=== PATIENT | female | born 1935 | race Caucasian/White ===

== ENCOUNTER 2016-12-16 04:56 | Emergency (ER) | payer MEDICARE, OTHER ==
[2016-12-16 05:19] VITALS: BP 149/69
--- NOTE | 2016-12-16 05:43 | EDM.PDOC ---
ED HPI Trauma - General Chief Complaint: Lower Extremity Injury/Pain Stated Complaint: [facility] Time Seen by Provider: 12/16/16 04:57 Source: Reports: Patient, EMS, RN notes reviewed - History of Present Illness INITIAL COMMENTS - FREE TEXT/NARRATIVE: 81-year-old female is reported to fall out of bed this morning. She has been having quite severe left-sided hip discomfort for several months. this has been worsening, especially for the past one to 2 months. She apparently did have her hip and low back injected several months ago. This morning after falling she was not able to get up to her feet. Ambulance was called. She was transported here without further incident. She denies head or neck pain or injury. She denies chest pain or difficulty breathing. SHe does have pain of the lateral and anterior aspect of the left hip. Increased pain with motion of the left lower extremity. No deformity noted. upon further questioning she states that she does have history of arthritis of the hip. She has been using a walker to get about. This is becoming increasingly difficult for her the past couple of weeks. she does have history of hypertension. She is noted to be on Coumadin in addition to her other medications. She states this was due to previous "blood clot" Allergies/ADRs: Allergies cephalexin Allergy (Verified 12/16/16 05:08) Rash Sulfa (Sulfonamide Antibiotics) Allergy (Verified 12/16/16 05:08) Rash Home Medications: Ambulatory Orders Carvedilol [Coreg] 6.25 mg PO BID 03/01/15 [Confirmed 03/15/15] Furosemide 20 mg PO DAILY 03/01/15 [Confirmed 03/15/15] Hydrocodone/Acetaminophen [Hydrocodon-Acetaminophn 10-325] 1 - 2 tab PO DAILY [Confirmed 03/15/15] PARoxetine [Paxil] 20 mg PO DAILY 03/01/15 [Confirmed 03/15/15] Potassium Chloride 10 meq PO BID 03/01/15 [Confirmed 03/15/15] Simvastatin [Zocor] 20 mg PO BEDTIME 03/01/15 [Confirmed 03/15/15] Sotalol [Betapace] 80 mg PO BID 03/01/15 [Confirmed 03/15/15] Warfarin [Coumadin] 2.5 mg PO ONCALL 03/01/15 [Confirmed 03/15/15] Warfarin [Coumadin] 5 mg PO ONCALL 03/01/15 [Confirmed 03/15/15] Zolpidem [Ambien] 10 mg PO BEDTIME 03/01/15 [Confirmed 03/15/15] amLODIPine [Norvasc] 5 mg PO DAILY 03/01/15 [Confirmed 03/15/15] Zolpidem [Ambien] 5 mg PO BEDTIME #5 tablet 10/06/16 Past Medical History HEENT History: Reports: Cataract Other HEENT History: wears eyeglasses Cardiovascular History: Reports: Hypertension Respiratory History: Reports: SOB 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 History: Reports: GERD Genitourinary History: Reports: Retention, urinary 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 History: Reports: Musculoskeletal History: Reports: Arthritis, Back pain, chronic Other Musculoskeletal History: L) ankle fx in 2006 Hematologic History: Reports: Blood transfusion(s) Dermatologic History: Reports: Eczema - Past Surgical History HEENT Surgical History: Reports: Adenoidectomy, Cataract surgery, Tonsillectomy Female Surgical History: Reports: D&C Other Musculoskeletal Surgeries/Procedures:: several back surgeries Social & Family History - Family History Family Medical History: Noncontributory - Tobacco Use Smoking Status *Q: Never Smoker - Caffeine Use Caffeine Use: Reports: Soda - Alcohol Use Days Per Week of Alcohol Use: 0 - Recreational Drug Use Recreational Drug Use: No Review of Systems - Review of Systems Review Of Systems: See Below Constitutional: Denies: chills, fever Mouth/Throat: Reports: no symptoms Respiratory: Denies: shortness of breath, pleuritic chest pain Cardiovascular: Denies: chest pain GI/Abdominal: Denies: Abdominal pain, Nausea, Vomiting Musculoskeletal: Reports: joint pain (left hip) Neurological: Reports: difficulty walking. Denies: numbness, tingling, trouble speaking, weakness Trauma Exam - Physical Exam Exam: See Below General Appearance: Reports: alert Head: Reports: atraumatic Eyes: bilateral eye: PERRL Ears: Reports: normal external exam Throat/Mouth: Reports: Normal inspection, Normal oropharynx Neck: Reports: non-tender Respiratory Exam: Reports: no respiratory distress, lungs clear, normal breath sounds Cardiovascular: Reports: regular rate, rhythm GI/Abdominal: Reports: soft, non tender Back: Denies: CVA tenderness (R), CVA tenderness (L) Extremities: Reports: pelvis stable, bony-point tenderness (left lateral hip), pain with movement (left hip), pedal edema (race bilateral) Neurologic: Reports: no motor/sensory deficits Skin: Reports: Normal color, Warm/dry EKG INTERPRETATION EKG Date: 12/16/16 [place]: normal P-wave: present QRS: other (Q waves inferior leads, low voltage all extremity leads) Course - Vital Signs Last Recorded V/S: Last Vital Signs Temp 97.4 F 12/16/16 05:16 Pulse 77 12/16/16 05:16 Resp 18 12/16/16 05:16 BP 149/69 H 12/16/16 05:16 Pulse Ox 100 12/16/16 05:16 - Orders/Labs/Meds Orders: Active Orders 24 hr Category Date Time Status EKG 12 Lead [EKG Documentation Completion] [RC] STAT Care 12/16/16 05:44 Active Peripheral IV Care [RC] . DIRECTED Care 12/16/16 05:45 Active Hip Min 2V or 3V w Pelvis Lt [CR] Stat Exams 12/16/16 05:04 Taken Hip wo Cont Lt [CT] Stat Exams 12/16/16 06:13 Taken Sodium Chloride 0.9% [Normal Saline] 1,000 ml Med 12/16/16 05:45 Active IV ASDIRECTED Sodium Chloride 0.9% [Saline Flush] Med 12/16/16 05:44 Active 10 ml FLUSH ASDIRECTED PRN Peripheral IV Insertion Adult [OM.PC] Stat Oth 12/16/16 05:44 Ordered Medication Orders Sodium Chloride (Normal Saline) 1,000 mls @ 75 mls/hr IV ASDIRECTED PHILOMENA Last Admin: 12/16/16 05:55 Dose: 75 mls/hr Sodium Chloride (Saline Flush) 10 ml FLUSH ASDIRECTED PRN PRN Reason: Keep Vein Open Last Admin: 12/16/16 07:38 Dose: 10 ml Labs: Laboratory Tests 12/16/16 12/16/16 12/16/16 Range/Units 05:50 05:50 05:50 WBC 5.97 (3.98-10.04) K/mm3 RBC 3.87 L (3.98-5.22) M/mm3 Hgb 11.7 (11.2-15.7) gm/L Hct 36.4 (34.1-44.9) % MCV 94.1 (79.4-94.8) fl MCH 30.2 (25.6-32.2) pg MCHC 32.1 L (32.2-35.5) g/dl RDW Std Deviation 57.3 H (36.4-46.3) fL Plt Count 206 (182-369) K/mm3 MPV 10.2 (9.4-12.3) fl Neut % (Auto) 82.1 H (34.0-71.1) % Lymph % (Auto) 9.0 L (19.3-51.7) % [place] % (Auto) 8.7 (4.7-12.5) % Eos % (Auto) 0 L (0.7-5.8) Baso % (Auto) 0.0 L (0.1-1.2) % Neut # 4.90 (1.56-6.13) K/mm3 Lymph # 0.54 L (1.18-3.74) K/mm3 [place] # 0.52 H (0.24-0.36) K/mm3 Eos # 0.00 L (0.04-0.36) K/mm3 Baso # 0.00 L (0.01-0.08) K/mm3 Manual Slide Review Abnormal smear ESR (0-20) mm/hr PT 68.9 H* (8.0-13.0) SECONDS INR 5.66 H* Sodium 143 (136-145) mEq/L Potassium 3.4 L (3.5-5.1) mEq/L Chloride 107 (98-107) mEq/L Carbon Dioxide 28 (21-32) mEq/L Anion Gap 11.4 (5-15) BUN 23 H (7-18) mg/dL Creatinine 1.1 H (0.55-1.02) mg/dL Est Cr Clr Drug Dosing 29.79 mL/min Estimated GFR (MDRD) 48 (>60) mL/min BUN/Creatinine Ratio 20.9 H (14-18) Glucose 129 H (83-115) mg/dL Calcium 8.7 (8.5-10.1) mg/dL Total Bilirubin 1.0 (0.2-1.0) mg/dL AST 18 (15-37) U/L ALT 17 (14-59) U/L Alkaline Phosphatase 104 (46-116) U/L C-Reactive Protein < 0.2 (<1.0) mg/dL Total Protein 6.0 L (6.4-8.2) g/dl Albumin 3.1 L (3.4-5.0) g/dl Globulin 2.9 gm/dL Albumin/Globulin Ratio 1.1 (1-2) 12/16/16 Range/Units 05:50 WBC (3.98-10.04) K/mm3 RBC (3.98-5.22) M/mm3 Hgb (11.2-15.7) gm/L Hct (34.1-44.9) % MCV (79.4-94.8) fl MCH (25.6-32.2) pg MCHC (32.2-35.5) g/dl RDW Std Deviation (36.4-46.3) fL Plt Count (182-369) K/mm3 MPV (9.4-12.3) fl Neut % (Auto) (34.0-71.1) % Lymph % (Auto) (19.3-51.7) % [place] % (Auto) (4.7-12.5) % Eos % (Auto) (0.7-5.8) Baso % (Auto) (0.1-1.2) % Neut # (1.56-6.13) K/mm3 Lymph # (1.18-3.74) K/mm3 [place] # (0.24-0.36) K/mm3 Eos # (0.04-0.36) K/mm3 Baso # (0.01-0.08) K/mm3 Manual Slide Review ESR 18 (0-20) mm/hr PT (8.0-13.0) SECONDS INR Sodium (136-145) mEq/L Potassium (3.5-5.1) mEq/L Chloride (98-107) mEq/L Carbon Dioxide (21-32) mEq/L Anion Gap (5-15) BUN (7-18) mg/dL Creatinine (0.55-1.02) mg/dL Est Cr Clr Drug Dosing mL/min Estimated GFR (MDRD) (>60) mL/min BUN/Creatinine Ratio (14-18) Glucose (83-115) mg/dL Calcium (8.5-10.1) mg/dL Total Bilirubin (0.2-1.0) mg/dL AST (15-37) U/L ALT (14-59) U/L Alkaline Phosphatase (46-116) U/L C-Reactive Protein (<1.0) mg/dL Total Protein (6.4-8.2) g/dl Albumin (3.4-5.0) g/dl Globulin gm/dL Albumin/Globulin Ratio (1-2) Meds: Medications Generic Name Dose Route Start Last Admin Trade Name Freq PRN Reason Stop Dose Admin Sodium Chloride 1,000 mls @ 75 mls/hr 12/16/16 05:45 12/16/16 05:55 Normal Saline IV 75 mls/hr ASDIRECTED PHILOMENA Administration Sodium Chloride 10 ml 12/16/16 05:44 12/16/16 07:38 Saline Flush FLUSH 10 ml ASDIRECTED PRN Administration Keep Vein Open Discontinued Medications Generic Name Dose Route Start Last Admin Trade Name Freq PRN Reason Stop Dose Admin Hydromorphone HCl 0.25 mg 12/16/16 05:52 12/16/16 05:59 Dilaudid IVPUSH 12/16/16 05:53 0.25 mg ONETIME ONE Administration Hydromorphone HCl 0.25 mg 12/16/16 06:18 12/16/16 06:21 Dilaudid IVPUSH 12/16/16 06:19 0.25 mg ONETIME ONE Administration Phytonadione 5 mg 12/16/16 08:06 Aquamephyton PO 12/16/16 08:07 ONETIME ONE - Re-Assessments/Exams Free Text/Narrative Re-Assessment/Exam: 12/16/16 05:49 x-rays of the left hip and pelvis show that there has been some sort of destructive process resulting in complete loss of the left femoral neck and head. This results in dislocation of the femur relative to the acetabulum. irregularity of the acetabulum suggests destructive process. See radiology report for details. Will check labs including white blood count, C-reactive protein and sedimentation rate. Also of note she is on Coumadin. this is apparently for history of previous "blood clot" We'll check pro time INR. 12/16/16 07:43. Discussed this a while ago with Dr. Delgado Orthopedist nurse monitoring. With high concern for malignancy he is requesting a transfer to [facility]. Contact has been made with Dr. Major, Orthopedist nurse monitoring who is in surgery at the present time. Films have been pushed to [facility] , when he has a chance to review those he will call back and let us be aware that we can transfer patient as planned. She will go by ground ambulance. She has had dilaudid 0.25 mg IV times 2 for pain and that is helping her. As noted above she is on Coumadin with history of previous "blood clot". INR has come back elevated at 5.66. Will give vitamin K 5 mg PO at this time. Departure - Departure Time of Disposition: 08:17 Disposition: DC/Tfer to Acute Hospital 02 Condition: serious Clinical Impression: Hip fracture, pathological Qualifiers: Encounter type: initial encounter Pathology associated with fracture: unspecified disease Laterality: left Qualified Code(s): M84.452A - Pathological fracture, left femur, initial encounter for fracture Fall Qualifiers: Encounter type: initial encounter Qualified Code(s): W19.XXXA - Unspecified fall, initial encounter Referrals: Brunilda Wadsworth, [employer] [Primary Care Provider] - Forms: ED Department Discharge - My Orders Last 24 Hours: My Active Orders 12/16/16 05:04 Hip Min 2V or 3V w Pelvis Lt [CR] Stat 12/16/16 05:44 EKG 12 Lead [EKG Documentation Completion] [RC] STAT Sodium Chloride 0.9% [Saline Flush] 10 ml FLUSH ASDIRECTED PRN Peripheral IV Insertion Adult [OM.PC] Stat 12/16/16 05:45 Peripheral IV Care [RC] . DIRECTED Sodium Chloride 0.9% [Normal Saline] 1,000 ml IV ASDIRECTED 12/16/16 06:13 Hip wo Cont Lt [CT] Stat - Assessment/Plan Last 24 Hours: My Active Orders 12/16/16 05:04 Hip Min 2V or 3V w Pelvis Lt [CR] Stat 12/16/16 05:44 EKG 12 Lead [EKG Documentation Completion] [RC] STAT Sodium Chloride 0.9% [Saline Flush] 10 ml FLUSH ASDIRECTED PRN Peripheral IV Insertion Adult [OM.PC] Stat 12/16/16 05:45 Peripheral IV Care [RC] . DIRECTED Sodium Chloride 0.9% [Normal Saline] 1,000 ml IV ASDIRECTED 12/16/16 06:13 Hip wo Cont Lt [CT] Stat
[2016-12-16] MEDS ORDERED: Sodium Chloride 0.9% 10 ML Syringe FLUSH PRN (05:44)
[2016-12-16] MEDS ORDERED: Sodium Chloride 0.9% 1,000 ML IV SCH (05:45)
[2016-12-16] MEDS ORDERED: HYDROmorphone 0.5 MG/0.5 ML Syringe IVPUSH ONE ×2 (05:52→06:18)
[2016-12-16] MEDS ORDERED: Phytonadione ORAL 5mg/5ml Soln Simple Syrup U/D PO ONE (08:06)
[2016-12-16] MEDS ORDERED: Phytonadione ORAL 2.5mg/2.5ml Soln Simple Syrup U/D PO ONE (08:30)
[2016-12-16] MEDS ORDERED: Morphine 2 MG/ML Syringe IVPUSH ONE (08:35)
[2016-12-16] MEDS ORDERED: Morphine 2 MG/ML Syringe ONE (08:35)
--- NOTE | 2016-12-16 08:51 | CR ---
Pelvis and left hip: AP view of the pelvis was obtained as well as 2 views of the left hip. Comparison: Previous study of 10/06/16. Left femoral head and neck are missing. This is an interval change from previous exam. Joint space within the right hip is preserved. Sacroiliac joints are unremarkable. Bony structures are osteopenic. Previous lumbar spine surgery is noted. Bony structures are osteopenic. Impression: 1. Abnormal left hip as described above. Findings could be due to infection or neoplastic. This is a significant interval change from previous exam. Diagnostic code #5 Agree with preliminary report issued by [facility] (preliminary report dictated on 12/16/16, 6:37 AM Central Time) [facility]
--- NOTE | 2016-12-16 10:52 | CT ---
CT Left Hip Left hip: Multiple axial sections through the left hip were obtained. Reconstructed coronal and sagittal images were reviewed. Findings: Displaced subcapital fracture is identified. A portion of the femoral head remains within the left hip which is severely osteoporotic causing its disappearance on plain film exam. There is a destructive process being seen within the subcapital region. Diffuse joint space narrowing is noted within the left hip. Previous lumbar spine surgery is partially seen. Dystrophic calcifications are seen around the left hip. Impression: 1. Subcapital fracture within the left hip. Severe osteoporosis is seen within the remaining femoral head within the hip. Destructive process seen within the subcapital region with differential including neoplasm as well as infection. 2. Soft tissue calcifications are seen around the left hip presumably dystrophic. Diagnostic code #5 MTDD
== END 2016-12-16 09:00 ==
LOC: SUPCPDRO 04:56 → JD.ED 04:56
DX: M84.452A Pathological fracture, left femur, initial encounter for fracture (principal); W19.XXXA Unspecified fall, initial encounter; Z88.1 Allergy status to other antibiotic agents; Z88.2 Allergy status to sulfonamides; Z79.01 Long term (current) use of anticoagulants; Z79.899 Other long term (current) drug therapy; I10 Essential (primary) hypertension; K21.9 Gastro-esophageal reflux disease without esophagitis; R33.9 Retention of urine, unspecified
CPT/HCPCS: 36415; 73502; 73700; 80053; 85025; 85610; 85652; 86140; 93005; 96361; 96374; 96375; 99285; A9270; J1170; J2270; J7040; J7050; 99284

== ENCOUNTER 2016-12-28 16:14 | Emergency (ER) | payer MEDICARE, OTHER ==
[2016-12-28] MEDS ORDERED: HYDROmorphone 0.5 MG/0.5 ML Syringe IVPUSH ONE (17:13)
[2016-12-28] MEDS ORDERED: Ondansetron 4 MG/2 ML SDV IVPUSH ONE (17:13)
[2016-12-28] MEDS ORDERED: Sodium Chloride 0.9% 1,000 ML IV SCH (17:15)
--- NOTE | 2016-12-28 18:21 | EDM.PDOC ---
ED HPI Trauma - General Chief Complaint: Lower Extremity Injury/Pain Stated Complaint: [facility] Time Seen by Provider: 12/28/16 16:57 Source: Reports: Patient, Family (Son), RN notes reviewed History Limitations: Reports: No limitations - History of Present Illness INITIAL COMMENTS - FREE TEXT/NARRATIVE: The patient fell out of bed and injured her left hip on 12/16/2016. The radiograph was concerning for malignancy, as her femoral neck and head were missing, therefore the patient was transferred to [facility], and underwent a left total hip arthroplasty per Dr. Cook on 12/18/2016. She was discharged home on Coumadin this past 12/24/2016. She has been receiving home health, and will be getting home physical therapy. She states that she was sitting in her recliner this afternoon and twisted to look out the window, when she developed sudden onset left hip pain. She did not feel a "pop", but she is now unable to move her left hip without increased pain. Allergies/ADRs: Allergies cephalexin Allergy (Verified 12/16/16 05:08) Rash Sulfa (Sulfonamide Antibiotics) Allergy (Verified 12/16/16 05:08) Rash Home Medications: Ambulatory Orders Carvedilol [Coreg] 6.25 mg PO BID 03/01/15 [Confirmed 12/28/16] Furosemide 20 mg PO DAILY 03/01/15 [Confirmed 12/28/16] Hydrocodone/Acetaminophen [Hydrocodon-Acetaminophn 10-325] 1 - 2 tab PO DAILY [Confirmed 12/28/16] PARoxetine [Paxil] 20 mg PO DAILY 03/01/15 [Confirmed 12/28/16] Potassium Chloride 10 meq PO BID 03/01/15 [Confirmed 12/28/16] Simvastatin [Zocor] 20 mg PO BEDTIME 03/01/15 [Confirmed 12/28/16] Warfarin [Coumadin] 2.5 mg PO ONCALL 03/01/15 [Confirmed 12/28/16] Warfarin [Coumadin] 5 mg PO ONCALL 03/01/15 [Confirmed 12/28/16] Zolpidem [Ambien] 10 mg PO BEDTIME 03/01/15 [Confirmed 12/28/16] Past Medical History HEENT History: Reports: Cataract, Impaired vision Other HEENT History: wears eyeglasses Cardiovascular History: Reports: Afib (resolved with ablation many years ago), Heart Failure, High cholesterol, Hypertension 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 History: Reports: GERD 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: 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: Musculoskeletal History: Reports: Arthritis, Back pain, chronic, Osteoporosis Psychiatric History: Reports: Anxiety, Depression Hematologic History: Reports: Blood transfusion(s) Dermatologic History: Reports: Psoriasis - Past Surgical History HEENT Surgical History: Reports: Cataract surgery, Tonsillectomy Cardiovascular Surgical History: Reports: Cardiac Ablation GI Surgical History: Reports: Colonoscopy Female Surgical History: Reports: D&C (x 5 or 6) Neurological Surgical History: Reports: Lumbar spine (fusion, x 3) Musculoskeletal Surgical History: Reports: Carpal tunnel (bilateral), Hip replacement (left, 12/18/16), Knee replacement (bilateral), ORIF (left ankle) Social & Family History - Family History Family Medical History: Noncontributory - Tobacco Use Smoking Status *Q: Never Smoker Second Hand Smoke Exposure: No - Caffeine Use Caffeine Use: Reports: None - Alcohol Use Alcohol Use History: No - Recreational Drug Use Recreational Drug Use: No - Living Situation & Occupation Living situation: Reports: , with family (Son) Occupation: retired Review of Systems - Review of Systems Review Of Systems: See Below Constitutional: Reports: no symptoms Eyes: Reports: no symptoms Ears: Reports: no symptoms Nose: Reports: no symptoms Mouth/Throat: Reports: no symptoms Respiratory: Reports: No Symptoms Cardiovascular: Reports: no symptoms GI/Abdominal: Reports: No symptoms Genitourinary: Reports: no symptoms Musculoskeletal: Reports: no symptoms Skin: Reports: no symptoms Neurological: Reports: No Symptoms Psychiatric: Reports: no symptoms Trauma Exam - Physical Exam Exam: See Below Exam Limited By: No limitations General Appearance: Reports: alert, WD/WN, mild distress Extremities: Reports: other (Left hip surgical wound appears to be healing well , with no suggestion of infection. On the lateral aspect of the head, there is an anterior fullness. It is tender to palpation. The left lower extremity is foreshortened approximately 2-3 cm. Examination is consistent with an anterior dislocation. Neurovascular status of the left lower extremity is intact.) EKG INTERPRETATION EKG Date: 12/28/16 Time: 17:20 Rhythm: NSR Rate (beats/min): 87 [place]: LAD-left axis deviation P-wave: present QRS: wide ST-T: normal QT: normal Comparison: no change (12/16/2016) EKG Interpretation Comments: 2 multiform PVC's Course - Vital Signs Last Recorded V/S: Last Vital Signs Temp 37.5 C 12/28/16 19:10 Pulse 89 12/28/16 19:23 Resp 17 12/28/16 19:23 BP 134/78 12/28/16 19:23 Pulse Ox 95 12/28/16 19:23 - Orders/Labs/Meds Orders: Active Orders 24 hr Category Date Time Status EKG Documentation Completion [RC] STAT Care 12/28/16 17:13 Active Hip Min 1V Lt [CR] Stat Exams 12/28/16 19:23 Taken Hip Min 2V or 3V Lt [CR] Stat Exams 12/28/16 17:11 Taken Sodium Chloride 0.9% [Normal Saline] 1,000 ml Med 12/28/16 17:15 Active IV ASDIRECTED Medication Orders Sodium Chloride (Normal Saline) 1,000 mls @ 60 mls/hr IV ASDIRECTED PHILOMENA Last Admin: 12/28/16 17:24 Dose: 60 mls/hr Labs: Laboratory Tests 12/28/16 12/28/16 12/28/16 Range/Units 17:35 17:35 17:35 WBC 7.29 (3.98-10.04) K/mm3 RBC 2.89 L (3.98-5.22) M/mm3 Hgb 8.6 L (11.2-15.7) gm/L Hct 27.2 L (34.1-44.9) % MCV 94.1 (79.4-94.8) fl MCH 29.8 (25.6-32.2) pg MCHC 31.6 L (32.2-35.5) g/dl RDW Std Deviation 56.3 H (36.4-46.3) fL Plt Count 202 (182-369) K/mm3 MPV 9.1 L (9.4-12.3) fl Neutrophils % (Manual) 79 H (40-60) % Band Neutrophils % 1 (0-10) % Lymphocytes % (Manual) 12 L (20-40) % Atypical Lymphs % 0 % Monocytes % (Manual) 5 (2-10) % Eosinophils % (Manual) 3 (0.7-5.8) % Basophils % (Manual) 0 L (0.1-1.2) Nucleated RBCs 1.0 % Toxic Granulation 2+ moderate Platelet Estimate Adequate Hypochromasia 1+ slight Anisocytosis 2+ moderate Microcytosis 2+ moderate RBC Morph Comment Not Reportable PT 32.8 H (8.0-13.0) SECONDS INR 2.82 APTT 53 H (22-36) SECONDS Sodium 146 H (136-145) mEq/L Potassium 3.8 (3.5-5.1) mEq/L Chloride 111 H (98-107) mEq/L Carbon Dioxide 26 (21-32) mEq/L Anion Gap 12.8 (5-15) BUN 20 H (7-18) mg/dL Creatinine 1.1 H (0.55-1.02) mg/dL Est Cr Clr Drug Dosing 29.79 mL/min Estimated GFR (MDRD) 48 (>60) mL/min BUN/Creatinine Ratio 18.2 H (14-18) Glucose 104 (83-115) mg/dL Calcium 8.1 L (8.5-10.1) mg/dL Total Bilirubin 0.9 (0.2-1.0) mg/dL AST 13 L (15-37) U/L ALT 20 (14-59) U/L Alkaline Phosphatase 97 (46-116) U/L Total Protein 5.4 L (6.4-8.2) g/dl Albumin 2.6 L (3.4-5.0) g/dl Globulin 2.8 gm/dL Albumin/Globulin Ratio 0.9 L (1-2) Meds: Medications Generic Name Dose Route Start Last Admin Trade Name Freq PRN Reason Stop Dose Admin Sodium Chloride 1,000 mls @ 60 mls/hr 12/28/16 17:15 12/28/16 17:24 Normal Saline IV 60 mls/hr ASDIRECTED PHILOMENA Administration Discontinued Medications Generic Name Dose Route Start Last Admin Trade Name Freq PRN Reason Stop Dose Admin Ephedrine Sulfate Confirm 12/28/16 20:01 Ephedrine Sulfate Administered 12/28/16 20:02 Dose 50 mg .ROUTE .STK-MED ONE Hydromorphone HCl 0.5 mg 12/28/16 17:13 12/28/16 17:35 Dilaudid IVPUSH 12/28/16 17:14 0.5 mg ONETIME ONE Administration Lidocaine HCl 20 ml 12/28/16 19:20 Xylocaine 1% INJECT 12/28/16 19:21 ONETIME ONE Ondansetron HCl 4 mg 12/28/16 17:13 12/28/16 17:24 Zofran IVPUSH 12/28/16 17:14 4 mg ONETIME ONE Administration Propofol Confirm 12/28/16 19:27 Diprivan 20 Ml Administered 12/28/16 19:28 Dose 200 mg .ROUTE .STK-MED ONE Succinylcholine Chloride 80 mg 12/28/16 19:20 Quelicin IV 12/28/16 19:21 ONETIME ONE - Radiology Interpretation Free Text/Narrative:: 2-view radiographs of the left hip appear to demonstrate complete dislocation of the left hip arthroplasty. The hardware appears otherwise uninjured. No pelvic fracture seen. Spinal hardware noted. Formal read per the Radiologist pending. - Re-Assessments/Exams Free Text/Narrative Re-Assessment/Exam: 12/28/16 18:[address] Mark at 18:19. He will review the radiographs and call me back. 12/28/16 18:23 Dr. Mark called back at 18:23. He will come in to reduce the hip. He asked that we have anesthesia present. 12/28/16 19:55 Steve Garibay CRNA, came to the ED and anesthetized the patient with propofol before intubating the patient with a 7.0 OETT- please see his note. Dr. Mark then reduced the left hip manually. The patient tolerated the procedure well and has since recovered fully. The patient states that she was not given a hip wedge pillow when discharged from [facility], therefore we have provided one for her. Departure - Departure Time of Disposition: 19:57 Disposition: Home, Self-Care 01 Condition: good Clinical Impression: Dislocation of internal left hip prosthesis Instructions: Prosthetic Hip Dislocation Referrals: Brunilda Wadsworth NP [Primary Care Provider] - Jonathan Cook MD [Ordering Only Provider] - Forms: ED Department Discharge Additional Instructions: You were seen in the emergency room tonight after developing left hip pain after twisting in a chair. X-rays confirmed that you dislocated your left hip prosthesis. After sedation, your left hip dislocation was reduced by Dr. Mark. You have been given an abductor hip pillow. You need to wear this when sitting and sleeping, in order to keep your knees apart. We recommend that you followup with Dr. Cook at the next available appointment. If any other problems, please do not hesitate to return to the ER. - My Orders Last 24 Hours: My Active Orders 12/28/16 17:11 Hip Min 2V or 3V Lt [CR] Stat 12/28/16 17:13 EKG Documentation Completion [RC] STAT 12/28/16 17:15 Sodium Chloride 0.9% [Normal Saline] 1,000 ml IV ASDIRECTED 12/28/16 19:23 Hip Min 1V Lt [CR] Stat - Assessment/Plan Last 24 Hours: My Active Orders 12/28/16 17:11 Hip Min 2V or 3V Lt [CR] Stat 12/28/16 17:13 EKG Documentation Completion [RC] STAT 12/28/16 17:15 Sodium Chloride 0.9% [Normal Saline] 1,000 ml IV ASDIRECTED 12/28/16 19:23 Hip Min 1V Lt [CR] Stat
--- NOTE | 2016-12-28 19:06 | PCM.PREANE ---
Preanesthetic Assessment - Anesthesia/Transfusion/Family Hx Anesthesia History: Prior Anesthesia Without Reaction Family History of Anesthesia Reaction: No Transfusion History: No Prior Transfusion(s) - Review of Systems General: No Symptoms Pulmonary: No Symptoms Cardiovascular: No Symptoms 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: No symptoms Neurological: No Symptoms Other: Reports: None - Physical Assessment NPO Status Date: 12/28/16 NPO Status Time: 16:00 Pulse: 96 O2 Sat by Pulse Oximetry: 96 Respiratory Rate: 22 Blood Pressure: 141/85 Temperature: 37.5 C Vital Signs: Last Vital Signs Temp 37.5 C 12/28/16 16:19 Pulse 96 12/28/16 16:19 Resp 22 H 12/28/16 16:19 BP 141/85 H 12/28/16 16:19 Pulse Ox 96 12/28/16 16:19 Height: 1.52 m Weight: 73.028 kg ASA Class: 2E Mental Status: Alert & Oriented x3 Airway Class: Mallampati = 1 Dentition: Reports: Dentures Thyro-Mental Finger Breadths: 3 Mouth Opening Finger Breadths: 3 ROM/Head Extension: Full Lungs: Clear to auscultation, Normal respiratory effort Cardiovascular: Regular Rate, Regular Rhythm, No Murmurs - Lab Values: Laboratory Last Values WBC 7.29 K/mm3 (3.98-10.04) 12/28/16 17:35 RBC 2.89 M/mm3 (3.98-5.22) L 12/28/16 17:35 Hgb 8.6 gm/L (11.2-15.7) L 12/28/16 17:35 Hct 27.2 % (34.1-44.9) L 12/28/16 17:35 MCV 94.1 fl (79.4-94.8) 12/28/16 17:35 MCH 29.8 pg (25.6-32.2) 12/28/16 17:35 MCHC 31.6 g/dl (32.2-35.5) L 12/28/16 17:35 RDW Std Deviation 56.3 fL (36.4-46.3) H 12/28/16 17:35 Plt Count 202 K/mm3 (182-369) 12/28/16 17:35 MPV 9.1 fl (9.4-12.3) L 12/28/16 17:35 Neutrophils % (Manual) 79 % (40-60) H 12/28/16 17:35 Band Neutrophils % 1 % (0-10) 12/28/16 17:35 Lymphocytes % (Manual) 12 % (20-40) L 12/28/16 17:35 Atypical Lymphs % 0 % 12/28/16 17:35 Monocytes % (Manual) 5 % (2-10) 12/28/16 17:35 Eosinophils % (Manual) 3 % (0.7-5.8) 12/28/16 17:35 Basophils % (Manual) 0 (0.1-1.2) L 12/28/16 17:35 Nucleated RBCs 1.0 % 12/28/16 17:35 Toxic Granulation 2+ moderate 12/28/16 17:35 Platelet Estimate Adequate 12/28/16 17:35 Hypochromasia 1+ slight 12/28/16 17:35 Anisocytosis 2+ moderate 12/28/16 17:35 Microcytosis 2+ moderate 12/28/16 17:35 RBC Morph Comment Not Reportable 12/28/16 17:35 PT 32.8 SECONDS (8.0-13.0) H 12/28/16 17:35 INR 2.82 12/28/16 17:35 APTT 53 SECONDS (22-36) H 12/28/16 17:35 Sodium 146 mEq/L (136-145) H 12/28/16 17:35 Potassium 3.8 mEq/L (3.5-5.1) 12/28/16 17:35 Chloride 111 mEq/L (98-107) H 12/28/16 17:35 Carbon Dioxide 26 mEq/L (21-32) 12/28/16 17:35 Anion Gap 12.8 (5-15) 12/28/16 17:35 BUN 20 mg/dL (7-18) H 12/28/16 17:35 Creatinine 1.1 mg/dL (0.55-1.02) H 12/28/16 17:35 Est Cr Clr Drug Dosing 29.79 mL/min 12/28/16 17:35 Estimated GFR (MDRD) 48 mL/min (>60) 12/28/16 17:35 BUN/Creatinine Ratio 18.2 (14-18) H 12/28/16 17:35 Glucose 104 mg/dL (83-115) 12/28/16 17:35 Calcium 8.1 mg/dL (8.5-10.1) L 12/28/16 17:35 Total Bilirubin 0.9 mg/dL (0.2-1.0) 12/28/16 17:35 AST 13 U/L (15-37) L 12/28/16 17:35 ALT 20 U/L (14-59) 12/28/16 17:35 Alkaline Phosphatase 97 U/L (46-116) 12/28/16 17:35 Total Protein 5.4 g/dl (6.4-8.2) L 12/28/16 17:35 Albumin 2.6 g/dl (3.4-5.0) L 12/28/16 17:35 Globulin 2.8 gm/dL 12/28/16 17:35 Albumin/Globulin Ratio 0.9 (1-2) L 12/28/16 17:35 - Imaging/EKG Impressions: Sinus rhythm on chart - Allergies Allergies/Adverse Reactions: Allergies Allergy/AdvReac Type Severity Reaction Status Date / Time cephalexin Allergy Rash Verified 12/16/16 05:08 Sulfa (Sulfonamide Allergy Rash Verified 12/16/16 05:08 Antibiotics) - Blood Blood Available: No Product(s) Available: None - Anesthesia Plan Beta Meg: Carvedilol Med Last Dose Date: 12/28/16 Med Last Dose Time: 10:00 - Acknowledgements Anesthesia Type Planned: General Anesthesia Pt an Appropriate Candidate for the Planned Anesthesia: Yes Alternatives and Risks of Anesthesia Discussed w Pt/Guardian: Yes Pt/Guardian Understands and Agrees with Anesthesia Plan: Yes PreAnesthesia Questionnaire HEENT History: Reports: Cataract, Impaired vision Other HEENT History: wears eyeglasses Cardiovascular History: Reports: Hypertension Respiratory History: Reports: SOB 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 History: Reports: GERD Genitourinary History: Reports: Retention, urinary 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 hip replacement december 2016 - SUBSTANCE USE Smoking Status *Q: Never Smoker Second Hand Smoke Exposure: No Days Per Week of Alcohol Use: 0 Recreational Drug Use History: No - HOME MEDS Home Medications: Home Meds Carvedilol [Coreg] 6.25 mg PO BID 03/01/15 [History] Furosemide 20 mg PO DAILY 03/01/15 [History] Hydrocodone/Acetaminophen [Hydrocodon-Acetaminophn 10-325] 1 - 2 tab PO DAILY [History] PARoxetine [Paxil] 20 mg PO DAILY 03/01/15 [History] Potassium Chloride 10 meq PO BID 03/01/15 [History] Simvastatin [Zocor] 20 mg PO BEDTIME 03/01/15 [History] Warfarin [Coumadin] 2.5 mg PO ONCALL 03/01/15 [History] Warfarin [Coumadin] 5 mg PO ONCALL 03/01/15 [History] Zolpidem [Ambien] 10 mg PO BEDTIME 03/01/15 [History] - CURRENT (IN HOUSE) MEDS Current Meds: Current Medications Sodium Chloride (Normal Saline) 1,000 mls @ 60 mls/hr IV ASDIRECTED PHILOMENA Last Admin: 12/28/16 17:24 Dose: 60 mls/hr Discontinued Medications Hydromorphone HCl (Dilaudid) 0.5 mg IVPUSH ONETIME ONE Stop: 12/28/16 17:14 Last Admin: 12/28/16 17:35 Dose: 0.5 mg Ondansetron HCl (Zofran) 4 mg IVPUSH ONETIME ONE Stop: 12/28/16 17:14 Last Admin: 12/28/16 17:24 Dose: 4 mg Preanesthetic Assessment - PHYSICAL ASSESSMENT O2 Sat by Pulse Oximetry: 96 RR: 22 Vital Signs: Last Vital Signs Temp 37.5 C 12/28/16 16:19 Pulse 96 12/28/16 16:19 Resp 22 H 12/28/16 16:19 BP 141/85 H 12/28/16 16:19 Pulse Ox 96 12/28/16 16:19 Height: 1.52 m Weight: 73.028 kg - LAB Values: Laboratory Last Values WBC 7.29 K/mm3 (3.98-10.04) 12/28/16 17:35 RBC 2.89 M/mm3 (3.98-5.22) L 12/28/16 17:35 Hgb 8.6 gm/L (11.2-15.7) L 12/28/16 17:35 Hct 27.2 % (34.1-44.9) L 12/28/16 17:35 MCV 94.1 fl (79.4-94.8) 12/28/16 17:35 MCH 29.8 pg (25.6-32.2) 12/28/16 17:35 MCHC 31.6 g/dl (32.2-35.5) L 12/28/16 17:35 RDW Std Deviation 56.3 fL (36.4-46.3) H 12/28/16 17:35 Plt Count 202 K/mm3 (182-369) 12/28/16 17:35 MPV 9.1 fl (9.4-12.3) L 12/28/16 17:35 Neutrophils % (Manual) 79 % (40-60) H 12/28/16 17:35 Band Neutrophils % 1 % (0-10) 12/28/16 17:35 Lymphocytes % (Manual) 12 % (20-40) L 12/28/16 17:35 Atypical Lymphs % 0 % 12/28/16 17:35 Monocytes % (Manual) 5 % (2-10) 12/28/16 17:35 Eosinophils % (Manual) 3 % (0.7-5.8) 12/28/16 17:35 Basophils % (Manual) 0 (0.1-1.2) L 12/28/16 17:35 Nucleated RBCs 1.0 % 12/28/16 17:35 Toxic Granulation 2+ moderate 12/28/16 17:35 Platelet Estimate Adequate 12/28/16 17:35 Hypochromasia 1+ slight 12/28/16 17:35 Anisocytosis 2+ moderate 12/28/16 17:35 Microcytosis 2+ moderate 12/28/16 17:35 RBC Morph Comment Not Reportable 12/28/16 17:35 PT 32.8 SECONDS (8.0-13.0) H 12/28/16 17:35 INR 2.82 12/28/16 17:35 APTT 53 SECONDS (22-36) H 12/28/16 17:35 Sodium 146 mEq/L (136-145) H 12/28/16 17:35 Potassium 3.8 mEq/L (3.5-5.1) 12/28/16 17:35 Chloride 111 mEq/L (98-107) H 12/28/16 17:35 Carbon Dioxide 26 mEq/L (21-32) 12/28/16 17:35 Anion Gap 12.8 (5-15) 12/28/16 17:35 BUN 20 mg/dL (7-18) H 12/28/16 17:35 Creatinine 1.1 mg/dL (0.55-1.02) H 12/28/16 17:35 Est Cr Clr Drug Dosing 29.79 mL/min 12/28/16 17:35 Estimated GFR (MDRD) 48 mL/min (>60) 12/28/16 17:35 BUN/Creatinine Ratio 18.2 (14-18) H 12/28/16 17:35 Glucose 104 mg/dL (83-115) 12/28/16 17:35 Calcium 8.1 mg/dL (8.5-10.1) L 12/28/16 17:35 Total Bilirubin 0.9 mg/dL (0.2-1.0) 12/28/16 17:35 AST 13 U/L (15-37) L 12/28/16 17:35 ALT 20 U/L (14-59) 12/28/16 17:35 Alkaline Phosphatase 97 U/L (46-116) 12/28/16 17:35 Total Protein 5.4 g/dl (6.4-8.2) L 12/28/16 17:35 Albumin 2.6 g/dl (3.4-5.0) L 12/28/16 17:35 Globulin 2.8 gm/dL 12/28/16 17:35 Albumin/Globulin Ratio 0.9 (1-2) L 12/28/16 17:35 - ALLERGIES Allergies/Adverse Reactions: Allergies Allergy/AdvReac Type Severity Reaction Status Date / Time cephalexin Allergy Rash Verified 12/16/16 05:08 Sulfa (Sulfonamide Allergy Rash Verified 12/16/16 05:08 Antibiotics)
[2016-12-28] MEDS ORDERED: Succinylcholine 200 MG/10 ML MDV IV ONE (19:20)
[2016-12-28] MEDS ORDERED: Lidocaine 1% 20 ML MDV INJECT ONE (19:20)
[2016-12-28] MEDS ORDERED: Lidocaine 1% PF 2 ML SDV INJECT ONE (19:25)
[2016-12-28 19:26] VITALS: BP 134/78
[2016-12-28] MEDS ORDERED: Propofol 200 MG/20 ML SDV ONE (19:27)
[2016-12-28] MEDS ORDERED: ePHEDrine 50 MG/ML SDV ONE (20:01)
--- NOTE | 2016-12-30 06:52 | CR ---
Left hip: Two views of the left hip were obtained. Comparison: Previous hip study performed earlier on the same day. Previous hip dislocation has been reduced. Hip prosthesis appears anatomic in alignment. Partially visualized lumbar spine surgery noted. Bony structures are osteopenic. Impression: 1. Previous hip dislocation has been reduced. 2. Other incidental findings. Diagnostic code #2
--- NOTE | 2016-12-30 06:53 | CR ---
Left hip: Two views of the left hip were obtained. Comparison: Previous hip CT of 12/16/16. Left hip prosthesis is seen. Dislocation is seen of the femoral component out of the acetabular component. Bony structures are osteoporotic. Previous lumbar spine surgery is noted. No acute bony abnormality is seen. Impression: 1. Dislocated left hip prosthesis. Diagnostic code #3
--- NOTE | 2016-12-31 15:24 | OR ---
DATE OF OPERATION: 12/28/2016 SURGEON: Luis Eduardo Mark MD PHYSICAL TESTING SUPERVISOR: None. PREOPERATIVE DIAGNOSIS: Left total hip arthroplasty dislocation. POSTOPERATIVE DIAGNOSIS: Left total hip arthroplasty dislocation. OPERATION PERFORMED: Closed reduction of left total hip arthroplasty dislocation. ANESTHESIA: MAC sedation, medical records supervisor was Obey Garibay CRNA. ESTIMATED BLOOD LOSS: Not applicable. COMPLICATIONS: None. CONDITION: Stable. DESCRIPTION OF PROCEDURE: The patient was identified in the emergency department. After informed consent, the left lower extremity was identified. At this time, the patient underwent MAC sedation. The left lower extremity hip dislocation was relocated with traction at this time. The patient had palpable clunk when the hip was relocated. Leg lengths were then equal. Post-reduction films showed a well- concentrically reduced left total hip arthroplasty. At this time, the patient was placed in a wedge and will follow up with Dr. Cook or the midlevel in the near future. MMODAL /[id number] KEVIN
--- NOTE | 2017-01-01 08:39 | CONS ---
CONSULTING PHYSICIAN: Luis Eduardo Mark MD DATE OF CONSULTATION: 12/28/2016 CHIEF COMPLAINT: Left hip pain. HISTORY OF PRESENT ILLNESS: This is a 81-year-old female who comes in after the patient had a total hip arthroplasty done by Dr. Cook on 12/18/2016. The patient subsequently was doing well and having no pain, but tried to look out of the window and extended herself and heard a pop to her left hip. She was unable to bear weight at that time and had increasing pain. The patient subsequently was brought to the Emergency Department, where she was found to have a left hip dislocation. At that time we were consulted. PAST MEDICAL HISTORY: Significant for cataracts, impaired vision, atrial fibrillation, GERD, chronic back pain, osteoporosis, anxiety, depression, and psoriasis. PAST SURGICAL HISTORY: Cataract surgery, tonsillectomy, cardiac ablation, colonoscopy, D and C x5, lumbar spine, carpal tunnel, hip replacement, left total hip arthroplasty, total knee arthroplasty bilaterally, ORIF of left ankle. SOCIAL HISTORY: The patient continues to live at home. Her son is there most of the time with her. She is using a walker for ambulation. REVIEW OF SYSTEMS: See electronic record for further details. PHYSICAL EXAMINATION: GENERAL: Alert. The patient in mild distress secondary to left hip pain. EXTREMITIES: She has obvious deformity with internally rotated and shortened left lower extremity. The patient's hip was not ranged. The patient had no tenderness to palpation, about the left knee, she has sensation intact to light touch to the medial, lateral, plantar, first dorsal web space, 2+ dorsalis pedis, posterior tibial pulses. She is able to dorsiflex and plantar flex the left ankle as well as the great toe. DIAGNOSTIC DATA: Radiographs reviewed showing superior left hip dislocation of the previous left total hip arthroplasty. Otherwise components appeared intact and well seated. ASSESSMENT: Left total hip arthroplasty dislocation. PLAN: At this time, I did discuss with the patient that we will have to relocate it at this time. We will plan placing her in a wedge and then have her follow up with Dr. Cook or his midlevel in the near future. The patient was again instructed on total hip arthroplasty rehab protocol. The patient at this time underwent a closed reduction and will follow up with Dr. Cook or his midlevel in the near future. MMAMANDA /[id number] KEVIN
== END 2016-12-28 20:18 | disposition home or self-care (01) ==
LOC: JD.ED 16:14
PROC: 0SWBXJZ Revision of Synthetic Substitute in Left Hip Joint, External Approach (ICD-10-PCS; principal; 2016-12-28)
DX: T84.021A Dislocation of internal left hip prosthesis, initial encounter (principal); I48.91 Unspecified atrial fibrillation; I50.9 Heart failure, unspecified; E78.00 Pure hypercholesterolemia, unspecified; I10 Essential (primary) hypertension; K21.9 Gastro-esophageal reflux disease without esophagitis; F41.8 Other specified anxiety disorders; Z88.8 Allergy status to other drugs, medicaments and biological substances; Z79.899 Other long term (current) drug therapy
CPT/HCPCS: 27252; 36415; 73501; 73502; 80053; 85025; 85610; 85730; 93005; 96361; 96374; 96375; 99285; J0330; J1170; J2405; J7040; 01200; 99283; J2704; J3490

== ENCOUNTER 2017-01-02 13:43 | Inpatient (IN) | payer MEDICARE, OTHER ==
[2017-01-02] MEDS ORDERED: Pantoprazole 40 MG Vial IVPUSH ONE (14:25)
[2017-01-02] MEDS ORDERED: Sodium Chloride 0.9% 1,000 ML IV SCH (14:30)
--- NOTE | 2017-01-02 14:33 | EDM.PDOC ---
ED HPI GI/ABDOMINAL - General Chief Complaint: 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 Problem Stated Complaint: NOSEBLEED Time Seen by Provider: 01/02/17 14:15 Source of Information: Reports: Patient, Family (son) History Limitations: Reports: No limitations - History of Present Illness INITIAL COMMENTS - FREE TEXT/NARRATIVE: 81-year-old female presents the ED for evaluation of dyspnea. She presented to her primary care provider at [facility] this morning do to dyspnea on minimal exertion and fatigue. Patient fell and broke her left hip around 16 December and was transferred to [place] where Dr. Basurto repaired her hip. She apparently required at least 2 units of blood intra-and postoperatively. Of note patient is chronically anticoagulated with Coumadin and even they had to wait a few days before they could operate on her to get her INR down to around 1.5. She reports since getting home her stools have been going black and tarry ever since. No she's on Coumadin chronically due to 2 chronic atrial fibrillation. She was seen last week 28 of December do to a spontaneous dislocation of her left hip which was replaced by Dr. Wong today. She identifies that her left knee is more toward black and blue now than it was originally.Hemoglobin when she was seen here on the was 11.7.when seen on the hemoglobin was 8.6. She claims that stools are always black and tarry since she got home. Unfortunately on her way home at noon today from the clinic she went through the door frame and smashed her face on the door and then on the floor and she fell into the house. No loss of consciousness. Active bleeding from both nares. Mild contusion right forehead. No loss of consciousness reported. She denies any neck pain. She states she fell on her knees but they're no worse than they were before. Symptom Onset Date: 12/16/16 (fairly required 2 units of blood after surgery. Hemoglobin was 8.6 when seen in the ED last week after dislocating hip on the .) Timing/Duration: Reports: Gradual onset Location: other (feels short of breath and weak and dizzy.) Severity: moderate Improves with: Denies: defecating Worsens with: Denies: defecating Context: Reports: recent surgery (left total hip replacement on the of this month), recent trauma, other. Denies: sick contact, bad/questionable food , out of country travel, lifting (fell in the house today injuring face and head.), activity/exercise Associated Symptoms (-Female): Reports: loss of appetite, malaise, other ( shortness of breath on minimal exertion.). 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) - Related Data Allergies/ADRs: Allergies Allergy/AdvReac Type Severity Reaction Status Date / Time cephalexin Allergy Rash Verified 01/02/17 13:56 Sulfa (Sulfonamide Allergy Rash Verified 01/02/17 13:56 Antibiotics) Home Meds: Home Meds Carvedilol [Coreg] 6.25 mg PO BID 03/01/15 [History] Furosemide 20 mg PO DAILY 03/01/15 [History] Hydrocodone/Acetaminophen [Hydrocodon-Acetaminophn 10-325] 1 - 2 tab PO DAILY [History] PARoxetine [Paxil] 20 mg PO DAILY 03/01/15 [History] Potassium Chloride 10 meq PO BID 03/01/15 [History] Simvastatin [Zocor] 20 mg PO BEDTIME 03/01/15 [History] Warfarin [Coumadin] 2.5 mg PO ONCALL 03/01/15 [History] Warfarin [Coumadin] 5 mg PO ONCALL 03/01/15 [History] Zolpidem [Ambien] 10 mg PO BEDTIME 03/01/15 [History] Diclofenac Sodium [Voltaren] 75 mg PO BID 01/02/17 [History] Gabapentin [Neurontin] 100 mg PO TID 01/02/17 [History] Past Medical History HEENT History: Reports: Cataract, Impaired vision Other HEENT History: wears eyeglasses Cardiovascular History: Reports: Afib, Heart Failure, High cholesterol, Hypertension Respiratory History: Reports: SOB 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 History: Reports: GERD Genitourinary History: Reports: Retention, urinary 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: Musculoskeletal History: Reports: Arthritis, Back pain, chronic, Osteoporosis Other Musculoskeletal History: L) ankle fx in 2006 Neurological History: Reports: Migraines Psychiatric History: Reports: Anxiety, Depression Hematologic History: Reports: Blood transfusion(s) Dermatologic History: Reports: Psoriasis - Past Surgical History HEENT Surgical History: Reports: Cataract surgery, Tonsillectomy Cardiovascular Surgical History: Reports: Cardiac Ablation GI Surgical History: Reports: Colonoscopy Female Surgical History: Reports: D&C Neurological Surgical History: Reports: Lumbar spine Musculoskeletal Surgical History: Reports: Carpal tunnel, Hip replacement, Knee replacement, ORIF Social & Family History - Family History Family Medical History: Noncontributory - Tobacco Use Smoking Status *Q: Never Smoker Second Hand Smoke Exposure: No - Caffeine Use Caffeine Use: Reports: Coffee - Alcohol Use Days Per Week of Alcohol Use: 0 - Recreational Drug Use Recreational Drug Use: No - Living Situation & Occupation Living situation: Reports: , with family (Son) Occupation: retired ED ROS GENERAL - Review of Systems Review Of Systems: See Below Constitutional: Reports: malaise, weakness, fatigue, decreased appetite, weight loss. Denies: fever, chills HEENT: Reports: Glasses (mild bilaterally), Hearing loss, Nosebleed (after trauma today at noon.), Vertigo (sporadic) Respiratory: Reports: Shortness of Breath. Denies: Wheezing (on minimal exertion much worse this last week.), Pleuritic Chest Pain, Cough, Sputum, Hemoptysis, Other Cardiovascular: Reports: Dyspnea on exertion, Edema (both lower extremities left greater than right.), Lightheadedness, Palpitations (with walking). Denies : Claudication, Orthopnea Endocrine: Reports: fatigue GI/Abdominal: Reports: Black stool, Decreased appetite, Melena. Denies: Abdominal pain, Anorexia, Bloody stool, Difficulty swallowing, Mucous in stool, Nausea, Stool incontinence, Vomiting, Other : Reports: frequency ( stress incontinence), incontinence (both urge and) Musculoskeletal: Reports: back pain, joint pain (left hip but is getting better.both knees hurt from arthritis.) Skin: Reports: bruising ( relocation of dislocated left hip.), other (2 Lovenox shots in the abdominal wall are healing.) Neurological: Reports: Dizziness, Difficulty Walking, Weakness. Denies: Confusion, Headache, Numbness, Paresthesia, Pre-Existing Deficit, Seizure, Syncope, Tingling, Tremors, Trouble Speaking, Change in Speech Psychiatric: Reports: No symptoms Hematologic/Lymphatic: Reports: anemia (reportedly hemoglobin was only 5.2 today.), easy bleeding, easy bruising Immunologic: Reports: no symptoms (being on Coumadin.) ED EXAM, GI/ABD - Physical Exam Exam: See Below Exam Limited By: No limitations General Appearance: alert, WD/WN, mild distress, other (bruising and swelling of her nose.) Eyes: bilateral: normal appearance, pale conjunctiva (marked bilaterally.) Ears: normal TMs, other (question of 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 Both inner naris have active red blood with clots. No septal hematoma noted.) Throat/Mouth: Normal inspection, Normal lips, Normal oropharynx, Other (dried blood on her lower lips. She wears dentures. There is some blood in the posterior oropharynx drainage from the nose.) Head: atraumatic, normocephalic, facial tenderness, other Neck: normal inspection (right forehead.), supple, non-tender, full range of motion. No: lymphadenopathy (L), lymphadenopathy (R) Respiratory/Chest: no respiratory distress, lungs clear, normal breath sounds, decreased breath sounds (both lower lobes.), rales Cardiovascular: no JVD, irregularly irregular (atrial fibrillation with a rate around 85 per minute.). No: normal peripheral pulses, no edema, no gallop GI/Abdominal: normal bowel sounds, soft, non tender, no organomegaly, other (no signs of previous abdominal surgery.) Rectal (Female) Exam: Normal Exam, Other (no melena stool or black stool noted at the anus. Quake stool is negative.) Back Exam: other (mild kyphosis thoracic spine). No: CVA tenderness (L), CVA tenderness (R) Extremities: other (left lateral hip wound is healing well. She has marked ecchymosis and swelling of the entire leg but marked ecchymoses particularly around the knee she states this occurred since her knee was relocated after dislocating it. Suspect area of traction. The lower leg is markedly swollen with grade 4 pitting edema to the knee. The left lower extremity continues to progress pitting edema.) Neurological: alert, oriented, CN II-XII intact, normal cognition Psychiatric: normal affect, normal mood Skin Exam: Warm, Dry, Pallor (marked pallor.) EKG INTERPRETATION EKG Date: 01/02/17 Time: 15:00 Rhythm: NSR Rate (beats/min): 80 [place]: LAD-left axis deviation (is 33. Questionable left anterior fascicular block.) P-wave: present QRS: other (there are Q waves in V1 in your Q waves V2 and V3 compatible with an old anteroseptal myocardial infarction. There are Q waves in leads 3 and aVF compatible with an old inferior wall myocardial infarction.) ST-T: other (diffuse flattening of the T waves in multiple leads. Nonspecific findings) QT: prolonged (minimally prolonged.) Course - Vital Signs Last Recorded V/S: Last Vital Signs Temp 36.7 C 01/03/17 05:13 Pulse 90 01/03/17 05:13 Resp 18 01/03/17 05:13 BP 116/73 01/03/17 05:13 Pulse Ox 95 01/03/17 05:13 - Orders/Labs/Meds Orders: Active Orders 24 hr Category Date Time Status Oxygen Therapy [RC] ASDIRECTED Care 01/02/17 14:22 Active ANTIBODY IDENTIFICATION [BBK] Stat Lab 01/02/17 16:22 Results Guaiac [OCCULT BLOOD DIAGNOSTIC] [OP] Stat Lab 01/02/17 14:30 Ordered PACKED CELLS [RED BLOOD CELLS LP] [BBK] Stat Lab 01/02/17 16:22 Results PATIENT RETYPE [BBK] Stat Lab 01/02/17 16:22 Results TYPE AND SCREEN [BBK] Stat Lab 01/02/17 16:22 Results URINALYSIS W/MICROSCOPIC [UA W/MICROSCOPIC] [URIN] Stat Lab 01/02/17 14:22 Uncollected Medication Orders Hydrocodone Bitart/Acetaminophen ([place] 325-10 Mg) 1 tab PO Q6H PRN PRN Reason: Pain Last Admin: 01/03/17 06:13 Dose: 1 tab Admin: 01/02/17 20:10 Dose: 1 tab Carvedilol (Coreg) 6.25 mg PO BID PHILOMENA Last Admin: 01/02/17 20:06 Dose: 6.25 mg Furosemide (Lasix) 20 mg IVPUSH Q8H PHILOMENA Stop: 01/03/17 13:01 Last Admin: 01/03/17 06:12 Dose: 20 mg Admin: 01/02/17 20:06 Dose: 20 mg Gabapentin (Neurontin) 100 mg PO TID [facility], [facility] Last Admin: 01/02/17 20:09 Dose: 100 mg Hydromorphone HCl (Dilaudid) 0.5 mg IVPUSH Q4H PRN PRN Reason: Pain (moderate 4-6) Promethazine HCl 12.5 mg/ (Sodium Chloride) 50.5 mls @ 100 mls/hr IV Q6H PRN PRN Reason: Nausea/Vomiting Ondansetron HCl (Zofran) 4 mg IVPUSH Q8H PRN PRN Reason: Nausea/Vomiting Pantoprazole Sodium (Protonix Iv) 40 mg IVPUSH Q12H [facility], [facility] Last Admin: 01/03/17 06:12 Dose: 40 mg Admin: 01/02/17 20:11 Dose: Paroxetine HCl (Paxil) 20 mg PO DAILY [facility], [facility] Simvastatin (Zocor) 20 mg PO BEDTIME [facility], [facility] Last Admin: 01/02/17 20:09 Dose: 20 mg Zolpidem Tartrate (Ambien) 10 mg PO BEDTIME [facility] Last Admin: 01/02/17 20:06 Dose: 10 mg Labs: Laboratory Tests 01/02/17 01/02/17 01/02/17 Range/Units 14:25 14:25 14:25 WBC 6.47 (3.98-10.04) K/mm3 RBC 1.66 L (3.98-5.22) M/mm3 Hgb 5.0 L* (11.2-15.7) gm/L Hct 16.6 L (34.1-44.9) % MCV 100.0 H (79.4-94.8) fl MCH 30.1 (25.6-32.2) pg MCHC 30.1 L (32.2-35.5) g/dl RDW Std Deviation 60.4 H (36.4-46.3) fL Plt Count 229 (182-369) K/mm3 MPV 8.9 L (9.4-12.3) fl Neutrophils % (Manual) 67 H (40-60) % Band Neutrophils % 5 (0-10) % Lymphocytes % (Manual) 20 (20-40) % Atypical Lymphs % 0 % Monocytes % (Manual) 7 (2-10) % Eosinophils % (Manual) 0 L (0.7-5.8) % Basophils % (Manual) 1 (0.1-1.2) Toxic Granulation 2+ moderate Platelet Estimate Adequate Polychromasia 1+ slight Hypochromasia 2+ moderate Anisocytosis 1+ sligh Microcytosis 1+ slight RBC Morph Comment Not Reportable PT 45.5 H (8.0-13.0) SECONDS INR 3.83 Sodium 143 (136-145) mEq/L Potassium 4.2 (3.5-5.1) mEq/L Chloride 108 H (98-107) mEq/L Carbon Dioxide 25 (21-32) mEq/L Anion Gap 14.2 (5-15) BUN 30 H (7-18) mg/dL Creatinine 1.6 H (0.55-1.02) mg/dL Est Cr Clr Drug Dosing 20.48 mL/min Estimated GFR (MDRD) 31 (>60) mL/min BUN/Creatinine Ratio 18.8 H (14-18) Glucose 103 (83-115) mg/dL Calcium 8.0 L (8.5-10.1) mg/dL Magnesium (1.8-2.4) mg/dl Total Bilirubin 2.3 H (0.2-1.0) mg/dL AST 12 L (15-37) U/L ALT 13 L (14-59) U/L Alkaline Phosphatase 99 (46-116) U/L CK-MB (CK-2) < 0.5 (0-3.6) ng/ml Troponin I < 0.017 (0.00-0.056) ng/mL C-Reactive Protein 18.2 H* (<1.0) mg/dL B-Natriuretic Peptide (0-100) pg/mL Total Protein 5.4 L (6.4-8.2) g/dl Albumin 2.5 L (3.4-5.0) g/dl Globulin 2.9 gm/dL Albumin/Globulin Ratio 0.9 L (1-2) H. pylori IgG Antibody (NEGATIVE) 01/02/17 01/02/17 01/02/17 Range/Units 14:25 14:25 14:25 WBC (3.98-10.04) K/mm3 RBC (3.98-5.22) M/mm3 Hgb (11.2-15.7) gm/L Hct (34.1-44.9) % MCV (79.4-94.8) fl MCH (25.6-32.2) pg MCHC (32.2-35.5) g/dl RDW Std Deviation (36.4-46.3) fL Plt Count (182-369) K/mm3 MPV (9.4-12.3) fl Neutrophils % (Manual) (40-60) % Band Neutrophils % (0-10) % Lymphocytes % (Manual) (20-40) % Atypical Lymphs % % Monocytes % (Manual) (2-10) % Eosinophils % (Manual) (0.7-5.8) % Basophils % (Manual) (0.1-1.2) Toxic Granulation Platelet Estimate Polychromasia Hypochromasia Anisocytosis Microcytosis RBC Morph Comment PT (8.0-13.0) SECONDS INR Sodium (136-145) mEq/L Potassium (3.5-5.1) mEq/L Chloride (98-107) mEq/L Carbon Dioxide (21-32) mEq/L Anion Gap (5-15) BUN (7-18) mg/dL Creatinine (0.55-1.02) mg/dL Est Cr Clr Drug Dosing mL/min Estimated GFR (MDRD) (>60) mL/min BUN/Creatinine Ratio (14-18) Glucose (83-115) mg/dL Calcium (8.5-10.1) mg/dL Magnesium 2.1 (1.8-2.4) mg/dl Total Bilirubin (0.2-1.0) mg/dL AST (15-37) U/L ALT (14-59) U/L Alkaline Phosphatase (46-116) U/L CK-MB (CK-2) (0-3.6) ng/ml Troponin I (0.00-0.056) ng/mL C-Reactive Protein (<1.0) mg/dL B-Natriuretic Peptide 227 H (0-100) pg/mL Total Protein (6.4-8.2) g/dl Albumin (3.4-5.0) g/dl Globulin gm/dL Albumin/Globulin Ratio (1-2) H. pylori IgG Antibody Negative (NEGATIVE) Meds: Medications Generic Name Dose Route Start Last Admin Trade Name Freq PRN Reason Stop Dose Admin Hydrocodone Bitart/Acetaminophen 1 tab 01/02/17 19:43 01/03/17 06:13 [place] 325-10 Mg PO 1 tab Q6H PRN Administration Pain Carvedilol 6.25 mg 01/02/17 21:00 01/02/17 20:06 Coreg PO 6.25 mg BID PHILOMENA Administration Furosemide 20 mg 01/02/17 21:00 01/03/17 06:12 Lasix IVPUSH 01/03/17 13:01 20 mg Q8H PHILOMENA Administration Gabapentin 100 mg 01/02/17 21:00 01/02/17 20:09 Neurontin PO 100 mg TID PHILOMENA Administration Hydromorphone HCl 0.5 mg 01/02/17 20:01 Dilaudid IVPUSH Q4H PRN Pain (moderate 4-6) Promethazine HCl 12.5 mg/ 50.5 mls @ 100 mls/hr 01/02/17 19:44 Sodium Chloride IV Q6H PRN Nausea/Vomiting Ondansetron HCl 4 mg 01/02/17 19:44 Zofran IVPUSH Q8H PRN Nausea/Vomiting Pantoprazole Sodium 40 mg 01/02/17 18:00 01/03/17 06:12 Protonix Iv IVPUSH 40 mg Q12H PHILOMENA Administration Paroxetine HCl 20 mg 01/03/17 09:00 Paxil PO DAILY PHILOMENA Simvastatin 20 mg 01/02/17 21:00 01/02/17 20:09 Zocor PO 20 mg BEDTIME PHILOMENA Administration Zolpidem Tartrate 10 mg 01/02/17 21:00 01/02/17 20:06 Ambien PO 10 mg BEDTIME PHILOMENA Administration Discontinued Medications Generic Name Dose Route Start Last Admin Trade Name Daniela PRN Reason Stop Dose Admin Diphtheria/Tetanus/Acell Pertussis 0.5 ml 01/03/17 08:00 Boostrix IM 01/03/17 08:01 .ONCE ONE Sodium Chloride 1,000 mls @ 100 mls/hr 01/02/17 14:30 01/02/17 14:36 Normal Saline IV 100 mls/hr ASDIRECTED PHILOMENA Administration Sodium Chloride Confirm 01/02/17 20:36 01/02/17 21:13 Normal Saline Administered 01/02/17 20:37 250 ml Dose Administration 250 mls @ as directed .ROUTE .STK-MED ONE Sodium Chloride Confirm 01/03/17 00:10 01/03/17 01:09 Normal Saline Administered 01/03/17 00:11 250 ml Dose Administration 250 mls @ as directed .ROUTE .STK-MED ONE Sodium Chloride Confirm 01/03/17 04:22 01/03/17 05:00 Normal Saline Administered 01/03/17 04:23 250 ml Dose Administration 250 mls @ as directed .ROUTE .STK-MED ONE Oxymetazoline HCl 0 ml 01/03/17 00:39 01/03/17 01:04 Afrin Original 0.05% Nasal [place] OSCAR 01/03/17 00:40 1 spray ONETIME ONE Administration Pantoprazole Sodium 40 mg 01/02/17 14:25 01/02/17 14:35 Protonix Iv IVPUSH 01/02/17 14:26 40 mg ONETIME ONE Administration Phytonadione 5 mg 01/02/17 18:21 01/02/17 21:16 Aquamephyton PO 01/02/17 18:22 2.5 mg ONETIME ONE Administration Phytonadione Confirm 01/02/17 20:36 01/02/17 21:14 Aquamephyton Administered 01/02/17 20:37 2.5 mg Dose Administration 2.5 mg .ROUTE .STK-MED ONE Pneumococcal 13-Valent Conj Vacc 0.5 ml 01/03/17 08:00 Prevnar 13 IM 01/03/17 08:01 .ONCE ONE Pneumococcal Polyvalent Vaccine 0.5 ml 01/02/17 18:42 Pneumovax 23 SUBCUT 01/02/17 18:43 .ONCE ONE - Radiology Interpretation Free Text/Narrative:: 81-year-old female sent across from [facility] where she visited with several Ananth today. Apparently identified hemoglobin of 5.2. Patient has undergone left total hip replacement on the of this month. She fell and broke her left hip on the . She was sent to [place] for primary repair. Patient is on Coumadin chronically for a fibrillation and had to wait to and workup a 1.5 before they could operate on her. She required 2 units of blood intra-or postoperatively there. Last week she spontaneously dislocated her left hip and Dr. Judith brenner replaced it. Her hemoglobin at that time was 8.6. Was 11.5 when she had the initial fracture. There is some report that she has black tarry stools and this is according to the patient. She has no upper GI discomfort. No history of peptic ulcer disease.apparently hemoglobin this morning at [facility] was 5.2. She was thus sent over to the ED for potential admission to hospital for blood transfusion and further evaluation of source of blood loss. - Re-Assessments/Exams Free Text/Narrative Re-Assessment/Exam: 01/02/17 14:45 stool tested for blood here is quite negative. Stool appears to be brown in color. I did order one dose of protonic 40 mg IV bolus. Hemoglobin reported by our lab is 5.0. I have crossed matched her for 5 units of packed red blood cells.patient has no contraindication to receiving blood and consent form to be signed. 01/02/17 14:53 CT scan of the head reveals no intracranial fractures or intracranial bleeding. There is age-appropriate appropriate degenerative changes bilaterally particularly small vessel ischemic changes in both basal ganglia but no lacunar infarcts identified. CT scan of the facial bones reveals fracture of the nose with fair alignment.he does not require surgical repair. There is chronic sinusitis in the base of the right maxillary sinus. No other fractures are identified.chest x-ray reveals moderately enlarged heart. Tortuous thoracic aorta is noted. Previous cervical spine surgery and lumbar spine surgery is appreciated. 01/02/17 15:17; white count is 6.47 with 67% neutrophils and 5% bands reported. Hemoglobin is 5.0 and hematocrit of 16.6. Platelets are 229,000. MCV is 100. PT is 45.5 INR is 3.83.i.e. mildly supratherapeutic. Sodium is 143 potassium is 4.2. BUN is 30 creatinine is 1.6 with an EGFR of 31%. This is stage III chronic kidney disease glucose is 103 bilirubin elevated at 2.3 is suggesting a component of hemolysis. BNP is 227 albumin fraction low at 2.5. Issue is going to require 5 units of packed cells have been crossmatched for her. She meets admission criteria and I will discuss case with Dr. Dave admitting hospitalist. Departure - Departure Time of Disposition: 16:16 Disposition: Admitted As Inpatient 68 Condition: poor Clinical Impression: Elevated INR (international normalized ratio) Anemia Qualifiers: Iron deficiency anemia type: chronic blood loss Fracture of left hip requiring operative repair Qualifiers: Fracture healing: with routine healing CHF NYHA class III (symptoms with mildly strenuous activities) Qualifiers: Congestive heart failure type: diastolic Congestive heart failure chronicity: acute on chronic Qualified Code(s): I50.33 - Acute on chronic diastolic ( congestive) heart failure Closed fracture nasal bone Qualifiers: Encounter type: initial encounter Qualified Code(s): S02.2XXA - Fracture of nasal bones, initial encounter for closed fracture - My Orders Last 24 Hours: My Active Orders 01/02/17 14:22 Oxygen Therapy [RC] ASDIRECTED URINALYSIS W/MICROSCOPIC [UA W/MICROSCOPIC] [URIN] Stat 01/02/17 14:30 Guaiac [OCCULT BLOOD DIAGNOSTIC] [OP] Stat 01/02/17 16:22 ANTIBODY IDENTIFICATION [BBK] Stat PACKED CELLS [RED BLOOD CELLS LP] [BBK] Stat PATIENT RETYPE [BBK] Stat TYPE AND SCREEN [BBK] Stat - Assessment/Plan Last 24 Hours: My Active Orders 01/02/17 14:22 Oxygen Therapy [RC] ASDIRECTED URINALYSIS W/MICROSCOPIC [UA W/MICROSCOPIC] [URIN] Stat 01/02/17 14:30 Guaiac [OCCULT BLOOD DIAGNOSTIC] [OP] Stat 01/02/17 16:22 ANTIBODY IDENTIFICATION [BBK] Stat PACKED CELLS [RED BLOOD CELLS LP] [BBK] Stat PATIENT RETYPE [BBK] Stat TYPE AND SCREEN [BBK] Stat
--- NOTE | 2017-01-02 15:00 | CR ---
Chest: Portable view of the chest was obtained. Comparison: Previous chest x-ray of 07/03/15. Heart size is slightly enlarged. Tortuous thoracic aorta is seen. Previous cervical spine surgery and lumbar spine surgery is noted. Lungs are clear with no acute infiltrates. Impression: 1. Incidental findings. Nothing acute is appreciated on portable chest x-ray. Diagnostic code #2
--- NOTE | 2017-01-02 15:23 | CT ---
CT facial bones Technique: Multiple axial sections through the facial bones were obtained. Reconstructed coronal and sagittal images were reviewed. Findings: Air-fluid level is again seen within the right maxillary sinus. Other sinuses are clear. Degenerative change is partially seen within the cervical spine as well as previous cervical spine surgery. Degenerative change noted within both temporomandibular joints worse on the right side. Minimally displaced nasal bone fracture is seen. No additional facial bone fracture is appreciated. Impression: 1. Slightly displaced nasal bone fracture. No additional facial bone fracture is seen. 2. Air-fluid level within the right maxillary sinus as discussed on head CT exam. 3. Degenerative change within the cervical spine with previous surgery. Degenerative change within both temporomandibular joints. Diagnostic code #3
--- NOTE | 2017-01-02 15:23 | CT ---
Head CT Technique: Multiple axial sections through the brain were obtained. Contrast was not utilized. Findings: Comparison: No previous intracranial imaging. Findings: Ventricles along with basal cisterns and sulci over the convexities are mildly prominent. Several minimal areas of low density areas are seen within the basal ganglia which are felt to be due to combination of small vessel ischemic demyelination change and old lacunar infarcts. No other abnormal parenchymal densities are seen. No evidence of intracranial hemorrhage. No midline shift or mass effect is seen. Bone window settings were reviewed which show no discrete calvarial abnormality. Visualized sinuses show an air-fluid level within the right maxillary sinus. No acute calvarial abnormality is seen. Impression: 1. Air-fluid within the right maxillary sinus. Uncertain if this represents change from previous trauma or pre-existing sinusitis. 2. Mild senescent change as described above. 3. Nothing acute is identified on noncontrast head CT exam. Diagnostic code #3
--- NOTE | 2017-01-02 18:31 | PCM.HP ---
H&P History of Present Illness - General Date of Service: 01/02/17 Admit Problem/Dx: Admission Diagnosis/Problem Admission Diagnosis/Problem Anemia due to blood loss Source of Information: Patient, Provider History Limitations: Reports: No limitations - History of Present Illness Initial Comments - Free Text/Narative: 81 year old female with iatrogenic blood loss, required blood transfusion maddy- procedure, left hip replacement; pre Hgb was 11.7 cf post left hip replacement at 8.6. Reportedly she received at least 2 units of PRBCs, details are not available at the time of the inital evaluation. A spontaneous dislocation of the left hip occurred and was reduced, 12/26/16, Hgb 8.6 was documented. The patient returns today with a Hgb of 5.2. She has been on chronic coumadin therapy for AFib. The patient was symptomatic with PICKETT on minimal exertion, dizziness; falling today with a subsequent closed nasal fracture. There was no LOC. She reports falling on her knees. She does not appear to be on iron therapy post left hip repalcement. Onset of Symptoms: Reports: gradual Duration of Symptoms: Reports: Day(s):, Getting worse Location: Reports: generalized Quality: Reports: Same as previous episode Severity: moderate Improves with: Reports: Other (blood transfusion) Worsens with: Reports: None Context: Reports: activity/exercise Associated Symptoms: Reports: shortness of breath, weakness - Related Data Allergies/Adverse Reactions: Allergies Allergy/AdvReac Type Severity Reaction Status Date / Time cephalexin Allergy Rash Verified 01/02/17 13:56 Sulfa (Sulfonamide Allergy Rash Verified 01/02/17 13:56 Antibiotics) Home Medications: Home Meds Carvedilol [Coreg] 6.25 mg PO BID 03/01/15 [History] Furosemide 20 mg PO DAILY 03/01/15 [History] Hydrocodone/Acetaminophen [Hydrocodon-Acetaminophn 10-325] 1 - 2 tab PO DAILY [History] PARoxetine [Paxil] 20 mg PO DAILY 03/01/15 [History] Potassium Chloride 10 meq PO BID 03/01/15 [History] Simvastatin [Zocor] 20 mg PO BEDTIME 03/01/15 [History] Warfarin [Coumadin] 2.5 mg PO ONCALL 03/01/15 [History] Warfarin [Coumadin] 5 mg PO ONCALL 03/01/15 [History] Zolpidem [Ambien] 10 mg PO BEDTIME 03/01/15 [History] Diclofenac Sodium [Voltaren] 75 mg PO BID 01/02/17 [History] Gabapentin [Neurontin] 100 mg PO TID 01/02/17 [History] Past Medical History HEENT History: Reports: Cataract, Impaired vision Other HEENT History: wears eyeglasses Cardiovascular History: Reports: Afib, Heart Failure, High cholesterol, Hypertension Respiratory History: Reports: SOB 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 History: Reports: GERD Genitourinary History: Reports: Retention, urinary FACTORY HAND History: Reports: Musculoskeletal History: Reports: Arthritis, Back pain, chronic, Osteoporosis Other Musculoskeletal History: L) ankle fx in 2006 Neurological History: Reports: Migraines Psychiatric History: Reports: Anxiety, Depression Hematologic History: Reports: Blood transfusion(s) Dermatologic History: Reports: Psoriasis - Past Surgical History HEENT Surgical History: Reports: Cataract surgery, Tonsillectomy Cardiovascular Surgical History: Reports: Cardiac Ablation GI Surgical History: Reports: Colonoscopy Female Surgical History: Reports: D&C Neurological Surgical History: Reports: Lumbar spine Musculoskeletal Surgical History: Reports: Carpal tunnel, Hip replacement, Knee replacement, ORIF Social & Family History - Family History Family Medical History: Noncontributory - Tobacco Use Smoking Status *Q: Never Smoker Second Hand Smoke Exposure: No - Caffeine Use Caffeine Use: Reports: Coffee - Alcohol Use Days Per Week of Alcohol Use: 0 - Recreational Drug Use Recreational Drug Use: No - Living Situation & Occupation Living situation: Reports: , with family (Son) Occupation: retired H&P Review of Systems - Review of Systems: Review Of Systems: See Below General: Reports: malaise, weakness, fatigue, decreased appetite, weight loss HEENT: Reports: no symptoms Pulmonary: Reports: Shortness of Breath Cardiovascular: Reports: dyspnea on exertion 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: Reports: Black stool, Decreased appetite Genitourinary: Reports: incontinence (urge) Musculoskeletal: Reports: no symptoms Skin: Reports: no symptoms Psychiatric: Reports: no symptoms Neurological: Reports: Dizziness Hematologic/Lymphatic: Reports: anemia, easy bleeding Immunologic: Reports: no symptoms Exam - Exam Exam: See Below - Vital Signs Vital Signs: Last Vital Signs Temp 36.4 C 01/02/17 18:27 Pulse 83 01/02/17 18:27 Resp 12 01/02/17 18:27 BP 106/71 01/02/17 17:40 Pulse Ox 95 01/02/17 18:27 Orthostatic Blood Pressure [ 90/67 Standing] Orthostatic Blood Pressure [ 117/70 Sitting] Orthostatic Blood Pressure [ 111/66 Supine] Weight: 77.111 kg - Exam Quality Assessment: supplemental oxygen, DVT prophylaxis General: alert, oriented, cooperative, mild distress HEENT: Conjunctiva clear, EOMI, Nares patent, Normal nasal septum (edema), Pupils equal, Pupils reactive, Other (pale) Neck: supple, trachea midline Lungs: Normal respiratory effort Cardiovascular: regular rate, irregular rhythm Abdomen: normal bowel sounds, soft, guarding (no), rigidity (no), rebound (no) (Female) Exam: Deferred Rectal (Female) Exam: Deferred (negative per ED) Back Exam: normal inspection Extremities: normal pulses, edema (bilateral) Skin: warm, ecchymosis (LLE) Neurological: cranial nerves intact Neuro Extensive - Mental Status: alert, oriented x3, normal mood/affect, normal cognition Neuro Extensive - Motor, Sensory, Reflexes: CN II-XII intact Psychiatric: alert, normal affect, normal mood - Patient Data Lab Results last 24 hrs: Laboratory Results - last 24 hr 01/02/17 01/02/17 Range/Units 16:22 16:22 Blood Type A NEGATIVE Cancelled Gel Antibody Screen Positive Cancelled Crossmatch See Detail See Detail Result Diagrams: 01/03/17 11:10 01/03/17 11:10 *Q Meaningful Use (ADM) - VTE *Q VTE Criteria *Q: - Stroke *Q Stroke Criteria *Q: - AMI *Q AMI Criteria *Q: - Problem List (1) Anemia SNOMED Code(s): 047356422 ICD Code: D64.9 - ANEMIA, UNSPECIFIED Status: Acute Priority: High Current Visit: Yes Qualifiers: Iron deficiency anemia type: chronic blood loss (2) CHF NYHA class III (symptoms with mildly strenuous activities) SNOMED Code(s): 851144022, 329384765 ICD Code: I50.9 - HEART FAILURE, UNSPECIFIED Status: Acute Current Visit : Yes Qualifiers: Congestive heart failure type: diastolic Congestive heart failure chronicity: acute on chronic Qualified Code(s): I50.33 - Acute on chronic diastolic (congestive) heart failure (3) Closed fracture nasal bone SNOMED Code(s): 91818670 ICD Code: S02.2XXA - FRACTURE OF NASAL BONES, INIT ENCNTR FOR CLOSED FRACTURE Status: Acute Current Visit: Yes Qualifiers: Encounter type: initial encounter Qualified Code(s): S02.2XXA - Fracture of nasal bones, initial encounter for closed fracture (4) Elevated INR (international normalized ratio) SNOMED Code(s): 604317721, 690705192 ICD Code: R79.1 - ABNORMAL COAGULATION PROFILE Status: Acute Current Visit: Yes (5) Fall SNOMED Code(s): 5188308, 243522916 ICD Code: W19.XXXA - UNSPECIFIED FALL, INITIAL ENCOUNTER Status: Acute Current Visit: No Qualifiers: Encounter type: initial encounter Qualified Code(s): W19.XXXA - Unspecified fall, initial encounter Problem List Initiated/Reviewed/Updated: Yes Orders Last 24hrs: Active Orders 24 hr Category Date Time Status Antiembolic Devices [RC] PER UNIT ROUTINE Care 01/02/17 18:10 Ordered Bedrest Bathroom Privileges [RC] ASDIRECTED Care 01/02/17 18:06 Ordered Notify Provider Consults [RC] ASDIRECTED Care 01/02/17 18:09 Ordered Consult to Occupational Therapy [OT Evaluation and Cons 01/03/17 10:00 Ordered Treatment] [CONS] Routine Consult to Physical Therapy [PT Evaluation and Cons 01/03/17 09:00 Ordered Treatment] [CONS] Routine Consult to Physician [CONS] Routine Cons 01/03/17 08:00 Ordered Consult to Group Fitness Department Head [CONS] Routine Cons 01/03/17 09:19 Ordered Clear Liquid Diet [DIET] Diet 01/02/17 Dinner Active NPO After Midnight [Nothing per Oral After Midnight Diet 01/03/17 Breakfast Ordered Diet] [DIET] B-TYPE NATRIURETIC PEPTIDE,BNP [CHEM] Routine Lab 01/03/17 08:00 Ordered BASIC METABOLIC PANEL,BMP [CHEM] Routine Lab 01/03/17 08:00 Ordered CBC WITH AUTO DIFF [HEME] Routine Lab 01/03/17 08:00 Ordered INR,PT,PROTHROMBIN TIME [COAG] Routine Lab 01/03/17 08:00 Ordered RED BLOOD CELLS LP [BBK] Stat Lab 01/02/17 16:22 Results Carvedilol [Coreg] Med 01/02/17 21:00 Active 6.25 mg PO BID Furosemide [Lasix] Med 01/02/17 21:00 Ordered 20 mg IVPUSH Q8H Gabapentin [Neurontin] Med 01/02/17 21:00 Ordered 100 mg PO TID PARoxetine [Paxil] Med 01/03/17 09:00 Ordered 20 mg PO DAILY Pantoprazole [ProTONIX IV] Med 01/02/17 18:30 Ordered 40 mg IVPUSH Q12H Simvastatin [Zocor] Med 01/02/17 21:00 Ordered 20 mg PO BEDTIME Zolpidem [Ambien] Med 01/02/17 21:00 Ordered 10 mg PO BEDTIME SCD [Sequential Compression Device] [OM.PC] Routine Oth 01/02/17 18:09 Ordered Code Status [Resuscitation Status] Routine Resus Stat 01/02/17 18:03 Ordered Medication Orders Carvedilol (Coreg) 6.25 mg PO BID PHILOMENA Gabapentin (Neurontin) 100 mg PO TID PHILOMENA Sodium Chloride (Normal Saline) 1,000 mls @ 100 mls/hr IV ASDIRECTED PHILOMENA Last Admin: 01/02/17 14:36 Dose: 100 mls/hr Pantoprazole Sodium (Protonix Iv) 40 mg IVPUSH Q12H PHILOMENA Paroxetine HCl (Paxil) 20 mg PO DAILY PHILOMENA Simvastatin (Zocor) 20 mg PO BEDTIME PHILOMENA Zolpidem Tartrate (Ambien) 10 mg PO BEDTIME PHILOMENA Assessment/Plan Comment:: Impression: 81 year old female with history of A Fib on coumadin therapy with GI blood loss, INR 3.8; Hgb 8.6 (12/26/16) cf 5.2 (01/02/17); now with dypsnea on minimal exertion. Baseline Hgb on 12/16/16, 11.7, per hip surgery. Recent left hip replacement 12/16/16 in [place], required ~2 units PRBCs maddy- operatively S/P Spontaneous dislocation with reduction of the left hip prosthesis, 12/26/16. A Fib on coumadin, mildly supra-therapeutic Chronic CHF Hyperlipidemia HTN GERD Stress incontinence Anxiety Depression Plan: Transfuse 5 units PRBCs as available; patient has antibodies Lasix 20 mg IV TID, 3 doses Vitamin K 5 mg po x1, repeat if needed. Gen Surgery consult for GI eval, scheduled 1330 hour, discussed with Dr Nayak. Home meds; adjust pain meds as needed. Daily Labs Conservative DVT prophylaxis GI prophylaxis Consult PT/OT/SW; would benefit from SNF with rehab.
[2017-01-02] MEDS ORDERED: Pneumococcal Polyvalent-23 Vaccine 0.5 ML SDV SUBCUT ONE (18:42)
[2017-01-02] MEDS ORDERED: Promethazine 12.5 MG in Sodium Chloride 0.9% 50 ML IV PRN (19:44)
[2017-01-02] MEDS ORDERED: Ondansetron 4 MG/2 ML SDV IVPUSH PRN (19:44)
[2017-01-02] MEDS: Zolpidem 10 MG Tab PO SCH (20:06)
[2017-01-02] MEDS: Furosemide 20 MG/2 ML VIAL IVPUSH SCH (20:06)
[2017-01-02] MEDS: Carvedilol 6.25 MG Tab PO SCH (20:06)
[2017-01-02] MEDS: Gabapentin 100 MG Cap PO SCH (20:09)
[2017-01-02] MEDS: Phytonadione ORAL 2.5mg/2.5ml Soln Simple Syrup U/D PO ONE ×2 (20:09→21:16)
[2017-01-02] MEDS: Simvastatin 20 MG Tab PO SCH (20:09)
[2017-01-02] MEDS: Acetaminophen/HYDROcodone 325-10 MG Tab PO PRN (20:10)
[2017-01-02] MEDS: Pantoprazole 40 MG Vial IVPUSH SCH (20:11)
[2017-01-02] MEDS ORDERED: Sodium Chloride 0.9% 250 ML ONE (20:36)
[2017-01-02] MEDS ORDERED: Phytonadione ORAL 2.5mg/2.5ml Soln Simple Syrup U/D ONE (20:36)
[2017-01-03] MEDS ORDERED: Sodium Chloride 0.9% 250 ML ONE ×3 (00:10→09:23)
[2017-01-03] MEDS ORDERED: Oxymetazoline 0.05% Nasal Spray 15 ML Bottle NAS ONE (00:39)
[2017-01-03] MEDS: Pantoprazole 40 MG Vial IVPUSH SCH ×2 (06:12→18:21)
[2017-01-03] MEDS: Furosemide 20 MG/2 ML VIAL IVPUSH SCH ×2 (06:12→13:16)
[2017-01-03] MEDS: Acetaminophen/HYDROcodone 325-10 MG Tab PO PRN (06:13)
[2017-01-03] MEDS ORDERED: Diphtheria,Pertussis(Acell),Tetanus Vaccine 0.5 ML SDV inactive IM ONE (08:00)
[2017-01-03] MEDS ORDERED: Pneumococcal 13-Valent Conjugate Vaccine 0.5 ML Syringe IM ONE (08:00)
--- NOTE | 2017-01-03 08:41 | PCM.PN ---
<Daya Prater M - Last Filed: 01/03/17 14:17> - General Info Date of Service: 01/03/17 Admission Dx/Problem (Free Text): Admission Diagnosis/Problem Admission Diagnosis/Problem Anemia due to blood loss Karlee is seen early this morning with return of nose bleed. Nursing has tried to use Afrin to attempt cessation with return of bleed within an hour through the night. She denies c/o pain/discomfort. No CP, SOB, PICKETT. Lt lower extremity is swollen but no more painful/tender than usual since [facility] in [place]. Functional Status: Reports: ambulating, urinating. Denies: tolerating diet ( NPO for planned EGD) - Review of Systems General: Reports: Weakness, Fatigue HEENT: Reports: other (left sided nose bleed) Pulmonary: Reports: no symptoms. Denies: shortness of breath, cough Cardiovascular: Reports: No Symptoms. Denies: Chest Pain, Dyspnea on Exertion, Orthopnea, Lightheadedness 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: Denies: No symptoms, Abdominal pain, Constipation, Hematochezia, Melena, Nausea, Vomiting Musculoskeletal: Reports: leg pain (mild left leg) Neurological: Reports: No Symptoms Psychiatric: Reports: no symptoms - Patient Data Vitals - most recent: Last Vital Signs Temp 98.0 F 01/03/17 05:13 Pulse 90 01/03/17 05:13 Resp 18 01/03/17 05:13 BP 116/73 01/03/17 05:13 Pulse Ox 95 01/03/17 05:13 Orthostatic Blood Pressure [ 90/67 Standing] Orthostatic Blood Pressure [ 117/70 Sitting] Orthostatic Blood Pressure [ 111/66 Supine] Weight - most recent: 75.75 kg I&O - last 24 hours: Intake & Output 01/02/17 01/03/17 01/03/17 22:59 06:59 14:59 Intake Total 360 1569 Output Total 2200 Balance 360 -631 Lab Results last 24 hrs: Laboratory Results - last 24 hr 01/02/17 01/02/17 Range/Units 16:22 16:22 Blood Type A NEGATIVE Cancelled Gel Antibody Screen Positive Cancelled Crossmatch See Detail See Detail Med Orders - Current: Current Medications Hydrocodone Bitart/Acetaminophen (Alex 325-10 Mg) 1 tab PO Q6H PRN PRN Reason: Pain Last Admin: 01/03/17 06:13 Dose: 1 tab Carvedilol (Coreg) 6.25 mg PO BID [facility] Last Admin: 01/02/17 20:06 Dose: 6.25 mg Furosemide (Lasix) 20 mg IVPUSH Q8H [facility] Stop: 01/03/17 13:01 Last Admin: 01/03/17 06:12 Dose: 20 mg Gabapentin (Neurontin) 100 mg PO TID [facility] Last Admin: 01/02/17 20:09 Dose: 100 mg Hydromorphone HCl (Dilaudid) 0.5 mg IVPUSH Q4H PRN PRN Reason: Pain (moderate 4-6) Promethazine HCl 12.5 mg/ (Sodium Chloride) 50.5 mls @ 100 mls/hr IV Q6H PRN PRN Reason: Nausea/Vomiting Ondansetron HCl (Zofran) 4 mg IVPUSH Q8H PRN PRN Reason: Nausea/Vomiting Pantoprazole Sodium (Protonix Iv) 40 mg IVPUSH Q12H [facility] Last Admin: 01/03/17 06:12 Dose: 40 mg Paroxetine HCl (Paxil) 20 mg PO DAILY [facility] Simvastatin (Zocor) 20 mg PO BEDTIME [facility] Last Admin: 01/02/17 20:09 Dose: 20 mg Zolpidem Tartrate (Ambien) 10 mg PO BEDTIME [facility] Last Admin: 01/02/17 20:06 Dose: 10 mg Discontinued Medications Diphtheria/Tetanus/Acell Pertussis (Boostrix) 0.5 ml IM .ONCE ONE Stop: 01/03/17 08:01 Sodium Chloride (Normal Saline) 1,000 mls @ 100 mls/hr IV ASDIRECTED [facility] Last Admin: 01/02/17 14:36 Dose: 100 mls/hr Sodium Chloride (Normal Saline) Confirm Administered Dose 250 mls @ as directed .ROUTE .[facility] ONE Stop: 01/02/17 20:37 Last Admin: 01/02/17 21:13 Dose: 250 ml Sodium Chloride (Normal Saline) Confirm Administered Dose 250 mls @ as directed .ROUTE .[facility] ONE Stop: 01/03/17 00:11 Last Admin: 01/03/17 01:09 Dose: 250 ml Sodium Chloride (Normal Saline) Confirm Administered Dose 250 mls @ as directed .ROUTE .[facility] ONE Stop: 01/03/17 04:23 Last Admin: 01/03/17 05:00 Dose: 250 ml Oxymetazoline HCl (Afrin Original 0.05% Nasal [place]) 0 ml [facility] ONETIME ONE Stop: 01/03/17 00:40 Last Admin: 01/03/17 01:04 Dose: 1 spray Pantoprazole Sodium (Protonix Iv) 40 mg IVPUSH ONETIME ONE Stop: 01/02/17 14:26 Last Admin: 01/02/17 14:35 Dose: 40 mg Phytonadione (Aquamephyton) 5 mg PO ONETIME ONE Stop: 01/02/17 18:22 Last Admin: 01/02/17 21:16 Dose: 2.5 mg Phytonadione (Aquamephyton) Confirm Administered Dose 2.5 mg .ROUTE .[facility] ONE Stop: 01/02/17 20:37 Last Admin: 01/02/17 21:14 Dose: 2.5 mg Pneumococcal 13-Valent Conj Vacc (Prevnar 13) 0.5 ml IM .ONCE ONE Stop: 01/03/17 08:01 Pneumococcal Polyvalent Vaccine (Pneumovax 23) 0.5 ml SUBCUT .ONCE ONE Stop: 01/02/17 18:43 - Exam General: alert, oriented, cooperative, no acute distress HEENT: Pupils equal, Pupils reactive, EOMI, Mucous membr. moist/pink Neck: supple, other (Left nares, mid septum is with noted oozing. Afrin used on q-tip to stop bleeding, also on kleenex, unsuccessful. Silver nitrate sticks x 4 used to cauterize left septum in area of oozing. ) Lungs: Clear to auscultation, Normal respiratory effort, Decreased breath sounds (to bases; no adventitious sounds) Cardiovascular: Regular Rate, Regular Rhythm, Murmurs (grade 1 systolic murmur noted) Abdomen: bowel sounds present, soft, no tenderness, no distension (Female) Exam: Deferred Extremities: normal pulses, no calf tenderness, edema, other (left leg is with edema from toes to thigh; fading ecchymosis about thigh. Surgical scar/incision to anterior lateral thigh is nicely healed. No acute point tenderness to calf or medial thigh. CMS is + distally. Lt leg is much larger than right with regard to swelling. ) Peripheral Pulses: 1+: dorsalis pedis (L), dorsalis pedis (R) Skin: warm, dry, intact Neurological: no new focal deficit Psy/Mental Status: alert, normal affect, normal mood - Problem List & Annotations (1) Fall SNOMED Code(s): 5596295, 352062899 Code(s): W19.XXXA - UNSPECIFIED FALL, INITIAL ENCOUNTER Status: Acute Current Visit: No Qualifiers: Encounter type: initial encounter Qualified Code(s): W19.XXXA - Unspecified fall, initial encounter (2) Anemia SNOMED Code(s): 970851444 Code(s): D64.9 - ANEMIA, UNSPECIFIED Status: Acute Priority: High Current Visit: Yes Qualifiers: Iron deficiency anemia type: chronic blood loss (3) Closed fracture nasal bone SNOMED Code(s): 47171760 Code(s): S02.2XXA - FRACTURE OF NASAL BONES, INIT ENCNTR FOR CLOSED FRACTURE Status: Acute Current Visit: Yes Qualifiers: Encounter type: initial encounter Qualified Code(s): S02.2XXA - Fracture of nasal bones, initial encounter for closed fracture (4) Edema of left lower extremity SNOMED Code(s): 145375834, 655477205 Code(s): R60.0 - LOCALIZED EDEMA Status: Acute Priority: High Current Visit: Yes (5) Elevated INR (international normalized ratio) SNOMED Code(s): 857549508, 735477767 Code(s): R79.1 - ABNORMAL COAGULATION PROFILE Status: Acute Current Visit : Yes (6) Epistaxis, recurrent SNOMED Code(s): 48697368 Code(s): R04.0 - EPISTAXIS Status: Acute Priority: High Current Visit: Yes (7) S/P total hip arthroplasty SNOMED Code(s): 201015327556, 867034108652 Code(s): Z96.649 - PRESENCE OF UNSPECIFIED ARTIFICIAL HIP JOINT Status: Chronic Priority: Medium Current Visit: Yes Qualifiers: Laterality: left Qualified Code(s): Z96.642 - Presence of left artificial hip joint (8) CHF NYHA class III (symptoms with mildly strenuous activities) SNOMED Code(s): 779250169, 880803111 Code(s): I50.9 - HEART FAILURE, UNSPECIFIED Status: Acute Current Visit: Yes Qualifiers: Congestive heart failure type: diastolic Congestive heart failure chronicity: acute on chronic Qualified Code(s): I50.33 - Acute on chronic diastolic (congestive) heart failure - Problem List Review Problem List Initiated/Reviewed/Updated: Yes - Plan Plan:: Impression: 81 year old female with history of A Fib on coumadin therapy with acute onset anemia- hgb 5 INR 3.8; Hgb 8.6 (12/26/16) cf 5.2 (01/02/17); now with dypsnea on minimal exertion. Baseline Hgb on 12/16/16, 11.7, pre-hip surgery. Recent left hip replacement 12/16/16 in [place], required ~2 units PRBCs maddy- operatively S/P Spontaneous dislocation with reduction of the left hip prosthesis (per Dr. Mark in ED), 12/26/16. A Fib on coumadin, mildly supra-therapeutic - INR 3.83 initially in ED Epistaxis- in ED now recurrent, oozing overnight Chronic CHF Hyperlipidemia HTN GERD Stress incontinence Anxiety Depression Plan: 5 units PRBCs today; patient has antibodies Lasix 20 mg IV TID, 3 doses Vitamin K 5 mg po x1, repeat if needed. -Will repeat 5mg PO dose today as INR still 2.27- per Dr. Nayak, would like INR 1.6 or less to proceed with EGD; will plan for EGD tomorrow pending INR. Gen Surgery consult for GI eval, scheduled 1330 hour, discussed with Dr Nayak. Silver nitrate/cauterization to left nasal septum for epistaxis early this am Home meds; adjust pain meds as needed. Daily Labs Conservative DVT prophylaxis- Teds and SCD's GI prophylaxis Consult PT/OT. CM/SW for dc planning--would benefit from SNF with rehab for weakness, falls, numerous postoperative complications <Charis Dave - Last Filed: 01/03/17 17:20> - Patient Data Vitals - most recent: Last Vital Signs Temp 36.7 C 01/03/17 15:14 Pulse 109 H 01/03/17 15:14 Resp 17 01/03/17 15:14 BP 101/77 01/03/17 15:14 Pulse Ox 97 01/03/17 15:14 Orthostatic Blood Pressure [ 90/67 Standing] Orthostatic Blood Pressure [ 117/70 Sitting] Orthostatic Blood Pressure [ 111/66 Supine] I&O - last 24 hours: Intake & Output 01/03/17 01/03/17 01/03/17 06:59 14:59 22:59 Intake Total 1569 720 860 Output Total 2205 1375 Balance -631 720 -161 Lab Results last 24 hrs: Laboratory Results - last 24 hr 01/02/17 01/02/17 01/03/17 Range/Units 16:22 16:22 09:40 WBC (3.98-10.04) K/mm3 RBC (3.98-5.22) M/mm3 Hgb (11.2-15.7) gm/L Hct (34.1-44.9) % MCV (79.4-94.8) fl MCH (25.6-32.2) pg MCHC (32.2-35.5) g/dl RDW Std Deviation (36.4-46.3) fL Plt Count (182-369) K/mm3 MPV (9.4-12.3) fl Neut % (Auto) (34.0-71.1) % Lymph % (Auto) (19.3-51.7) % [place] % (Auto) (4.7-12.5) % Eos % (Auto) (0.7-5.8) Baso % (Auto) (0.1-1.2) % Neut # (Auto) (1.56-6.13) K/mm3 Lymph # (Auto) (1.18-3.74) K/mm3 [place] # (Auto) (0.24-0.36) K/mm3 Eos # (Auto) (0.04-0.36) K/mm3 Baso # (Auto) (0.01-0.08) K/mm3 PT (8.0-13.0) SECONDS INR Sodium (136-145) mEq/L Potassium (3.5-5.1) mEq/L Chloride (98-107) mEq/L Carbon Dioxide (21-32) mEq/L Anion Gap (5-15) BUN (7-18) mg/dL Creatinine (0.55-1.02) mg/dL Est Cr Clr Drug Dosing mL/min Estimated GFR (MDRD) (>60) mL/min BUN/Creatinine Ratio (14-18) Glucose (83-115) mg/dL Calcium (8.5-10.1) mg/dL B-Natriuretic Peptide (0-100) pg/mL Urine Color Yellow (Yellow) Urine Appearance Clear (Clear) Urine pH 7.0 (5.0-8.0) Ur Specific [place] 1.015 (1.005-1.030) Urine Protein Negative (Negative) Urine Glucose (UA) Negative (Negative) Urine Ketones Negative (Negative) Urine Occult Blood Negative (Negative) Urine Nitrite Negative (Negative) Urine Bilirubin Negative (Negative) Urine Urobilinogen 0.2 (0.2-1.0) Ur Leukocyte Esterase Trace H (Negative) Urine RBC 0-5 (0-5) /hpf Urine WBC 5-10 H (0-5) /hpf Ur Squamous Epith Cells 0-5 (0-5) /hpf Amorphous Sediment Few H (NOT SEEN) /hpf Urine Bacteria Few (FEW) /hpf Hyaline Casts 0-5 (0-5) /lpf Urine Mucus Not seen (FEW) /hpf Blood Type A NEGATIVE Gel Antibody Screen Positive Crossmatch See Detail See Detail 01/03/17 01/03/17 01/03/17 Range/Units 11:10 11:10 11:10 WBC 6.85 (3.98-10.04) K/mm3 RBC 3.58 L (3.98-5.22) M/mm3 Hgb 10.7 L (11.2-15.7) gm/L Hct 32.0 L (34.1-44.9) % MCV 89.4 (79.4-94.8) fl MCH 29.9 (25.6-32.2) pg MCHC 33.4 (32.2-35.5) g/dl RDW Std Deviation 55.1 H (36.4-46.3) fL Plt Count 260 (182-369) K/mm3 MPV 9.3 L (9.4-12.3) fl Neut % (Auto) 71.7 H (34.0-71.1) % Lymph % (Auto) 13.3 L (19.3-51.7) % [place] % (Auto) 11.7 (4.7-12.5) % Eos % (Auto) 1.8 (0.7-5.8) Baso % (Auto) 0.3 (0.1-1.2) % Neut # (Auto) 4.92 (1.56-6.13) K/mm3 Lymph # (Auto) 0.91 L (1.18-3.74) K/mm3 [place] # (Auto) 0.80 H (0.24-0.36) K/mm3 Eos # (Auto) 0.12 (0.04-0.36) K/mm3 Baso # (Auto) 0.02 (0.01-0.08) K/mm3 PT 26.1 H (8.0-13.0) SECONDS INR 2.27 Sodium 142 (136-145) mEq/L Potassium 3.5 (3.5-5.1) mEq/L Chloride 107 (98-107) mEq/L Carbon Dioxide 24 (21-32) mEq/L Anion Gap 14.5 (5-15) BUN 29 H (7-18) mg/dL Creatinine 1.4 H (0.55-1.02) mg/dL Est Cr Clr Drug Dosing 23.40 mL/min Estimated GFR (MDRD) 36 (>60) mL/min BUN/Creatinine Ratio 20.7 H (14-18) Glucose 85 (83-115) mg/dL Calcium 7.9 L (8.5-10.1) mg/dL B-Natriuretic Peptide (0-100) pg/mL Urine Color (Yellow) Urine Appearance (Clear) Urine pH (5.0-8.0) Ur Specific [place] (1.005-1.030) Urine Protein (Negative) Urine Glucose (UA) (Negative) Urine Ketones (Negative) Urine Occult Blood (Negative) Urine Nitrite (Negative) Urine Bilirubin (Negative) Urine Urobilinogen (0.2-1.0) Ur Leukocyte Esterase (Negative) Urine RBC (0-5) /hpf Urine WBC (0-5) /hpf Ur Squamous Epith Cells (0-5) /hpf Amorphous Sediment (NOT SEEN) /hpf Urine Bacteria (FEW) /hpf Hyaline Casts (0-5) /lpf Urine Mucus (FEW) /hpf Blood Type Gel Antibody Screen Crossmatch 01/03/17 Range/Units 11:10 WBC (3.98-10.04) K/mm3 RBC (3.98-5.22) M/mm3 Hgb (11.2-15.7) gm/L Hct (34.1-44.9) % MCV (79.4-94.8) fl MCH (25.6-32.2) pg MCHC (32.2-35.5) g/dl RDW Std Deviation (36.4-46.3) fL Plt Count (182-369) K/mm3 MPV (9.4-12.3) fl Neut % (Auto) (34.0-71.1) % Lymph % (Auto) (19.3-51.7) % [place] % (Auto) (4.7-12.5) % Eos % (Auto) (0.7-5.8) Baso % (Auto) (0.1-1.2) % Neut # (Auto) (1.56-6.13) K/mm3 Lymph # (Auto) (1.18-3.74) K/mm3 [place] # (Auto) (0.24-0.36) K/mm3 Eos # (Auto) (0.04-0.36) K/mm3 Baso # (Auto) (0.01-0.08) K/mm3 PT (8.0-13.0) SECONDS INR Sodium (136-145) mEq/L Potassium (3.5-5.1) mEq/L Chloride (98-107) mEq/L Carbon Dioxide (21-32) mEq/L Anion Gap (5-15) BUN (7-18) mg/dL Creatinine (0.55-1.02) mg/dL Est Cr Clr Drug Dosing mL/min Estimated GFR (MDRD) (>60) mL/min BUN/Creatinine Ratio (14-18) Glucose (83-115) mg/dL Calcium (8.5-10.1) mg/dL B-Natriuretic Peptide 455 H (0-100) pg/mL Urine Color (Yellow) Urine Appearance (Clear) Urine pH (5.0-8.0) Ur Specific [place] (1.005-1.030) Urine Protein (Negative) Urine Glucose (UA) (Negative) Urine Ketones (Negative) Urine Occult Blood (Negative) Urine Nitrite (Negative) Urine Bilirubin (Negative) Urine Urobilinogen (0.2-1.0) Ur Leukocyte Esterase (Negative) Urine RBC (0-5) /hpf Urine WBC (0-5) /hpf Ur Squamous Epith Cells (0-5) /hpf Amorphous Sediment (NOT SEEN) /hpf Urine Bacteria (FEW) /hpf Hyaline Casts (0-5) /lpf Urine Mucus (FEW) /hpf Blood Type Gel Antibody Screen Crossmatch Jose Results last 24 hrs: Microbiology 01/03/17 13:35 Stool Occult Blood (JOSE) - Final Stool / Feces - Stool, Formed Med Orders - Current: Current Medications Hydrocodone Bitart/Acetaminophen (Alex 325-10 Mg) 1 tab PO Q6H PRN PRN Reason: Pain Last Admin: 01/03/17 06:13 Dose: 1 tab Carvedilol (Coreg) 6.25 mg PO BID [facility] Last Admin: 01/03/17 10:54 Dose: 6.25 mg Gabapentin (Neurontin) 100 mg PO TID [facility] Last Admin: 01/03/17 16:18 Dose: 100 mg Hydromorphone HCl (Dilaudid) 0.5 mg IVPUSH Q4H PRN PRN Reason: Pain (moderate 4-6) Last Admin: 01/03/17 13:15 Dose: 0.5 mg Promethazine HCl 12.5 mg/ (Sodium Chloride) 50.5 mls @ 100 mls/hr IV Q6H PRN PRN Reason: Nausea/Vomiting Ondansetron HCl (Zofran) 4 mg IVPUSH Q8H PRN PRN Reason: Nausea/Vomiting Pantoprazole Sodium (Protonix Iv) 40 mg IVPUSH Q12H [facility] Last Admin: 01/03/17 06:12 Dose: 40 mg Paroxetine HCl (Paxil) 20 mg PO DAILY [facility] Last Admin: 01/03/17 10:48 Dose: Not Given Simvastatin (Zocor) 20 mg PO BEDTIME [facility] Last Admin: 01/02/17 20:09 Dose: 20 mg Zolpidem Tartrate (Ambien) 10 mg PO BEDTIME [facility] Last Admin: 01/02/17 20:06 Dose: 10 mg Discontinued Medications Furosemide (Lasix) 20 mg IVPUSH Q8H [facility] Stop: 01/03/17 13:01 Last Admin: 01/03/17 13:16 Dose: 20 mg Sodium Chloride (Normal Saline) 1,000 mls @ 100 mls/hr IV ASDIRECTED [facility] Last Admin: 01/02/17 14:36 Dose: 100 mls/hr Sodium Chloride (Normal Saline) Confirm Administered Dose 250 mls @ as directed .ROUTE .[facility] ONE Stop: 01/02/17 20:37 Last Admin: 01/02/17 21:13 Dose: 250 ml Sodium Chloride (Normal Saline) Confirm Administered Dose 250 mls @ as directed .ROUTE .[facility] ONE Stop: 01/03/17 00:11 Last Admin: 01/03/17 01:09 Dose: 250 ml Sodium Chloride (Normal Saline) Confirm Administered Dose 250 mls @ as directed .ROUTE .[facility] Stop: 01/03/17 04:23 Last Admin: 01/03/17 05:00 Dose: 250 ml Sodium Chloride (Normal Saline) Confirm Administered Dose 250 mls @ as directed .ROUTE .[facility] ONE Stop: 01/03/17 09:24 Last Admin: 01/03/17 09:37 Dose: Not Given Oxymetazoline HCl (Afrin Original 0.05% Nasal [place]) 0 ml [facility] ONETIME ONE Stop: 01/03/17 00:40 Last Admin: 01/03/17 01:04 Dose: 1 spray Pantoprazole Sodium (Protonix Iv) 40 mg IVPUSH ONETIME ONE Stop: 01/02/17 14:26 Last Admin: 01/02/17 14:35 Dose: 40 mg Phytonadione (Aquamephyton) 5 mg PO ONETIME ONE Stop: 01/02/17 18:22 Last Admin: 01/02/17 21:16 Dose: 2.5 mg Phytonadione (Aquamephyton) Confirm Administered Dose 2.5 mg .ROUTE .[facility] ONE Stop: 01/02/17 20:37 Last Admin: 01/02/17 21:14 Dose: 2.5 mg Phytonadione (Aquamephyton) 2.5 mg PO ONETIME ONE Stop: 01/03/17 14:06 Last Admin: 01/03/17 16:18 Dose: 2.5 mg Pneumococcal 13-Valent Conj Vacc (Prevnar 13) 0.5 ml IM .ONCE ONE Stop: 01/03/17 08:01 Pneumococcal Polyvalent Vaccine (Pneumovax 23) 0.5 ml SUBCUT .ONCE ONE Stop: 01/02/17 18:43 - Problem List & Annotations (1) Anemia SNOMED Code(s): 313688462 Code(s): D64.9 - ANEMIA, UNSPECIFIED Status: Acute Priority: High Current Visit: Yes Qualifiers: Iron deficiency anemia type: chronic blood loss (2) CHF NYHA class III (symptoms with mildly strenuous activities) SNOMED Code(s): 016680934, 285841033 Code(s): I50.9 - HEART FAILURE, UNSPECIFIED Status: Acute Current Visit: Yes Qualifiers: Congestive heart failure type: diastolic Congestive heart failure chronicity: acute on chronic Qualified Code(s): I50.33 - Acute on chronic diastolic (congestive) heart failure (3) Closed fracture nasal bone SNOMED Code(s): 20445778 Code(s): S02.2XXA - FRACTURE OF NASAL BONES, INIT ENCNTR FOR CLOSED FRACTURE Status: Acute Current Visit: Yes Qualifiers: Encounter type: initial encounter Qualified Code(s): S02.2XXA - Fracture of nasal bones, initial encounter for closed fracture (4) Elevated INR (international normalized ratio) SNOMED Code(s): 162559372, 965452920 Code(s): R79.1 - ABNORMAL COAGULATION PROFILE Status: Acute Current Visit : Yes (5) Fall SNOMED Code(s): 2233690, 414898673 Code(s): W19.XXXA - UNSPECIFIED FALL, INITIAL ENCOUNTER Status: Acute Current Visit: No Qualifiers: Encounter type: initial encounter Qualified Code(s): W19.XXXA - Unspecified fall, initial encounter - My Orders Last 24 Hours: My Active Orders 01/02/17 18:00 Pantoprazole [ProTONIX IV] 40 mg IVPUSH Q12H 01/02/17 18:03 Code Status [Resuscitation Status] Routine 01/02/17 18:06 Bedrest Bathroom Privileges [RC] ASDIRECTED 01/02/17 18:09 Notify Provider Consults [RC] ASDIRECTED SCD [Sequential Compression Device] [OM.PC] Routine 01/02/17 18:10 Antiembolic Devices [RC] PER UNIT ROUTINE 01/02/17 18:43 Vaccines to be Administered [RC] PER UNIT ROUTINE 01/02/17 19:43 Acetaminophen/HYDROcodone [Alex 325-10 MG] 1 tab PO Q6H PRN 01/02/17 19:44 Ondansetron [Zofran] 4 mg IVPUSH Q8H PRN Promethazine [Phenergan] 12.5 mg Sodium Chloride 0.9% [Normal Saline] 50 ml IV Q6H 01/02/17 20:01 HYDROmorphone [Dilaudid] 0.5 mg IVPUSH Q4H PRN 01/02/17 21:00 Carvedilol [Coreg] 6.25 mg PO BID Gabapentin [Neurontin] 100 mg PO TID Simvastatin [Zocor] 20 mg PO BEDTIME Zolpidem [Ambien] 10 mg PO BEDTIME 01/03/17 08:00 Consult to Physician [CONS] Routine 01/03/17 09:00 Consult to Physical Therapy [PT Evaluation and Treatment] [CONS] Routine PARoxetine [Paxil] 20 mg PO DAILY 01/03/17 09:19 Consult to Stereoptic Projection Topographer [CONS] Routine 01/03/17 10:00 Consult to Occupational Therapy [OT Evaluation and Treatment] [CONS] Routine 01/03/17 13:40 OCCULT BLOOD DIAGNOSTIC [OP] Routine 01/03/17 17:10 EKG Documentation Completion [RC] STAT
[2017-01-03] MEDS: Gabapentin 100 MG Cap PO SCH ×3 (10:47→20:14)
[2017-01-03] MEDS: PARoxetine 20 MG Tab PO SCH (10:48)
[2017-01-03] MEDS: Carvedilol 6.25 MG Tab PO SCH ×2 (10:54→20:15)
[2017-01-03] MEDS: HYDROmorphone 0.5 MG/0.5 ML Syringe IVPUSH PRN ×2 (13:15→23:12)
--- NOTE | 2017-01-03 13:47 | PCM.PREANE ---
Preanesthetic Assessment - Anesthesia/Transfusion/Family Hx Anesthesia History: Prior Anesthesia Without Reaction Transfusion History: Prior Transfusion Without Reaction - Review of Systems General: No Symptoms Pulmonary: No Symptoms Cardiovascular: No Symptoms, Lightheadedness (blood loss) 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: No symptoms Neurological: Confusion, Other (fell and hit head and lots of bleeding from nose.- hip bleeding under skin-recent hip surgery) Other: Reports: Easy Bleeding, Easy Bruising, Depression, Anxiety - Physical Assessment Pulse: 110 O2 Sat by Pulse Oximetry: 96 Respiratory Rate: 20 Blood Pressure: 121/79 Temperature: 98.2 F Vital Signs: Last Vital Signs Temp 98.2 F 01/03/17 09:20 Pulse 110 H 01/03/17 10:54 Resp 20 01/03/17 09:20 BP 121/79 01/03/17 10:54 Pulse Ox 96 01/03/17 08:20 Orthostatic Blood Pressure [ 90/67 Standing] Orthostatic Blood Pressure [ 117/70 Sitting] Orthostatic Blood Pressure [ 111/66 Supine] Height: 5 ft Weight: 75.75 kg ASA Class: 3 Mental Status: Alert & Oriented x3 Airway Class: Mallampati = 3 Dentition: Reports: Dentures (top), Broken Tooth/Teeth, Missing Tooth/Teeth Thyro-Mental Finger Breadths: 3 Mouth Opening Finger Breadths: 2 ROM/Head Extension: Full Lungs: Clear to auscultation, Normal respiratory effort Cardiovascular: Regular Rate, Regular Rhythm - Lab Values: Laboratory Last Values WBC 6.85 K/mm3 (3.98-10.04) 01/03/17 11:10 RBC 3.58 M/mm3 (3.98-5.22) L 01/03/17 11:10 Hgb 10.7 gm/L (11.2-15.7) L 01/03/17 11:10 Hct 32.0 % (34.1-44.9) L 01/03/17 11:10 MCV 89.4 fl (79.4-94.8) 01/03/17 11:10 MCH 29.9 pg (25.6-32.2) 01/03/17 11:10 MCHC 33.4 g/dl (32.2-35.5) 01/03/17 11:10 RDW Std Deviation 55.1 fL (36.4-46.3) H 01/03/17 11:10 Plt Count 260 K/mm3 (182-369) 01/03/17 11:10 MPV 9.3 fl (9.4-12.3) L 01/03/17 11:10 Neut % (Auto) 71.7 % (34.0-71.1) H 01/03/17 11:10 Lymph % (Auto) 13.3 % (19.3-51.7) L 01/03/17 11:10 [place] % (Auto) 11.7 % (4.7-12.5) 01/03/17 11:10 Eos % (Auto) 1.8 (0.7-5.8) 01/03/17 11:10 Baso % (Auto) 0.3 % (0.1-1.2) 01/03/17 11:10 Neut # (Auto) 4.92 K/mm3 (1.56-6.13) 01/03/17 11:10 Lymph # (Auto) 0.91 K/mm3 (1.18-3.74) L 01/03/17 11:10 [place] # (Auto) 0.80 K/mm3 (0.24-0.36) H 01/03/17 11:10 Eos # (Auto) 0.12 K/mm3 (0.04-0.36) 01/03/17 11:10 Baso # (Auto) 0.02 K/mm3 (0.01-0.08) 01/03/17 11:10 Neutrophils % (Manual) 67 % (40-60) H 01/02/17 14:25 Band Neutrophils % 5 % (0-10) 01/02/17 14:25 Lymphocytes % (Manual) 20 % (20-40) 01/02/17 14:25 Atypical Lymphs % 0 % 01/02/17 14:25 Monocytes % (Manual) 7 % (2-10) 01/02/17 14:25 Eosinophils % (Manual) 0 % (0.7-5.8) L 01/02/17 14:25 Basophils % (Manual) 1 (0.1-1.2) 01/02/17 14:25 Toxic Granulation 2+ moderate 01/02/17 14:25 Platelet Estimate Adequate 01/02/17 14:25 Polychromasia 1+ slight 01/02/17 14:25 Hypochromasia 2+ moderate 01/02/17 14:25 Anisocytosis 1+ sligh 01/02/17 14:25 Microcytosis 1+ slight 01/02/17 14:25 RBC Morph Comment Not Reportable 01/02/17 14:25 PT 26.1 SECONDS (8.0-13.0) H 01/03/17 11:10 INR 2.27 01/03/17 11:10 Sodium 142 mEq/L (136-145) 01/03/17 11:10 Potassium 3.5 mEq/L (3.5-5.1) 01/03/17 11:10 Chloride 107 mEq/L (98-107) 01/03/17 11:10 Carbon Dioxide 24 mEq/L (21-32) 01/03/17 11:10 Anion Gap 14.5 (5-15) 01/03/17 11:10 BUN 29 mg/dL (7-18) H 01/03/17 11:10 Creatinine 1.4 mg/dL (0.55-1.02) H 01/03/17 11:10 Est Cr Clr Drug Dosing 23.40 mL/min 01/03/17 11:10 Estimated GFR (MDRD) 36 mL/min (>60) 01/03/17 11:10 BUN/Creatinine Ratio 20.7 (14-18) H 01/03/17 11:10 Glucose 85 mg/dL (83-115) 01/03/17 11:10 Calcium 7.9 mg/dL (8.5-10.1) L 01/03/17 11:10 Magnesium 2.1 mg/dl (1.8-2.4) 01/02/17 14:25 Total Bilirubin 2.3 mg/dL (0.2-1.0) H 01/02/17 14:25 AST 12 U/L (15-37) L 01/02/17 14:25 ALT 13 U/L (14-59) L 01/02/17 14:25 Alkaline Phosphatase 99 U/L (46-116) 01/02/17 14:25 CK-MB (CK-2) < 0.5 ng/ml (0-3.6) 01/02/17 14:25 Troponin I < 0.017 ng/mL (0.00-0.056) 01/02/17 14:25 C-Reactive Protein 18.2 mg/dL (<1.0) H* 01/02/17 14:25 B-Natriuretic Peptide 455 pg/mL (0-100) H 01/03/17 11:10 Total Protein 5.4 g/dl (6.4-8.2) L 01/02/17 14:25 Albumin 2.5 g/dl (3.4-5.0) L 01/02/17 14:25 Globulin 2.9 gm/dL 01/02/17 14:25 Albumin/Globulin Ratio 0.9 (1-2) L 01/02/17 14:25 Urine Color Yellow (Yellow) 01/03/17 09:40 Urine Appearance Clear (Clear) 01/03/17 09:40 Urine pH 7.0 (5.0-8.0) 01/03/17 09:40 Ur Specific [place] 1.015 (1.005-1.030) 01/03/17 09:40 Urine Protein Negative (Negative) 01/03/17 09:40 Urine Glucose (UA) Negative (Negative) 01/03/17 09:40 Urine Ketones Negative (Negative) 01/03/17 09:40 Urine Occult Blood Negative (Negative) 01/03/17 09:40 Urine Nitrite Negative (Negative) 01/03/17 09:40 Urine Bilirubin Negative (Negative) 01/03/17 09:40 Urine Urobilinogen 0.2 (0.2-1.0) 01/03/17 09:40 Ur Leukocyte Esterase Trace (Negative) H 01/03/17 09:40 Urine RBC 0-5 /hpf (0-5) 01/03/17 09:40 Urine WBC 5-10 /hpf (0-5) H 01/03/17 09:40 Ur Squamous Epith Cells 0-5 /hpf (0-5) 01/03/17 09:40 Amorphous Sediment Few /hpf (NOT SEEN) H 01/03/17 09:40 Urine Bacteria Few /hpf (FEW) 01/03/17 09:40 Hyaline Casts 0-5 /lpf (0-5) 01/03/17 09:40 Urine Mucus Not seen /hpf (FEW) 01/03/17 09:40 H. pylori IgG Antibody Negative (NEGATIVE) 01/02/17 14:25 Blood Type A NEGATIVE 01/02/17 16:22 Gel Antibody Screen Positive 01/02/17 16:22 Crossmatch See Detail 01/02/17 16:22 - Allergies Allergies/Adverse Reactions: Allergies Allergy/AdvReac Type Severity Reaction Status Date / Time cephalexin Allergy Rash Verified 01/02/17 13:56 Sulfa (Sulfonamide Allergy Rash Verified 01/02/17 13:56 Antibiotics) - Blood Blood Available: No - Anesthesia Plan Pre-Op Medication Ordered: Beta Meg Beta Meg: Carvedilol - Acknowledgements Anesthesia Type Planned: MAC Pt an Appropriate Candidate for the Planned Anesthesia: Yes Alternatives and Risks of Anesthesia Discussed w Pt/Guardian: Yes Pt/Guardian Understands and Agrees with Anesthesia Plan: Yes PreAnesthesia Questionnaire HEENT History: Reports: Cataract, Impaired vision Other HEENT History: wears eyeglasses Cardiovascular History: Reports: Afib, Heart Failure, High cholesterol, Hypertension Respiratory History: Reports: SOB 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 History: Reports: GERD Genitourinary History: Reports: Retention, urinary [employer] History: Reports: Other OB/BYN History: D and C multiple Musculoskeletal History: Reports: Arthritis, Back pain, chronic, Osteoporosis Other Musculoskeletal History: L) ankle fx in 2006 Neurological History: Reports: Migraines Psychiatric History: Reports: Anxiety, Depression Endocrine/Metabolic History: Reports: Obesity/BMI 30+, Osteoporosis Hematologic History: Reports: Blood transfusion(s) Oncologic (Cancer) History: Reports: None Dermatologic History: Reports: Psoriasis - Infectious Disease History Infectious Disease History: Reports: Chicken pox, Measles - Past Surgical History HEENT Surgical History: Reports: Cataract surgery, Tonsillectomy Cardiovascular Surgical History: Reports: Cardiac Ablation GI Surgical History: Reports: Colonoscopy Female Surgical History: Reports: D&C Neurological Surgical History: Reports: Lumbar spine Musculoskeletal Surgical History: Reports: Carpal tunnel, Hip replacement, Knee replacement, ORIF - SUBSTANCE USE Smoking Status *Q: Never Smoker Tobacco Use Within Last Twelve Months: No Second Hand Smoke Exposure: Yes Days Per Week of Alcohol Use: 0 Recreational Drug Use History: No - HOME MEDS Home Medications: Home Meds Carvedilol [Coreg] 6.25 mg PO BID 03/01/15 [History] Furosemide 20 mg PO DAILY 03/01/15 [History] Hydrocodone/Acetaminophen [Hydrocodon-Acetaminophn 10-325] 1 - 2 tab PO DAILY [History] PARoxetine [Paxil] 20 mg PO DAILY 03/01/15 [History] Potassium Chloride 10 meq PO BID 03/01/15 [History] Simvastatin [Zocor] 20 mg PO BEDTIME 03/01/15 [History] Warfarin [Coumadin] 2.5 mg PO ONCALL 03/01/15 [History] Warfarin [Coumadin] 5 mg PO ONCALL 03/01/15 [History] Zolpidem [Ambien] 10 mg PO BEDTIME 03/01/15 [History] Diclofenac Sodium [Voltaren] 75 mg PO BID 01/02/17 [History] Gabapentin [Neurontin] 100 mg PO TID 01/02/17 [History] - CURRENT (IN HOUSE) MEDS Current Meds: Current Medications Hydrocodone Bitart/Acetaminophen ([place] 325-10 Mg) 1 tab PO Q6H PRN PRN Reason: Pain Last Admin: 01/03/17 06:13 Dose: 1 tab Carvedilol (Coreg) 6.25 mg PO BID [facility] Last Admin: 01/03/17 10:54 Dose: 6.25 mg Gabapentin (Neurontin) 100 mg PO TID [facility] Last Admin: 01/03/17 10:47 Dose: Not Given Hydromorphone HCl (Dilaudid) 0.5 mg IVPUSH Q4H PRN PRN Reason: Pain (moderate 4-6) Last Admin: 01/03/17 13:15 Dose: 0.5 mg Promethazine HCl 12.5 mg/ (Sodium Chloride) 50.5 mls @ 100 mls/hr IV Q6H PRN PRN Reason: Nausea/Vomiting Ondansetron HCl (Zofran) 4 mg IVPUSH Q8H PRN PRN Reason: Nausea/Vomiting Pantoprazole Sodium (Protonix Iv) 40 mg IVPUSH Q12H [facility] Last Admin: 01/03/17 06:12 Dose: 40 mg Paroxetine HCl (Paxil) 20 mg PO DAILY [facility] Last Admin: 01/03/17 10:48 Dose: Not Given Simvastatin (Zocor) 20 mg PO BEDTIME [facility] Last Admin: 01/02/17 20:09 Dose: 20 mg Zolpidem Tartrate (Ambien) 10 mg PO BEDTIME [facility] Last Admin: 01/02/17 20:06 Dose: 10 mg Discontinued Medications Furosemide (Lasix) 20 mg IVPUSH Q8H [facility] Stop: 01/03/17 13:01 Last Admin: 01/03/17 13:16 Dose: 20 mg Sodium Chloride (Normal Saline) 1,000 mls @ 100 mls/hr IV ASDIRECTED [facility] Last Admin: 01/02/17 14:36 Dose: 100 mls/hr Sodium Chloride (Normal Saline) Confirm Administered Dose 250 mls @ as directed .ROUTE .STK-MED ONE Stop: 01/02/17 20:37 Last Admin: 01/02/17 21:13 Dose: 250 ml Sodium Chloride (Normal Saline) Confirm Administered Dose 250 mls @ as directed .ROUTE .ST-MED ONE Stop: 01/03/17 00:11 Last Admin: 01/03/17 01:09 Dose: 250 ml Sodium Chloride (Normal Saline) Confirm Administered Dose 250 mls @ as directed .ROUTE .ST-MED ONE Stop: 01/03/17 04:23 Last Admin: 01/03/17 05:00 Dose: 250 ml Sodium Chloride (Normal Saline) Confirm Administered Dose 250 mls @ as directed .ROUTE .ST-MED ONE Stop: 01/03/17 09:24 Last Admin: 01/03/17 09:37 Dose: Not Given Oxymetazoline HCl (Afrin Original 0.05% Nasal [place]) 0 ml [place] ONETIME ONE Stop: 01/03/17 00:40 Last Admin: 01/03/17 01:04 Dose: 1 spray Pantoprazole Sodium (Protonix Iv) 40 mg IVPUSH ONETIME ONE Stop: 01/02/17 14:26 Last Admin: 01/02/17 14:35 Dose: 40 mg Phytonadione ([place]phy[place]) 5 mg PO ONETIME ONE Stop: 01/02/17 18:22 Last Admin: 01/02/17 21:16 Dose: 2.5 mg Phytonadione ([place]phy[place]) Confirm Administered Dose 2.5 mg .ROUTE .STK-MED ONE Stop: 01/02/17 20:37 Last Admin: 01/02/17 21:14 Dose: 2.5 mg Pneumococcal 13-Valent Conj Vacc (Prevnar 13) 0.5 ml IM .ONCE ONE Stop: 01/03/17 08:01 Pneumococcal Polyvalent Vaccine (Pneumovax 23) 0.5 ml SUBCUT .ONCE ONE Stop: 01/02/17 18:43 Preanesthetic Assessment - PHYSICAL ASSESSMENT HR: 110 O2 Sat by Pulse Oximetry: 96 RR: 20 BP: 121/79 Temp: 98.2 F Vital Signs: Last Vital Signs Temp 98.2 F 01/03/17 09:20 Pulse 110 H 01/03/17 10:54 Resp 20 01/03/17 09:20 BP 121/79 01/03/17 10:54 Pulse Ox 96 01/03/17 08:20 Orthostatic Blood Pressure [ 90/67 Standing] Orthostatic Blood Pressure [ 117/70 Sitting] Orthostatic Blood Pressure [ 111/66 Supine] Height: 5 ft Weight: 75.75 kg - LAB Values: Laboratory Last Values WBC 6.85 K/mm3 (3.98-10.04) 01/03/17 11:10 RBC 3.58 M/mm3 (3.98-5.22) L 01/03/17 11:10 Hgb 10.7 gm/L (11.2-15.7) L 01/03/17 11:10 Hct 32.0 % (34.1-44.9) L 01/03/17 11:10 MCV 89.4 fl (79.4-94.8) 01/03/17 11:10 MCH 29.9 pg (25.6-32.2) 01/03/17 11:10 MCHC 33.4 g/dl (32.2-35.5) 01/03/17 11:10 RDW Std Deviation 55.1 fL (36.4-46.3) H 01/03/17 11:10 Plt Count 260 K/mm3 (182-369) 01/03/17 11:10 MPV 9.3 fl (9.4-12.3) L 01/03/17 11:10 Neut % (Auto) 71.7 % (34.0-71.1) H 01/03/17 11:10 Lymph % (Auto) 13.3 % (19.3-51.7) L 01/03/17 11:10 [place] % (Auto) 11.7 % (4.7-12.5) 01/03/17 11:10 Eos % (Auto) 1.8 (0.7-5.8) 01/03/17 11:10 Baso % (Auto) 0.3 % (0.1-1.2) 01/03/17 11:10 Neut # (Auto) 4.92 K/mm3 (1.56-6.13) 01/03/17 11:10 Lymph # (Auto) 0.91 K/mm3 (1.18-3.74) L 01/03/17 11:10 [place] # (Auto) 0.80 K/mm3 (0.24-0.36) H 01/03/17 11:10 Eos # (Auto) 0.12 K/mm3 (0.04-0.36) 01/03/17 11:10 Baso # (Auto) 0.02 K/mm3 (0.01-0.08) 01/03/17 11:10 Neutrophils % (Manual) 67 % (40-60) H 01/02/17 14:25 Band Neutrophils % 5 % (0-10) 01/02/17 14:25 Lymphocytes % (Manual) 20 % (20-40) 01/02/17 14:25 Atypical Lymphs % 0 % 01/02/17 14:25 Monocytes % (Manual) 7 % (2-10) 01/02/17 14:25 Eosinophils % (Manual) 0 % (0.7-5.8) L 01/02/17 14:25 Basophils % (Manual) 1 (0.1-1.2) 01/02/17 14:25 Toxic Granulation 2+ moderate 01/02/17 14:25 Platelet Estimate Adequate 01/02/17 14:25 Polychromasia 1+ slight 01/02/17 14:25 Hypochromasia 2+ moderate 01/02/17 14:25 Anisocytosis 1+ sligh 01/02/17 14:25 Microcytosis 1+ slight 01/02/17 14:25 RBC Morph Comment Not Reportable 01/02/17 14:25 PT 26.1 SECONDS (8.0-13.0) H 01/03/17 11:10 INR 2.27 01/03/17 11:10 Sodium 142 mEq/L (136-145) 01/03/17 11:10 Potassium 3.5 mEq/L (3.5-5.1) 01/03/17 11:10 Chloride 107 mEq/L (98-107) 01/03/17 11:10 Carbon Dioxide 24 mEq/L (21-32) 01/03/17 11:10 Anion Gap 14.5 (5-15) 01/03/17 11:10 BUN 29 mg/dL (7-18) H 01/03/17 11:10 Creatinine 1.4 mg/dL (0.55-1.02) H 01/03/17 11:10 Est Cr Clr Drug Dosing 23.40 mL/min 01/03/17 11:10 Estimated GFR (MDRD) 36 mL/min (>60) 01/03/17 11:10 BUN/Creatinine Ratio 20.7 (14-18) H 01/03/17 11:10 Glucose 85 mg/dL (83-115) 01/03/17 11:10 Calcium 7.9 mg/dL (8.5-10.1) L 01/03/17 11:10 Magnesium 2.1 mg/dl (1.8-2.4) 01/02/17 14:25 Total Bilirubin 2.3 mg/dL (0.2-1.0) H 01/02/17 14:25 AST 12 U/L (15-37) L 01/02/17 14:25 ALT 13 U/L (14-59) L 01/02/17 14:25 Alkaline Phosphatase 99 U/L (46-116) 01/02/17 14:25 CK-MB (CK-2) < 0.5 ng/ml (0-3.6) 01/02/17 14:25 Troponin I < 0.017 ng/mL (0.00-0.056) 01/02/17 14:25 C-Reactive Protein 18.2 mg/dL (<1.0) H* 01/02/17 14:25 B-Natriuretic Peptide 455 pg/mL (0-100) H 01/03/17 11:10 Total Protein 5.4 g/dl (6.4-8.2) L 01/02/17 14:25 Albumin 2.5 g/dl (3.4-5.0) L 01/02/17 14:25 Globulin 2.9 gm/dL 01/02/17 14:25 Albumin/Globulin Ratio 0.9 (1-2) L 01/02/17 14:25 Urine Color Yellow (Yellow) 01/03/17 09:40 Urine Appearance Clear (Clear) 01/03/17 09:40 Urine pH 7.0 (5.0-8.0) 01/03/17 09:40 Ur Specific [place] 1.015 (1.005-1.030) 01/03/17 09:40 Urine Protein Negative (Negative) 01/03/17 09:40 Urine Glucose (UA) Negative (Negative) 01/03/17 09:40 Urine Ketones Negative (Negative) 01/03/17 09:40 Urine Occult Blood Negative (Negative) 01/03/17 09:40 Urine Nitrite Negative (Negative) 01/03/17 09:40 Urine Bilirubin Negative (Negative) 01/03/17 09:40 Urine Urobilinogen 0.2 (0.2-1.0) 01/03/17 09:40 Ur Leukocyte Esterase Trace (Negative) H 01/03/17 09:40 Urine RBC 0-5 /hpf (0-5) 01/03/17 09:40 Urine WBC 5-10 /hpf (0-5) H 01/03/17 09:40 Ur Squamous Epith Cells 0-5 /hpf (0-5) 01/03/17 09:40 Amorphous Sediment Few /hpf (NOT SEEN) H 01/03/17 09:40 Urine Bacteria Few /hpf (FEW) 01/03/17 09:40 Hyaline Casts 0-5 /lpf (0-5) 01/03/17 09:40 Urine Mucus Not seen /hpf (FEW) 01/03/17 09:40 H. pylori IgG Antibody Negative (NEGATIVE) 01/02/17 14:25 Blood Type A NEGATIVE 01/02/17 16:22 Gel Antibody Screen Positive 01/02/17 16:22 Crossmatch See Detail 01/02/17 16:22 - ALLERGIES Allergies/Adverse Reactions: Allergies Allergy/AdvReac Type Severity Reaction Status Date / Time cephalexin Allergy Rash Verified 01/02/17 13:56 Sulfa (Sulfonamide Allergy Rash Verified 01/02/17 13:56 Antibiotics)
[2017-01-03] MEDS ORDERED: Phytonadione ORAL 2.5mg/2.5ml Soln Simple Syrup U/D PO ONE ×2 (14:05→22:49)
--- NOTE | 2017-01-03 16:20 | US ---
Left lower extremity deep venous ultrasound: Duplex and color flow imaging was obtained of the left common femoral, proximal greater saphenous, superficial femoral, popliteal, posterior tibial and peroneal veins. Subcutaneous edema noted throughout. Normal phasic flow, augmentation and compression is seen. Impression: 1. Subcutaneous edema within the calf. 2. No evidence of deep venous thrombosis is seen within the left lower extremity. Diagnostic code #2
[2017-01-03] MEDS ORDERED: Potassium Chloride 10% 20 MEQ/15 ML Soln 30 ML UD Cup PO ONE (19:44)
[2017-01-03] MEDS: Simvastatin 20 MG Tab PO SCH (20:14)
[2017-01-03] MEDS: Zolpidem 10 MG Tab PO SCH (20:14)
[2017-01-04] MEDS: Pantoprazole 40 MG Vial IVPUSH SCH ×2 (05:17→18:28)
[2017-01-04] MEDS ORDERED: Lidocaine 1% 4 ML ONE (08:45)
[2017-01-04] MEDS ORDERED: Propofol 200 MG/20 ML SDV ONE (08:45)
--- NOTE | 2017-01-04 08:50 | PCM.CONS ---
H&P History of Present Illness - General Date of Service: 01/03/17 Admit Problem/Dx: Admission Diagnosis/Problem Admission Diagnosis/Problem Anemia due to blood loss Source of Information: Patient, Family, Old records, Provider History Limitations: Reports: No limitations - History of Present Illness Initial Comments - Free Text/Narative: 81 yo woman w/ melena x 3-4 days C/S request by Dr. Dave for GI bleeding Adm Hb of 5.0, INR of 4 on Coumadin Recently had VICTORINO due to fracture and then had dislocation of prosthesis Has been at home doing well but progressive fatigue/SOA and melena Fell at home yesterday and hit face on door jam -> signficant epistaxis and came into ED Denies abd pain, N/V, wt loss, hematochezia. Dark stools x 3-4 days, no diarrhea. Colonoscopy about 2 year ago (06/2015), hx of adenomatous colon polyps Denies any use of NSAIDs/coffee/tobacco/alcohol Son currently lives with her Sister and son @ bedside Hx of paroxysmal afib, Echo 11/19/16 w/ EF 50-55% with mild aortic regurg, also had carotid duplex that was neg Has Cardiology appt w/ Dr. Mitchell at [facility] on 01/10 Had temporal artery bx with Dr. Bruno Song for visual changes on 11/07/16 - negative for arteritis PCP: Dr. Latha Wadsworth (recently switched from [facility]) PMH: Vocal cord polyp, SVT, spinal stenosis, osteopenia, hypertension, hyperlipidemia, hemorrhoids, heart failure, dilated cardiomyopathy, depression, cystocele, back pain, atrial fibrillation, arthritis, anxiety PSxH: Bilateral total knee arthroplasty, tonsillectomy, spine surgery x 2 ( fusion L2-S1), removal of transvaginal sling, bilateral carpal tunnel release, rectocele repair, polypectomy of vocal cord polyps, dilation curettage, cystocele repair, colonoscopy, bilateral cataract extraction, bladder surgery, back surgery, cardiac ablation, temporal artery biopsy 11/22, Hip replacement MEDS: Home medications include Neurontin 100 mg, Voltaren 75 mg twice daily, hydrocodone acetaminophen 1 tablet every 4 hours as needed, Paxil 20 mg daily, Coreg 6.25 mg twice daily with meals, Ambien 10 mg daily, potassium chloride 10 mEq twice daily, Zocor 20 mg daily, Lasix 20 mg daily, Coumadin 5 mg as directed by the anticoagulation clinic. ALL: Penicillin, Amiodarone, Cefprozil, Cephalexin, Enalapril, Sulfanilamide SH: Lives in [place]. Son Vitaliy lives with her. Denies tobacco or EtOH use FMH: Mother of heart failure, father of stomach cancer, sister due to rheumatoid arthritis, pulmonary fibrosis and arthritis, another sister Mirta had arthritis and blindness, another sister Leora is otherwise healthy, another brother Josh is alive with arthritis. One of her sons has a history of a tumor at the base of his neck. Another son has a history of pulmonary embolism and heart failure. Another son has hypertension and arthritis. - Related Data Allergies/Adverse Reactions: Allergies Allergy/AdvReac Type Severity Reaction Status Date / Time cephalexin Allergy Rash Verified 01/02/17 13:56 Sulfa (Sulfonamide Allergy Rash Verified 01/02/17 13:56 Antibiotics) Home Medications: Home Meds Carvedilol [Coreg] 6.25 mg PO BID 03/01/15 [History] Furosemide 20 mg PO DAILY 03/01/15 [History] Hydrocodone/Acetaminophen [Hydrocodon-Acetaminophn 10-325] 1 - 2 tab PO DAILY [History] PARoxetine [Paxil] 20 mg PO DAILY 03/01/15 [History] Potassium Chloride 10 meq PO BID 03/01/15 [History] Simvastatin [Zocor] 20 mg PO BEDTIME 03/01/15 [History] Warfarin [Coumadin] 2.5 mg PO ONCALL 03/01/15 [History] Warfarin [Coumadin] 5 mg PO ONCALL 03/01/15 [History] Zolpidem [Ambien] 10 mg PO BEDTIME 03/01/15 [History] Diclofenac Sodium [Voltaren] 75 mg PO BID 01/02/17 [History] Gabapentin [Neurontin] 100 mg PO TID 01/02/17 [History] Past Medical History HEENT History: Reports: Cataract, Impaired vision Other HEENT History: wears eyeglasses Cardiovascular History: Reports: Afib, Heart Failure, High cholesterol, Hypertension Respiratory History: Reports: SOB 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 History: Reports: GERD Genitourinary History: Reports: Retention, urinary [employer] History: Reports: Other OB/BYN History: D and C multiple Musculoskeletal History: Reports: Arthritis, Back pain, chronic, Osteoporosis Other Musculoskeletal History: L) ankle fx in 2006 Neurological History: Reports: Migraines Psychiatric History: Reports: Anxiety, Depression Endocrine/Metabolic History: Reports: Obesity/BMI 30+, Osteoporosis Hematologic History: Reports: Blood transfusion(s) Oncologic (Cancer) History: Reports: None Dermatologic History: Reports: Psoriasis - Infectious Disease History Infectious Disease History: Reports: Chicken pox, Measles - Past Surgical History HEENT Surgical History: Reports: Cataract surgery, Tonsillectomy Cardiovascular Surgical History: Reports: Cardiac Ablation GI Surgical History: Reports: Colonoscopy Female Surgical History: Reports: D&C Neurological Surgical History: Reports: Lumbar spine Musculoskeletal Surgical History: Reports: Carpal tunnel, Hip replacement, Knee replacement, ORIF Social & Family History - Family History Family Medical History: Noncontributory - Tobacco Use Smoking Status *Q: Never Smoker Second Hand Smoke Exposure: No - Caffeine Use Caffeine Use: Reports: Coffee - Alcohol Use Days Per Week of Alcohol Use: 0 - Recreational Drug Use Recreational Drug Use: No - Living Situation & Occupation Living situation: Reports: , with family (Son) Occupation: retired H&P Review of Systems - Review of Systems: Review Of Systems: ROS reveals no pertinent complaints other than HPI. Exam - Exam Exam: See Below - Vital Signs Vital Signs: Last Vital Signs Temp 101.5 F H 01/04/17 08:31 Pulse 89 01/04/17 08:31 Resp 18 01/04/17 08:31 BP 141/87 H 01/04/17 08:31 Pulse Ox 99 01/04/17 08:31 Orthostatic Blood Pressure [ 90/67 Standing] Orthostatic Blood Pressure [ 117/70 Sitting] Orthostatic Blood Pressure [ 111/66 Supine] Weight: 158 lb 12.8 oz - Exam Quality Assessment: No: supplemental oxygen General: alert, oriented, cooperative HEENT: Conjunctiva clear, Hearing intact, Other (Facial ecchymosis and swelling from fall ). No: Scleral icterus Lungs: Clear to auscultation, Normal respiratory effort Cardiovascular: regular rate, regular rhythm Abdomen: soft. No: peritoneal signs, distention, guarding (Female) Exam: Deferred Rectal (Female) Exam: Deferred (performed in ED ) Extremities: No: cyanosis Skin: warm, dry, intact Neurological: cranial nerves intact. No: focal deficit Neuro Extensive - Mental Status: alert, oriented x3, normal mood/affect, normal cognition, memory intact Psychiatric: alert, normal affect, normal mood - Patient Data Lab Results last 24 hrs: Laboratory Results - last 24 hr 01/02/17 01/03/17 01/03/17 Range/Units 16:22 09:40 11:10 WBC 6.85 (3.98-10.04) K/mm3 RBC 3.58 L (3.98-5.22) M/mm3 Hgb 10.7 L (11.2-15.7) gm/L Hct 32.0 L (34.1-44.9) % MCV 89.4 (79.4-94.8) fl MCH 29.9 (25.6-32.2) pg MCHC 33.4 (32.2-35.5) g/dl RDW Std Deviation 55.1 H (36.4-46.3) fL Plt Count 260 (182-369) K/mm3 MPV 9.3 L (9.4-12.3) fl Neut % (Auto) 71.7 H (34.0-71.1) % Lymph % (Auto) 13.3 L (19.3-51.7) % [place] % (Auto) 11.7 (4.7-12.5) % Eos % (Auto) 1.8 (0.7-5.8) Baso % (Auto) 0.3 (0.1-1.2) % Neut # (Auto) 4.92 (1.56-6.13) K/mm3 Lymph # (Auto) 0.91 L (1.18-3.74) K/mm3 [place] # (Auto) 0.80 H (0.24-0.36) K/mm3 Eos # (Auto) 0.12 (0.04-0.36) K/mm3 Baso # (Auto) 0.02 (0.01-0.08) K/mm3 Manual Slide Review PT (8.0-13.0) SECONDS INR Sodium (136-145) mEq/L Potassium (3.5-5.1) mEq/L Chloride (98-107) mEq/L Carbon Dioxide (21-32) mEq/L Anion Gap (5-15) BUN (7-18) mg/dL Creatinine (0.55-1.02) mg/dL Est Cr Clr Drug Dosing mL/min Estimated GFR (MDRD) (>60) mL/min BUN/Creatinine Ratio (14-18) Glucose (83-115) mg/dL Calcium (8.5-10.1) mg/dL B-Natriuretic Peptide (0-100) pg/mL Urine Color Yellow (Yellow) Urine Appearance Clear (Clear) Urine pH 7.0 (5.0-8.0) Ur Specific [place] 1.015 (1.005-1.030) Urine Protein Negative (Negative) Urine Glucose (UA) Negative (Negative) Urine Ketones Negative (Negative) Urine Occult Blood Negative (Negative) Urine Nitrite Negative (Negative) Urine Bilirubin Negative (Negative) Urine Urobilinogen 0.2 (0.2-1.0) Ur Leukocyte Esterase Trace H (Negative) Urine RBC 0-5 (0-5) /hpf Urine WBC 5-10 H (0-5) /hpf Ur Squamous Epith Cells 0-5 (0-5) /hpf Amorphous Sediment Few H (NOT SEEN) /hpf Urine Bacteria Few (FEW) /hpf Hyaline Casts 0-5 (0-5) /lpf Urine Mucus Not seen (FEW) /hpf Blood Type A NEGATIVE Gel Antibody Screen Positive Crossmatch See Detail 01/03/17 01/03/17 01/03/17 Range/Units 11:10 11:10 11:10 WBC (3.98-10.04) K/mm3 RBC (3.98-5.22) M/mm3 Hgb (11.2-15.7) gm/L Hct (34.1-44.9) % MCV (79.4-94.8) fl MCH (25.6-32.2) pg MCHC (32.2-35.5) g/dl RDW Std Deviation (36.4-46.3) fL Plt Count (182-369) K/mm3 MPV (9.4-12.3) fl Neut % (Auto) (34.0-71.1) % Lymph % (Auto) (19.3-51.7) % [place] % (Auto) (4.7-12.5) % Eos % (Auto) (0.7-5.8) Baso % (Auto) (0.1-1.2) % Neut # (Auto) (1.56-6.13) K/mm3 Lymph # (Auto) (1.18-3.74) K/mm3 [place] # (Auto) (0.24-0.36) K/mm3 Eos # (Auto) (0.04-0.36) K/mm3 Baso # (Auto) (0.01-0.08) K/mm3 Manual Slide Review PT 26.1 H (8.0-13.0) SECONDS INR 2.27 Sodium 142 (136-145) mEq/L Potassium 3.5 (3.5-5.1) mEq/L Chloride 107 (98-107) mEq/L Carbon Dioxide 24 (21-32) mEq/L Anion Gap 14.5 (5-15) BUN 29 H (7-18) mg/dL Creatinine 1.4 H (0.55-1.02) mg/dL Est Cr Clr Drug Dosing 23.40 mL/min Estimated GFR (MDRD) 36 (>60) mL/min BUN/Creatinine Ratio 20.7 H (14-18) Glucose 85 (83-115) mg/dL Calcium 7.9 L (8.5-10.1) mg/dL B-Natriuretic Peptide 455 H (0-100) pg/mL Urine Color (Yellow) Urine Appearance (Clear) Urine pH (5.0-8.0) Ur Specific [place] (1.005-1.030) Urine Protein (Negative) Urine Glucose (UA) (Negative) Urine Ketones (Negative) Urine Occult Blood (Negative) Urine Nitrite (Negative) Urine Bilirubin (Negative) Urine Urobilinogen (0.2-1.0) Ur Leukocyte Esterase (Negative) Urine RBC (0-5) /hpf Urine WBC (0-5) /hpf Ur Squamous Epith Cells (0-5) /hpf Amorphous Sediment (NOT SEEN) /hpf Urine Bacteria (FEW) /hpf Hyaline Casts (0-5) /lpf Urine Mucus (FEW) /hpf Blood Type Gel Antibody Screen Crossmatch 01/03/17 01/04/17 01/04/17 Range/Units 20:33 05:36 05:36 WBC 5.19 (3.98-10.04) K/mm3 RBC 3.36 L (3.98-5.22) M/mm3 Hgb 10.1 L (11.2-15.7) gm/L Hct 30.3 L (34.1-44.9) % MCV 90.2 (79.4-94.8) fl MCH 30.1 (25.6-32.2) pg MCHC 33.3 (32.2-35.5) g/dl RDW Std Deviation 54.8 H (36.4-46.3) fL Plt Count 237 (182-369) K/mm3 MPV 9.4 (9.4-12.3) fl Neut % (Auto) 64.3 (34.0-71.1) % Lymph % (Auto) 17.0 L (19.3-51.7) % [place] % (Auto) 16.0 H (4.7-12.5) % Eos % (Auto) 1.7 (0.7-5.8) Baso % (Auto) 0.2 (0.1-1.2) % Neut # (Auto) 3.34 (1.56-6.13) K/mm3 Lymph # (Auto) 0.88 L (1.18-3.74) K/mm3 [place] # (Auto) 0.83 H (0.24-0.36) K/mm3 Eos # (Auto) 0.09 (0.04-0.36) K/mm3 Baso # (Auto) 0.01 (0.01-0.08) K/mm3 Manual Slide Review Abnormal smear PT 21.8 H (8.0-13.0) SECONDS INR 1.92 Sodium 142 (136-145) mEq/L Potassium 3.3 L (3.5-5.1) mEq/L Chloride 106 (98-107) mEq/L Carbon Dioxide 26 (21-32) mEq/L Anion Gap 13.3 (5-15) BUN 27 H (7-18) mg/dL Creatinine 1.4 H (0.55-1.02) mg/dL Est Cr Clr Drug Dosing 23.40 mL/min Estimated GFR (MDRD) 36 (>60) mL/min BUN/Creatinine Ratio 19.3 H (14-18) Glucose 81 L (83-115) mg/dL Calcium 7.9 L (8.5-10.1) mg/dL B-Natriuretic Peptide (0-100) pg/mL Urine Color (Yellow) Urine Appearance (Clear) Urine pH (5.0-8.0) Ur Specific [place] (1.005-1.030) Urine Protein (Negative) Urine Glucose (UA) (Negative) Urine Ketones (Negative) Urine Occult Blood (Negative) Urine Nitrite (Negative) Urine Bilirubin (Negative) Urine Urobilinogen (0.2-1.0) Ur Leukocyte Esterase (Negative) Urine RBC (0-5) /hpf Urine WBC (0-5) /hpf Ur Squamous Epith Cells (0-5) /hpf Amorphous Sediment (NOT SEEN) /hpf Urine Bacteria (FEW) /hpf Hyaline Casts (0-5) /lpf Urine Mucus (FEW) /hpf Blood Type Gel Antibody Screen Crossmatch 01/04/17 Range/Units 05:36 WBC (3.98-10.04) K/mm3 RBC (3.98-5.22) M/mm3 Hgb (11.2-15.7) gm/L Hct (34.1-44.9) % MCV (79.4-94.8) fl MCH (25.6-32.2) pg MCHC (32.2-35.5) g/dl RDW Std Deviation (36.4-46.3) fL Plt Count (182-369) K/mm3 MPV (9.4-12.3) fl Neut % (Auto) (34.0-71.1) % Lymph % (Auto) (19.3-51.7) % [place] % (Auto) (4.7-12.5) % Eos % (Auto) (0.7-5.8) Baso % (Auto) (0.1-1.2) % Neut # (Auto) (1.56-6.13) K/mm3 Lymph # (Auto) (1.18-3.74) K/mm3 [place] # (Auto) (0.24-0.36) K/mm3 Eos # (Auto) (0.04-0.36) K/mm3 Baso # (Auto) (0.01-0.08) K/mm3 Manual Slide Review PT 16.7 H (8.0-13.0) SECONDS INR 1.49 Sodium (136-145) mEq/L Potassium (3.5-5.1) mEq/L Chloride (98-107) mEq/L Carbon Dioxide (21-32) mEq/L Anion Gap (5-15) BUN (7-18) mg/dL Creatinine (0.55-1.02) mg/dL Est Cr Clr Drug Dosing mL/min Estimated GFR (MDRD) (>60) mL/min BUN/Creatinine Ratio (14-18) Glucose (83-115) mg/dL Calcium (8.5-10.1) mg/dL B-Natriuretic Peptide (0-100) pg/mL Urine Color (Yellow) Urine Appearance (Clear) Urine pH (5.0-8.0) Ur Specific [place] (1.005-1.030) Urine Protein (Negative) Urine Glucose (UA) (Negative) Urine Ketones (Negative) Urine Occult Blood (Negative) Urine Nitrite (Negative) Urine Bilirubin (Negative) Urine Urobilinogen (0.2-1.0) Ur Leukocyte Esterase (Negative) Urine RBC (0-5) /hpf Urine WBC (0-5) /hpf Ur Squamous Epith Cells (0-5) /hpf Amorphous Sediment (NOT SEEN) /hpf Urine Bacteria (FEW) /hpf Hyaline Casts (0-5) /lpf Urine Mucus (FEW) /hpf Blood Type Gel Antibody Screen Crossmatch Result Diagrams: 01/04/17 05:36 01/04/17 05:36 Jose Results last 24 hrs: Microbiology 01/03/17 13:35 Stool Occult Blood (JOSE) - Final Stool / Feces - Stool, Formed Consult PN Assessment/Plan Procedures: Procedures ASSAY OF CREATININE (01/05/15) ASSAY OF NATRIURETIC PEPTIDE (07/03/15) C-REACTIVE PROTEIN (12/16/16) CARDIOVASCULAR STRESS TEST (05/03/16) CHEST X-RAY 2VW FRONTAL&LATL (07/03/15) COMPLETE CBC W/AUTO DIFF WBC (12/28/16) COMPREHEN METABOLIC PANEL (12/28/16) CT LOWER EXTREMITY W/O DYE (12/16/16) DRAIN/INJ JOINT/BURSA W/O US (10/22/16) DXA BONE DENSITY AXIAL (05/26/15) ELECTROCARDIOGRAM TRACING (12/28/16) EMERGENCY DEPT VISIT (12/28/16) EMERGENCY DEPT VISIT (10/06/16) HT MUSCLE IMAGE SPECT MULT (05/03/16) HYDRATE IV INFUSION ADD-ON (12/28/16) IMMUNIZATION ADMIN (03/15/15) INJECTION FOR HIP X-RAY (03/19/16) MEASURE BLOOD OXYGEN LEVEL (01/05/15) MRI LUMBAR SPINE W/O & W/DYE (01/05/15) NEEDLE LOCALIZATION BY XRAY (03/19/16) PROTHROMBIN TIME (12/28/16) RBC SED RATE AUTOMATED (12/16/16) ROUTINE VENIPUNCTURE (12/28/16) RPR S/N/AX/GEN/TRNK 2.5CM/< (03/15/15) TDAP VACCINE 7 YRS/> IM (03/15/15) THER/PROPH/DIAG INJ IV PUSH (12/28/16) THROMBOPLASTIN TIME PARTIAL (12/28/16) TREAT HIP DISLOCATION (12/28/16) TTE W/DOPPLER COMPLETE (01/05/15) TX/PRO/DX INJ NEW DRUG ADDON (12/28/16) X-RAY EXAM HIP UNI 1 VIEW (12/28/16) X-RAY EXAM HIP UNI 2-3 VIEWS (12/28/16) X-RAY EXAM OF ANKLE (03/01/15) X-RAY EXAM OF HIP (07/03/15) X-RAY EXAM OF LOWER LEG (03/01/15) X-RAY EXAM OF PELVIS (07/03/15) (1) Anemia SNOMED Code(s): 550812113 Code(s): D64.9 - ANEMIA, UNSPECIFIED Priority: High Current Visit: Yes Qualifiers: Anemia type: other cause Other causes of anemia: acute posthemorrhagic Qualified Code(s): D62 - Acute posthemorrhagic anemia (2) Elevated INR (international normalized ratio) SNOMED Code(s): 087518920, 297483693 Code(s): R79.1 - ABNORMAL COAGULATION PROFILE Current Visit: Yes (3) 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 bleeding SNOMED Code(s): 81416513 Code(s): K92.2 - GASTROINTESTINAL HEMORRHAGE, UNSPECIFIED Current Visit: Yes Problem List Initiated/Reviewed/Updated: Yes My Orders last 24 hours: My Active Orders 01/04/17 09:00 Schedule Procedure [COMM] Timed Plan: 81-year-old woman with GI bleeding and supratherapeutic INR on Coumadin INR today > 2 after Vit K x 1 Will plan for EGD tomorrow at 0900 No signs of active bleeding and Hb stabilized with transfusion Discussed Dx EGD with patient and family including risks and benefits and she agrees to proceed. Will hold off on colonoscopy for time being as she has only had melena and has a recent complete colonoscopy (within past 2 years)
--- NOTE | 2017-01-04 08:53 | PCM.CONSN ---
- General Info Date of Service: 01/04/17 - Review of Systems Systems Review Comment:: Stable overnight, no hematemesis or bloody stools. INR 1.9 last night has received additional dose of vitamin K since that time. Patient with no particular complaints this morning. - Patient Data Vitals - most recent: Last Vital Signs Temp 101.5 F H 01/04/17 08:31 Pulse 89 01/04/17 08:31 Resp 18 01/04/17 08:31 BP 141/87 H 01/04/17 08:31 Pulse Ox 99 01/04/17 08:31 Orthostatic Blood Pressure [ 90/67 Standing] Orthostatic Blood Pressure [ 117/70 Sitting] Orthostatic Blood Pressure [ 111/66 Supine] Weight - most recent: 158 lb 12.8 oz I&O - last 24 hours: Intake & Output 01/03/17 01/04/17 01/04/17 22:59 06:59 14:59 Intake Total 860 800 Output Total 1375 500 Balance -515 300 Lab Results last 24 hrs: Laboratory Results - last 24 hr 01/02/17 01/03/17 01/03/17 Range/Units 16:22 09:40 11:10 WBC 6.85 (3.98-10.04) K/mm3 RBC 3.58 L (3.98-5.22) M/mm3 Hgb 10.7 L (11.2-15.7) gm/L Hct 32.0 L (34.1-44.9) % MCV 89.4 (79.4-94.8) fl MCH 29.9 (25.6-32.2) pg MCHC 33.4 (32.2-35.5) g/dl RDW Std Deviation 55.1 H (36.4-46.3) fL Plt Count 260 (182-369) K/mm3 MPV 9.3 L (9.4-12.3) fl Neut % (Auto) 71.7 H (34.0-71.1) % Lymph % (Auto) 13.3 L (19.3-51.7) % Brooke % (Auto) 11.7 (4.7-12.5) % Eos % (Auto) 1.8 (0.7-5.8) Baso % (Auto) 0.3 (0.1-1.2) % Neut # (Auto) 4.92 (1.56-6.13) K/mm3 Lymph # (Auto) 0.91 L (1.18-3.74) K/mm3 Brooke # (Auto) 0.80 H (0.24-0.36) K/mm3 Eos # (Auto) 0.12 (0.04-0.36) K/mm3 Baso # (Auto) 0.02 (0.01-0.08) K/mm3 Manual Slide Review PT (8.0-13.0) SECONDS INR Sodium (136-145) mEq/L Potassium (3.5-5.1) mEq/L Chloride (98-107) mEq/L Carbon Dioxide (21-32) mEq/L Anion Gap (5-15) BUN (7-18) mg/dL Creatinine (0.55-1.02) mg/dL Est Cr Clr Drug Dosing mL/min Estimated GFR (MDRD) (>60) mL/min BUN/Creatinine Ratio (14-18) Glucose (83-115) mg/dL Calcium (8.5-10.1) mg/dL B-Natriuretic Peptide (0-100) pg/mL Urine Color Yellow (Yellow) Urine Appearance Clear (Clear) Urine pH 7.0 (5.0-8.0) Ur Specific Fraser 1.015 (1.005-1.030) Urine Protein Negative (Negative) Urine Glucose (UA) Negative (Negative) Urine Ketones Negative (Negative) Urine Occult Blood Negative (Negative) Urine Nitrite Negative (Negative) Urine Bilirubin Negative (Negative) Urine Urobilinogen 0.2 (0.2-1.0) Ur Leukocyte Esterase Trace H (Negative) Urine RBC 0-5 (0-5) /hpf Urine WBC 5-10 H (0-5) /hpf Ur Squamous Epith Cells 0-5 (0-5) /hpf Amorphous Sediment Few H (NOT SEEN) /hpf Urine Bacteria Few (FEW) /hpf Hyaline Casts 0-5 (0-5) /lpf Urine Mucus Not seen (FEW) /hpf Blood Type A NEGATIVE Gel Antibody Screen Positive Crossmatch See Detail 01/03/17 01/03/17 01/03/17 Range/Units 11:10 11:10 11:10 WBC (3.98-10.04) K/mm3 RBC (3.98-5.22) M/mm3 Hgb (11.2-15.7) gm/L Hct (34.1-44.9) % MCV (79.4-94.8) fl MCH (25.6-32.2) pg MCHC (32.2-35.5) g/dl RDW Std Deviation (36.4-46.3) fL Plt Count (182-369) K/mm3 MPV (9.4-12.3) fl Neut % (Auto) (34.0-71.1) % Lymph % (Auto) (19.3-51.7) % Brooke % (Auto) (4.7-12.5) % Eos % (Auto) (0.7-5.8) Baso % (Auto) (0.1-1.2) % Neut # (Auto) (1.56-6.13) K/mm3 Lymph # (Auto) (1.18-3.74) K/mm3 Brooke # (Auto) (0.24-0.36) K/mm3 Eos # (Auto) (0.04-0.36) K/mm3 Baso # (Auto) (0.01-0.08) K/mm3 Manual Slide Review PT 26.1 H (8.0-13.0) SECONDS INR 2.27 Sodium 142 (136-145) mEq/L Potassium 3.5 (3.5-5.1) mEq/L Chloride 107 (98-107) mEq/L Carbon Dioxide 24 (21-32) mEq/L Anion Gap 14.5 (5-15) BUN 29 H (7-18) mg/dL Creatinine 1.4 H (0.55-1.02) mg/dL Est Cr Clr Drug Dosing 23.40 mL/min Estimated GFR (MDRD) 36 (>60) mL/min BUN/Creatinine Ratio 20.7 H (14-18) Glucose 85 (83-115) mg/dL Calcium 7.9 L (8.5-10.1) mg/dL B-Natriuretic Peptide 455 H (0-100) pg/mL Urine Color (Yellow) Urine Appearance (Clear) Urine pH (5.0-8.0) Ur Specific Fraser (1.005-1.030) Urine Protein (Negative) Urine Glucose (UA) (Negative) Urine Ketones (Negative) Urine Occult Blood (Negative) Urine Nitrite (Negative) Urine Bilirubin (Negative) Urine Urobilinogen (0.2-1.0) Ur Leukocyte Esterase (Negative) Urine RBC (0-5) /hpf Urine WBC (0-5) /hpf Ur Squamous Epith Cells (0-5) /hpf Amorphous Sediment (NOT SEEN) /hpf Urine Bacteria (FEW) /hpf Hyaline Casts (0-5) /lpf Urine Mucus (FEW) /hpf Blood Type Gel Antibody Screen Crossmatch 01/03/17 01/04/17 01/04/17 Range/Units 20:33 05:36 05:36 WBC 5.19 (3.98-10.04) K/mm3 RBC 3.36 L (3.98-5.22) M/mm3 Hgb 10.1 L (11.2-15.7) gm/L Hct 30.3 L (34.1-44.9) % MCV 90.2 (79.4-94.8) fl MCH 30.1 (25.6-32.2) pg MCHC 33.3 (32.2-35.5) g/dl RDW Std Deviation 54.8 H (36.4-46.3) fL Plt Count 237 (182-369) K/mm3 MPV 9.4 (9.4-12.3) fl Neut % (Auto) 64.3 (34.0-71.1) % Lymph % (Auto) 17.0 L (19.3-51.7) % Brooke % (Auto) 16.0 H (4.7-12.5) % Eos % (Auto) 1.7 (0.7-5.8) Baso % (Auto) 0.2 (0.1-1.2) % Neut # (Auto) 3.34 (1.56-6.13) K/mm3 Lymph # (Auto) 0.88 L (1.18-3.74) K/mm3 Brooke # (Auto) 0.83 H (0.24-0.36) K/mm3 Eos # (Auto) 0.09 (0.04-0.36) K/mm3 Baso # (Auto) 0.01 (0.01-0.08) K/mm3 Manual Slide Review Abnormal smear PT 21.8 H (8.0-13.0) SECONDS INR 1.92 Sodium 142 (136-145) mEq/L Potassium 3.3 L (3.5-5.1) mEq/L Chloride 106 (98-107) mEq/L Carbon Dioxide 26 (21-32) mEq/L Anion Gap 13.3 (5-15) BUN 27 H (7-18) mg/dL Creatinine 1.4 H (0.55-1.02) mg/dL Est Cr Clr Drug Dosing 23.40 mL/min Estimated GFR (MDRD) 36 (>60) mL/min BUN/Creatinine Ratio 19.3 H (14-18) Glucose 81 L (83-115) mg/dL Calcium 7.9 L (8.5-10.1) mg/dL B-Natriuretic Peptide (0-100) pg/mL Urine Color (Yellow) Urine Appearance (Clear) Urine pH (5.0-8.0) Ur Specific Fraser (1.005-1.030) Urine Protein (Negative) Urine Glucose (UA) (Negative) Urine Ketones (Negative) Urine Occult Blood (Negative) Urine Nitrite (Negative) Urine Bilirubin (Negative) Urine Urobilinogen (0.2-1.0) Ur Leukocyte Esterase (Negative) Urine RBC (0-5) /hpf Urine WBC (0-5) /hpf Ur Squamous Epith Cells (0-5) /hpf Amorphous Sediment (NOT SEEN) /hpf Urine Bacteria (FEW) /hpf Hyaline Casts (0-5) /lpf Urine Mucus (FEW) /hpf Blood Type Gel Antibody Screen Crossmatch 01/04/17 Range/Units 05:36 WBC (3.98-10.04) K/mm3 RBC (3.98-5.22) M/mm3 Hgb (11.2-15.7) gm/L Hct (34.1-44.9) % MCV (79.4-94.8) fl MCH (25.6-32.2) pg MCHC (32.2-35.5) g/dl RDW Std Deviation (36.4-46.3) fL Plt Count (182-369) K/mm3 MPV (9.4-12.3) fl Neut % (Auto) (34.0-71.1) % Lymph % (Auto) (19.3-51.7) % Brooke % (Auto) (4.7-12.5) % Eos % (Auto) (0.7-5.8) Baso % (Auto) (0.1-1.2) % Neut # (Auto) (1.56-6.13) K/mm3 Lymph # (Auto) (1.18-3.74) K/mm3 Brooke # (Auto) (0.24-0.36) K/mm3 Eos # (Auto) (0.04-0.36) K/mm3 Baso # (Auto) (0.01-0.08) K/mm3 Manual Slide Review PT 16.7 H (8.0-13.0) SECONDS INR 1.49 Sodium (136-145) mEq/L Potassium (3.5-5.1) mEq/L Chloride (98-107) mEq/L Carbon Dioxide (21-32) mEq/L Anion Gap (5-15) BUN (7-18) mg/dL Creatinine (0.55-1.02) mg/dL Est Cr Clr Drug Dosing mL/min Estimated GFR (MDRD) (>60) mL/min BUN/Creatinine Ratio (14-18) Glucose (83-115) mg/dL Calcium (8.5-10.1) mg/dL B-Natriuretic Peptide (0-100) pg/mL Urine Color (Yellow) Urine Appearance (Clear) Urine pH (5.0-8.0) Ur Specific Fraser (1.005-1.030) Urine Protein (Negative) Urine Glucose (UA) (Negative) Urine Ketones (Negative) Urine Occult Blood (Negative) Urine Nitrite (Negative) Urine Bilirubin (Negative) Urine Urobilinogen (0.2-1.0) Ur Leukocyte Esterase (Negative) Urine RBC (0-5) /hpf Urine WBC (0-5) /hpf Ur Squamous Epith Cells (0-5) /hpf Amorphous Sediment (NOT SEEN) /hpf Urine Bacteria (FEW) /hpf Hyaline Casts (0-5) /lpf Urine Mucus (FEW) /hpf Blood Type Gel Antibody Screen Crossmatch Jose Results last 24 hrs: Microbiology 01/03/17 13:35 Stool Occult Blood (JOSE) - Final Stool / Feces - Stool, Formed Med Orders - Current: Current Medications Hydrocodone Bitart/Acetaminophen (Cuney 325-10 Mg) 1 tab PO Q6H PRN PRN Reason: Pain Last Admin: 01/03/17 06:13 Dose: 1 tab Carvedilol (Coreg) 6.25 mg PO BID [facility] Last Admin: 01/03/17 20:15 Dose: 6.25 mg Gabapentin (Neurontin) 100 mg PO TID [facility] Last Admin: 01/03/17 20:14 Dose: 100 mg Hydromorphone HCl (Dilaudid) 0.5 mg IVPUSH Q4H PRN PRN Reason: Pain (moderate 4-6) Last Admin: 01/03/17 23:12 Dose: 0.5 mg Promethazine HCl 12.5 mg/ (Sodium Chloride) 50.5 mls @ 100 mls/hr IV Q6H PRN PRN Reason: Nausea/Vomiting Ondansetron HCl (Zofran) 4 mg IVPUSH Q8H PRN PRN Reason: Nausea/Vomiting Pantoprazole Sodium (Protonix Iv) 40 mg IVPUSH Q12H [facility] Last Admin: 01/04/17 05:17 Dose: 40 mg Paroxetine HCl (Paxil) 20 mg PO DAILY [facility] Last Admin: 01/03/17 10:48 Dose: Not Given Simvastatin (Zocor) 20 mg PO BEDTIME [facility] Last Admin: 01/03/17 20:14 Dose: 20 mg Zolpidem Tartrate (Ambien) 10 mg PO BEDTIME [facility] Last Admin: 01/03/17 20:14 Dose: 10 mg Discontinued Medications Furosemide (Lasix) 20 mg IVPUSH Q8H [facility] Stop: 01/03/17 13:01 Last Admin: 01/03/17 13:16 Dose: 20 mg Sodium Chloride (Normal Saline) 1,000 mls @ 100 mls/hr IV ASDIRECTED [facility] Last Admin: 01/02/17 14:36 Dose: 100 mls/hr Sodium Chloride (Normal Saline) Confirm Administered Dose 250 mls @ as directed .ROUTE .[facility] Stop: 01/02/17 20:37 Last Admin: 01/02/17 21:13 Dose: 250 ml Sodium Chloride (Normal Saline) Confirm Administered Dose 250 mls @ as directed .ROUTE .[facility] ONE Stop: 01/03/17 00:11 Last Admin: 01/03/17 01:09 Dose: 250 ml Sodium Chloride (Normal Saline) Confirm Administered Dose 250 mls @ as directed .ROUTE .[facility] Stop: 01/03/17 04:23 Last Admin: 01/03/17 05:00 Dose: 250 ml Sodium Chloride (Normal Saline) Confirm Administered Dose 250 mls @ as directed .ROUTE .[facility] Stop: 01/03/17 09:24 Last Admin: 01/03/17 09:37 Dose: Not Given Lidocaine HCl (Xylocaine-Mpf 1%) Confirm Administered Dose 4 mls @ as directed .ROUTE .[facility] ONE Stop: 01/04/17 08:46 Oxymetazoline HCl (Afrin Original 0.05% Nasal [facility]) 0 ml [facility] ONETIME ONE Stop: 01/03/17 00:40 Last Admin: 01/03/17 01:04 Dose: 1 spray Pantoprazole Sodium (Protonix Iv) 40 mg IVPUSH ONETIME ONE Stop: 01/02/17 14:26 Last Admin: 01/02/17 14:35 Dose: 40 mg Phytonadione (Aquamephyton) 5 mg PO ONETIME ONE Stop: 01/02/17 18:22 Last Admin: 01/02/17 21:16 Dose: 2.5 mg Phytonadione (Aquamephyton) Confirm Administered Dose 2.5 mg .ROUTE .[facility] ONE Stop: 01/02/17 20:37 Last Admin: 01/02/17 21:14 Dose: 2.5 mg Phytonadione (Aquamephyton) 2.5 mg PO ONETIME ONE Stop: 01/03/17 14:06 Last Admin: 01/03/17 16:18 Dose: 2.5 mg Phytonadione (Aquamephyton) 5 mg PO ONETIME ONE Stop: 01/03/17 22:50 Last Admin: 01/03/17 23:02 Dose: 5 mg Pneumococcal 13-Valent Conj Vacc (Prevnar 13) 0.5 ml IM .ONCE ONE Stop: 01/03/17 08:01 Pneumococcal Polyvalent Vaccine (Pneumovax 23) 0.5 ml SUBCUT .ONCE ONE Stop: 01/02/17 18:43 Potassium Chloride (Potassium Chloride) 40 meq PO ONETIME ONE Stop: 01/03/17 19:45 Last Admin: 01/03/17 20:13 Dose: 40 meq Propofol (Diprivan 20 Ml) Confirm Administered Dose 200 mg .ROUTE .[facility] ONE Stop: 01/04/17 08:46 - Exam General: alert, oriented, cooperative, no acute distress HEENT: No: Scleral icterus Lungs: Clear to auscultation, Normal respiratory effort Cardiovascular: Regular Rate, Regular Rhythm Abdomen: soft, no tenderness, no distension Skin: warm, dry, intact Neurological: no new focal deficit Psy/Mental Status: alert, normal affect, normal mood Consult PN Assessment/Plan Procedures: Procedures ASSAY OF CREATININE (01/05/15) ASSAY OF NATRIURETIC PEPTIDE (07/03/15) C-REACTIVE PROTEIN (12/16/16) CARDIOVASCULAR STRESS TEST (05/03/16) CHEST X-RAY 2VW FRONTAL&LATL (07/03/15) COMPLETE CBC W/AUTO DIFF WBC (12/28/16) COMPREHEN METABOLIC PANEL (12/28/16) CT LOWER EXTREMITY W/O DYE (12/16/16) DRAIN/INJ JOINT/BURSA W/O US (10/22/16) DXA BONE DENSITY AXIAL (05/26/15) ELECTROCARDIOGRAM TRACING (12/28/16) EMERGENCY DEPT VISIT (12/28/16) EMERGENCY DEPT VISIT (10/06/16) HT MUSCLE IMAGE SPECT MULT (05/03/16) HYDRATE IV INFUSION ADD-ON (12/28/16) IMMUNIZATION ADMIN (03/15/15) INJECTION FOR HIP X-RAY (03/19/16) MEASURE BLOOD OXYGEN LEVEL (01/05/15) MRI LUMBAR SPINE W/O & W/DYE (01/05/15) NEEDLE LOCALIZATION BY XRAY (03/19/16) PROTHROMBIN TIME (12/28/16) RBC SED RATE AUTOMATED (12/16/16) ROUTINE VENIPUNCTURE (12/28/16) RPR S/N/AX/GEN/TRNK 2.5CM/< (03/15/15) TDAP VACCINE 7 YRS/> IM (03/15/15) THER/PROPH/DIAG INJ IV PUSH (12/28/16) THROMBOPLASTIN TIME PARTIAL (12/28/16) TREAT HIP DISLOCATION (12/28/16) TTE W/DOPPLER COMPLETE (01/05/15) TX/PRO/DX INJ NEW DRUG ADDON (12/28/16) X-RAY EXAM HIP UNI 1 VIEW (12/28/16) X-RAY EXAM HIP UNI 2-3 VIEWS (12/28/16) X-RAY EXAM OF ANKLE (03/01/15) X-RAY EXAM OF HIP (07/03/15) X-RAY EXAM OF LOWER LEG (03/01/15) X-RAY EXAM OF PELVIS (07/03/15) (1) 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 bleeding SNOMED Code(s): 80097902 Code(s): K92.2 - GASTROINTESTINAL HEMORRHAGE, UNSPECIFIED Current Visit: Yes (2) Elevated INR (international normalized ratio) SNOMED Code(s): 263592735, 769363955 Code(s): R79.1 - ABNORMAL COAGULATION PROFILE Current Visit: Yes (3) Anemia SNOMED Code(s): 186199136 Code(s): D64.9 - ANEMIA, UNSPECIFIED Priority: High Current Visit: Yes Qualifiers: Anemia type: other cause Other causes of anemia: acute posthemorrhagic Qualified Code(s): D62 - Acute posthemorrhagic anemia Problem List Initiated/Reviewed/Updated: Yes My Orders last 24 hours: My Active Orders 01/04/17 09:00 Schedule Procedure [COMM] Timed Plan: 81-year-old woman with GI bleeding and supratherapeutic INR on Coumadin INR this morning 1.49 I discussed with the patient yesterday performing a diagnostic EGD for her melena and admission hemoglobin of 5 We will proceed operating room this morning for diagnostic EGD. Informed consent was obtained. She had no further questions or concerns.
[2017-01-04] MEDS ORDERED: Lactated Ringers 1,000 ML ONE (09:17)
--- NOTE | 2017-01-04 09:47 | PCM48HPAN ---
Post Anesthesia Note - EVALUATION WITHIN 48HRS OF ANESTHETIC Vital Signs in Normal Range: Yes Patient Participated in Evaluation: Yes Respiratory Function Stable: Yes Airway Patent: Yes Cardiovascular Function Stable: Yes Hydration Status Stable: Yes Pain Control Satisfactory: Yes Nausea and Vomiting Control Satisfactory: Yes Mental Status Recovered: Yes (Rests in bed visiting with son)
--- NOTE | 2017-01-04 11:13 | PCM.OPNOTE ---
- General Post-Op/Procedure Note Date of Surgery/Procedure: 01/04/17 Operative Procedure(s): Diagnostic EGD with cold forceps biopsy Pre Op Diagnosis: GI bleeding of uncertain etiology Post-Op Diagnosis: Gastritis, duodenitis, hemorrhage of the left vocal cord, large clot within the posterior oropharynx, no active hemorrhage Anesthesia Technique: MAC Primary Surgeon: Vivian Nayak Anesthesia Provider: Tiburcio Reed Pathology: 1. Small bowel biopsy 2. Antral biopsy 3. Distal esophageal biopsy Fluid Replacement, Intraop: 200 (mL crystalloid ) EBL in mLs: 1 Complications: None Condition: Good Free Text/Narrative:: INDICATION FOR PROCEDURE: The patient is a 81-year-old woman who I was asked to see in consultation by Dr. Charis Dave for evaluation of GI bleeding with melena in the setting of supratherapeutic INR. Her admission hemoglobin had been 5. EGD had been discussed with the patient and risks of the associated procedure. The patient's INR this morning was 1.49. The patient found these risks acceptable and agreed to proceed. DESCRIPTION OF PROCEDURE: The patient was taken to the operating room and placed in the left lateral decubitus position. After induction of adequate sedation, a bite block was placed. There was a large clot in posterior oropharnyx that I removed with Shay's forceps. There was no evidence of active bleeding. Additionally, there was evidence of recent hemorrhage of the left vocal cord, but no active bleeding. A standard Olympus gastroscope was then guided down the esophagus without difficulty. The gastroesophageal junction was appreciated at 39 cm from the teeth. There was no evidence of stricture or esophageal ulcerations. The scope was advanced into the stomach, and there was mild diffuse gastritis, no active bleeding, no ulceration. The scope was passed into the proximal jejunum and the duodenum which showed duodenitis of D1 and D2 with petechiae, but no ulcerations. The proximal jejunum was grossly normal in appearance. Two cold forceps biopsies were obtained of the duodenum. The scope was withdrawn into the antrum, and additional cold forceps biopsies were obtained. The remainder of the gastric body was examined, and there were no other abnormalities. The scope was retroflexed, and there was no evidence of hiatal hernia. The scope was straightened and withdrawn to the GE junction. Additional cold forceps biopsies were obtained of the distal esophagus. The scope was withdrawn through the remainder of the esophagus and no further abnormalities were noted. The posterior oropharynx was grossly normal in appearance. The scope was then fully withdrawn. The patient was awakened from sedation and transferred to the recovery room in stable condition having tolerated the procedure well. POSTOPERATIVE PLAN: I discussed with the patient's son and Dr. Dave my intraoperative findings and postoperative recommendations. The patient may resume a regular diet. I would recommend holding off on restart of anticoagulation for at least 48 hours. The patient is to continue a daily PPI. She should follow up with me in about 1-2 weeks (whenever her post-hospital follow up is scheduled with Dr. Wadsworth).
--- NOTE | 2017-01-04 11:19 | PCM.PN ---
- General Info Date of Service: 01/04/17 Admission Dx/Problem (Free Text): Returning from EGD, results conveyed by Dr Nayak; will continue Protonix 40 mg BID. SNF placement TBA, requires structured program. Functional Status: Reports: tolerating diet (NPO), ambulating, urinating - Review of Systems General: Reports: No Symptoms HEENT: Reports: no symptoms Pulmonary: Reports: no symptoms Cardiovascular: Reports: No Symptoms 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: Reports: No symptoms Genitourinary: Reports: no symptoms Musculoskeletal: Reports: no symptoms Skin: Reports: no symptoms Neurological: Reports: No Symptoms Psychiatric: Reports: no symptoms - Patient Data Vitals - most recent: Last Vital Signs Temp 36.8 C 01/04/17 08:50 Pulse 110 H 01/04/17 08:50 Resp 20 01/04/17 08:50 BP 121/79 01/04/17 08:50 Pulse Ox 96 01/04/17 08:50 Orthostatic Blood Pressure [ 90/67 Standing] Orthostatic Blood Pressure [ 117/70 Sitting] Orthostatic Blood Pressure [ 111/66 Supine] Weight - most recent: 72.03 kg I&O - last 24 hours: Intake & Output 01/03/17 01/04/17 01/04/17 22:59 06:59 14:59 Intake Total 860 800 200 Output Total 1375 500 Balance -515 300 200 Lab Results last 24 hrs: Laboratory Results - last 24 hr 01/02/17 01/03/17 01/03/17 Range/Units 16:22 09:40 11:10 WBC 6.85 (3.98-10.04) K/mm3 RBC 3.58 L (3.98-5.22) M/mm3 Hgb 10.7 L (11.2-15.7) gm/L Hct 32.0 L (34.1-44.9) % MCV 89.4 (79.4-94.8) fl MCH 29.9 (25.6-32.2) pg MCHC 33.4 (32.2-35.5) g/dl RDW Std Deviation 55.1 H (36.4-46.3) fL Plt Count 260 (182-369) K/mm3 MPV 9.3 L (9.4-12.3) fl Neut % (Auto) 71.7 H (34.0-71.1) % Lymph % (Auto) 13.3 L (19.3-51.7) % [place] % (Auto) 11.7 (4.7-12.5) % Eos % (Auto) 1.8 (0.7-5.8) Baso % (Auto) 0.3 (0.1-1.2) % Neut # (Auto) 4.92 (1.56-6.13) K/mm3 Lymph # (Auto) 0.91 L (1.18-3.74) K/mm3 [place] # (Auto) 0.80 H (0.24-0.36) K/mm3 Eos # (Auto) 0.12 (0.04-0.36) K/mm3 Baso # (Auto) 0.02 (0.01-0.08) K/mm3 Manual Slide Review PT (8.0-13.0) SECONDS INR Sodium (136-145) mEq/L Potassium (3.5-5.1) mEq/L Chloride (98-107) mEq/L Carbon Dioxide (21-32) mEq/L Anion Gap (5-15) BUN (7-18) mg/dL Creatinine (0.55-1.02) mg/dL Est Cr Clr Drug Dosing mL/min Estimated GFR (MDRD) (>60) mL/min BUN/Creatinine Ratio (14-18) Glucose (83-115) mg/dL Calcium (8.5-10.1) mg/dL B-Natriuretic Peptide (0-100) pg/mL Urine Color Yellow (Yellow) Urine Appearance Clear (Clear) Urine pH 7.0 (5.0-8.0) Ur Specific [place] 1.015 (1.005-1.030) Urine Protein Negative (Negative) Urine Glucose (UA) Negative (Negative) Urine Ketones Negative (Negative) Urine Occult Blood Negative (Negative) Urine Nitrite Negative (Negative) Urine Bilirubin Negative (Negative) Urine Urobilinogen 0.2 (0.2-1.0) Ur Leukocyte Esterase Trace H (Negative) Urine RBC 0-5 (0-5) /hpf Urine WBC 5-10 H (0-5) /hpf Ur Squamous Epith Cells 0-5 (0-5) /hpf Amorphous Sediment Few H (NOT SEEN) /hpf Urine Bacteria Few (FEW) /hpf Hyaline Casts 0-5 (0-5) /lpf Urine Mucus Not seen (FEW) /hpf Blood Type A NEGATIVE Gel Antibody Screen Positive Crossmatch See Detail 01/03/17 01/03/17 01/03/17 Range/Units 11:10 11:10 11:10 WBC (3.98-10.04) K/mm3 RBC (3.98-5.22) M/mm3 Hgb (11.2-15.7) gm/L Hct (34.1-44.9) % MCV (79.4-94.8) fl MCH (25.6-32.2) pg MCHC (32.2-35.5) g/dl RDW Std Deviation (36.4-46.3) fL Plt Count (182-369) K/mm3 MPV (9.4-12.3) fl Neut % (Auto) (34.0-71.1) % Lymph % (Auto) (19.3-51.7) % [place] % (Auto) (4.7-12.5) % Eos % (Auto) (0.7-5.8) Baso % (Auto) (0.1-1.2) % Neut # (Auto) (1.56-6.13) K/mm3 Lymph # (Auto) (1.18-3.74) K/mm3 [place] # (Auto) (0.24-0.36) K/mm3 Eos # (Auto) (0.04-0.36) K/mm3 Baso # (Auto) (0.01-0.08) K/mm3 Manual Slide Review PT 26.1 H (8.0-13.0) SECONDS INR 2.27 Sodium 142 (136-145) mEq/L Potassium 3.5 (3.5-5.1) mEq/L Chloride 107 (98-107) mEq/L Carbon Dioxide 24 (21-32) mEq/L Anion Gap 14.5 (5-15) BUN 29 H (7-18) mg/dL Creatinine 1.4 H (0.55-1.02) mg/dL Est Cr Clr Drug Dosing 23.40 mL/min Estimated GFR (MDRD) 36 (>60) mL/min BUN/Creatinine Ratio 20.7 H (14-18) Glucose 85 (83-115) mg/dL Calcium 7.9 L (8.5-10.1) mg/dL B-Natriuretic Peptide 455 H (0-100) pg/mL Urine Color (Yellow) Urine Appearance (Clear) Urine pH (5.0-8.0) Ur Specific [place] (1.005-1.030) Urine Protein (Negative) Urine Glucose (UA) (Negative) Urine Ketones (Negative) Urine Occult Blood (Negative) Urine Nitrite (Negative) Urine Bilirubin (Negative) Urine Urobilinogen (0.2-1.0) Ur Leukocyte Esterase (Negative) Urine RBC (0-5) /hpf Urine WBC (0-5) /hpf Ur Squamous Epith Cells (0-5) /hpf Amorphous Sediment (NOT SEEN) /hpf Urine Bacteria (FEW) /hpf Hyaline Casts (0-5) /lpf Urine Mucus (FEW) /hpf Blood Type Gel Antibody Screen Crossmatch 01/03/17 01/04/17 01/04/17 Range/Units 20:33 05:36 05:36 WBC 5.19 (3.98-10.04) K/mm3 RBC 3.36 L (3.98-5.22) M/mm3 Hgb 10.1 L (11.2-15.7) gm/L Hct 30.3 L (34.1-44.9) % MCV 90.2 (79.4-94.8) fl MCH 30.1 (25.6-32.2) pg MCHC 33.3 (32.2-35.5) g/dl RDW Std Deviation 54.8 H (36.4-46.3) fL Plt Count 237 (182-369) K/mm3 MPV 9.4 (9.4-12.3) fl Neut % (Auto) 64.3 (34.0-71.1) % Lymph % (Auto) 17.0 L (19.3-51.7) % [place] % (Auto) 16.0 H (4.7-12.5) % Eos % (Auto) 1.7 (0.7-5.8) Baso % (Auto) 0.2 (0.1-1.2) % Neut # (Auto) 3.34 (1.56-6.13) K/mm3 Lymph # (Auto) 0.88 L (1.18-3.74) K/mm3 [place] # (Auto) 0.83 H (0.24-0.36) K/mm3 Eos # (Auto) 0.09 (0.04-0.36) K/mm3 Baso # (Auto) 0.01 (0.01-0.08) K/mm3 Manual Slide Review Abnormal smear PT 21.8 H (8.0-13.0) SECONDS INR 1.92 Sodium 142 (136-145) mEq/L Potassium 3.3 L (3.5-5.1) mEq/L Chloride 106 (98-107) mEq/L Carbon Dioxide 26 (21-32) mEq/L Anion Gap 13.3 (5-15) BUN 27 H (7-18) mg/dL Creatinine 1.4 H (0.55-1.02) mg/dL Est Cr Clr Drug Dosing 23.40 mL/min Estimated GFR (MDRD) 36 (>60) mL/min BUN/Creatinine Ratio 19.3 H (14-18) Glucose 81 L (83-115) mg/dL Calcium 7.9 L (8.5-10.1) mg/dL B-Natriuretic Peptide (0-100) pg/mL Urine Color (Yellow) Urine Appearance (Clear) Urine pH (5.0-8.0) Ur Specific [place] (1.005-1.030) Urine Protein (Negative) Urine Glucose (UA) (Negative) Urine Ketones (Negative) Urine Occult Blood (Negative) Urine Nitrite (Negative) Urine Bilirubin (Negative) Urine Urobilinogen (0.2-1.0) Ur Leukocyte Esterase (Negative) Urine RBC (0-5) /hpf Urine WBC (0-5) /hpf Ur Squamous Epith Cells (0-5) /hpf Amorphous Sediment (NOT SEEN) /hpf Urine Bacteria (FEW) /hpf Hyaline Casts (0-5) /lpf Urine Mucus (FEW) /hpf Blood Type Gel Antibody Screen Crossmatch 01/04/17 Range/Units 05:36 WBC (3.98-10.04) K/mm3 RBC (3.98-5.22) M/mm3 Hgb (11.2-15.7) gm/L Hct (34.1-44.9) % MCV (79.4-94.8) fl MCH (25.6-32.2) pg MCHC (32.2-35.5) g/dl RDW Std Deviation (36.4-46.3) fL Plt Count (182-369) K/mm3 MPV (9.4-12.3) fl Neut % (Auto) (34.0-71.1) % Lymph % (Auto) (19.3-51.7) % [place] % (Auto) (4.7-12.5) % Eos % (Auto) (0.7-5.8) Baso % (Auto) (0.1-1.2) % Neut # (Auto) (1.56-6.13) K/mm3 Lymph # (Auto) (1.18-3.74) K/mm3 [place] # (Auto) (0.24-0.36) K/mm3 Eos # (Auto) (0.04-0.36) K/mm3 Baso # (Auto) (0.01-0.08) K/mm3 Manual Slide Review PT 16.7 H (8.0-13.0) SECONDS INR 1.49 Sodium (136-145) mEq/L Potassium (3.5-5.1) mEq/L Chloride (98-107) mEq/L Carbon Dioxide (21-32) mEq/L Anion Gap (5-15) BUN (7-18) mg/dL Creatinine (0.55-1.02) mg/dL Est Cr Clr Drug Dosing mL/min Estimated GFR (MDRD) (>60) mL/min BUN/Creatinine Ratio (14-18) Glucose (83-115) mg/dL Calcium (8.5-10.1) mg/dL B-Natriuretic Peptide (0-100) pg/mL Urine Color (Yellow) Urine Appearance (Clear) Urine pH (5.0-8.0) Ur Specific [place] (1.005-1.030) Urine Protein (Negative) Urine Glucose (UA) (Negative) Urine Ketones (Negative) Urine Occult Blood (Negative) Urine Nitrite (Negative) Urine Bilirubin (Negative) Urine Urobilinogen (0.2-1.0) Ur Leukocyte Esterase (Negative) Urine RBC (0-5) /hpf Urine WBC (0-5) /hpf Ur Squamous Epith Cells (0-5) /hpf Amorphous Sediment (NOT SEEN) /hpf Urine Bacteria (FEW) /hpf Hyaline Casts (0-5) /lpf Urine Mucus (FEW) /hpf Blood Type Gel Antibody Screen Crossmatch Jose Results last 24 hrs: Microbiology 01/03/17 13:35 Stool Occult Blood (JOSE) - Final Stool / Feces - Stool, Formed Med Orders - Current: Current Medications Hydrocodone Bitart/Acetaminophen (Beals 325-10 Mg) 1 tab PO Q6H PRN PRN Reason: Pain Last Admin: 01/03/17 06:13 Dose: 1 tab Carvedilol (Coreg) 6.25 mg PO BID [facility] Last Admin: 01/03/17 20:15 Dose: 6.25 mg Gabapentin (Neurontin) 100 mg PO TID [facility] Last Admin: 01/03/17 20:14 Dose: 100 mg Hydromorphone HCl (Dilaudid) 0.5 mg IVPUSH Q4H PRN PRN Reason: Pain (moderate 4-6) Last Admin: 01/03/17 23:12 Dose: 0.5 mg Promethazine HCl 12.5 mg/ (Sodium Chloride) 50.5 mls @ 100 mls/hr IV Q6H PRN PRN Reason: Nausea/Vomiting Ondansetron HCl (Zofran) 4 mg IVPUSH Q8H PRN PRN Reason: Nausea/Vomiting Pantoprazole Sodium (Protonix Iv) 40 mg IVPUSH Q12H [facility] Last Admin: 01/04/17 05:17 Dose: 40 mg Paroxetine HCl (Paxil) 20 mg PO DAILY [facility] Last Admin: 01/03/17 10:48 Dose: Not Given Simvastatin (Zocor) 20 mg PO BEDTIME [facility] Last Admin: 01/03/17 20:14 Dose: 20 mg Zolpidem Tartrate (Ambien) 10 mg PO BEDTIME [facility] Last Admin: 01/03/17 20:14 Dose: 10 mg Discontinued Medications Furosemide (Lasix) 20 mg IVPUSH Q8H [facility] Stop: 01/03/17 13:01 Last Admin: 01/03/17 13:16 Dose: 20 mg Sodium Chloride (Normal Saline) 1,000 mls @ 100 mls/hr IV ASDIRECTED [facility] Last Admin: 01/02/17 14:36 Dose: 100 mls/hr Sodium Chloride (Normal Saline) Confirm Administered Dose 250 mls @ as directed .ROUTE .[facility] ONE Stop: 01/02/17 20:37 Last Admin: 01/02/17 21:13 Dose: 250 ml Sodium Chloride (Normal Saline) Confirm Administered Dose 250 mls @ as directed .ROUTE .[facility] ONE Stop: 01/03/17 00:11 Last Admin: 01/03/17 01:09 Dose: 250 ml Sodium Chloride (Normal Saline) Confirm Administered Dose 250 mls @ as directed .ROUTE .[facility] ONE Stop: 01/03/17 04:23 Last Admin: 01/03/17 05:00 Dose: 250 ml Sodium Chloride (Normal Saline) Confirm Administered Dose 250 mls @ as directed .ROUTE .[facility] ONE Stop: 01/03/17 09:24 Last Admin: 01/03/17 09:37 Dose: Not Given Lidocaine HCl (Xylocaine-Mpf 1%) Confirm Administered Dose 4 mls @ as directed .ROUTE .[facility] ONE Stop: 01/04/17 08:46 Lactated Ringer's (Ringers, Lactated) Confirm Administered Dose 1,000 mls @ as directed .ROUTE .[facility] ONE Stop: 01/04/17 09:18 Oxymetazoline HCl (Afrin Original 0.05% Nasal [place]) 0 ml [facility] ONETIME ONE Stop: 01/03/17 00:40 Last Admin: 01/03/17 01:04 Dose: 1 spray Pantoprazole Sodium (Protonix Iv) 40 mg IVPUSH ONETIME ONE Stop: 01/02/17 14:26 Last Admin: 01/02/17 14:35 Dose: 40 mg Phytonadione (Aquamephyton) 5 mg PO ONETIME ONE Stop: 01/02/17 18:22 Last Admin: 01/02/17 21:16 Dose: 2.5 mg Phytonadione (Aquamephyton) Confirm Administered Dose 2.5 mg .ROUTE .[facility] ONE Stop: 01/02/17 20:37 Last Admin: 01/02/17 21:14 Dose: 2.5 mg Phytonadione (Aquamephyton) 2.5 mg PO ONETIME ONE Stop: 01/03/17 14:06 Last Admin: 01/03/17 16:18 Dose: 2.5 mg Phytonadione (Aquamephyton) 5 mg PO ONETIME ONE Stop: 01/03/17 22:50 Last Admin: 01/03/17 23:02 Dose: 5 mg Pneumococcal 13-Valent Conj Vacc (Prevnar 13) 0.5 ml IM .ONCE ONE Stop: 01/03/17 08:01 Pneumococcal Polyvalent Vaccine (Pneumovax 23) 0.5 ml SUBCUT .ONCE ONE Stop: 01/02/17 18:43 Potassium Chloride (Potassium Chloride) 40 meq PO ONETIME ONE Stop: 01/03/17 19:45 Last Admin: 01/03/17 20:13 Dose: 40 meq Propofol (Diprivan 20 Ml) Confirm Administered Dose 200 mg .ROUTE .STK-MED ONE Stop: 01/04/17 08:46 - Exam Quality Assessment: DVT prophylaxis General: alert, oriented, cooperative, no acute distress HEENT: Pupils equal, Pupils reactive, EOMI Neck: supple, trachea midline, no JVD Lungs: Normal respiratory effort, Decreased breath sounds Cardiovascular: Regular Rate, Regular Rhythm Abdomen: bowel sounds present, soft, no tenderness, no distension (Female) Exam: Deferred Back Exam: normal inspection Extremities: normal pulses Skin: warm Wound/Incisions: healing well, other (edema/ecchymosis) Neurological: no new focal deficit, normal speech Psy/Mental Status: alert, normal affect, normal mood - Problem List & Annotations (1) Anemia SNOMED Code(s): 470767472 Code(s): D64.9 - ANEMIA, UNSPECIFIED Status: Acute Priority: High Current Visit: Yes Qualifiers: Anemia type: other cause Other causes of anemia: acute posthemorrhagic Qualified Code(s): D62 - Acute posthemorrhagic anemia (2) CHF NYHA class III (symptoms with mildly strenuous activities) SNOMED Code(s): 668357434, 407540953 Code(s): I50.9 - HEART FAILURE, UNSPECIFIED Status: Acute Current Visit: Yes Qualifiers: Congestive heart failure type: diastolic Congestive heart failure chronicity: acute on chronic Qualified Code(s): I50.33 - Acute on chronic diastolic (congestive) heart failure (3) Closed fracture nasal bone SNOMED Code(s): 33602935 Code(s): S02.2XXA - FRACTURE OF NASAL BONES, INIT ENCNTR FOR CLOSED FRACTURE Status: Acute Current Visit: Yes Qualifiers: Encounter type: initial encounter Qualified Code(s): S02.2XXA - Fracture of nasal bones, initial encounter for closed fracture (4) Elevated INR (international normalized ratio) SNOMED Code(s): 783147933, 370871058 Code(s): R79.1 - ABNORMAL COAGULATION PROFILE Status: Acute Current Visit : Yes (5) Fall SNOMED Code(s): 7296978, 742626849 Code(s): W19.XXXA - UNSPECIFIED FALL, INITIAL ENCOUNTER Status: Acute Current Visit: No Qualifiers: Encounter type: initial encounter Qualified Code(s): W19.XXXA - Unspecified fall, initial encounter (6) Edema of left lower extremity SNOMED Code(s): 121501388, 819451995 Code(s): R60.0 - LOCALIZED EDEMA Status: Acute Priority: High Current Visit: Yes (7) Epistaxis, recurrent SNOMED Code(s): 45887826 Code(s): R04.0 - EPISTAXIS Status: Resolved Priority: High Current Visit: Yes (8) 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 bleeding SNOMED Code(s): 62159106 Code(s): K92.2 - GASTROINTESTINAL HEMORRHAGE, UNSPECIFIED Status: Acute Current Visit: Yes - Problem List Review Problem List Initiated/Reviewed/Updated: Yes - Plan Plan:: Impression: 81 year old female with history of PAF on coumadin therapy with GI blood loss, INR 3.8; Hgb 8.6 (12/26/16) cf 5.2 (01/02/17); now with dypsnea on minimal exertion. Baseline Hgb on 12/16/16, 11.7, per hip surgery. Coumadin stopped and three doses of vitamin K have be given; short delay in EGD this am, lab reported that it was not ordered however draw at 0500 was entered yesterday. 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 Chronic CHF Hyperlipidemia HTN GERD Stress incontinence Anxiety Depression Plan: EGD results noted, continue Protonix 40 mg BID Home meds; adjust pain meds as needed. Daily Labs GI/DVT prophylaxis Consult PT/OT/SW LOS>96 hours expected for placement
[2017-01-04] MEDS: Gabapentin 100 MG Cap PO SCH ×4 (12:56→20:33)
[2017-01-04] MEDS: PARoxetine 20 MG Tab PO SCH ×2 (12:56→13:59)
[2017-01-04] MEDS: HYDROmorphone 0.5 MG/0.5 ML Syringe IVPUSH PRN ×2 (13:57→21:59)
[2017-01-04] MEDS: Carvedilol 6.25 MG Tab PO SCH ×2 (13:58→20:33)
[2017-01-04] MEDS ORDERED: Apixaban 2.5 MG Tab PO ONE (15:29)
[2017-01-04] MEDS: Apixaban 5 MG Tab PO SCH (20:32)
[2017-01-04] MEDS: Simvastatin 20 MG Tab PO SCH (20:33)
[2017-01-04] MEDS: Zolpidem 10 MG Tab PO SCH (20:33)
[2017-01-05] MEDS: HYDROmorphone 0.5 MG/0.5 ML Syringe IVPUSH PRN ×3 (04:52→20:23)
[2017-01-05] MEDS: Pantoprazole 40 MG Vial IVPUSH SCH (04:59)
--- NOTE | 2017-01-05 08:21 | PCM.CONSN ---
- General Info Date of Service: 01/05/17 Subjective Update: No issues overnight Functional Status: Reports: pain controlled, tolerating diet (clear liquids ), ambulating, urinating. Denies: new symptoms - Patient Data Vitals - most recent: Last Vital Signs Temp 98.6 F 01/05/17 04:46 Pulse 86 01/05/17 04:46 Resp 16 01/05/17 04:46 BP 133/76 01/05/17 04:46 Pulse Ox 96 01/05/17 04:46 Orthostatic Blood Pressure [ 90/67 Standing] Orthostatic Blood Pressure [ 117/70 Sitting] Orthostatic Blood Pressure [ 111/66 Supine] Weight - most recent: 156 lb 14.4 oz I&O - last 24 hours: Intake & Output 01/04/17 01/05/17 01/05/17 22:59 06:59 14:59 Intake Total 770 400 Output Total 500 600 Balance 270 -200 Lab Results last 24 hrs: Laboratory Results - last 24 hr 01/02/17 01/04/17 01/05/17 Range/Units 16:22 05:36 05:50 WBC (3.98-10.04) K/mm3 RBC (3.98-5.22) M/mm3 Hgb (11.2-15.7) gm/L Hct (34.1-44.9) % MCV (79.4-94.8) fl MCH (25.6-32.2) pg MCHC (32.2-35.5) g/dl RDW Std Deviation (36.4-46.3) fL Plt Count (182-369) K/mm3 MPV (9.4-12.3) fl Neut % (Auto) (34.0-71.1) % Lymph % (Auto) (19.3-51.7) % [place] % (Auto) (4.7-12.5) % Eos % (Auto) (0.7-5.8) Baso % (Auto) (0.1-1.2) % Neut # (Auto) (1.56-6.13) K/mm3 Lymph # (Auto) (1.18-3.74) K/mm3 [place] # (Auto) (0.24-0.36) K/mm3 Eos # (Auto) (0.04-0.36) K/mm3 Baso # (Auto) (0.01-0.08) K/mm3 PT 16.7 H 13.3 H (8.0-13.0) SECONDS INR 1.49 1.21 Sodium (136-145) mEq/L Potassium (3.5-5.1) mEq/L Chloride (98-107) mEq/L Carbon Dioxide (21-32) mEq/L Anion Gap (5-15) BUN (7-18) mg/dL Creatinine (0.55-1.02) mg/dL Est Cr Clr Drug Dosing mL/min Estimated GFR (MDRD) (>60) mL/min BUN/Creatinine Ratio (14-18) Glucose (83-115) mg/dL Calcium (8.5-10.1) mg/dL Magnesium (1.8-2.4) mg/dl Blood Type A NEGATIVE Gel Antibody Screen Positive Antibody Identification Anti-D Crossmatch See Detail 01/05/17 01/05/17 01/05/17 Range/Units 05:50 05:50 05:50 WBC 3.95 L (3.98-10.04) K/mm3 RBC 3.28 L (3.98-5.22) M/mm3 Hgb 9.8 L (11.2-15.7) gm/L Hct 30.0 L (34.1-44.9) % MCV 91.5 (79.4-94.8) fl MCH 29.9 (25.6-32.2) pg MCHC 32.7 (32.2-35.5) g/dl RDW Std Deviation 54.6 H (36.4-46.3) fL Plt Count 225 (182-369) K/mm3 MPV 9.2 L (9.4-12.3) fl Neut % (Auto) 64.5 (34.0-71.1) % Lymph % (Auto) 19.7 (19.3-51.7) % [place] % (Auto) 12.9 H (4.7-12.5) % Eos % (Auto) 1.8 (0.7-5.8) Baso % (Auto) 0.3 (0.1-1.2) % Neut # (Auto) 2.55 (1.56-6.13) K/mm3 Lymph # (Auto) 0.78 L (1.18-3.74) K/mm3 [place] # (Auto) 0.51 H (0.24-0.36) K/mm3 Eos # (Auto) 0.07 (0.04-0.36) K/mm3 Baso # (Auto) 0.01 (0.01-0.08) K/mm3 PT (8.0-13.0) SECONDS INR Sodium 142 (136-145) mEq/L Potassium 3.2 L (3.5-5.1) mEq/L Chloride 110 H (98-107) mEq/L Carbon Dioxide 23 (21-32) mEq/L Anion Gap 12.2 (5-15) BUN 25 H (7-18) mg/dL Creatinine 1.0 (0.55-1.02) mg/dL Est Cr Clr Drug Dosing 32.77 mL/min Estimated GFR (MDRD) 53 (>60) mL/min BUN/Creatinine Ratio 25.0 H (14-18) Glucose 81 L (83-115) mg/dL Calcium 7.5 L (8.5-10.1) mg/dL Magnesium 2.1 (1.8-2.4) mg/dl Blood Type Gel Antibody Screen Antibody Identification Crossmatch Med Orders - Current: Current Medications Hydrocodone Bitart/Acetaminophen ([place] 325-10 Mg) 1 tab PO Q6H PRN PRN Reason: Pain Last Admin: 01/03/17 06:13 Dose: 1 tab Apixaban (Eliquis) 2.5 mg PO BID [facility] Last Admin: 01/04/17 20:32 Dose: 2.5 mg Carvedilol (Coreg) 6.25 mg PO BID [facility] Last Admin: 01/04/17 20:33 Dose: 6.25 mg Gabapentin (Neurontin) 100 mg PO TID [facility] Last Admin: 01/04/17 20:33 Dose: 100 mg Hydromorphone HCl (Dilaudid) 0.5 mg IVPUSH Q4H PRN PRN Reason: Pain (moderate 4-6) Last Admin: 01/05/17 04:52 Dose: 0.5 mg Promethazine HCl 12.5 mg/ (Sodium Chloride) 50.5 mls @ 100 mls/hr IV Q6H PRN PRN Reason: Nausea/Vomiting Ondansetron HCl (Zofran) 4 mg IVPUSH Q8H PRN PRN Reason: Nausea/Vomiting Pantoprazole Sodium (Protonix) 40 mg PO BIDAC [facility] Paroxetine HCl (Paxil) 20 mg PO DAILY [facility] Last Admin: 01/04/17 13:59 Dose: 20 mg Simvastatin (Zocor) 20 mg PO BEDTIME [facility] Last Admin: 01/04/17 20:33 Dose: 20 mg Zolpidem Tartrate (Ambien) 10 mg PO BEDTIME [facility] Last Admin: 01/04/17 20:33 Dose: 10 mg Discontinued Medications Apixaban (Eliquis) 2.5 mg PO BID ONE Stop: 01/04/17 15:30 Last Admin: 01/04/17 20:14 Dose: Not Given Furosemide (Lasix) 20 mg IVPUSH Q8H [facility] Stop: 01/03/17 13:01 Last Admin: 01/03/17 13:16 Dose: 20 mg Sodium Chloride (Normal Saline) 1,000 mls @ 100 mls/hr IV ASDIRECTED [facility] Last Admin: 01/02/17 14:36 Dose: 100 mls/hr Sodium Chloride (Normal Saline) Confirm Administered Dose 250 mls @ as directed .ROUTE .ST-MED ONE Stop: 01/02/17 20:37 Last Admin: 01/02/17 21:13 Dose: 250 ml Sodium Chloride (Normal Saline) Confirm Administered Dose 250 mls @ as directed .ROUTE .ST-MED ONE Stop: 01/03/17 00:11 Last Admin: 01/03/17 01:09 Dose: 250 ml Sodium Chloride (Normal Saline) Confirm Administered Dose 250 mls @ as directed .ROUTE .ST-MED ONE Stop: 01/03/17 04:23 Last Admin: 01/03/17 05:00 Dose: 250 ml Sodium Chloride (Normal Saline) Confirm Administered Dose 250 mls @ as directed .ROUTE .ST-MED ONE Stop: 01/03/17 09:24 Last Admin: 01/03/17 09:37 Dose: Not Given Lidocaine HCl (Xylocaine-Mpf 1%) Confirm Administered Dose 4 mls @ as directed .ROUTE .ST-MED ONE Stop: 01/04/17 08:46 Lactated Ringer's (Ringers, Lactated) Confirm Administered Dose 1,000 mls @ as directed .ROUTE .STK-MED ONE Stop: 01/04/17 09:18 Oxymetazoline HCl (Afrin Original 0.05% Nasal [place]) 0 ml [facility] ONETIME ONE Stop: 01/03/17 00:40 Last Admin: 01/03/17 01:04 Dose: 1 spray Pantoprazole Sodium (Protonix Iv) 40 mg IVPUSH ONETIME ONE Stop: 01/02/17 14:26 Last Admin: 01/02/17 14:35 Dose: 40 mg Pantoprazole Sodium (Protonix Iv) 40 mg IVPUSH Q12H [facility] Last Admin: 01/05/17 04:59 Dose: 40 mg Phytonadione (Aquamephyton) 5 mg PO ONETIME ONE Stop: 01/02/17 18:22 Last Admin: 01/02/17 21:16 Dose: 2.5 mg Phytonadione (Aquamephyton) Confirm Administered Dose 2.5 mg .ROUTE .STK-MED ONE Stop: 01/02/17 20:37 Last Admin: 01/02/17 21:14 Dose: 2.5 mg Phytonadione (Aquamephyton) 2.5 mg PO ONETIME ONE Stop: 01/03/17 14:06 Last Admin: 01/03/17 16:18 Dose: 2.5 mg Phytonadione (Aquamephyton) 5 mg PO ONETIME ONE Stop: 01/03/17 22:50 Last Admin: 01/03/17 23:02 Dose: 5 mg Pneumococcal 13-Valent Conj Vacc (Prevnar 13) 0.5 ml IM .ONCE ONE Stop: 01/03/17 08:01 Pneumococcal Polyvalent Vaccine (Pneumovax 23) 0.5 ml SUBCUT .ONCE ONE Stop: 01/02/17 18:43 Potassium Chloride (Potassium Chloride) 40 meq PO ONETIME ONE Stop: 01/03/17 19:45 Last Admin: 01/03/17 20:13 Dose: 40 meq Propofol (Diprivan 20 Ml) Confirm Administered Dose 200 mg .ROUTE .STK-MED ONE Stop: 01/04/17 08:46 - Exam General: alert, oriented, cooperative, no acute distress HEENT: Other (periorbital ecchymosis ) Lungs: Normal respiratory effort Cardiovascular: Regular Rate Abdomen: soft, no tenderness, no distension Skin: warm, dry, intact, ecchymosis Neurological: no new focal deficit Psy/Mental Status: alert, normal affect, normal mood Consult PN Assessment/Plan Procedures: Procedures ASSAY OF CREATININE (01/05/15) ASSAY OF NATRIURETIC PEPTIDE (07/03/15) C-REACTIVE PROTEIN (12/16/16) CARDIOVASCULAR STRESS TEST (05/03/16) CHEST X-RAY 2VW FRONTAL&LATL (07/03/15) COMPLETE CBC W/AUTO DIFF WBC (12/28/16) COMPREHEN METABOLIC PANEL (12/28/16) CT LOWER EXTREMITY W/O DYE (12/16/16) DRAIN/INJ JOINT/BURSA W/O US (10/22/16) DXA BONE DENSITY AXIAL (05/26/15) ELECTROCARDIOGRAM TRACING (12/28/16) EMERGENCY DEPT VISIT (12/28/16) EMERGENCY DEPT VISIT (10/06/16) HT MUSCLE IMAGE SPECT MULT (05/03/16) HYDRATE IV INFUSION ADD-ON (12/28/16) IMMUNIZATION ADMIN (03/15/15) INJECTION FOR HIP X-RAY (03/19/16) MEASURE BLOOD OXYGEN LEVEL (01/05/15) MRI LUMBAR SPINE W/O & W/DYE (01/05/15) NEEDLE LOCALIZATION BY XRAY (03/19/16) PROTHROMBIN TIME (12/28/16) RBC SED RATE AUTOMATED (12/16/16) ROUTINE VENIPUNCTURE (12/28/16) RPR S/N/AX/GEN/TRNK 2.5CM/< (03/15/15) TDAP VACCINE 7 YRS/> IM (03/15/15) THER/PROPH/DIAG INJ IV PUSH (12/28/16) THROMBOPLASTIN TIME PARTIAL (12/28/16) TREAT HIP DISLOCATION (12/28/16) TTE W/DOPPLER COMPLETE (01/05/15) TX/PRO/DX INJ NEW DRUG ADDON (12/28/16) X-RAY EXAM HIP UNI 1 VIEW (12/28/16) X-RAY EXAM HIP UNI 2-3 VIEWS (12/28/16) X-RAY EXAM OF ANKLE (03/01/15) X-RAY EXAM OF HIP (07/03/15) X-RAY EXAM OF LOWER LEG (03/01/15) X-RAY EXAM OF PELVIS (07/03/15) (1) Anemia SNOMED Code(s): 145919641 Code(s): D64.9 - ANEMIA, UNSPECIFIED Priority: High Current Visit: Yes Qualifiers: Anemia type: other cause Other causes of anemia: acute posthemorrhagic Qualified Code(s): D62 - Acute posthemorrhagic anemia (2) Elevated INR (international normalized ratio) SNOMED Code(s): 583711623, 745000599 Code(s): R79.1 - ABNORMAL COAGULATION PROFILE Current Visit: Yes (3) 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 bleeding SNOMED Code(s): 06733418 Code(s): K92.2 - GASTROINTESTINAL HEMORRHAGE, UNSPECIFIED Current Visit: Yes Problem List Initiated/Reviewed/Updated: Yes My Orders last 24 hours: My Active Orders 01/04/17 09:00 Schedule Procedure [COMM] Timed Plan: 81-year-old woman with GI bleeding and supratherapeutic INR on Coumadin EGD yesterday with gastritis and duodenitis No signs of active bleeding and Hb Continue PPI for gastritis/duodenitis Will hold off on colonoscopy for time being as she has only had melena and has a recent complete colonoscopy (within past 2 years) Follow up with me in 2 weeks in the office
[2017-01-05] MEDS: Potassium Chloride 10% 20 MEQ/15 ML Soln 30 ML UD Cup PO SCH ×3 (09:10→20:26)
[2017-01-05] MEDS: Apixaban 5 MG Tab PO SCH ×2 (09:10→20:26)
[2017-01-05] MEDS: Carvedilol 6.25 MG Tab PO SCH ×2 (09:11→20:24)
[2017-01-05] MEDS: Gabapentin 100 MG Cap PO SCH ×3 (09:11→21:25)
[2017-01-05] MEDS: PARoxetine 20 MG Tab PO SCH (09:11)
[2017-01-05] MEDS ORDERED: Potassium Chloride 10% 20 MEQ/15 ML Soln 30 ML UD Cup PO PRN (09:28)
[2017-01-05] MEDS ORDERED: Alum Hydrox/Mag Hydrox/Simeth 30 ML, Lidocaine 2% 15 ML PO ONE ×2 (16:50)
[2017-01-05] MEDS: Pantoprazole 40 MG Tab.CR PO SCH (17:28)
--- NOTE | 2017-01-05 18:23 | PCM.PN ---
- General Info Date of Service: 01/05/17 Subjective Update: This point patient is to report any new complaints. She appeared somewhat anxious, but denied any chest pain, dizziness, shortness of breath, abdominal complaints on review of systems. She did not report any more bleeding from her nose. - Patient Data Vitals - most recent: Last Vital Signs Temp 37.4 C 01/05/17 15:19 Pulse 90 01/05/17 15:20 Resp 18 01/05/17 15:19 BP 133/81 01/05/17 15:20 Pulse Ox 97 01/05/17 15:20 Orthostatic Blood Pressure [ 90/67 Standing] Orthostatic Blood Pressure [ 117/70 Sitting] Orthostatic Blood Pressure [ 111/66 Supine] Weight - most recent: 71.169 kg I&O - last 24 hours: Intake & Output 01/05/17 01/05/17 01/05/17 06:59 14:59 22:59 Intake Total 400 1000 Output Total 600 200 Balance -200 800 Lab Results last 24 hrs: Laboratory Results - last 24 hr 01/05/17 01/05/17 01/05/17 Range/Units 05:50 05:50 05:50 WBC 3.95 L (3.98-10.04) K/mm3 RBC 3.28 L (3.98-5.22) M/mm3 Hgb 9.8 L (11.2-15.7) gm/L Hct 30.0 L (34.1-44.9) % MCV 91.5 (79.4-94.8) fl MCH 29.9 (25.6-32.2) pg MCHC 32.7 (32.2-35.5) g/dl RDW Std Deviation 54.6 H (36.4-46.3) fL Plt Count 225 (182-369) K/mm3 MPV 9.2 L (9.4-12.3) fl Neut % (Auto) 64.5 (34.0-71.1) % Lymph % (Auto) 19.7 (19.3-51.7) % [place] % (Auto) 12.9 H (4.7-12.5) % Eos % (Auto) 1.8 (0.7-5.8) Baso % (Auto) 0.3 (0.1-1.2) % Neut # (Auto) 2.55 (1.56-6.13) K/mm3 Lymph # (Auto) 0.78 L (1.18-3.74) K/mm3 [place] # (Auto) 0.51 H (0.24-0.36) K/mm3 Eos # (Auto) 0.07 (0.04-0.36) K/mm3 Baso # (Auto) 0.01 (0.01-0.08) K/mm3 PT 13.3 H (8.0-13.0) SECONDS INR 1.21 Sodium (136-145) mEq/L Potassium (3.5-5.1) mEq/L Chloride (98-107) mEq/L Carbon Dioxide (21-32) mEq/L Anion Gap (5-15) BUN (7-18) mg/dL Creatinine (0.55-1.02) mg/dL Est Cr Clr Drug Dosing mL/min Estimated GFR (MDRD) (>60) mL/min BUN/Creatinine Ratio (14-18) Glucose (83-115) mg/dL Calcium (8.5-10.1) mg/dL Magnesium 2.1 (1.8-2.4) mg/dl B-Natriuretic Peptide (0-100) pg/mL 01/05/17 01/05/17 Range/Units 05:50 05:50 WBC (3.98-10.04) K/mm3 RBC (3.98-5.22) M/mm3 Hgb (11.2-15.7) gm/L Hct (34.1-44.9) % MCV (79.4-94.8) fl MCH (25.6-32.2) pg MCHC (32.2-35.5) g/dl RDW Std Deviation (36.4-46.3) fL Plt Count (182-369) K/mm3 MPV (9.4-12.3) fl Neut % (Auto) (34.0-71.1) % Lymph % (Auto) (19.3-51.7) % [place] % (Auto) (4.7-12.5) % Eos % (Auto) (0.7-5.8) Baso % (Auto) (0.1-1.2) % Neut # (Auto) (1.56-6.13) K/mm3 Lymph # (Auto) (1.18-3.74) K/mm3 [place] # (Auto) (0.24-0.36) K/mm3 Eos # (Auto) (0.04-0.36) K/mm3 Baso # (Auto) (0.01-0.08) K/mm3 PT (8.0-13.0) SECONDS INR Sodium 142 (136-145) mEq/L Potassium 3.2 L (3.5-5.1) mEq/L Chloride 110 H (98-107) mEq/L Carbon Dioxide 23 (21-32) mEq/L Anion Gap 12.2 (5-15) BUN 25 H (7-18) mg/dL Creatinine 1.0 (0.55-1.02) mg/dL Est Cr Clr Drug Dosing 32.77 mL/min Estimated GFR (MDRD) 53 (>60) mL/min BUN/Creatinine Ratio 25.0 H (14-18) Glucose 81 L (83-115) mg/dL Calcium 7.5 L (8.5-10.1) mg/dL Magnesium (1.8-2.4) mg/dl B-Natriuretic Peptide 253 H (0-100) pg/mL Med Orders - Current: Current Medications Hydrocodone Bitart/Acetaminophen ([place] 325-10 Mg) 1 tab PO Q6H PRN PRN Reason: Pain Last Admin: 01/03/17 06:13 Dose: 1 tab Apixaban (Eliquis) 2.5 mg PO BID [facility] Last Admin: 01/05/17 09:10 Dose: 2.5 mg Carvedilol (Coreg) 6.25 mg PO BID [facility] Last Admin: 01/05/17 09:11 Dose: 6.25 mg Gabapentin (Neurontin) 100 mg PO TID [facility] Last Admin: 01/05/17 14:10 Dose: 100 mg Hydromorphone HCl (Dilaudid) 0.5 mg IVPUSH Q4H PRN PRN Reason: Pain (moderate 4-6) Last Admin: 01/05/17 14:10 Dose: 0.5 mg Promethazine HCl 12.5 mg/ (Sodium Chloride) 50.5 mls @ 100 mls/hr IV Q6H PRN PRN Reason: Nausea/Vomiting Ondansetron HCl (Zofran) 4 mg IVPUSH Q8H PRN PRN Reason: Nausea/Vomiting Pantoprazole Sodium (Protonix) 40 mg PO BIDAC [facility] Last Admin: 01/05/17 17:28 Dose: 40 mg Paroxetine HCl (Paxil) 20 mg PO DAILY [facility] Last Admin: 01/05/17 09:11 Dose: 20 mg Potassium Chloride (Potassium Chloride) 40 meq PO TID [facility] Stop: 01/05/17 21:01 Last Admin: 01/05/17 14:10 Dose: 40 meq Potassium Chloride (Potassium Chloride) 40 meq PO ASDIRECTED PRN PRN Reason: see comments Stop: 01/06/17 09:29 Simvastatin (Zocor) 20 mg PO BEDTIME [facility] Last Admin: 01/04/17 20:33 Dose: 20 mg Zolpidem Tartrate (Ambien) 10 mg PO BEDTIME [facility] Last Admin: 01/04/17 20:33 Dose: 10 mg Discontinued Medications Apixaban (Eliquis) 2.5 mg PO BID ONE Stop: 01/04/17 15:30 Last Admin: 01/04/17 20:14 Dose: Not Given Al Hydroxide/Mg Hydroxide 30 (ml/ Lidocaine HCl 15 ml) 0 ml PO ONETIME ONE Stop: 01/05/17 16:51 Last Admin: 01/05/17 18:17 Dose: Not Given Furosemide (Lasix) 20 mg IVPUSH Q8H [facility] Stop: 01/03/17 13:01 Last Admin: 01/03/17 13:16 Dose: 20 mg Sodium Chloride (Normal Saline) 1,000 mls @ 100 mls/hr IV ASDIRECTED [facility] Last Admin: 01/02/17 14:36 Dose: 100 mls/hr Sodium Chloride (Normal Saline) Confirm Administered Dose 250 mls @ as directed .ROUTE .ST-MED ONE Stop: 01/02/17 20:37 Last Admin: 01/02/17 21:13 Dose: 250 ml Sodium Chloride (Normal Saline) Confirm Administered Dose 250 mls @ as directed .ROUTE .[facility]-MED ONE Stop: 01/03/17 00:11 Last Admin: 01/03/17 01:09 Dose: 250 ml Sodium Chloride (Normal Saline) Confirm Administered Dose 250 mls @ as directed .ROUTE .[facility]-MED ONE Stop: 01/03/17 04:23 Last Admin: 01/03/17 05:00 Dose: 250 ml Sodium Chloride (Normal Saline) Confirm Administered Dose 250 mls @ as directed .ROUTE .[facility] ONE Stop: 01/03/17 09:24 Last Admin: 01/03/17 09:37 Dose: Not Given Lidocaine HCl (Xylocaine-Mpf 1%) Confirm Administered Dose 4 mls @ as directed .ROUTE .[facility] ONE Stop: 01/04/17 08:46 Lactated Ringer's (Ringers, Lactated) Confirm Administered Dose 1,000 mls @ as directed .ROUTE .[facility] ONE Stop: 01/04/17 09:18 Oxymetazoline HCl (Afrin Original 0.05% Nasal [place]) 0 ml [facility] ONETIME ONE Stop: 01/03/17 00:40 Last Admin: 01/03/17 01:04 Dose: 1 spray Pantoprazole Sodium (Protonix Iv) 40 mg IVPUSH ONETIME ONE Stop: 01/02/17 14:26 Last Admin: 01/02/17 14:35 Dose: 40 mg Pantoprazole Sodium (Protonix Iv) 40 mg IVPUSH Q12H [facility] Last Admin: 01/05/17 04:59 Dose: 40 mg Phytonadione (Aquamephyton) 5 mg PO ONETIME ONE Stop: 01/02/17 18:22 Last Admin: 01/02/17 21:16 Dose: 2.5 mg Phytonadione (Aquamephyton) Confirm Administered Dose 2.5 mg .ROUTE .[facility] ONE Stop: 01/02/17 20:37 Last Admin: 01/02/17 21:14 Dose: 2.5 mg Phytonadione (Aquamephyton) 2.5 mg PO ONETIME ONE Stop: 01/03/17 14:06 Last Admin: 01/03/17 16:18 Dose: 2.5 mg Phytonadione (Aquamephyton) 5 mg PO ONETIME ONE Stop: 01/03/17 22:50 Last Admin: 01/03/17 23:02 Dose: 5 mg Pneumococcal 13-Valent Conj Vacc (Prevnar 13) 0.5 ml IM .ONCE ONE Stop: 01/03/17 08:01 Pneumococcal Polyvalent Vaccine (Pneumovax 23) 0.5 ml SUBCUT .ONCE ONE Stop: 01/02/17 18:43 Potassium Chloride (Potassium Chloride) 40 meq PO ONETIME ONE Stop: 01/03/17 19:45 Last Admin: 01/03/17 20:13 Dose: 40 meq Propofol (Diprivan 20 Ml) Confirm Administered Dose 200 mg .ROUTE .STK-MED ONE Stop: 01/04/17 08:46 - Problem List & Annotations (1) Anemia SNOMED Code(s): 781078900 Code(s): D64.9 - ANEMIA, UNSPECIFIED Status: Acute Priority: High Current Visit: Yes Qualifiers: Anemia type: other cause Other causes of anemia: acute posthemorrhagic Qualified Code(s): D62 - Acute posthemorrhagic anemia (2) Gastritis and duodenitis SNOMED Code(s): 996257586 Code(s): K29.90 - GASTRODUODENITIS, UNSPECIFIED, WITHOUT BLEEDING Status: Acute Current Visit: Yes (3) Epistaxis, recurrent SNOMED Code(s): 85849602 Code(s): R04.0 - EPISTAXIS Status: Resolved Priority: High Current Visit: Yes - Problem List Review Problem List Initiated/Reviewed/Updated: Yes - My Orders Last 24 Hours: My Active Orders 01/05/17 09:28 Potassium Chloride 40 meq PO ASDIRECTED PRN - Plan Plan:: Acute blood loss anemia with hemoglobin of 5 on presentation. This was a epistaxis versus bleeding into her surgical site versus GI losses in setting of supratherapeutic INR. EGD completed without any active bleeding noted, but gastritis and duodenitis was noted and biopsied. Continue PPI. Patient received 2 units of PRBCs with the original hip surgery, and 5 units of PRBCs on this admission. Hemoglobin is 9 and now. Supratherapeutic INR. Given vitamin K. Dr. Dave has switched the patient to help us at the lower dose 2.5 mg twice a day. Highly educated the patient that her protection and CVA is less with this dosing, however she may have a lowered risk of bleeding with this. Given that her hemoglobin was 5 on presentation, I do believe that changing her anticoagulation is indicated. Recent left hip replacement 12/16/16 in [place], required ~2 units PRBCs maddy- operatively. S/P Spontaneous dislocation with reduction of the left hip prosthesis by Dr. Mark here, 12/26/16. Chronic medical conditions: CHF Hyperlipidemia HTN GERD Stress incontinence Anxiety Depression LOS>96 hours expected pending placement.
[2017-01-05] MEDS: Simvastatin 20 MG Tab PO SCH (20:24)
[2017-01-05] MEDS: Zolpidem 10 MG Tab PO SCH (20:26)
[2017-01-06] MEDS: HYDROmorphone 0.5 MG/0.5 ML Syringe IVPUSH PRN (01:30)
[2017-01-06] MEDS: Pantoprazole 40 MG Tab.CR PO SCH ×2 (06:42→15:42)
[2017-01-06] MEDS: Apixaban 5 MG Tab PO SCH ×2 (08:48→20:12)
[2017-01-06] MEDS: Carvedilol 6.25 MG Tab PO SCH ×2 (08:49→20:14)
[2017-01-06] MEDS: PARoxetine 20 MG Tab PO SCH (08:49)
[2017-01-06] MEDS: Gabapentin 100 MG Cap PO SCH ×3 (08:49→20:14)
[2017-01-06] MEDS: Acetaminophen/oxyCODONE 325-5 MG Tab PO PRN ×3 (10:06→22:28)
--- NOTE | 2017-01-06 13:18 | PCM.PN ---
- General Info Date of Service: 01/06/17 Admission Dx/Problem (Free Text): Karlee is a pleasant 81yo female seen this morning just after working with OT. She is doing well progressing with PT. Energy and exercise tolerance/strength is slowly improving. Appetite is good. VSS Labs improved; hgb stable at 9.8 today. She has been refusing garo hose as "they dig into my legs" and does not like them. Functional Status: Reports: pain controlled, tolerating diet, ambulating, urinating. Denies: new symptoms - Review of Systems General: Reports: No Symptoms, Weakness (improving) HEENT: Reports: no symptoms Pulmonary: Reports: no symptoms Cardiovascular: Reports: No Symptoms 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: Reports: No symptoms Genitourinary: Reports: no symptoms Musculoskeletal: Reports: leg pain (left hip/thigh--pain improving day to day) Skin: Reports: no symptoms Neurological: Reports: No Symptoms Psychiatric: Reports: no symptoms - Patient Data Vitals - most recent: Last Vital Signs Temp 98.1 F 01/06/17 03:55 Pulse 86 01/06/17 08:49 Resp 18 01/06/17 03:55 BP 126/87 01/06/17 08:49 Pulse Ox 94 L 01/06/17 03:55 Orthostatic Blood Pressure [ 90/67 Standing] Orthostatic Blood Pressure [ 117/70 Sitting] Orthostatic Blood Pressure [ 111/66 Supine] Weight - most recent: 158 lb I&O - last 24 hours: Intake & Output 01/05/17 01/06/17 01/06/17 22:59 06:59 14:59 Intake Total 1000 600 105 Output Total 200 550 Balance 800 50 105 Lab Results last 24 hrs: Laboratory Results - last 24 hr 01/06/17 01/06/17 Range/Units 04:20 04:20 WBC 3.66 L (3.98-10.04) K/mm3 RBC 3.22 L (3.98-5.22) M/mm3 Hgb 9.6 L (11.2-15.7) gm/L Hct 30.3 L (34.1-44.9) % MCV 94.1 (79.4-94.8) fl MCH 29.8 (25.6-32.2) pg MCHC 31.7 L (32.2-35.5) g/dl RDW Std Deviation 57.8 H (36.4-46.3) fL Plt Count 220 (182-369) K/mm3 MPV 9.3 L (9.4-12.3) fl Neut % (Auto) 56.3 (34.0-71.1) % Lymph % (Auto) 27.6 (19.3-51.7) % [place] % (Auto) 12.3 (4.7-12.5) % Eos % (Auto) 2.7 (0.7-5.8) Baso % (Auto) 0.3 (0.1-1.2) % Neut # (Auto) 2.06 (1.56-6.13) K/mm3 Lymph # (Auto) 1.01 L (1.18-3.74) K/mm3 [place] # (Auto) 0.45 H (0.24-0.36) K/mm3 Eos # (Auto) 0.10 (0.04-0.36) K/mm3 Baso # (Auto) 0.01 (0.01-0.08) K/mm3 Sodium 141 (136-145) mEq/L Potassium 4.0 (3.5-5.1) mEq/L Chloride 110 H (98-107) mEq/L Carbon Dioxide 21 (21-32) mEq/L Anion Gap 14.0 (5-15) BUN 24 H (7-18) mg/dL Creatinine 1.0 (0.55-1.02) mg/dL Est Cr Clr Drug Dosing 32.77 mL/min Estimated GFR (MDRD) 53 (>60) mL/min BUN/Creatinine Ratio 24.0 H (14-18) Glucose 85 (83-115) mg/dL Calcium 8.0 L (8.5-10.1) mg/dL Med Orders - Current: Current Medications Apixaban (Eliquis) 2.5 mg PO BID [facility] Last Admin: 01/06/17 08:48 Dose: 2.5 mg Carvedilol (Coreg) 6.25 mg PO BID [facility] Last Admin: 01/06/17 08:49 Dose: 6.25 mg Gabapentin (Neurontin) 100 mg PO TID [facility] Last Admin: 01/06/17 08:49 Dose: 100 mg Hydromorphone HCl (Dilaudid) 0.5 mg IVPUSH Q4H PRN PRN Reason: Pain (moderate 4-6) Last Admin: 01/06/17 01:30 Dose: 0.5 mg Promethazine HCl 12.5 mg/ (Sodium Chloride) 50.5 mls @ 100 mls/hr IV Q6H PRN PRN Reason: Nausea/Vomiting Ondansetron HCl (Zofran) 4 mg IVPUSH Q8H PRN PRN Reason: Nausea/Vomiting Oxycodone/Acetaminophen (Percocet 325-5 Mg) 1 tab PO Q6H PRN PRN Reason: Pain Last Admin: 01/06/17 10:06 Dose: 1 tab Pantoprazole Sodium (Protonix) 40 mg PO BIDAC [facility] Last Admin: 01/06/17 06:42 Dose: 40 mg Paroxetine HCl (Paxil) 20 mg PO DAILY [facility] Last Admin: 01/06/17 08:49 Dose: 20 mg Simvastatin (Zocor) 20 mg PO BEDTIME [facility] Last Admin: 01/05/17 20:24 Dose: 20 mg Zolpidem Tartrate (Ambien) 10 mg PO BEDTIME [facility] Last Admin: 01/05/17 20:26 Dose: 10 mg Discontinued Medications Hydrocodone Bitart/Acetaminophen ([place] 325-10 Mg) 1 tab PO Q6H PRN PRN Reason: Pain Last Admin: 01/03/17 06:13 Dose: 1 tab Apixaban (Eliquis) 2.5 mg PO BID ONE Stop: 01/04/17 15:30 Last Admin: 01/04/17 20:14 Dose: Not Given Al Hydroxide/Mg Hydroxide 30 (ml/ Lidocaine HCl 15 ml) 0 ml PO ONETIME ONE Stop: 01/05/17 16:51 Last Admin: 01/05/17 18:17 Dose: Not Given Furosemide (Lasix) 20 mg IVPUSH Q8H [facility] Stop: 01/03/17 13:01 Last Admin: 01/03/17 13:16 Dose: 20 mg Sodium Chloride (Normal Saline) 1,000 mls @ 100 mls/hr IV ASDIRECTED [facility] Last Admin: 01/02/17 14:36 Dose: 100 mls/hr Sodium Chloride (Normal Saline) Confirm Administered Dose 250 mls @ as directed .ROUTE .STK-MED ONE Stop: 01/02/17 20:37 Last Admin: 01/02/17 21:13 Dose: 250 ml Sodium Chloride (Normal Saline) Confirm Administered Dose 250 mls @ as directed .ROUTE .[facility] ONE Stop: 01/03/17 00:11 Last Admin: 01/03/17 01:09 Dose: 250 ml Sodium Chloride (Normal Saline) Confirm Administered Dose 250 mls @ as directed .ROUTE .[facility] ONE Stop: 01/03/17 04:23 Last Admin: 01/03/17 05:00 Dose: 250 ml Sodium Chloride (Normal Saline) Confirm Administered Dose 250 mls @ as directed .ROUTE .[facility] ONE Stop: 01/03/17 09:24 Last Admin: 01/03/17 09:37 Dose: Not Given Lidocaine HCl (Xylocaine-Mpf 1%) Confirm Administered Dose 4 mls @ as directed .ROUTE .[facility] ONE Stop: 01/04/17 08:46 Lactated Ringer's (Ringers, Lactated) Confirm Administered Dose 1,000 mls @ as directed .ROUTE .[facility] ONE Stop: 01/04/17 09:18 Oxymetazoline HCl (Afrin Original 0.05% Nasal [place]) 0 ml [facility] ONETIME ONE Stop: 01/03/17 00:40 Last Admin: 01/03/17 01:04 Dose: 1 spray Pantoprazole Sodium (Protonix Iv) 40 mg IVPUSH ONETIME ONE Stop: 01/02/17 14:26 Last Admin: 01/02/17 14:35 Dose: 40 mg Pantoprazole Sodium (Protonix Iv) 40 mg IVPUSH Q12H [facility] Last Admin: 01/05/17 04:59 Dose: 40 mg Phytonadione (Aquamephyton) 5 mg PO ONETIME ONE Stop: 01/02/17 18:22 Last Admin: 01/02/17 21:16 Dose: 2.5 mg Phytonadione (Aquamephyton) Confirm Administered Dose 2.5 mg .ROUTE .[facility] ONE Stop: 01/02/17 20:37 Last Admin: 01/02/17 21:14 Dose: 2.5 mg Phytonadione (Aquamephyton) 2.5 mg PO ONETIME ONE Stop: 01/03/17 14:06 Last Admin: 01/03/17 16:18 Dose: 2.5 mg Phytonadione (Aquamephyton) 5 mg PO ONETIME ONE Stop: 01/03/17 22:50 Last Admin: 01/03/17 23:02 Dose: 5 mg Pneumococcal 13-Valent Conj Vacc (Prevnar 13) 0.5 ml IM .ONCE ONE Stop: 01/03/17 08:01 Pneumococcal Polyvalent Vaccine (Pneumovax 23) 0.5 ml SUBCUT .ONCE ONE Stop: 01/02/17 18:43 Potassium Chloride (Potassium Chloride) 40 meq PO ONETIME ONE Stop: 01/03/17 19:45 Last Admin: 01/03/17 20:13 Dose: 40 meq Potassium Chloride (Potassium Chloride) 40 meq PO TID [facility] Stop: 01/05/17 21:01 Last Admin: 01/05/17 20:26 Dose: 40 meq Potassium Chloride (Potassium Chloride) 40 meq PO ASDIRECTED PRN PRN Reason: see comments Stop: 01/06/17 09:29 Propofol (Diprivan 20 Ml) Confirm Administered Dose 200 mg .ROUTE .STK-MED ONE Stop: 01/04/17 08:46 - Exam Quality Assessment: DVT prophylaxis General: alert, oriented, cooperative, no acute distress HEENT: Pupils equal, Pupils reactive, EOMI, Mucous membr. moist/pink, Other ( bilateral fading periorbital ecchymosis s/p fall) Neck: supple Lungs: Clear to auscultation, Normal respiratory effort Cardiovascular: Regular Rate, Regular Rhythm Abdomen: bowel sounds present, soft, no tenderness, no distension (Female) Exam: Deferred Back Exam: normal inspection Extremities: no calf tenderness, other (left leg is with significant fading/ deep purple ecchymosis just anterior to knee and up thigh. Much improved from last week. Swelling is significantly improved from when I saw her last week. No warmth or erythema about the leg or calf. Incision to left anterior lateral thigh is nicely healed. Distally lt leg CMS is +. Trace to 1+ edema to lt lower leg just below knee to pedal area. ) Peripheral Pulses: 1+: dorsalis pedis (L), dorsalis pedis (R) Skin: warm, dry Neurological: no new focal deficit Psy/Mental Status: alert, normal affect, normal mood - Problem List & Annotations (1) Fall SNOMED Code(s): 8144850, 946915596 Code(s): W19.XXXA - UNSPECIFIED FALL, INITIAL ENCOUNTER Status: Resolved Priority: Medium Current Visit: Yes Qualifiers: Encounter type: initial encounter Qualified Code(s): W19.XXXA - Unspecified fall, initial encounter (2) Anemia SNOMED Code(s): 695856685 Code(s): D64.9 - ANEMIA, UNSPECIFIED Status: Acute Priority: High Current Visit: Yes Qualifiers: Anemia type: other cause Other causes of anemia: other cause, not classified Qualified Code(s): D64.89 - Other specified anemias Annotation/Comment:: acute blood loss anemia; postoperative (3) Closed fracture nasal bone SNOMED Code(s): 74428959 Code(s): S02.2XXA - FRACTURE OF NASAL BONES, INIT ENCNTR FOR CLOSED FRACTURE Status: Acute Priority: High Current Visit: Yes Qualifiers: Encounter type: initial encounter Qualified Code(s): S02.2XXA - Fracture of nasal bones, initial encounter for closed fracture (4) Edema of left lower extremity SNOMED Code(s): 099293637, 717404327 Code(s): R60.0 - LOCALIZED EDEMA Status: Acute Priority: High Current Visit: Yes (5) Elevated INR (international normalized ratio) SNOMED Code(s): 799476877, 288393242 Code(s): R79.1 - ABNORMAL COAGULATION PROFILE Status: Resolved Priority: High Current Visit: Yes (6) Epistaxis, recurrent SNOMED Code(s): 36166738 Code(s): R04.0 - EPISTAXIS Status: Resolved Priority: High Current Visit: Yes (7) S/P total hip arthroplasty SNOMED Code(s): 425236437684, 649894882553 Code(s): Z96.649 - PRESENCE OF UNSPECIFIED ARTIFICIAL HIP JOINT Status: Chronic Priority: Medium Current Visit: Yes Qualifiers: Laterality: left Qualified Code(s): Z96.642 - Presence of left artificial hip joint (8) CHF NYHA class III (symptoms with mildly strenuous activities) SNOMED Code(s): 754126123, 723679910 Code(s): I50.9 - HEART FAILURE, UNSPECIFIED Status: Chronic Priority: Medium Current Visit: Yes Qualifiers: Congestive heart failure type: diastolic Congestive heart failure chronicity: acute on chronic Qualified Code(s): I50.33 - Acute on chronic diastolic (congestive) heart failure - Problem List Review Problem List Initiated/Reviewed/Updated: Yes - My Orders Last 24 Hours: My Active Orders 01/06/17 06:29 Acetaminophen/oxyCODONE [Percocet 325-5 MG] 1 tab PO Q6H PRN - Plan Plan:: Acute blood loss anemia with hemoglobin of 5 on presentation. This was an epistaxis in conjunction bleeding into her surgical site versus GI losses in setting of supratherapeutic INR. EGD completed without any active bleeding noted , but gastritis and duodenitis was noted and biopsied. Continue PPI. Patient received 2 units of PRBCs with the original hip surgery, and 5 units of PRBCs on this admission. Hemoglobin is 9 range and maintaining now. Supratherapeutic INR. Given vitamin K. Dr. Dave has switched the patient to Eliquis at the lower dose 2.5 mg twice a day. Highly educated the patient that her protection and CVA is less with this dosing, however she may have a lowered risk of bleeding with this. Given that her hemoglobin was 5 on presentation, I do believe and concur that changing her anticoagulation is indicated. Recent left hip replacement 12/16/16 in [place], required ~2 units PRBCs maddy- operatively. S/P Spontaneous dislocation with reduction of the left hip prosthesis by Dr. Mark here, 12/26/16. Chronic medical conditions: CHF--stable Hyperlipidemia HTN--stable GERD Stress incontinence Anxiety Depression Other: GI prophylax as above with PPI Anemia is stable Doing well with PT/OT- will need SNF placement for Rehab stay, placement is pending at this time. LOS>96 hours expected pending placement as noted above
[2017-01-06] MEDS: Simvastatin 20 MG Tab PO SCH (20:14)
[2017-01-06] MEDS: Zolpidem 10 MG Tab PO SCH (20:14)
[2017-01-07] MEDS: Pantoprazole 40 MG Tab.CR PO SCH (06:50)
[2017-01-07] MEDS: Apixaban 5 MG Tab PO SCH (08:25)
[2017-01-07] MEDS: Carvedilol 6.25 MG Tab PO SCH (08:26)
[2017-01-07] MEDS: Gabapentin 100 MG Cap PO SCH (08:26)
[2017-01-07] MEDS: PARoxetine 20 MG Tab PO SCH (08:26)
[2017-01-07] MEDS ORDERED: Carvedilol 3.125 MG Tab PO SCH (09:15)
--- NOTE | 2017-01-07 10:58 | PCM.CONSN ---
- General Info Date of Service: 01/07/17 - Review of Systems Systems Review Comment:: Patient states she is feeling well. She has not had a bowel movement in several days and maybe feeling a bit constipated. Does have a little bit of epigastric discomfort but it is mild. No coffee-ground emesis. Tolerating a diet. - Patient Data Vitals - most recent: Last Vital Signs Temp 99.4 F 01/07/17 08:00 Pulse 88 01/07/17 08:26 Resp 16 01/07/17 08:48 BP 131/76 01/07/17 08:48 Pulse Ox 97 01/07/17 08:00 Orthostatic Blood Pressure [ 90/67 Standing] Orthostatic Blood Pressure [ 117/70 Sitting] Orthostatic Blood Pressure [ 111/66 Supine] Weight - most recent: 157 lb 12.8 oz I&O - last 24 hours: Intake & Output 01/06/17 01/07/17 01/07/17 22:59 06:59 14:59 Intake Total 1800 800 Output Total 450 600 Balance 1350 200 Lab Results last 24 hrs: Laboratory Results - last 24 hr 01/07/17 Range/Units 06:25 WBC 4.12 (3.98-10.04) K/mm3 RBC 3.24 L (3.98-5.22) M/mm3 Hgb 9.6 L (11.2-15.7) gm/L Hct 30.4 L (34.1-44.9) % MCV 93.8 (79.4-94.8) fl MCH 29.6 (25.6-32.2) pg MCHC 31.6 L (32.2-35.5) g/dl RDW Std Deviation 56.5 H (36.4-46.3) fL Plt Count 216 (182-369) K/mm3 MPV 9.2 L (9.4-12.3) fl Neut % (Auto) 55.4 (34.0-71.1) % Lymph % (Auto) 27.4 (19.3-51.7) % [place] % (Auto) 13.6 H (4.7-12.5) % Eos % (Auto) 2.7 (0.7-5.8) Baso % (Auto) 0.2 (0.1-1.2) % Neut # (Auto) 2.28 (1.56-6.13) K/mm3 Lymph # (Auto) 1.13 L (1.18-3.74) K/mm3 [place] # (Auto) 0.56 H (0.24-0.36) K/mm3 Eos # (Auto) 0.11 (0.04-0.36) K/mm3 Baso # (Auto) 0.01 (0.01-0.08) K/mm3 Med Orders - Current: Current Medications Apixaban (Eliquis) 2.5 mg PO BID [facility] Last Admin: 01/07/17 08:25 Dose: 2.5 mg Carvedilol (Coreg) 6.25 mg PO BID [facility] Last Admin: 01/07/17 08:26 Dose: 6.25 mg Carvedilol (Coreg) 3.125 mg PO DAILY [facility] Gabapentin (Neurontin) 100 mg PO TID [facility] Last Admin: 01/07/17 08:26 Dose: 100 mg Hydromorphone HCl (Dilaudid) 0.5 mg IVPUSH Q4H PRN PRN Reason: Pain (moderate 4-6) Last Admin: 01/06/17 01:30 Dose: 0.5 mg Promethazine HCl 12.5 mg/ (Sodium Chloride) 50.5 mls @ 100 mls/hr IV Q6H PRN PRN Reason: Nausea/Vomiting Ondansetron HCl (Zofran) 4 mg IVPUSH Q8H PRN PRN Reason: Nausea/Vomiting Oxycodone/Acetaminophen (Percocet 325-5 Mg) 1 tab PO Q6H PRN PRN Reason: Pain Last Admin: 01/06/17 22:28 Dose: 1 tab Pantoprazole Sodium (Protonix) 40 mg PO BIDAC [facility] Last Admin: 01/07/17 06:50 Dose: 40 mg Paroxetine HCl (Paxil) 20 mg PO DAILY [facility] Last Admin: 01/07/17 08:26 Dose: 20 mg Simvastatin (Zocor) 20 mg PO BEDTIME [facility] Last Admin: 01/06/17 20:14 Dose: 20 mg Zolpidem Tartrate (Ambien) 10 mg PO BEDTIME [facility] Last Admin: 01/06/17 20:14 Dose: 10 mg Discontinued Medications Hydrocodone Bitart/Acetaminophen ([place] 325-10 Mg) 1 tab PO Q6H PRN PRN Reason: Pain Last Admin: 01/03/17 06:13 Dose: 1 tab Apixaban (Eliquis) 2.5 mg PO BID ONE Stop: 01/04/17 15:30 Last Admin: 01/04/17 20:14 Dose: Not Given Al Hydroxide/Mg Hydroxide 30 (ml/ Lidocaine HCl 15 ml) 0 ml PO ONETIME ONE Stop: 01/05/17 16:51 Last Admin: 01/05/17 18:17 Dose: Not Given Furosemide (Lasix) 20 mg IVPUSH Q8H [facility] Stop: 01/03/17 13:01 Last Admin: 01/03/17 13:16 Dose: 20 mg Sodium Chloride (Normal Saline) 1,000 mls @ 100 mls/hr IV ASDIRECTED [facility] Last Admin: 01/02/17 14:36 Dose: 100 mls/hr Sodium Chloride (Normal Saline) Confirm Administered Dose 250 mls @ as directed .ROUTE .ST-MED ONE Stop: 01/02/17 20:37 Last Admin: 01/02/17 21:13 Dose: 250 ml Sodium Chloride (Normal Saline) Confirm Administered Dose 250 mls @ as directed .ROUTE .ST-MED ONE Stop: 01/03/17 00:11 Last Admin: 01/03/17 01:09 Dose: 250 ml Sodium Chloride (Normal Saline) Confirm Administered Dose 250 mls @ as directed .ROUTE .ST-MED ONE Stop: 01/03/17 04:23 Last Admin: 01/03/17 05:00 Dose: 250 ml Sodium Chloride (Normal Saline) Confirm Administered Dose 250 mls @ as directed .ROUTE .ST-MED ONE Stop: 01/03/17 09:24 Last Admin: 01/03/17 09:37 Dose: Not Given Lidocaine HCl (Xylocaine-Mpf 1%) Confirm Administered Dose 4 mls @ as directed .ROUTE .ST-MED ONE Stop: 01/04/17 08:46 Lactated Ringer's (Ringers, Lactated) Confirm Administered Dose 1,000 mls @ as directed .ROUTE .STK-MED ONE Stop: 01/04/17 09:18 Oxymetazoline HCl (Afrin Original 0.05% Nasal [place]) 0 ml [facility] ONETIME ONE Stop: 01/03/17 00:40 Last Admin: 01/03/17 01:04 Dose: 1 spray Pantoprazole Sodium (Protonix Iv) 40 mg IVPUSH ONETIME ONE Stop: 01/02/17 14:26 Last Admin: 01/02/17 14:35 Dose: 40 mg Pantoprazole Sodium (Protonix Iv) 40 mg IVPUSH Q12H [facility] Last Admin: 01/05/17 04:59 Dose: 40 mg Phytonadione (Aquamephyton) 5 mg PO ONETIME ONE Stop: 01/02/17 18:22 Last Admin: 01/02/17 21:16 Dose: 2.5 mg Phytonadione (Aquamephyton) Confirm Administered Dose 2.5 mg .ROUTE .STK-MED ONE Stop: 01/02/17 20:37 Last Admin: 01/02/17 21:14 Dose: 2.5 mg Phytonadione (Aquamephyton) 2.5 mg PO ONETIME ONE Stop: 01/03/17 14:06 Last Admin: 01/03/17 16:18 Dose: 2.5 mg Phytonadione (Aquamephyton) 5 mg PO ONETIME ONE Stop: 01/03/17 22:50 Last Admin: 01/03/17 23:02 Dose: 5 mg Pneumococcal 13-Valent Conj Vacc (Prevnar 13) 0.5 ml IM .ONCE ONE Stop: 01/03/17 08:01 Pneumococcal Polyvalent Vaccine (Pneumovax 23) 0.5 ml SUBCUT .ONCE ONE Stop: 01/02/17 18:43 Potassium Chloride (Potassium Chloride) 40 meq PO ONETIME ONE Stop: 01/03/17 19:45 Last Admin: 01/03/17 20:13 Dose: 40 meq Potassium Chloride (Potassium Chloride) 40 meq PO TID [facility] Stop: 01/05/17 21:01 Last Admin: 01/05/17 20:26 Dose: 40 meq Potassium Chloride (Potassium Chloride) 40 meq PO ASDIRECTED PRN PRN Reason: see comments Stop: 01/06/17 09:29 Propofol (Diprivan 20 Ml) Confirm Administered Dose 200 mg .ROUTE .STK-MED ONE Stop: 01/04/17 08:46 - Exam General: alert, oriented, cooperative, no acute distress Lungs: Normal respiratory effort Cardiovascular: Regular Rate Abdomen: soft, no distension, tenderness (mild epigastric tenderness ). No: rigidity, rebound, guarding Skin: warm, dry, intact, ecchymosis Neurological: no new focal deficit Psy/Mental Status: alert, normal affect, normal mood Consult PN Assessment/Plan Procedures: Procedures ASSAY OF CREATININE (01/05/15) ASSAY OF NATRIURETIC PEPTIDE (07/03/15) C-REACTIVE PROTEIN (12/16/16) CARDIOVASCULAR STRESS TEST (05/03/16) CHEST X-RAY 2VW FRONTAL&LATL (07/03/15) COMPLETE CBC W/AUTO DIFF WBC (12/28/16) COMPREHEN METABOLIC PANEL (12/28/16) CT LOWER EXTREMITY W/O DYE (12/16/16) DRAIN/INJ JOINT/BURSA W/O US (10/22/16) DXA BONE DENSITY AXIAL (05/26/15) ELECTROCARDIOGRAM TRACING (12/28/16) EMERGENCY DEPT VISIT (12/28/16) EMERGENCY DEPT VISIT (10/06/16) HT MUSCLE IMAGE SPECT MULT (05/03/16) HYDRATE IV INFUSION ADD-ON (12/28/16) IMMUNIZATION ADMIN (03/15/15) INJECTION FOR HIP X-RAY (03/19/16) MEASURE BLOOD OXYGEN LEVEL (01/05/15) MRI LUMBAR SPINE W/O & W/DYE (01/05/15) NEEDLE LOCALIZATION BY XRAY (03/19/16) PROTHROMBIN TIME (12/28/16) RBC SED RATE AUTOMATED (12/16/16) ROUTINE VENIPUNCTURE (12/28/16) RPR S/N/AX/GEN/TRNK 2.5CM/< (03/15/15) TDAP VACCINE 7 YRS/> IM (03/15/15) THER/PROPH/DIAG INJ IV PUSH (12/28/16) THROMBOPLASTIN TIME PARTIAL (12/28/16) TREAT HIP DISLOCATION (12/28/16) TTE W/DOPPLER COMPLETE (01/05/15) TX/PRO/DX INJ NEW DRUG ADDON (12/28/16) X-RAY EXAM HIP UNI 1 VIEW (12/28/16) X-RAY EXAM HIP UNI 2-3 VIEWS (12/28/16) X-RAY EXAM OF ANKLE (03/01/15) X-RAY EXAM OF HIP (07/03/15) X-RAY EXAM OF LOWER LEG (03/01/15) X-RAY EXAM OF PELVIS (07/03/15) (1) Anemia SNOMED Code(s): 766993476 Code(s): D64.9 - ANEMIA, UNSPECIFIED Priority: High Current Visit: Yes Comment: acute blood loss anemia; postoperative Qualifiers: Anemia type: other cause Other causes of anemia: other cause, not classified Qualified Code(s): D64.89 - Other specified anemias (2) Elevated INR (international normalized ratio) SNOMED Code(s): 414671009, 439556582 Code(s): R79.1 - ABNORMAL COAGULATION PROFILE Priority: High Current Visit: Yes (3) 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 bleeding SNOMED Code(s): 78892967 Code(s): K92.2 - GASTROINTESTINAL HEMORRHAGE, UNSPECIFIED Current Visit: Yes Problem List Initiated/Reviewed/Updated: Yes Plan: 81-year-old woman with GI bleeding and supratherapeutic INR on Coumadin EGD performed during this hospital stay with gastritis and duodenitis No signs of active bleeding and Hb Continue PPI for gastritis/duodenitis Will hold off on colonoscopy for time being as she has only had melena and has a recent complete colonoscopy (within past 2 years) Follow up with me in 2 weeks in the office
--- NOTE | 2017-01-07 11:16 | PCM.DCSUM1 ---
Discharge Summary - Hospital Course Free Text/Narrative:: 81 year old female with fall at home likely due to anemia. History is significant for recent VICTORINO with Dr. Cook in [place]; s/p iatrogenic blood loss , required blood transfusion maddy-procedure, left hip replacement; pre Hgb was 11.7 cf post left hip replacement at 8.6. Reportedly she received at least 2 units of PRBCs, details are not available at the time of the inital evaluation. A spontaneous dislocation of the left hip occurred and was reduced, 12/26/16, Hgb 8.6 was documented. The patient returns today with a Hgb of 5.2. She has been on chronic coumadin therapy for AFib. INR at time of admission is 3.38. The patient was symptomatic with PICKETT on minimal exertion, dizziness; falling today with a subsequent closed nasal fracture. There was no LOC. She reports falling on her knees. She does not appear to be on iron therapy post left hip repalcement. Patient was admitted to medical surgical unit. She was transfused 5 units PRBC. She underwent EGD evaluation with Dr Nayak which was unremarkable for acute findings or bleeding. She worked with PT/OT, did well and strength was returning. Spoke with Dr. Mark, Orthopedics regarding her case. He did review operative notes and reveals that patient did have bleeding intraoperative and required transfusion immediately postop as well; believes likely anemia is from postoperative bleeding/oozing at surgical site. DVT study of lt lower extremity was obtained and negative. Garo hosdarwin ordered which she wore for a short time then refused as they were uncomfortable for her. Decision made to stop her coumadin and transition her to eliquis 2.5mg for afib/CVA protection due to her bleeding risk/fall risk. Hgb jackson to 10 and is stable at time of discharge to 9.6. She will be discharged on iron supplement, cont with PT/OT. She will be discharged to SNF for rehab stay with hopes to go home in a few weeks. She should have recheck of labs in 5-7 days- CBC and BMP. - Discharge Data Discharge Date: 01/07/17 (admit date 01/02/17) Discharge Disposition: Home, Self-Care 01 Condition: Good - Discharge Diagnosis/Problem(s) (1) Fall SNOMED Code(s): 5575362, 100706257 ICD Code: W19.XXXA - UNSPECIFIED FALL, INITIAL ENCOUNTER Status: Resolved Priority: Medium Current Visit: Yes Qualifiers: Encounter type: initial encounter Qualified Code(s): W19.XXXA - Unspecified fall, initial encounter (2) Anemia SNOMED Code(s): 683934703 ICD Code: D64.9 - ANEMIA, UNSPECIFIED Status: Acute Priority: High Current Visit: Yes Problem Details: acute blood loss anemia; postoperative Qualifiers: Anemia type: other cause Other causes of anemia: other cause, not classified Qualified Code(s): D64.89 - Other specified anemias (3) Closed fracture nasal bone SNOMED Code(s): 44132944 ICD Code: S02.2XXA - FRACTURE OF NASAL BONES, INIT ENCNTR FOR CLOSED FRACTURE Status: Acute Priority: High Current Visit: Yes Qualifiers: Encounter type: initial encounter Qualified Code(s): S02.2XXA - Fracture of nasal bones, initial encounter for closed fracture (4) Edema of left lower extremity SNOMED Code(s): 564013553, 975693915 ICD Code: R60.0 - LOCALIZED EDEMA Status: Acute Priority: High Current Visit: Yes (5) Elevated INR (international normalized ratio) SNOMED Code(s): 895058823, 472492098 ICD Code: R79.1 - ABNORMAL COAGULATION PROFILE Status: Resolved Priority : High Current Visit: Yes (6) Epistaxis, recurrent SNOMED Code(s): 72695973 ICD Code: R04.0 - EPISTAXIS Status: Resolved Priority: High Current Visit: Yes (7) S/P total hip arthroplasty SNOMED Code(s): 486561681449, 169370588001 ICD Code: Z96.649 - PRESENCE OF UNSPECIFIED ARTIFICIAL HIP JOINT Status: Chronic Priority: Medium Current Visit: Yes Qualifiers: Laterality: left Qualified Code(s): Z96.642 - Presence of left artificial hip joint (8) CHF NYHA class III (symptoms with mildly strenuous activities) SNOMED Code(s): 634700108, 144649838 ICD Code: I50.9 - HEART FAILURE, UNSPECIFIED Status: Chronic Priority: Medium Current Visit: Yes Qualifiers: Congestive heart failure type: diastolic Congestive heart failure chronicity: acute on chronic Qualified Code(s): I50.33 - Acute on chronic diastolic (congestive) heart failure - Patient Summary/Data Operative Procedure(s) Performed: Diagnostic EGD with cold forceps biopsy Complications: Recurrent epistaxis- resistant to packing and requiring cauterization with silver nitrate Consults: Consultations 01/03/17 08:00 Consult to Physician [CONS] Routine - Dr. Nayak, General Surgery 01/03/17 09:00 Consult to Physical Therapy [PT Evaluation and Treatment] [CONS] Routine 01/03/17 09:19 Consult to Implementation Coordinator [CONS] Routine 01/03/17 10:00 Consult to Occupational Therapy [OT Evaluation and Treatment] [CONS] Routine Labs Pending at D/C: None Recommended Follow-up Testing/Procedures: Follow up with PCP, Dr. Andrade within 5-7 days of discharge; labs prior with CBC and BMP Planned Operative Procedure(s) after DC: None Hospital Course: As above - Patient Instructions Diet: Heart Healthy Diet Activity: As Tolerated (PT/OT- total hip precautions) Driving: Do Not Drive Showering/Bathing: May Shower Notify Provider of: Fever, Increased Pain, Swelling and Redness, Nausea and/or Vomiting - Discharge Plan Prescriptions/Med Rec: Acetaminophen/oxyCODONE [Percocet 325-5 MG] 1 tab PO Q6H PRN #40 tablet PRN Reason: Pain Apixaban [Eliquis] 2.5 mg PO BID #60 tablet Carvedilol [Coreg] 3.125 mg PO DAILY #30 tablet Pantoprazole [ProTONIX] 40 mg PO BIDAC #60 tab.cr Home Medications: Home Meds Carvedilol [Coreg] 6.25 mg PO BID 03/01/15 [History] Furosemide 20 mg PO DAILY 03/01/15 [History] PARoxetine [Paxil] 20 mg PO DAILY 03/01/15 [History] Potassium Chloride 10 meq PO BID 03/01/15 [History] Simvastatin [Zocor] 20 mg PO BEDTIME 03/01/15 [History] Zolpidem [Ambien] 10 mg PO BEDTIME 03/01/15 [History] Gabapentin [Neurontin] 100 mg PO TID 01/02/17 [History] Acetaminophen/oxyCODONE [Percocet 325-5 MG] 1 tab PO Q6H PRN #40 tablet [Rx] Apixaban [Eliquis] 2.5 mg PO BID #60 tablet 01/07/17 [Rx] Carvedilol [Coreg] 3.125 mg PO DAILY #30 tablet 01/07/17 [Rx] Pantoprazole [ProTONIX] 40 mg PO BIDAC #60 tab.cr 01/07/17 [Rx] Patient Handouts: Anemia, Nonspecific, Heart Failure, [id number], Iron-Rich Diet, Blood Transfusion, Care After, [id number], Apixaban oral tablets Forms: ED Department Discharge Referrals: Brunilda Wadsworth, LEV[employer] MACHINE OPERATOR [Primary Care Provider] - - Discharge Summary/Plan Comment DC Time >30 min.: Yes (40 min) - General Info Date of Service: 01/07/17 Admission Dx/Problem (Free Text: Karlee is a pleasant 81yo female seen this morning just after working with OT. She is doing well progressing with PT. Energy and exercise tolerance/strength is slowly improving. Appetite is good. VSS Labs improved; hgb stable at 9.6 today. She has been refusing garo hose as "they dig into my legs" and does not like them. Functional Status: Reports: pain controlled, tolerating diet, ambulating, urinating. Denies: new symptoms - Review of Systems General: Reports: No Symptoms HEENT: Reports: no symptoms Pulmonary: Reports: no symptoms Cardiovascular: Reports: No Symptoms 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: Reports: No symptoms Genitourinary: Reports: no symptoms Musculoskeletal: Reports: leg pain (minimal) Skin: Reports: no symptoms Neurological: Reports: No Symptoms Psychiatric: Reports: no symptoms - Patient Data Vitals - Most Recent: Last Vital Signs Temp 99.4 F 01/07/17 08:00 Pulse 88 01/07/17 08:26 Resp 16 01/07/17 08:48 BP 131/76 01/07/17 08:48 Pulse Ox 97 01/07/17 08:00 Orthostatic Blood Pressure [ 90/67 Standing] Orthostatic Blood Pressure [ 117/70 Sitting] Orthostatic Blood Pressure [ 111/66 Supine] Weight - Most Recent: 157 lb 12.8 oz I&O - Last 24 hours: Intake & Output 01/06/17 01/07/17 01/07/17 22:59 06:59 14:59 Intake Total 1800 800 Output Total 450 600 Balance 1350 200 Lab Results - Last 24 hrs: Laboratory Results - last 24 hr 01/07/17 01/07/17 Range/Units 06:25 06:25 WBC 4.12 (3.98-10.04) K/mm3 RBC 3.24 L (3.98-5.22) M/mm3 Hgb 9.6 L (11.2-15.7) gm/L Hct 30.4 L (34.1-44.9) % MCV 93.8 (79.4-94.8) fl MCH 29.6 (25.6-32.2) pg MCHC 31.6 L (32.2-35.5) g/dl RDW Std Deviation 56.5 H (36.4-46.3) fL Plt Count 216 (182-369) K/mm3 MPV 9.2 L (9.4-12.3) fl Neut % (Auto) 55.4 (34.0-71.1) % Lymph % (Auto) 27.4 (19.3-51.7) % [place] % (Auto) 13.6 H (4.7-12.5) % Eos % (Auto) 2.7 (0.7-5.8) Baso % (Auto) 0.2 (0.1-1.2) % Neut # (Auto) 2.28 (1.56-6.13) K/mm3 Lymph # (Auto) 1.13 L (1.18-3.74) K/mm3 [place] # (Auto) 0.56 H (0.24-0.36) K/mm3 Eos # (Auto) 0.11 (0.04-0.36) K/mm3 Baso # (Auto) 0.01 (0.01-0.08) K/mm3 Sodium 141 (136-145) mEq/L Potassium 3.7 (3.5-5.1) mEq/L Chloride 109 H (98-107) mEq/L Carbon Dioxide 24 (21-32) mEq/L Anion Gap 11.7 (5-15) BUN 21 H (7-18) mg/dL Creatinine 1.0 (0.55-1.02) mg/dL Est Cr Clr Drug Dosing 32.77 mL/min Estimated GFR (MDRD) 53 (>60) mL/min BUN/Creatinine Ratio 21.0 H (14-18) Glucose 91 (83-115) mg/dL Calcium 7.9 L (8.5-10.1) mg/dL Med Orders - Current: Current Medications Apixaban (Eliquis) 2.5 mg PO BID [facility] Last Admin: 01/07/17 08:25 Dose: 2.5 mg Carvedilol (Coreg) 6.25 mg PO BID [facility] Last Admin: 01/07/17 08:26 Dose: 6.25 mg Carvedilol (Coreg) 3.125 mg PO DAILY [facility] Gabapentin (Neurontin) 100 mg PO TID [facility] Last Admin: 01/07/17 08:26 Dose: 100 mg Hydromorphone HCl (Dilaudid) 0.5 mg IVPUSH Q4H PRN PRN Reason: Pain (moderate 4-6) Last Admin: 01/06/17 01:30 Dose: 0.5 mg Promethazine HCl 12.5 mg/ (Sodium Chloride) 50.5 mls @ 100 mls/hr IV Q6H PRN PRN Reason: Nausea/Vomiting Ondansetron HCl (Zofran) 4 mg IVPUSH Q8H PRN PRN Reason: Nausea/Vomiting Oxycodone/Acetaminophen (Percocet 325-5 Mg) 1 tab PO Q6H PRN PRN Reason: Pain Last Admin: 01/06/17 22:28 Dose: 1 tab Pantoprazole Sodium (Protonix) 40 mg PO BIDAC [facility] Last Admin: 01/07/17 06:50 Dose: 40 mg Paroxetine HCl (Paxil) 20 mg PO DAILY [facility] Last Admin: 01/07/17 08:26 Dose: 20 mg Simvastatin (Zocor) 20 mg PO BEDTIME [facility] Last Admin: 01/06/17 20:14 Dose: 20 mg Zolpidem Tartrate (Ambien) 10 mg PO BEDTIME [facility] Last Admin: 01/06/17 20:14 Dose: 10 mg Discontinued Medications Hydrocodone Bitart/Acetaminophen ([place] 325-10 Mg) 1 tab PO Q6H PRN PRN Reason: Pain Last Admin: 01/03/17 06:13 Dose: 1 tab Apixaban (Eliquis) 2.5 mg PO BID ONE Stop: 01/04/17 15:30 Last Admin: 01/04/17 20:14 Dose: Not Given Al Hydroxide/Mg Hydroxide 30 (ml/ Lidocaine HCl 15 ml) 0 ml PO ONETIME ONE Stop: 01/05/17 16:51 Last Admin: 01/05/17 18:17 Dose: Not Given Furosemide (Lasix) 20 mg IVPUSH Q8H [facility] Stop: 01/03/17 13:01 Last Admin: 01/03/17 13:16 Dose: 20 mg Sodium Chloride (Normal Saline) 1,000 mls @ 100 mls/hr IV ASDIRECTED [facility] Last Admin: 01/02/17 14:36 Dose: 100 mls/hr Sodium Chloride (Normal Saline) Confirm Administered Dose 250 mls @ as directed .ROUTE .STK-MED ONE Stop: 01/02/17 20:37 Last Admin: 01/02/17 21:13 Dose: 250 ml Sodium Chloride (Normal Saline) Confirm Administered Dose 250 mls @ as directed .ROUTE .STK-MED ONE Stop: 01/03/17 00:11 Last Admin: 01/03/17 01:09 Dose: 250 ml Sodium Chloride (Normal Saline) Confirm Administered Dose 250 mls @ as directed .ROUTE .STK-MED ONE Stop: 01/03/17 04:23 Last Admin: 01/03/17 05:00 Dose: 250 ml Sodium Chloride (Normal Saline) Confirm Administered Dose 250 mls @ as directed .ROUTE .STK-MED ONE Stop: 01/03/17 09:24 Last Admin: 01/03/17 09:37 Dose: Not Given Lidocaine HCl (Xylocaine-Mpf 1%) Confirm Administered Dose 4 mls @ as directed .ROUTE .STK-MED ONE Stop: 01/04/17 08:46 Lactated Ringer's (Ringers, Lactated) Confirm Administered Dose 1,000 mls @ as directed .ROUTE .STK-MED ONE Stop: 01/04/17 09:18 Oxymetazoline HCl (Afrin Original 0.05% Nasal [place]) 0 ml OSCAR ONETIME ONE Stop: 01/03/17 00:40 Last Admin: 01/03/17 01:04 Dose: 1 spray Pantoprazole Sodium (Protonix Iv) 40 mg IVPUSH ONETIME ONE Stop: 01/02/17 14:26 Last Admin: 01/02/17 14:35 Dose: 40 mg Pantoprazole Sodium (Protonix Iv) 40 mg IVPUSH Q12H [facility] Last Admin: 01/05/17 04:59 Dose: 40 mg Phytonadione (Aquamephyton) 5 mg PO ONETIME ONE Stop: 01/02/17 18:22 Last Admin: 01/02/17 21:16 Dose: 2.5 mg Phytonadione (Aquamephyton) Confirm Administered Dose 2.5 mg .ROUTE .STK-MED ONE Stop: 01/02/17 20:37 Last Admin: 01/02/17 21:14 Dose: 2.5 mg Phytonadione (Aquamephyton) 2.5 mg PO ONETIME ONE Stop: 01/03/17 14:06 Last Admin: 01/03/17 16:18 Dose: 2.5 mg Phytonadione (Aquamephyton) 5 mg PO ONETIME ONE Stop: 01/03/17 22:50 Last Admin: 01/03/17 23:02 Dose: 5 mg Pneumococcal 13-Valent Conj Vacc (Prevnar 13) 0.5 ml IM .ONCE ONE Stop: 01/03/17 08:01 Pneumococcal Polyvalent Vaccine (Pneumovax 23) 0.5 ml SUBCUT .ONCE ONE Stop: 01/02/17 18:43 Potassium Chloride (Potassium Chloride) 40 meq PO ONETIME ONE Stop: 01/03/17 19:45 Last Admin: 01/03/17 20:13 Dose: 40 meq Potassium Chloride (Potassium Chloride) 40 meq PO TID PHILOMENA Stop: 01/05/17 21:01 Last Admin: 01/05/17 20:26 Dose: 40 meq Potassium Chloride (Potassium Chloride) 40 meq PO ASDIRECTED PRN PRN Reason: see comments Stop: 01/06/17 09:29 Propofol (Diprivan 20 Ml) Confirm Administered Dose 200 mg .ROUTE .STK-MED ONE Stop: 01/04/17 08:46 - Exam Quality Assessment: Reports: DVT prophylaxis General: Reports: alert, oriented, cooperative, no acute distress HEENT: Reports: Pupils equal, Pupils reactive, EOMI, Mucous membr. moist/pink Neck: Reports: supple Lungs: Reports: Clear to auscultation, Normal respiratory effort Cardiovascular: Reports: Irregular Rhythm Abdomen: Reports: bowel sounds present, soft, no tenderness, no distension (Female) Exam: Deferred Rectal (Female) Exam: Deferred Back Exam: Reports: normal inspection Extremities: Reports: no calf tenderness, edema (significantly improved to left leg), other (fading ecchymosis to left thigh/knee. Incision to left anterior thigh nicely healed. Edema/swelling significantly improved to left leg) Neurological: Reports: no new focal deficit Psy/Mental Status: Reports: alert, normal affect, normal mood *Q Meaningful Use (DIS) - VTE *Q VTE Criteria *Q: - Stroke *Q Stroke Criteria *Q: - AMI *Q AMI Criteria *Q:
[2017-01-07 11:20] VITALS: BP 108/71
== END 2017-01-07 13:38 | disposition home or self-care (01) | DRG 981 ==
LOC: JD.ED 13:43 → JD.MS 16:13
PROVIDERS: ADMIT Emergency Medicine; ATTEND Internal Medicine Cardiovascular Disease
PROC: 30233N1 Transfusion of Nonautologous Red Blood Cells into Peripheral Vein, Percutaneous Approach (ICD-10-PCS; 2017-01-02)
PROC: 0W3Q7ZZ Control Bleeding in Respiratory Tract, Via Natural or Artificial Opening (ICD-10-PCS; 2017-01-03)
PROC: 0DB68ZX Excision of Stomach, Via Natural or Artificial Opening Endoscopic, Diagnostic (ICD-10-PCS; principal; 2017-01-04)
PROC: 0DB88ZX Excision of Small Intestine, Via Natural or Artificial Opening Endoscopic, Diagnostic (ICD-10-PCS; 2017-01-04)
PROC: 0DB38ZX Excision of Lower Esophagus, Via Natural or Artificial Opening Endoscopic, Diagnostic (ICD-10-PCS; 2017-01-04)
DX: S02.2XXA Fracture of nasal bones, initial encounter for closed fracture (principal); W19.XXXA Unspecified fall, initial encounter; D50.0 Iron deficiency anemia secondary to blood loss (chronic); S72.002D Fracture of unspecified part of neck of left femur, subsequent encounter for closed fracture with routine healing; W19.XXXD Unspecified fall, subsequent encounter; D62 Acute posthemorrhagic anemia; I50.33 Acute on chronic diastolic (congestive) heart failure; K92.2 Gastrointestinal hemorrhage, unspecified; I48.2 Chronic atrial fibrillation; K29.90 Gastroduodenitis, unspecified, without bleeding; E78.00 Pure hypercholesterolemia, unspecified; I48.0 Paroxysmal atrial fibrillation; R33.9 Retention of urine, unspecified; Z96.659 Presence of unspecified artificial knee joint; Z79.01 Long term (current) use of anticoagulants; Z96.642 Presence of left artificial hip joint; R79.1 Abnormal coagulation profile; I11.0 Hypertensive heart disease with heart failure; E78.5 Hyperlipidemia, unspecified; K21.9 Gastro-esophageal reflux disease without esophagitis; L40.9 Psoriasis, unspecified; N39.3 Stress incontinence (female) (male); F32.9 Major depressive disorder, single episode, unspecified; F41.9 Anxiety disorder, unspecified; M19.90 Unspecified osteoarthritis, unspecified site; M81.0 Age-related osteoporosis without current pathological fracture; G89.29 Other chronic pain; M54.9 Dorsalgia, unspecified; Z96.653 Presence of artificial knee joint, bilateral; Z88.0 Allergy status to penicillin; Z88.1 Allergy status to other antibiotic agents; Z88.2 Allergy status to sulfonamides; Z79.899 Other long term (current) drug therapy; R04.0 Epistaxis; R60.0 Localized edema; Z23 Encounter for immunization
CPT/HCPCS: 36415; 36430; 70450; 70486; 71010; 80053; 82270; 82553; 83735; 83880; 84484; 85025; 85610; 86140; 86677; 93005; 96361; 96374; 99285; C9113; J7040; 80048; 81001; 82272; 86850; 86870; 86900; 86901; 86922; 88305; 88305-26; 90670; 93971-26-LT; 93971-LT; 97110-GO; 97110-GP; 97116-GP; 97162-GP; 97165-GO; 97530-GO; 97530-GP; 97535-GO; 99284; A9270-GY; G0009; J1170; J2704; J7050; J7120; P9016

== ENCOUNTER 2017-01-11 00:01 | Day surgery (SDC) | payer MEDICARE, OTHER ==
--- NOTE | 2017-01-11 00:49 | EDM.PDOC ---
ED HPI Trauma - General Chief Complaint: Lower Extremity Injury/Pain Stated Complaint: [facility] Time Seen by Provider: 01/11/17 00:40 Source: Reports: Patient, Old records, RN notes reviewed History Limitations: Reports: No limitations - History of Present Illness INITIAL COMMENTS - FREE TEXT/NARRATIVE: The patient fell out of bed and injured her left hip on 12/16/2016. The radiograph was concerning for malignancy, as her femoral neck and head were missing, therefore the patient was transferred to [facility], and underwent a left total hip arthroplasty per Dr. Cook on 12/18/2016. She was discharged home on Coumadin on 12/24/2016. She was seen in this ED on 12/28/2016 after dislocating her left hip when twisting in a chair. She was sedated in the ED, and the hip was reduced per Dr. Mark. The patient's Coumadin has since been switched to Xarelto. The patient now returns to the ED after attempting to get out of bed at her long term. She felt a "pop" and was unable to move her left lower extremity without pain, the same as when she dislocated her hip on 12/28/2016. The patient's last oral solid food was at 17:30 last night, and her last oral liquid intake was at 17:45. Allergies/ADRs: Allergies cephalexin Allergy (Verified 01/11/17 00:06) Rash Sulfa (Sulfonamide Antibiotics) Allergy (Verified 01/11/17 00:06) Rash Home Medications: Ambulatory Orders Carvedilol [Coreg] 6.25 mg PO BID 03/01/15 [Confirmed 01/11/17] Furosemide 20 mg PO DAILY 03/01/15 [Confirmed 01/11/17] PARoxetine [Paxil] 20 mg PO DAILY 03/01/15 [Confirmed 01/11/17] Potassium Chloride 10 meq PO BID 03/01/15 [Confirmed 01/11/17] Simvastatin [Zocor] 20 mg PO BEDTIME 03/01/15 [Confirmed 01/11/17] Zolpidem [Ambien] 10 mg PO BEDTIME 03/01/15 [Confirmed 01/11/17] Gabapentin [Neurontin] 100 mg PO TID 01/02/17 [Confirmed 01/11/17] Acetaminophen/oxyCODONE [Percocet 325-5 MG] 1 tab PO Q6H PRN #40 tablet [Confirmed 01/11/17] Apixaban [Eliquis] 2.5 mg PO BID #60 tablet 01/07/17 [Confirmed 01/11/17] Carvedilol [Coreg] 3.125 mg PO DAILY #30 tablet 01/07/17 [Confirmed 01/11/17] Pantoprazole [ProTONIX] 40 mg PO BIDAC #60 tab.cr 01/07/17 [Confirmed ] Acetaminophen 650 mg PO TID 01/11/17 [Confirmed 01/11/17] Ferrous Sulfate 325 mg PO DAILY 01/11/17 [Confirmed 01/11/17] Past Medical History HEENT History: Reports: Cataract, Impaired vision Other HEENT History: wears eyeglasses Cardiovascular History: Reports: Afib (resolved with ablation many years ago), Heart Failure, High cholesterol, Hypertension 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 History: 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: Musculoskeletal History: Reports: Arthritis, Back pain, chronic, Fracture (left ankle 2006), Osteoporosis Psychiatric History: Reports: Anxiety, Depression Endocrine/Metabolic History: Reports: Obesity/BMI 30+ Hematologic History: Reports: Blood transfusion(s) Dermatologic History: Reports: Psoriasis - Infectious Disease History Infectious Disease History: Reports: Chicken pox, Measles - Past Surgical History HEENT Surgical History: Reports: Cataract surgery, Tonsillectomy Cardiovascular Surgical History: Reports: Cardiac Ablation GI Surgical History: Reports: Colonoscopy Female Surgical History: Reports: D&C (x 5 or 6) Neurological Surgical History: Reports: Lumbar spine (fusion, x 3) Musculoskeletal Surgical History: Reports: Carpal tunnel (bilateral), Hip replacement (lefty, 12/18/2016), Knee replacement (bilateral), ORIF (left ankle) Social & Family History - Family History Family Medical History: Noncontributory - Tobacco Use Smoking Status *Q: Never Smoker Second Hand Smoke Exposure: No - Caffeine Use Caffeine Use: Reports: Coffee - Alcohol Use Alcohol Use History: No Days Per Week of Alcohol Use: 0 - Recreational Drug Use Recreational Drug Use: No - Living Situation & Occupation Living situation: Reports: , with family (Son), extended care facility ( for [facility]) Occupation: retired Review of Systems - Review of Systems Review Of Systems: See Below Constitutional: Reports: no symptoms Eyes: Reports: no symptoms Ears: Reports: no symptoms Nose: Reports: no symptoms Mouth/Throat: Reports: no symptoms Respiratory: Reports: No Symptoms Cardiovascular: Reports: no symptoms GI/Abdominal: Reports: No symptoms Genitourinary: Reports: no symptoms Musculoskeletal: Reports: no symptoms Skin: Reports: no symptoms Neurological: Reports: No Symptoms Psychiatric: Reports: no symptoms Trauma Exam - Physical Exam Exam: See Below Exam Limited By: No limitations General Appearance: Reports: alert, WD/WN, no apparent distress Extremities: Reports: other (The left lower extremity is noted to be foreshortened approximately 3 cm compared to the left. There is a fullness posterior to the acetabulum, consistent with a posterior dislocation. This area is tender to palpation. Pain is induced in the left hip with attempts at movement of the left hip. Neurovascular status of the left lower extremity is intact.) Course - Vital Signs Last Recorded V/S: Last Vital Signs Temp 36.8 C 01/11/17 02:07 Pulse 94 01/11/17 02:07 Resp 18 01/11/17 02:07 BP 138/83 01/11/17 02:07 Pulse Ox 97 01/11/17 02:07 - Orders/Labs/Meds Orders: Active Orders 24 hr Category Date Time Status Nothing per Oral Now Diet [DIET] Diet 01/11/17 Breakfast Active Hip Min 1V Lt [CR] Stat Exams 01/11/17 02:35 Taken Hip Min 2V or 3V Lt [CR] Stat Exams 01/11/17 00:45 Taken CBC WITH MANUAL DIFF [HEME] Stat Lab 01/11/17 02:35 Ordered COMPREHENSIVE METABOLIC PN,CMP [CHEM] Stat Lab 01/11/17 02:36 Ordered Meds: Medications Discontinued Medications Generic Name Dose Route Start Last Admin Trade Name Freq PRN Reason Stop Dose Admin Hydromorphone HCl 0.5 mg 01/11/17 01:34 01/11/17 01:40 Dilaudid IVPUSH 01/11/17 01:35 0.5 mg ONETIME ONE Administration Hydromorphone HCl 0.5 mg 01/11/17 02:37 01/11/17 02:41 Dilaudid IVPUSH 01/11/17 02:38 0.5 mg ONETIME ONE Administration Lidocaine HCl Confirm 01/11/17 02:06 Xylocaine-Mpf 1% Administered 01/11/17 02:07 Dose 6 mls @ as directed .ROUTE .STK-MED ONE Propofol Confirm 01/11/17 02:07 Diprivan 20 Ml Administered 01/11/17 02:08 Dose 200 mg .ROUTE .STK-MED ONE - Radiology Interpretation Free Text/Narrative:: 2-view radiographs of the left hip appear to demonstrate a total hip prosthesis with posterior dislocation. Formal read per the Radiologist pending. - Re-Assessments/Exams Free Text/Narrative Re-Assessment/Exam: 01/11/17 00:48 The patient has likely dislocated her left hip again. She states that at this time she does not require any pain medication. 01/11/17 01:35 The patient is requesting something for pain. I have ordered Dilaudid 0.5 mg IVP. 01/11/17 02:27 With a ASSISTANT COUNTY ENGINEER present to administer anesthesia (Propofol), I attempted to reduce the left hip using manual traction. After an initial attempt, a repeat lateral radiograph of the left hip was taken, showing that the hip was not reduced. I attempted reduction again for several minutes, without success. The case was then discussed with Dr. Jauregui at 02:23. He feels that the patient will require general anesthesia to fully relax the muscles. He is requesting that we keep the patient in the ED, and that she be scheduled for outpatient surgery for closed reduction at 08:00 in the morning. He would like me to order a CBC and CMP, and keep the patient n.p.o. Departure - Departure Time of Disposition: 02:30 Disposition: DC/Tfer to Critical Access [facility] Condition: fair Clinical Impression: Recurrent dislocation, left hip - My Orders Last 24 Hours: My Active Orders 01/11/17 00:45 Hip Min 2V or 3V Lt [CR] Stat 01/11/17 02:35 Hip Min 1V Lt [CR] Stat CBC WITH MANUAL DIFF [HEME] Stat 01/11/17 02:36 COMPREHENSIVE METABOLIC PN,CMP [CHEM] Stat 01/11/17 Breakfast Nothing per Oral Now Diet [DIET] - Assessment/Plan Last 24 Hours: My Active Orders 01/11/17 00:45 Hip Min 2V or 3V Lt [CR] Stat 01/11/17 02:35 Hip Min 1V Lt [CR] Stat CBC WITH MANUAL DIFF [HEME] Stat 01/11/17 02:36 COMPREHENSIVE METABOLIC PN,CMP [CHEM] Stat 01/11/17 Breakfast Nothing per Oral Now Diet [DIET]
[2017-01-11] MEDS ORDERED: HYDROmorphone 0.5 MG/0.5 ML Syringe IVPUSH ONE ×3 (01:34→07:30)
--- NOTE | 2017-01-11 01:40 | PCM.PREANE ---
Preanesthetic Assessment - Anesthesia/Transfusion/Family Hx Anesthesia History: Prior Anesthesia Without Reaction Transfusion History: Prior Transfusion Without Reaction - Physical Assessment O2 Sat by Pulse Oximetry: 97 Respiratory Rate: 18 Vital Signs: Last Vital Signs Temp 36.8 C 01/11/17 00:03 Pulse 94 01/11/17 00:03 Resp 18 01/11/17 00:03 BP 138/83 01/11/17 00:03 Pulse Ox 97 01/11/17 00:03 Height: 1.52 m Weight: 72.121 kg - Allergies Allergies/Adverse Reactions: Allergies Allergy/AdvReac Type Severity Reaction Status Date / Time cephalexin Allergy Rash Verified 01/11/17 00:06 Sulfa (Sulfonamide Allergy Rash Verified 01/11/17 00:06 Antibiotics) PreAnesthesia Questionnaire HEENT History: Reports: Cataract, Impaired vision Other HEENT History: wears eyeglasses Cardiovascular History: Reports: Afib (resolved with ablation many years ago), Heart Failure, High cholesterol, Hypertension Respiratory History: Reports: SOB 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 History: Reports: GERD Genitourinary History: Reports: Retention, 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: Other OB/BYN History: D and C multiple Musculoskeletal History: Reports: Arthritis, Back pain, chronic, Fracture (left ankle 2006), Osteoporosis Other Musculoskeletal History: L) ankle fx in 2006 Neurological History: Reports: Migraines Psychiatric History: Reports: Anxiety, Depression Endocrine/Metabolic History: Reports: Obesity/BMI 30+ Hematologic History: Reports: Blood transfusion(s) Oncologic (Cancer) History: Reports: None Dermatologic History: Reports: Psoriasis - Infectious Disease History Infectious Disease History: Reports: Chicken pox, Measles - Past Surgical History HEENT Surgical History: Reports: Cataract surgery, Tonsillectomy Cardiovascular Surgical History: Reports: Cardiac Ablation GI Surgical History: Reports: Colonoscopy Female Surgical History: Reports: D&C (x 5 or 6) Neurological Surgical History: Reports: Lumbar spine (fusion, x 3) Musculoskeletal Surgical History: Reports: Carpal tunnel (bilateral), Hip replacement (lefty, 12/18/2016), Knee replacement (bilateral), ORIF (left ankle) - SUBSTANCE USE Smoking Status *Q: Never Smoker Tobacco Use Within Last Twelve Months: No Second Hand Smoke Exposure: No Days Per Week of Alcohol Use: 0 Recreational Drug Use History: No - HOME MEDS Home Medications: Home Meds Carvedilol [Coreg] 6.25 mg PO BID 03/01/15 [History] Furosemide 20 mg PO DAILY 03/01/15 [History] PARoxetine [Paxil] 20 mg PO DAILY 03/01/15 [History] Potassium Chloride 10 meq PO BID 03/01/15 [History] Simvastatin [Zocor] 20 mg PO BEDTIME 03/01/15 [History] Zolpidem [Ambien] 10 mg PO BEDTIME 03/01/15 [History] Gabapentin [Neurontin] 100 mg PO TID 01/02/17 [History] Acetaminophen/oxyCODONE [Percocet 325-5 MG] 1 tab PO Q6H PRN #40 tablet [Rx] Apixaban [Eliquis] 2.5 mg PO BID #60 tablet 01/07/17 [Rx] Carvedilol [Coreg] 3.125 mg PO DAILY #30 tablet 01/07/17 [Rx] Pantoprazole [ProTONIX] 40 mg PO BIDAC #60 tab.cr 01/07/17 [Rx] Acetaminophen 650 mg PO TID 01/11/17 [History] Ferrous Sulfate 325 mg PO DAILY 01/11/17 [History] - CURRENT (IN HOUSE) MEDS Current Meds: Current Medications Discontinued Medications Hydromorphone HCl (Dilaudid) 0.5 mg IVPUSH ONETIME ONE Stop: 01/11/17 01:35 Preanesthetic Assessment - ANESTHESIA/TRANSFUSION/FAMILY HX Anesthesia/Transfusion History: Prior Anesthesia, Prior Transfusion Type of Anesthesia Reaction: Denies: Allergy, Anesthesia Awareness, Excessive Somnolence, Excessive Nausea/Vomiting, Excessive Itching, Excessive Shivering, Malignant Hyperthermia, Malignant Hyperthermia, Family History, Pseudocholinesterase Deficiency, Pseudocholinesterase Deficiency, Family History of, Urinary Retention, Unknown, Other (see below) Family History of Anesthesia Reaction: No Intubation History: Unknown Type of Transfusion Reactions: Denies: Anaphylaxis, Bloody Urine, Chills, Fainting/Dizziness, Fever, Flank Pain, Hemolytic Reaction, Hives, Rash, Transfusion Related Acute Lung Injury, Unknown, Other (see below) - REVIEW OF SYSTEMS Constitutional: Reports: no symptoms [employer]: Reports: numbness (bilateral hands), weakness Respiratory: Reports: no symptoms Cardiovascular: Reports: no symptoms (Ablation in the 1990's with A-fib noted prior to ablation/ CHF), blood pressure problem, lightheadedness, palpitations GI: Reports: no symptoms (GERD) Other: Reports: Easy Bleeding, Easy Bruising, Depression, Anxiety - PHYSICAL ASSESSMENT HR: 94 O2 Sat by Pulse Oximetry: 97 RR: 18 BP: 138/83 Temp: 36.8 C Vital Signs: Last Vital Signs Temp 36.8 C 01/11/17 00:03 Pulse 94 01/11/17 00:03 Resp 18 01/11/17 00:03 BP 138/83 01/11/17 00:03 Pulse Ox 97 01/11/17 00:03 Height: 1.52 m Weight: 72.121 kg NPO Status Date: 01/10/17 NPO Status Time: 17:30 ASA Class: 3 Mental Status: Alert & Oriented x3 Airway Class: Mallampati = 2 Dentition: Reports: Dentures (upper), Broken Tooth/Teeth, Missing Tooth/Teeth Thyro-Mental Finger Breadths: 3 Mouth Opening Finger Breadths: 3 ROM/Head Extension: Full Respiratory Status: lungs clear to auscultation bilaterally Cardiovascular Status: regular rate & rhythm, normal S1, S2, no murmur, blood pressure WNL - LAB Values: Reviewed and noted. 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 - ALLERGIES Allergies/Adverse Reactions: Allergies Allergy/AdvReac Type Severity Reaction Status Date / Time cephalexin Allergy Rash Verified 01/11/17 00:06 Sulfa (Sulfonamide Allergy Rash Verified 01/11/17 00:06 Antibiotics) - ANESTHESIA PLAN Preop Beta Meg: Yes Beta Meg: Carvedilol Beta-Meg Last Dose Date: 01/10/17 Beta-Meg Last Dose Time: 11:30 Anesthesia Type Planned: MAC - ACKNOWLEDGEMENTS Pt an Appropriate Candidate for the Planned Anesthesia: Yes Alternatives and Risks of Anesthesia Discussed w Pt/Guardian: Yes Pt/Guardian Understands and Agrees with Anesthesia Plan: Yes
[2017-01-11] MEDS ORDERED: Lidocaine 1% 6 ML ONE ×2 (02:06→03:13)
[2017-01-11] MEDS ORDERED: Propofol 200 MG/20 ML SDV ONE ×2 (02:07→03:13)
[2017-01-11] MEDS ORDERED: fentaNYL 100 MCG/2 ML SDV ONE (03:13)
[2017-01-11] MEDS ORDERED: Lactated Ringers 1,000 ML ONE ×2 (03:13→03:14)
[2017-01-11] MEDS ORDERED: Ondansetron 4 MG/2 ML SDV ONE (03:13)
[2017-01-11] MEDS ORDERED: Rocuronium 50 MG/5 ML Vial ONE (03:13)
[2017-01-11] MEDS ORDERED: HYDROmorphone 0.5 MG/0.5 ML Syringe IVPUSH PRN (07:51)
[2017-01-11] MEDS ORDERED: Ondansetron 4 MG/2 ML SDV IVPUSH PRN (07:51)
[2017-01-11] MEDS ORDERED: Acetaminophen/oxyCODONE 325-5 MG Tab PO PRN (07:51)
[2017-01-11] MEDS ORDERED: Phenylephrine/Normal Saline 100 MCG/ML 10 ML Syringe ONE (08:44)
[2017-01-11] MEDS ORDERED: ePHEDrine/Normal Saline 25 MG/5 ML Syringe ONE (08:49)
[2017-01-11] MEDS ORDERED: Neostigmine Methylsulfate 1 MG/ML 5 ML Syringe ONE (08:51)
--- NOTE | 2017-01-11 09:07 | PCM.POSTAN ---
POST ANESTHESIA ASSESSMENT - MENTAL STATUS Mental Status: alert - VITAL SIGNS Pulse Rate: 96 SaO2: 96 Resp Rate: 15 Blood Pressure: 122/89 Temperature: 36.9 C - RESPIRATORY Respiratory Status: respiratory rate WNL, airway patent, O2 saturation stable, supplemental oxygen - CARDIOVASCULAR CV Status: pulse rate WNL, blood pressure stable - GASTROINTESTINAL GI Status: no symptoms - POST OP HYDRATION Hydration Status: adequate & stable
--- NOTE | 2017-01-11 09:49 | PCM48HPAN ---
Post Anesthesia Note - EVALUATION WITHIN 48HRS OF ANESTHETIC Vital Signs in Normal Range: Yes Patient Participated in Evaluation: Yes Respiratory Function Stable: Yes Airway Patent: Yes Cardiovascular Function Stable: Yes Hydration Status Stable: Yes Pain Control Satisfactory: Yes Nausea and Vomiting Control Satisfactory: Yes Mental Status Recovered: Yes
[2017-01-11 11:03] VITALS: BP 106/61
--- NOTE | 2017-01-12 16:19 | CR ---
Left hip: Two views left hip were obtained. Comparison: Previous left hip study of 12/28/16. Dislocated hip prosthesis is seen. No fracture is identified. Previous lumbar spine surgery is partially visualized. Impression: 1. Dislocated left hip prosthesis. Diagnostic code #3
--- NOTE | 2017-01-12 16:19 | CR ---
Left hip: Multiple fluoroscopic spot views were obtained of the left hip utilizing C-arm device. Comparison: Previous left hip study performed earlier on same day (12:49 AM). Previous dislocated hip prosthesis shows relocation on current exam. Underlying bony structures are intact. Fluoroscopy time given as 80.9 seconds. Impression: 1. Relocation of previously noted dislocated hip prosthesis. Diagnostic code #1
--- NOTE | 2017-01-13 07:59 | OR ---
DATE OF OPERATION: 01/11/2017 SURGEON: Joel Jauregui MD PREOPERATIVE DIAGNOSIS: Left total hip recurrent dislocation. POSTOPERATIVE DIAGNOSIS: Left total hip recurrent dislocation. ANESTHESIA: General with muscle relaxation. OPERATION PERFORMED: 1. Closed reduction dislocation of left total hip replacement. 2. Manipulation, stressing left total hip replacement. DESCRIPTION OF PROCEDURE: The patient was taken to the operating room in supine and was placed under a general anesthesia. Then with maximum muscle relaxation, the operation was proceeded with general manipulation of the left hip that was dislocated superior posterior area. With just gentle manipulation and light pressure the hip was gradually brought back to the level of the acetabulum and then brought over the acetabulum and relocated into the hip socket itself. Once the hip was reduced, the fluoroscopy was brought in and evaluated. The hip was placed in full flexion at the hip level, was stressed in both abduction and adduction, and was found to be stable. The hip was also stable in extension, abduction, and adduction stresses. The fluoroscopy was used to evaluate the status of the cup and the femoral stem to determine whether or not there was loosening of the cup or the stem with pressure. The cup and stem both appeared to remain stable with no indication of loosening type process. The operation then proceeded with application of an abduction pillow. After it was satisfied, the hip was relocated and stable. The patient tolerated this whole procedure well. She left the operating room in stable condition to her room for recovery. ESTIMATED BLOOD LOSS: MMAMANDA /[id number]
--- NOTE | 2017-01-13 07:59 | CONS ---
CONSULTING PHYSICIAN: Joel Jauregui MD DATE OF CONSULTATION: 01/11/2017 REASON FOR CONSULTATION: Orthopedic consultation was called for by emergency room physician for evaluation of left hip injury. HISTORY OF PRESENT ILLNESS: The patient is a 81-year-old female, who had previously undergone a left total hip replacement, was sitting at the edge of her bed at the half-way, when she leaned forward to get up from the bed and reaching for her walker, felt a sudden pop in the left hip area causing moderate pain and inability to move. The patient was brought in the emergency room, evaluated with x-rays, was found to have a dislocation of the left total hip replacement. The patient was then underwent a trial reduction in the emergency room with some pain medicine, light anesthetic type medications, all which have failed. Orthopedic consultation was called for. The patient is now being scheduled for outpatient surgical closed reduction of the dislocation, possible open if necessary. The patient notes that she underwent her surgical history on 12/17/2016, had her first dislocation approximately 1 week after the surgery. This is the second dislocation. The patient has been in a half-way, working with physical therapy. She states that therapy has been quite aggressive with her for movement and activity, and also she notes that she has been having some aching symptoms in the hip region itself. She notes no fever, chills, or night sweats, or any indication of any infection type problem. ALLERGIES: Sulfa and cephalexin. PAST MEDICAL HISTORY: The patient has been relatively healthy since her first surgery, on 12/20, she has a history of high blood pressure, also takes medications for chronic pain, gabapentin. She is on a potassium supplement for the blood pressure problems and also a blood thinner. CURRENT MEDICATIONS: Include Tylenol, Ambien, Zocor, Neurontin, Percocet, Protonix, Paxil, iron supplement, and Eliquis. PAST SURGICAL HISTORY: Positive. The patient underwent a left total hip replacement on 12/17/2016. She notes no problems with the anesthesia. She has no previous anesthesia problems and notes no medical changes since that surgery. REVIEW OF SYSTEMS: The patient has a positive bleeding history. She states that when she cuts herself even prior to the onset of the blood thinner medication Eliquis, she notes problems with the bleeding situation for her. She did relate a questionable blood clot type problem in the past, had been on Coumadin treatment programs. The patient is a nonsmoker and nondrinker. PHYSICAL EXAMINATION: GENERAL: Today, reveals a well-developed, well-nourished, female in moderate distress. HEAD, EYES, EARS, NOSE, AND THROAT: Normocephalic. EXTREMITIES: Examination of the left hip reveals slight internal derangement with positive pain on motion about the hip area. Previous anterior surgical incision healing well. The x-rays reveal a dislocation of the left total hip. PLANS: The patient is to undergo surgical closed reduction with anesthesia and muscle relaxation. Procedure has been outlined to her. She understands that and this will be scheduled for this morning. MMODAL /[id number]
--- NOTE | 2017-01-13 10:46 | OR ---
DATE OF OPERATION: 01/11/2017 SURGEON: Joel Jauregui MD POSTOP ADDENDUM: During the course of the final reduction of the left total hip replacement and during the course of the manipulation, significant pistoning and sloppiness was noted about the hip joint itself and soft tissue laxity. The hip was stable with the manipulation, but overall feeling was that with the patient being on the blood thinning-type medication that she developed a probable large hematoma within the hip joint area causing the hip joint itself to be more less floating in the joint region lending itself to the risk of an increased dislocation problem. This will be addressed in her postoperative recovery phase. EDUARD /[id number]
--- NOTE | 2017-01-13 12:07 | CR ---
Left hip: AP view of the left hip was obtained. Comparison: Previous study performed on the same day (time 12:53 AM) Continuing dislocated left hip prosthesis is seen. Other portions of the study also remain stable. Impression: 1. Continuing dislocation of left hip prosthesis. Diagnostic code #3
--- NOTE | 2017-01-14 09:35 | HP ---
DATE OF ADMISSION: 01/11/2017 HISTORY OF PRESENT ILLNESS: This is the first orthopedic outpatient admission for surgery for this 81-year- old female, who is being admitted through the emergency room with a dislocation of a left total hip. The patient had undergone an unsuccessful closed reduction in the emergency room. Orthopedic consultation was called for evaluation. The patient is being scheduled for an outpatient closed reduction with general anesthesia. Procedure has been outlined to her. She understands the risks and complications involved with it. ALLERGIES: Cephalexin and sulfa. PAST MEDICAL HISTORY: The patient has been relatively healthy 81-year-old female with a history of high blood pressure and iron-deficiency. CURRENT MEDICATIONS: Include Ambien, Zocor, Neurontin, Percocet, potassium, Protonix, Paxil, iron supplements, and Eliquis. PAST SURGICAL HISTORY: Positive with previous left total hip replacement on 12/17/2016. She noted no anesthesia complications, and has had no medical changes since that surgery. REVIEW OF SYSTEMS: The patient is a nonsmoker, nondrinker. The patient's bleeding history, she notes a positive bleeding history in the past, has been on Coumadin in the past also. She notes blood clot history is being positive and was on a blood thinner Coumadin. Currently, the patient is on Eliquis. PHYSICAL EXAMINATION: GENERAL: Today, reveals a well-developed, well-nourished, 81-year-old female in [id number] distress. HEAD, EYES, EARS, NOSE, AND THROAT: Normocephalic. NECK: Supple. CHEST: Clear. COR: Regular rhythm and rate. ABDOMEN: Soft. GENITOURINARY: Intact. EXTREMITIES: Examination of the left hip reveals positive pain with any type of internal and external rotation or movement. The patient has a fixed positioning of the hip with the hip being in extension and slight abduction. The patient also shows a previous surgical scar in the anterior portion of the left hip for an anterior approach for a total hip replacement. RADIOGRAPHIC STUDIES: X-rays reveal a left total hip replacement that shows a dislocation. PLAN: Plan will be for the patient to undergo a closed, possible open reduction of the left hip dislocation. MMODAL /[id number]
== END 2017-01-11 11:30 | disposition home or self-care (01) ==
LOC: JD.ED 00:01 → JD.SDS 03:57
PROVIDERS: ATTEND Specialist
PROC: 0SWBXJZ Revision of Synthetic Substitute in Left Hip Joint, External Approach (ICD-10-PCS; principal; 2017-01-11)
DX: T84.021A Dislocation of internal left hip prosthesis, initial encounter (principal); I48.91 Unspecified atrial fibrillation; I11.0 Hypertensive heart disease with heart failure; I50.9 Heart failure, unspecified; D50.9 Iron deficiency anemia, unspecified; K21.9 Gastro-esophageal reflux disease without esophagitis; M19.90 Unspecified osteoarthritis, unspecified site; F41.9 Anxiety disorder, unspecified; F32.9 Major depressive disorder, single episode, unspecified; Z88.1 Allergy status to other antibiotic agents; Z88.2 Allergy status to sulfonamides; Z79.02 Long term (current) use of antithrombotics/antiplatelets; Z79.899 Other long term (current) drug therapy; Z98.1 Arthrodesis status; Z98.49 Cataract extraction status, unspecified eye; Z90.89 Acquired absence of other organs; Z98.890 Other specified postprocedural states
CPT/HCPCS: 27266; 36415; 51702; 73501; 73502; 76000; 80053; 85025; 96374; 96376; 99285; J1170; J2405; J2710; J3010; J7120; 01200; 99283; J2704; J7050

== ENCOUNTER 2017-01-14 21:01 | Emergency (ER) | payer MEDICARE, OTHER ==
[2017-01-14] MEDS ORDERED: HYDROmorphone 0.5 MG/0.5 ML Syringe IVPUSH ONE (21:21)
--- NOTE | 2017-01-14 21:43 | EDM.PDOC ---
ED HPI Trauma - General Chief Complaint: Lower Extremity Injury/Pain Stated Complaint: POSS HIP INJURY Time Seen by Provider: 01/14/17 21:14 Source: Reports: Patient, RN notes reviewed History Limitations: Reports: No limitations - History of Present Illness INITIAL COMMENTS - FREE TEXT/NARRATIVE: The patient fell out of bed and injured her left hip on 12/16/2016. The radiograph was concerning for malignancy, as her femoral neck and head were missing, therefore the patient was transferred to [facility], where she underwent a left total hip arthroplasty per Dr. Cook on 12/18/2016. No malignancy was found. She was discharged home on Coumadin on 12/24/2016. She was seen in this ED 12/28/2016 after dislocating her left hip when twisting in a chair. She was sedated in the ED, and the hip was reduced by Dr. Mark. The patient's Coumadin was subsequently switched to Xarelto. The patient was Seen again in our ED on 01/11/2017, after attempting to get out of bed at her [facility]. She felt a "pop" and was unable to move her left lower extremity without pain, the same as when she had dislocated her hip earlier. Attempts were made to reduce her hip in the ED without success, therefore the patient was admitted, and her hip was reduced the following morning in the OR by Dr. Jauregui. The patient now presents, having again likely dislocated her left hip. She states that she was seated in a wheelchair with the abductor pillow between her thighs. The pillow slipped a bit, and she leaned forward to get it, and when she did so, she felt a "pop" in her left hip. Again, she has pain if she attempts to move her left lower extremity. She is otherwise uninjured. Allergies/ADRs: Allergies cephalexin Allergy (Verified 01/14/17 21:14) Rash Sulfa (Sulfonamide Antibiotics) Allergy (Verified 01/14/17 21:14) Rash Home Medications: Ambulatory Orders Carvedilol [Coreg] 6.25 mg PO BID 03/01/15 [Confirmed 01/14/17] Furosemide 20 mg PO DAILY 03/01/15 [Confirmed 01/14/17] PARoxetine [Paxil] 20 mg PO DAILY 03/01/15 [Confirmed 01/14/17] Potassium Chloride 10 meq PO BID 03/01/15 [Confirmed 01/14/17] Simvastatin [Zocor] 20 mg PO BEDTIME 03/01/15 [Confirmed 01/14/17] Zolpidem [Ambien] 10 mg PO BEDTIME 03/01/15 [Confirmed 01/14/17] Gabapentin [Neurontin] 100 mg PO TID 01/02/17 [Confirmed 01/14/17] Acetaminophen/oxyCODONE [Percocet 325-5 MG] 1 tab PO Q6H PRN #40 tablet [Confirmed 01/14/17] Apixaban [Eliquis] 2.5 mg PO BID #60 tablet 01/07/17 [Confirmed 01/14/17] Carvedilol [Coreg] 3.125 mg PO DAILY #30 tablet 01/07/17 [Confirmed 01/14/17] Acetaminophen 650 mg PO TID 01/11/17 [Confirmed 01/14/17] Ferrous Sulfate 325 mg PO DAILY 01/11/17 [Confirmed 01/14/17] Pantoprazole [ProTONIX] 40 mg PO BID 01/14/17 [Confirmed 01/14/17] Past Medical History HEENT History: Reports: Cataract, Impaired vision Other HEENT History: wears eyeglasses Cardiovascular History: Reports: Afib (resolved with ablation many years ago), Heart Failure, High cholesterol, Hypertension 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 History: Reports: GERD TONAL REGULATOR History: Reports: Musculoskeletal History: Reports: Arthritis, Back pain, chronic, Fracture (left ankle 2006), Osteoporosis Psychiatric History: Reports: Anxiety, Depression Endocrine/Metabolic History: Reports: Obesity/BMI 30+ Hematologic History: Reports: Blood transfusion(s) Dermatologic History: Reports: Psoriasis - Infectious Disease History Infectious Disease History: Reports: Chicken pox, Measles - Past Surgical History HEENT Surgical History: Reports: Cataract surgery, Tonsillectomy Cardiovascular Surgical History: Reports: Cardiac Ablation GI Surgical History: Reports: Colonoscopy Female Surgical History: Reports: D&C (x 5 or 6) Neurological Surgical History: Reports: Lumbar spine (fusion, x 3) Musculoskeletal Surgical History: Reports: Carpal tunnel (bilateral), Hip replacement (left, 12/18/2016), Knee replacement (bilateral), ORIF (left ankle) Social & Family History - Family History Family Medical History: Noncontributory - Tobacco Use Smoking Status *Q: Never Smoker Second Hand Smoke Exposure: No - Caffeine Use Caffeine Use: Reports: None - Alcohol Use Alcohol Use History: No Days Per Week of Alcohol Use: 0 - Recreational Drug Use Recreational Drug Use: No - Living Situation & Occupation Living situation: Reports: , with family (Son, ordinarily), extended care facility (for [facility]) Occupation: retired Review of Systems - Review of Systems Review Of Systems: See Below Constitutional: Reports: no symptoms Eyes: Reports: no symptoms Ears: Reports: no symptoms Nose: Reports: no symptoms Mouth/Throat: Reports: no symptoms Respiratory: Reports: No Symptoms Cardiovascular: Reports: no symptoms GI/Abdominal: Reports: No symptoms Genitourinary: Reports: no symptoms Musculoskeletal: Reports: no symptoms Skin: Reports: no symptoms Neurological: Reports: No Symptoms Psychiatric: Reports: no symptoms Trauma Exam - Physical Exam Exam: See Below Exam Limited By: No limitations General Appearance: Reports: alert, WD/WN, no apparent distress Extremities: Reports: other (His left lower extremity appears to be foreshortened by approximately 3 centimeters, when compared to the right. There is fullness posterior to the left acetabulum, consistent with a posterior hip dislocation. Mild tenderness to palpation to this area. Neurovascular status of the left lower extremity is intact.) ED TRAUMA EXTREMITY PROCEDURES - Joint Reduction Site: hip (L) Sedation: conscious sedation Pre-procedure NV status: normal Post-procedure NV status: normal Technique: traction/counter traction ([place] method) Number of Attempts: 1 Post-reduction imaging: completely reduced, no fracture seen Joint Reduction Complications: No Course - Vital Signs Last Recorded V/S: Last Vital Signs Temp 37.0 C 01/14/17 21:11 Pulse 80 01/14/17 22:41 Resp 12 01/14/17 22:41 BP 112/72 01/14/17 22:41 Pulse Ox 100 01/14/17 22:41 - Orders/Labs/Meds Orders: Active Orders 24 hr Category Date Time Status Hip Min 1V Lt [CR] Stat Exams 01/14/17 21:20 Taken Hip Min 1V Lt [CR] Stat Exams 01/14/17 22:19 Taken Meds: Medications Discontinued Medications Generic Name Dose Route Start Last Admin Trade Name Freq PRN Reason Stop Dose Admin Alfentanil HCl Confirm 01/14/17 21:48 Alfenta Administered 01/14/17 21:49 Dose 1,000 mcg .ROUTE .STK-MED ONE Hydromorphone HCl 0.5 mg 01/14/17 21:21 01/14/17 21:32 Dilaudid IVPUSH 01/14/17 21:22 0.5 mg ONETIME ONE Administration Propofol Confirm 01/14/17 22:07 Diprivan 20 Ml Administered 01/14/17 22:08 Dose 200 mg .ROUTE .STK-MED ONE - Radiology Interpretation Free Text/Narrative:: To radiograph of the left hip appears to demonstrate posterior dislocation. No fracture identified. Formal read per the Radiologist pending. Post-reduction single portable radiograph of the left hip appears to demonstrate successful reduction. Formal read per the Radiologist pending. - Re-Assessments/Exams Free Text/Narrative Re-Assessment/Exam: 01/14/17 21:[address] Marion, Anesthesiologist. He will come to the ED for procedural sedation. 01/14/17 22:20 Attempted to reduce the patient's left hip via the the [place] method. I did not hear or feel a reduction, however, the patient's left knee and left foot are now equivalent length to the right, and I am able to externally rotate the left lower extremity, strongly suggesting reduction. Post-procedure radiograph of the left hip has been ordered. 01/14/17 22:[address] Barboza, Orthopedic Surgeon air route controller for Dr. Cook, at 22: 39. He will contact the office of Dr. Cook in the morning and have the patient' s next appointment moved up. Someone will contact Ms. Reyes tomorrow. 01/14/17 22:53 The patient is now alert. The above discussed with the patient. Departure - Departure Time of Disposition: 22:53 Disposition: Home, Self-Care 01 Condition: good Clinical Impression: Recurrent dislocation, left hip Instructions: Hip Dislocation, [id number] Referrals: Jonathan Cook MD [Ordering Only Provider] - Forms: ED Department Discharge Additional Instructions: You were seen in the emergency room after feeling a pop in your left hip after leaning forward. An x-ray of your left hip confirmed that you have dislocated your hip once again. Your left hip was successfully put back in place in the emergency room. Dr. Barboza, air route controller for Dr. Cook, was contacted. Someone from Dr. Cook's office should contact you tomorrow, 01/15/2017, to make arrangements for you to followup with Dr. Cook soon. It is important that you continue to wear your knee abductor pillow. Let someone get it for you if it falls. Consider also bringing your left foot to the right, allowing your left knee to flop to the side. You may resume Physical Therapy. If any other problems, please do not hesitate to return to the ER. - My Orders Last 24 Hours: My Active Orders 01/14/17 21:20 Hip Min 1V Lt [CR] Stat 01/14/17 22:19 Hip Min 1V Lt [CR] Stat - Assessment/Plan Last 24 Hours: My Active Orders 01/14/17 21:20 Hip Min 1V Lt [CR] Stat 01/14/17 22:19 Hip Min 1V Lt [CR] Stat
[2017-01-14] MEDS ORDERED: Alfentanil 500 MCG/ML 2ML Amp ONE (21:48)
[2017-01-14] MEDS ORDERED: Propofol 200 MG/20 ML SDV ONE (22:07)
[2017-01-14 22:42] VITALS: BP 112/72
--- NOTE | 2017-01-15 06:58 | CR ---
Left hip: AP view of the left hip was obtained. Comparison: Previous left hip study performed on the same day (9:31 PM). Previous dislocation has been reduced. Bony structures are osteopenic but appear intact. Impression: 1. Previous dislocation has been reduced. Diagnostic code #2
--- NOTE | 2017-01-15 06:59 | CR ---
Left hip: Single AP view of the left hip was obtained. Comparison: Previous left hip study of 01/11/17. Dislocated hip prosthesis is noted. Previous lumbar spine surgery is noted. Bony structures are osteopenic. No acute bony abnormality is seen. Impression: 1. Dislocated left hip prosthesis. Diagnostic code #3
== END 2017-01-14 23:26 | disposition home or self-care (01) ==
LOC: JD.ED 21:01
DX: T84.021A Dislocation of internal left hip prosthesis, initial encounter (principal); M24.452 Recurrent dislocation, left hip; Z96.642 Presence of left artificial hip joint; Z88.2 Allergy status to sulfonamides; Z79.01 Long term (current) use of anticoagulants; Z79.899 Other long term (current) drug therapy; I48.91 Unspecified atrial fibrillation; I11.0 Hypertensive heart disease with heart failure; I50.9 Heart failure, unspecified; E78.00 Pure hypercholesterolemia, unspecified; K21.9 Gastro-esophageal reflux disease without esophagitis; M19.90 Unspecified osteoarthritis, unspecified site; E66.9 Obesity, unspecified; Z68.30 Body mass index [BMI] 30.0-30.9, adult; Z96.653 Presence of artificial knee joint, bilateral
CPT/HCPCS: 27252; 73501; 96374; 99283; 99285; J1170

== ENCOUNTER 2017-02-08 14:40 | Emergency (ER) | payer MEDICARE, OTHER ==
[2017-02-08] MEDS ORDERED: Sodium Chloride 0.9% 10 ML Syringe FLUSH PRN (15:10)
[2017-02-08] MEDS ORDERED: HYDROmorphone 0.5 MG/0.5 ML Syringe IVPUSH ONE ×2 (15:10→18:46)
--- NOTE | 2017-02-08 15:12 | EDM.PDOC ---
ED HPI Trauma - General Chief Complaint: Lower Extremity Injury/Pain Stated Complaint: L HIP INJURY Time Seen by Provider: 02/08/17 14:53 Source: Reports: Patient, RN notes reviewed - History of Present Illness INITIAL COMMENTS - FREE TEXT/NARRATIVE: 81-year-old lady comes in with probable recurrent left hip dislocation. She currently is a patient at [facility]. She was sitting in a chair or wheelchair and leaning forward to reach for something and felt a pop in her left hip. She now has pain with any type of motion of her leg. She has not been able to stand or bear weight. The pain is all in the region of the left hip and proximal thigh. She did not fall to the floor. She did fall and fracture her hip about a couple of months ago. She has had at least 2 or 3 dislocations of the hip since her left total hip replacement status post fracture. It appears that she does have history of hypertension. She has history of congestive heart failure and currently is on eloquence at this time in addition to her other medications. Allergies/ADRs: Allergies cephalexin Allergy (Verified 02/08/17 14:55) Rash Sulfa (Sulfonamide Antibiotics) Allergy (Verified 02/08/17 14:55) Rash Home Medications: Ambulatory Orders Carvedilol [Coreg] 6.25 mg PO BID 03/01/15 [Confirmed 01/14/17] Furosemide 20 mg PO DAILY 03/01/15 [Confirmed 01/14/17] PARoxetine [Paxil] 20 mg PO DAILY 03/01/15 [Confirmed 01/14/17] Potassium Chloride 10 meq PO BID 03/01/15 [Confirmed 01/14/17] Simvastatin [Zocor] 20 mg PO BEDTIME 03/01/15 [Confirmed 01/14/17] Zolpidem [Ambien] 10 mg PO BEDTIME 03/01/15 [Confirmed 01/14/17] Gabapentin [Neurontin] 100 mg PO TID 01/02/17 [Confirmed 01/14/17] Acetaminophen/oxyCODONE [Percocet 325-5 MG] 1 tab PO Q6H PRN #40 tablet [Confirmed 01/14/17] Apixaban [Eliquis] 2.5 mg PO BID #60 tablet 01/07/17 [Confirmed 01/14/17] Carvedilol [Coreg] 3.125 mg PO DAILY #30 tablet 01/07/17 [Confirmed 01/14/17] Acetaminophen 650 mg PO TID 01/11/17 [Confirmed 01/14/17] Ferrous Sulfate 325 mg PO DAILY 01/11/17 [Confirmed 01/14/17] Pantoprazole [ProTONIX] 40 mg PO BID 01/14/17 [Confirmed 01/14/17] Past Medical History HEENT History: Reports: Cataract, Impaired vision Other HEENT History: wears eyeglasses Cardiovascular History: Reports: Afib, Heart Failure, High cholesterol, Hypertension Respiratory History: Reports: SOB 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 History: Reports: GERD Genitourinary History: Reports: Retention, urinary DISPLAY MANAGER History: Reports: Other OB/BYN History: D and C multiple Musculoskeletal History: Reports: Arthritis, Back pain, chronic, Fracture, Osteoporosis Other Musculoskeletal History: L) ankle fx in 2006 Neurological History: Reports: Migraines Psychiatric History: Reports: Anxiety, Depression Endocrine/Metabolic History: Reports: Obesity/BMI 30+ Hematologic History: Reports: Blood transfusion(s) Oncologic (Cancer) History: Reports: None Dermatologic History: Reports: Psoriasis - Infectious Disease History Infectious Disease History: Reports: Chicken pox, Measles - Past Surgical History HEENT Surgical History: Reports: Cataract surgery, Tonsillectomy Cardiovascular Surgical History: Reports: Cardiac Ablation GI Surgical History: Reports: Colonoscopy Female Surgical History: Reports: D&C Neurological Surgical History: Reports: Lumbar spine Musculoskeletal Surgical History: Reports: Carpal tunnel, Hip replacement, Knee replacement, ORIF Social & Family History - Family History Family Medical History: Noncontributory - Tobacco Use Smoking Status *Q: Never Smoker Second Hand Smoke Exposure: No - Caffeine Use Caffeine Use: Reports: None - Alcohol Use Days Per Week of Alcohol Use: 0 - Recreational Drug Use Recreational Drug Use: No - Living Situation & Occupation Living situation: Reports: , with family (Son, ordinarily), extended care facility (for [facility]) Occupation: retired Review of Systems - Review of Systems Review Of Systems: See Below Eyes: Reports: no symptoms Mouth/Throat: Reports: no symptoms Respiratory: Denies: Shortness of Breath Cardiovascular: Denies: chest pain GI/Abdominal: Denies: Abdominal pain, Nausea, Vomiting Musculoskeletal: Reports: leg pain (Left proximal thigh), joint pain (Left hip) Skin: Reports: no symptoms Neurological: Denies: Numbness, Tingling Trauma Exam - Physical Exam Exam: See Below General Appearance: Reports: alert, mild distress Head: Reports: atraumatic Throat/Mouth: Reports: Normal inspection, Normal oropharynx Neck: Reports: full range of motion Respiratory Exam: Reports: no respiratory distress, lungs clear, normal breath sounds Cardiovascular: Reports: regular rate, rhythm GI/Abdominal: Reports: soft, non tender Back: Denies: CVA tenderness (R), CVA tenderness (L) Extremities: Reports: bony-point tenderness (There is some tenderness over the lateral aspect of the left hip), pain with movement (Patient does resist motion of her left lower extremity at this time) Neurologic: Reports: no motor/sensory deficits Skin: Reports: Normal color, Warm/dry Course - Vital Signs Last Recorded V/S: Last Vital Signs Temp 98.6 F 02/08/17 14:50 Pulse 86 02/08/17 17:58 Resp 20 02/08/17 17:58 BP 104/72 02/08/17 17:58 Pulse Ox 96 02/08/17 17:58 - Orders/Labs/Meds Orders: Active Orders 24 hr Category Date Time Status EKG 12 Lead [EKG Documentation Completion] [RC] STAT Care 02/08/17 15:24 Active Peripheral IV Care [RC] . DIRECTED Care 02/08/17 15:10 Active Hip Min 1V Lt [CR] Stat Exams 02/08/17 17:40 Taken Hip Min 2V or 3V Lt [CR] Stat Exams 02/08/17 17:57 Taken Hip Min 2V or 3V w Pelvis Lt [CR] Stat Exams 02/08/17 15:56 Taken Sodium Chloride 0.9% [Normal Saline] 1,000 ml Med 02/08/17 15:15 Active IV ASDIRECTED Sodium Chloride 0.9% [Saline Flush] Med 02/08/17 15:10 Active 10 ml FLUSH ASDIRECTED PRN Peripheral IV Insertion Adult [OM.PC] Stat Oth 02/08/17 15:09 Ordered Medication Orders Sodium Chloride (Normal Saline) 1,000 mls @ 150 mls/hr IV ASDIRECTED PHILOMENA Last Admin: 02/08/17 15:18 Dose: 150 mls/hr Sodium Chloride (Saline Flush) 10 ml FLUSH ASDIRECTED PRN PRN Reason: Keep Vein Open Last Admin: 02/08/17 15:15 Dose: 10 ml Labs: Laboratory Tests 02/08/17 02/08/17 Range/Units 15:15 15:15 WBC 4.30 (3.98-10.04) K/mm3 RBC 3.52 L (3.98-5.22) M/mm3 Hgb 11.0 L (11.2-15.7) gm/L Hct 34.1 (34.1-44.9) % MCV 96.9 H (79.4-94.8) fl MCH 31.3 (25.6-32.2) pg MCHC 32.3 (32.2-35.5) g/dl RDW Std Deviation 59.0 H (36.4-46.3) fL Plt Count 157 L (182-369) K/mm3 MPV 9.9 (9.4-12.3) fl Neut % (Auto) 54.2 (34.0-71.1) % Lymph % (Auto) 34.2 (19.3-51.7) % Hardin % (Auto) 8.8 (4.7-12.5) % Eos % (Auto) 2.1 (0.7-5.8) Baso % (Auto) 0.5 (0.1-1.2) % Neut # (Auto) 2.33 (1.56-6.13) K/mm3 Lymph # (Auto) 1.47 (1.18-3.74) K/mm3 Hardin # (Auto) 0.38 H (0.24-0.36) K/mm3 Eos # (Auto) 0.09 (0.04-0.36) K/mm3 Baso # (Auto) 0.02 (0.01-0.08) K/mm3 Sodium 143 (136-145) mEq/L Potassium 3.6 (3.5-5.1) mEq/L Chloride 107 (98-107) mEq/L Carbon Dioxide 24 (21-32) mEq/L Anion Gap 15.6 H (5-15) BUN 14 (7-18) mg/dL Creatinine 1.3 H (0.55-1.02) mg/dL Est Cr Clr Drug Dosing 25.20 mL/min Estimated GFR (MDRD) 40 (>60) mL/min BUN/Creatinine Ratio 10.8 L (14-18) Glucose 110 (83-115) mg/dL Calcium 8.5 (8.5-10.1) mg/dL Total Bilirubin 0.9 (0.2-1.0) mg/dL AST 14 L (15-37) U/L ALT 12 L (14-59) U/L Alkaline Phosphatase 81 (46-116) U/L Total Protein 6.4 (6.4-8.2) g/dl Albumin 3.2 L (3.4-5.0) g/dl Globulin 3.2 gm/dL Albumin/Globulin Ratio 1.0 (1-2) Meds: Medications Generic Name Dose Route Start Last Admin Trade Name Freq PRN Reason Stop Dose Admin Sodium Chloride 1,000 mls @ 150 mls/hr 02/08/17 15:15 02/08/17 15:18 Normal Saline IV 150 mls/hr ASDIRECTED PHILOMENA Administration Sodium Chloride 10 ml 02/08/17 15:10 02/08/17 15:15 Saline Flush FLUSH 10 ml ASDIRECTED PRN Administration Keep Vein Open Discontinued Medications Generic Name Dose Route Start Last Admin Trade Name Freq PRN Reason Stop Dose Admin Fentanyl 50 mcg 02/08/17 17:07 02/08/17 17:14 Sublimaze IVPUSH 02/08/17 17:08 50 mcg ONETIME ONE Administration Hydromorphone HCl 0.5 mg 02/08/17 15:10 02/08/17 15:18 Dilaudid IVPUSH 02/08/17 15:11 0.5 mg ONETIME ONE Administration Hydromorphone HCl 0.25 mg 02/08/17 18:46 Dilaudid IVPUSH 02/08/17 18:47 ONETIME ONE Lidocaine HCl Confirm 02/08/17 17:25 Xylocaine-Mpf 1% Administered 02/08/17 17:26 Dose 4 mls @ as directed .ROUTE .STK-MED ONE Metoclopramide HCl 10 mg 02/08/17 16:50 02/08/17 16:56 Reglan IVPUSH 02/08/17 16:51 10 mg ONETIME ONE Administration Phenylephrine HCl Confirm 02/08/17 18:07 Paul-Synephrine Administered 02/08/17 18:08 Dose 10 mg .ROUTE .STK-MED ONE Propofol Confirm 02/08/17 17:26 Diprivan 20 Ml Administered 02/08/17 17:27 Dose 200 mg .ROUTE .STK-MED ONE Propofol Confirm 02/08/17 17:46 Diprivan 20 Ml Administered 02/08/17 17:47 Dose 200 mg .ROUTE .STK-MED ONE - Re-Assessments/Exams Free Text/Narrative Re-Assessment/Exam: 02/08/17 16:48 X-rays do show posterior dislocation as expected. Anesthesia will be called in for appropriate sedation prior to reduction. 02/08/17 17:30. IV propofol was administered by nurse supervisor composing room on-duty. Multiple attempts were made to bring the hip back into the proper position. There was some movement noted on the third attempt. However post reduction x- ray shows the hip is still out. Dr. Wong Orthopedist has been cold and will be in shortly. 17:[address] Mark. He states she has an appt. to see him in about 3 days. 02/08/17 18:49. Patient is alert, braces been reapplied. She is starting to have some discomfort left posterior hip, her initial half milligram dose of Dilaudid was about 4 hours ago. We'll give 0.25 mg Dilaudid IV now prior to discharge and transport back to the care home. Departure - Departure Time of Disposition: 18:30 Disposition: DC/Tfer to [facility] Condition: fair Clinical Impression: Hip dislocation, left Qualifiers: Encounter type: initial encounter Qualified Code(s): S73.005A - Unspecified dislocation of left hip, initial encounter Dislocation of internal left hip prosthesis Qualifiers: Encounter type: initial encounter Qualified Code(s): T84.021A - Dislocation of internal left hip prosthesis, initial encounter Referrals: Jim Andrade MD [Primary Care Provider] - Forms: ED Department Discharge Additional Instructions: Wear hip brace at all times. See Dr. Wong at clinic this next Friday as planned. Moves slowly and carefully, let care home staff help you with all movement activity, avoid leaning forward to try prevent this from happening again as best you can. - My Orders Last 24 Hours: My Active Orders 02/08/17 15:09 Peripheral IV Insertion Adult [OM.PC] Stat 02/08/17 15:10 Peripheral IV Care [RC] . DIRECTED Sodium Chloride 0.9% [Saline Flush] 10 ml FLUSH ASDIRECTED PRN 02/08/17 15:15 Sodium Chloride 0.9% [Normal Saline] 1,000 ml IV ASDIRECTED 02/08/17 15:24 EKG 12 Lead [EKG Documentation Completion] [RC] STAT 02/08/17 15:56 Hip Min 2V or 3V w Pelvis Lt [CR] Stat 02/08/17 17:40 Hip Min 1V Lt [CR] Stat - Assessment/Plan Last 24 Hours: My Active Orders 02/08/17 15:09 Peripheral IV Insertion Adult [OM.PC] Stat 02/08/17 15:10 Peripheral IV Care [RC] . DIRECTED Sodium Chloride 0.9% [Saline Flush] 10 ml FLUSH ASDIRECTED PRN 02/08/17 15:15 Sodium Chloride 0.9% [Normal Saline] 1,000 ml IV ASDIRECTED 02/08/17 15:24 EKG 12 Lead [EKG Documentation Completion] [RC] STAT 02/08/17 15:56 Hip Min 2V or 3V w Pelvis Lt [CR] Stat 02/08/17 17:40 Hip Min 1V Lt [CR] Stat
[2017-02-08] MEDS ORDERED: Sodium Chloride 0.9% 1,000 ML IV SCH (15:15)
[2017-02-08] MEDS ORDERED: Metoclopramide 10 MG/2 ML SDV IVPUSH ONE (16:50)
[2017-02-08] MEDS ORDERED: fentaNYL 100 MCG/2 ML SDV IVPUSH ONE (17:07)
--- NOTE | 2017-02-08 17:11 | PCM.PREANE ---
Preanesthetic Assessment - Anesthesia/Transfusion/Family Hx Anesthesia History: Prior Anesthesia Without Reaction Family History of Anesthesia Reaction: No Transfusion History: Prior Transfusion Without Reaction - Review of Systems General: No Symptoms Pulmonary: No Symptoms Cardiovascular: No Symptoms 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: No symptoms Neurological: No Symptoms Other: Reports: Depression, Anxiety - Physical Assessment NPO Status Date: 02/08/17 NPO Status Time: 11:30 O2 Sat by Pulse Oximetry: 96 Respiratory Rate: 18 Vital Signs: Last Vital Signs Temp 98.6 F 02/08/17 14:50 Pulse 79 02/08/17 14:50 Resp 18 02/08/17 14:50 BP 133/82 02/08/17 14:50 Pulse Ox 96 02/08/17 14:50 Height: 5 ft Weight: 70.307 kg ASA Class: 3E Mental Status: Alert & Oriented x3 Airway Class: Mallampati = 1 Dentition: Reports: Dentures (top) Thyro-Mental Finger Breadths: 3 Mouth Opening Finger Breadths: 3 ROM/Head Extension: Full Lungs: Clear to auscultation, Normal respiratory effort Cardiovascular: Regular Rate, Regular Rhythm, No Murmurs - Lab Values: Laboratory Last Values WBC 4.30 K/mm3 (3.98-10.04) 02/08/17 15:15 RBC 3.52 M/mm3 (3.98-5.22) L 02/08/17 15:15 Hgb 11.0 gm/L (11.2-15.7) L 02/08/17 15:15 Hct 34.1 % (34.1-44.9) 02/08/17 15:15 MCV 96.9 fl (79.4-94.8) H 02/08/17 15:15 MCH 31.3 pg (25.6-32.2) 02/08/17 15:15 MCHC 32.3 g/dl (32.2-35.5) 02/08/17 15:15 RDW Std Deviation 59.0 fL (36.4-46.3) H 02/08/17 15:15 Plt Count 157 K/mm3 (182-369) L 02/08/17 15:15 MPV 9.9 fl (9.4-12.3) 02/08/17 15:15 Neut % (Auto) 54.2 % (34.0-71.1) 02/08/17 15:15 Lymph % (Auto) 34.2 % (19.3-51.7) 02/08/17 15:15 Thayer % (Auto) 8.8 % (4.7-12.5) 02/08/17 15:15 Eos % (Auto) 2.1 (0.7-5.8) 02/08/17 15:15 Baso % (Auto) 0.5 % (0.1-1.2) 02/08/17 15:15 Neut # (Auto) 2.33 K/mm3 (1.56-6.13) 02/08/17 15:15 Lymph # (Auto) 1.47 K/mm3 (1.18-3.74) 02/08/17 15:15 Thayer # (Auto) 0.38 K/mm3 (0.24-0.36) H 02/08/17 15:15 Eos # (Auto) 0.09 K/mm3 (0.04-0.36) 02/08/17 15:15 Baso # (Auto) 0.02 K/mm3 (0.01-0.08) 02/08/17 15:15 Sodium 143 mEq/L (136-145) 02/08/17 15:15 Potassium 3.6 mEq/L (3.5-5.1) 02/08/17 15:15 Chloride 107 mEq/L (98-107) 02/08/17 15:15 Carbon Dioxide 24 mEq/L (21-32) 02/08/17 15:15 Anion Gap 15.6 (5-15) H 02/08/17 15:15 BUN 14 mg/dL (7-18) 02/08/17 15:15 Creatinine 1.3 mg/dL (0.55-1.02) H 02/08/17 15:15 Est Cr Clr Drug Dosing 25.20 mL/min 02/08/17 15:15 Estimated GFR (MDRD) 40 mL/min (>60) 02/08/17 15:15 BUN/Creatinine Ratio 10.8 (14-18) L 02/08/17 15:15 Glucose 110 mg/dL (83-115) 02/08/17 15:15 Calcium 8.5 mg/dL (8.5-10.1) 05/06/17 15:15 Total Bilirubin 0.9 mg/dL (0.2-1.0) 02/08/17 15:15 AST 14 U/L (15-37) L 02/08/17 15:15 ALT 12 U/L (14-59) L 02/08/17 15:15 Alkaline Phosphatase 81 U/L (46-116) 02/08/17 15:15 Total Protein 6.4 g/dl (6.4-8.2) 02/08/17 15:15 Albumin 3.2 g/dl (3.4-5.0) L 02/08/17 15:15 Globulin 3.2 gm/dL 02/08/17 15:15 Albumin/Globulin Ratio 1.0 (1-2) 02/08/17 15:15 - Allergies Allergies/Adverse Reactions: Allergies Allergy/AdvReac Type Severity Reaction Status Date / Time cephalexin Allergy Rash Verified 02/08/17 14:55 Sulfa (Sulfonamide Allergy Rash Verified 02/08/17 14:55 Antibiotics) - Blood Blood Available: No - Anesthesia Plan Pre-Op Medication Ordered: Beta Meg Beta Meg: Carvedilol Med Last Dose Date: 02/08/17 Med Last Dose Time: 08:00 - Acknowledgements Anesthesia Type Planned: MAC Pt an Appropriate Candidate for the Planned Anesthesia: Yes Alternatives and Risks of Anesthesia Discussed w Pt/Guardian: Yes Pt/Guardian Understands and Agrees with Anesthesia Plan: Yes PreAnesthesia Questionnaire HEENT History: Reports: Cataract, Impaired vision Other HEENT History: wears eyeglasses Cardiovascular History: Reports: Afib, Heart Failure, High cholesterol, Hypertension Respiratory History: Reports: SOB 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 History: Reports: GERD Genitourinary History: Reports: Retention, urinary 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 OB/BYN History: D and C multiple Musculoskeletal History: Reports: Arthritis, Back pain, chronic, Fracture, Osteoporosis Other Musculoskeletal History: L) ankle fx in 2006 Neurological History: Reports: Migraines Psychiatric History: Reports: Anxiety, Depression Endocrine/Metabolic History: Reports: Obesity/BMI 30+ Hematologic History: Reports: Blood transfusion(s) Oncologic (Cancer) History: Reports: None Dermatologic History: Reports: Psoriasis - Infectious Disease History Infectious Disease History: Reports: Chicken pox, Measles - Past Surgical History HEENT Surgical History: Reports: Cataract surgery, Tonsillectomy Cardiovascular Surgical History: Reports: Cardiac Ablation GI Surgical History: Reports: Colonoscopy Female Surgical History: Reports: D&C Neurological Surgical History: Reports: Lumbar spine Musculoskeletal Surgical History: Reports: Carpal tunnel, Hip replacement, Knee replacement, ORIF - SUBSTANCE USE Smoking Status *Q: Never Smoker Tobacco Use Within Last Twelve Months: No Second Hand Smoke Exposure: No Days Per Week of Alcohol Use: 0 Recreational Drug Use History: No - HOME MEDS Home Medications: Home Meds Carvedilol [Coreg] 6.25 mg PO BID 03/01/15 [History] Furosemide 20 mg PO DAILY 03/01/15 [History] PARoxetine [Paxil] 20 mg PO DAILY 03/01/15 [History] Potassium Chloride 10 meq PO BID 03/01/15 [History] Simvastatin [Zocor] 20 mg PO BEDTIME 03/01/15 [History] Zolpidem [Ambien] 10 mg PO BEDTIME 03/01/15 [History] Gabapentin [Neurontin] 100 mg PO TID 01/02/17 [History] Acetaminophen/oxyCODONE [Percocet 325-5 MG] 1 tab PO Q6H PRN #40 tablet [Rx] Apixaban [Eliquis] 2.5 mg PO BID #60 tablet 01/07/17 [Rx] Carvedilol [Coreg] 3.125 mg PO DAILY #30 tablet 01/07/17 [Rx] Acetaminophen 650 mg PO TID 01/11/17 [History] Ferrous Sulfate 325 mg PO DAILY 01/11/17 [History] Pantoprazole [ProTONIX] 40 mg PO BID 01/14/17 [History] - CURRENT (IN HOUSE) MEDS Current Meds: Current Medications Sodium Chloride (Normal Saline) 1,000 mls @ 150 mls/hr IV ASDIRECTED PHILOMENA Last Admin: 02/08/17 15:18 Dose: 150 mls/hr Sodium Chloride (Saline Flush) 10 ml FLUSH ASDIRECTED PRN PRN Reason: Keep Vein Open Last Admin: 02/08/17 15:15 Dose: 10 ml Discontinued Medications Hydromorphone HCl (Dilaudid) 0.5 mg IVPUSH ONETIME ONE Stop: 02/08/17 15:11 Last Admin: 02/08/17 15:18 Dose: 0.5 mg Metoclopramide HCl (Reglan) 10 mg IVPUSH ONETIME ONE Stop: 02/08/17 16:51 Last Admin: 02/08/17 16:56 Dose: 10 mg
[2017-02-08] MEDS ORDERED: Lidocaine 1% 4 ML ONE (17:25)
[2017-02-08] MEDS ORDERED: Propofol 200 MG/20 ML SDV ONE ×2 (17:26→17:46)
[2017-02-08 17:59] VITALS: BP 104/72
[2017-02-08] MEDS ORDERED: Phenylephrine 1% 10 MG/ML SDV ONE (18:07)
--- NOTE | 2017-02-10 10:33 | CR ---
Pelvis and left hip: AP view of the pelvis was obtained as well as AP and lateral views of the left hip. Comparison: Previous left hip study of 01/14/17. 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 Dislocation is superior and posterior. Previous lumbar spine surgery is noted. Bony structures are osteopenic. No acute bony abnormality is identified. Impression: 1. Dislocated left hip prosthesis. 2. No acute bony abnormality is seen. Diagnostic code #5
--- NOTE | 2017-02-10 10:33 | CR ---
Left hip: AP view of the left hip was obtained. Study compared to previous exam performed earlier on the same day (3:59 PM). Continuing dislocated left hip prosthesis. Impression: 1. Continuing dislocation. Diagnostic code #5
--- NOTE | 2017-02-10 10:33 | CR ---
Left hip: AP and lateral views of the left hip were obtained. Comparison: Previous studies performed earlier on the same day (5:26 PM and 3:59 PM). Previous dislocated left hip prosthesis is no longer seen. Dislocation has been reduced. Underlying bony structures are intact. Impression: 1. Previous dislocation shows reduction on current study. Diagnostic code #1
== END 2017-02-08 19:24 ==
LOC: JD.ED 14:40
DX: T84.021A Dislocation of internal left hip prosthesis, initial encounter (principal); I11.0 Hypertensive heart disease with heart failure; I50.9 Heart failure, unspecified; E78.00 Pure hypercholesterolemia, unspecified; F41.9 Anxiety disorder, unspecified; I25.2 Old myocardial infarction; I48.91 Unspecified atrial fibrillation; E66.9 Obesity, unspecified; G43.909 Migraine, unspecified, not intractable, without status migrainosus; M81.0 Age-related osteoporosis without current pathological fracture; F32.9 Major depressive disorder, single episode, unspecified; Z88.2 Allergy status to sulfonamides; Z88.8 Allergy status to other drugs, medicaments and biological substances; Z79.899 Other long term (current) drug therapy; X50.9XXA Other and unspecified overexertion or strenuous movements or postures, initial encounter
CPT/HCPCS: 27250; 36415; 73501; 73502; 80053; 85025; 93005; 96361; 96374; 96375; 99284; J1170; J2370; J2765; J3010; J7040; J7050; 01200; J2704

== ENCOUNTER 2020-01-22 17:42 | Emergency (ER) | payer MEDICARE, OTHER ==
[2020-01-22 17:49] VITALS: BP 144/89; PULSE 63
--- NOTE | 2020-01-22 17:49 | EDM.PDOC ---
ED HPI GENERAL MEDICAL PROBLEM - General Chief Complaint: Lower Extremity Injury/Pain Stated Complaint: [facility] Time Seen by Provider: 01/22/20 17:43 - History of Present Illness INITIAL COMMENTS - FREE TEXT/NARRATIVE: 84-year-old female presents the emergency room with left hip pain. The patient was vacuuming her house, and decided to rest. She went and sat down without difficulty. When she tried to get back up she had some pain in her left hip. She has a prosthesis on this hip. About 3 years ago she had a revision because after it was put in and it kept dislocating but after the revision she has not had any problems with a dislocated. She was ambulatory on it but still has a lot of pain. She called 911 and they were concerned about a possible fracture dislocation. She feels better after getting some fentanyl she received 50 mcg but the IV infiltrated so it is unknown how much she had a started a second line gave her 25 mcg more. The patient is on Coumadin and has not had her INR checked in a while because of the COVID-19 situation. With this episode she had no trauma she did not fall she did not hit her head. Left Hip Pain Score (Numeric/FACES): 5 - Related Data Allergies Allergy/AdvReac Type Severity Reaction Status Date / Time cephalexin Allergy Rash Verified 01/22/20 17:44 Sulfa (Sulfonamide Allergy Rash Verified 01/22/20 17:44 Antibiotics) Home Meds: Home Meds RX: Furosemide 40 mg PO DAILY 03/01/15 [History] RX: PARoxetine [Paxil] 30 mg PO DAILY 03/01/15 [History] RX: Potassium Chloride 10 meq PO BID 03/01/15 [History] RX: Zolpidem [Ambien] 10 mg PO BEDTIME 03/01/15 [History] RX: Gabapentin [Neurontin] 300 mg PO TID 01/02/17 [History] RX: Acetaminophen/oxyCODONE [Percocet 325-5 MG] 1 tab PO Q6H PRN #40 tablet 01/20 [Rx] RX: Acetaminophen 650 mg PO TID 01/11/17 [History] RX: Pantoprazole [ProTONIX] 40 mg PO BID 01/14/17 [History] RX: Losartan [Cozaar] 25 mg PO DAILY 01/22/20 [History] RX: Metoprolol Tartrate 50 mg PO BID 01/22/20 [History] RX: Polyethylene Glycol [Polyox Wsr-301] 1 dose PO DAILY PRN 01/22/20 [History] RX: Rosuvastatin [Crestor] 10 mg PO DAILY 01/22/20 [History] Warfarin Sodium 2.5 mg PO DAILY 01/22/20 [History] Past Medical History HEENT History: Reports: Cataract, Impaired Vision Other HEENT History: wears eyeglasses Cardiovascular History: Reports: Afib, Heart Failure, High Cholesterol, Hypertension Respiratory History: Reports: SOB 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 History: Reports: GERD Genitourinary History: Reports: Retention, Urinary 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 COTTRELL BLOWER History: D and C multiple Musculoskeletal History: Reports: Arthritis, Back Pain, Chronic, Fracture, Osteoporosis Other Musculoskeletal History: L) ankle fx in 2006 Neurological History: Reports: Migraines Psychiatric History: Reports: Anxiety, Depression Endocrine/Metabolic History: Reports: Obesity/BMI 30+ Hematologic History: Reports: Blood Transfusion(s) Oncologic (Cancer) History: Reports: None Dermatologic History: Reports: Psoriasis - Infectious Disease History Infectious Disease History: Reports: Chicken Pox, Measles - Past Surgical History HEENT Surgical History: Reports: Cataract Surgery, Tonsillectomy Neurological Surgical History: Reports: Lumbar Spine Musculoskeletal Surgical History: Reports: Carpal Tunnel, Hip Replacement, Knee Replacement, ORIF Social & Family History - Family History Family Medical History: Noncontributory - Caffeine Use Caffeine Use: Reports: None - Living Situation & Occupation Living situation: Reports: , with Family, Extended Care Facility Occupation: Retired Review of Systems - Review of Systems Review Of Systems: See Below Constitutional: Reports: No Symptoms Eyes: Reports: No Symptoms Ears: Reports: No Symptoms Nose: Reports: No Symptoms Mouth/Throat: Reports: No Symptoms Respiratory: Reports: No Symptoms Cardiovascular: Reports: No Symptoms GI/Abdominal: Reports: No Symptoms Genitourinary: Reports: No Symptoms Musculoskeletal: Reports: Other (Hip pain) ED EXAM, GENERAL - Physical Exam Exam: See Below Exam Limited By: No Limitations General Appearance: Alert, No Apparent Distress Head: Atraumatic, Normocephalic Neck: Normal Inspection, Supple, Non-Tender, Full Range of Motion Respiratory/Chest: No Respiratory Distress, Lungs Clear, Normal Breath Sounds Cardiovascular: Regular Rate, Rhythm, No Edema, No Murmur GI/Abdominal: Normal Bowel Sounds, Soft, Non-Tender Extremities: Other (Examination left lower extremity shows no shortening or external rotation I can passively flex her hip without difficulty internal and externally rotated with some minimal discomfort.) Neurological: Alert, Oriented, Normal Cognition Course - Vital Signs Last Recorded V/S: Last Vital Signs Temp 36.4 C 01/22/20 17:45 Pulse 63 01/22/20 17:45 Resp 18 01/22/20 17:45 BP 144/89 H 01/22/20 17:45 Pulse Ox 90 L 01/22/20 17:45 - Orders/Labs/Meds Orders: Active Orders 24 hr Category Date Time Status Hip Min 2V or 3V w Pelvis Lt [CR] Stat Exams 01/22/20 17:46 Taken Labs: Laboratory Tests 01/22/20 Range/Units 17:50 PT 28.3 H (9.7-12.0) SECONDS INR 2.75 - Re-Assessments/Exams Free Text/Narrative Re-Assessment/Exam: 01/22/20 19:03 X-ray of her left hip is unremarkable we are awaiting her INR. 01/23/20 07:13 Her INR came back at 2.75 Departure - Departure Time of Disposition: 19:00 Disposition: Home, Self-Care 01 Clinical Impression: Left hip pain - Discharge Information Instructions: Hip Pain Referrals: Jim Andrade MD [Primary Care Provider] - Forms: ED Department Discharge Additional Instructions: Return to the emergency room with any questions problems or worsening symptoms. Tylenol or your hydrocodone as needed for pain. Try not to exceed 3000 mg of Tylenol or the acetaminophen in a 24-hour period. Call whoever adjust your Coumadin on Friday with the results of your INR today. Sepsis Event Note - Focused Exam Date Exam was Performed: 01/23/20 Time Exam was Performed: 07:13 - My Orders Last 24 Hours: My Active Orders 01/22/20 17:46 Hip Min 2V or 3V w Pelvis Lt [CR] Stat - Assessment/Plan Last 24 Hours: My Active Orders 01/22/20 17:46 Hip Min 2V or 3V w Pelvis Lt [CR] Stat
--- NOTE | 2020-01-23 10:28 | CR ---
Pelvis and left hip: AP view of the pelvis was obtained as well as AP and frog-leg lateral views left hip. Comparison: Previous hip study of 05/13/18. Previous lumbar spine surgery is noted. Left hip prosthesis is seen. Osteopenia is noted. No acute fracture or other abnormality is appreciated. Impression: 1. Findings as noted above. 2. Nothing acute is appreciated. Diagnostic code #2 This report was dictated in MDT
== END 2020-01-22 20:01 | disposition home or self-care (01) ==
LOC: JD.ED 17:42
DX: M25.552 Pain in left hip (principal); I11.0 Hypertensive heart disease with heart failure; I50.9 Heart failure, unspecified; I48.91 Unspecified atrial fibrillation; E78.00 Pure hypercholesterolemia, unspecified; K21.9 Gastro-esophageal reflux disease without esophagitis; E66.9 Obesity, unspecified; F41.9 Anxiety disorder, unspecified; F32.9 Major depressive disorder, single episode, unspecified; Z68.37 Body mass index [BMI] 37.0-37.9, adult; Z79.01 Long term (current) use of anticoagulants; Z88.1 Allergy status to other antibiotic agents; Z88.2 Allergy status to sulfonamides; Z79.899 Other long term (current) drug therapy
CPT/HCPCS: 36415; 73502-26-LT; 73502-LT; 85610; 99282; 99284-25

== ENCOUNTER 2020-08-12 09:19 | Emergency (ER) | payer MEDICARE, OTHER ==
[2020-08-12 09:48] VITALS: PULSE 91
--- NOTE | 2020-08-12 10:00 | EDM.PDOC ---
ED HPI GENERAL MEDICAL PROBLEM - General Chief Complaint: Respiratory Problem Stated Complaint: SOB Time Seen by Provider: 08/12/20 09:59 Source of Information: Reports: Patient, RN Notes Reviewed - History of Present Illness INITIAL COMMENTS - FREE TEXT/NARRATIVE: 84 yr old female comes in feeling short of breath. She has chronic dyspnea but states "it is getting worse" Occasional chest pain. Has dyspnea with exertion and orthopnea. Occasional abd pain. No recent vomiting or diarrhea. Occasional cough. No recent fever or chills. - Related Data Allergies Allergy/AdvReac Type Severity Reaction Status Date / Time cephalexin Allergy Rash Verified 08/12/20 09:47 Sulfa (Sulfonamide Allergy Rash Verified 08/12/20 09:47 Antibiotics) Home Meds: Home Meds Furosemide 40 mg PO DAILY 03/01/15 [History] PARoxetine [Paxil] 30 mg PO DAILY 03/01/15 [History] Potassium Chloride 10 meq PO BID 03/01/15 [History] Zolpidem [Ambien] 10 mg PO BEDTIME 03/01/15 [History] Gabapentin [Neurontin] 300 mg PO TID 01/02/17 [History] Acetaminophen/oxyCODONE [Percocet 325-5 MG] 1 tab PO Q6H PRN #40 tablet 01/07/17 [Rx] Acetaminophen 650 mg PO TID 01/11/17 [History] Pantoprazole [ProTONIX] 40 mg PO BID 01/14/17 [History] Losartan [Cozaar] 25 mg PO DAILY 01/22/20 [History] Metoprolol Tartrate 50 mg PO BID 01/22/20 [History] Polyethylene Glycol [Polyox Wsr-301] 1 dose PO DAILY PRN 01/22/20 [History] Rosuvastatin [Crestor] 10 mg PO DAILY 01/22/20 [History] Warfarin Sodium 2.5 mg PO DAILY 01/22/20 [History] Ferrous Sulfate 325 mg PO Q12HR #30 tablet 08/12/20 [Rx] Past Medical History HEENT History: Reports: Cataract, Impaired Vision Other HEENT History: wears eyeglasses Cardiovascular History: Reports: Afib, Heart Failure, High Cholesterol, Hypertension Respiratory History: Reports: SOB 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 History: Reports: GERD Genitourinary History: Reports: Retention, Urinary 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: D and C multiple Musculoskeletal History: Reports: Arthritis, Back Pain, Chronic, Fracture, Osteoporosis Other Musculoskeletal History: L) ankle fx in 2006 Neurological History: Reports: Migraines Psychiatric History: Reports: Anxiety, Depression Endocrine/Metabolic History: Reports: Obesity/BMI 30+ Hematologic History: Reports: Blood Transfusion(s) Oncologic (Cancer) History: Reports: None Dermatologic History: Reports: Psoriasis - Infectious Disease History Infectious Disease History: Reports: Chicken Pox, Measles - Past Surgical History HEENT Surgical History: Reports: Cataract Surgery, Tonsillectomy Neurological Surgical History: Reports: Lumbar Spine Musculoskeletal Surgical History: Reports: Carpal Tunnel, Hip Replacement, Knee Replacement, ORIF Social & Family History - Family History Family Medical History: Noncontributory - Tobacco Use Tobacco Use Status *Q: Never Tobacco User - Caffeine Use Caffeine Use: Reports: None - Living Situation & Occupation Living situation: Reports: , with Family, Extended Care Facility Occupation: Retired ED ROS GENERAL - Review of Systems Review Of Systems: See Below Constitutional: Denies: Fever, Chills, Diaphoresis HEENT: Reports: No Symptoms Respiratory: Reports: Shortness of Breath, Cough. Denies: Pleuritic Chest Pain, Sputum Cardiovascular: Reports: Chest Pain (occasional) GI/Abdominal: Reports: Abdominal Pain (occasional). Denies: Diarrhea, Hematochezia, Melena, Vomiting Musculoskeletal: Denies: Leg Pain Skin: Reports: No Symptoms Neurological: Reports: Dizziness. Denies: Trouble Speaking, Difficulty Walking ED EXAM, GENERAL - Physical Exam Exam: See Below General Appearance: Alert, No Apparent Distress Throat/Mouth: Normal Inspection Head: Atraumatic Neck: Supple Respiratory/Chest: No Respiratory Distress, Lungs Clear, Normal Breath Sounds Cardiovascular: Regular Rate, Rhythm GI/Abdominal: Soft, Non-Tender. No: Guarding Rectal (Female) Exam: Normal Exam, Heme - Stool, Other (brown stool, no blood visible) Back Exam: Normal Inspection. No: CVA Tenderness (R) Extremities: Normal Inspection, Normal Range of Motion. No: Leg Pain, Increased Warmth, Redness Neurological: Alert, Oriented, No Motor/Sensory Deficits Skin Exam: Warm, Dry, Normal Color, No Rash #1 Interpretation EKG Date: 08/12/20 Rhythm: NSR [place]: Normal P-Wave: Present QRS: LBBB ST-T: Other (mild nonspecific st changes) Course - Vital Signs Last Recorded V/S: Last Vital Signs Temp 97.8 F 08/12/20 09:44 Pulse 91 08/12/20 12:51 Resp 16 08/12/20 09:44 BP 184/98 H 08/12/20 12:51 Pulse Ox 98 08/12/20 09:44 - Orders/Labs/Meds Labs: Laboratory Tests 08/12/20 08/12/20 08/12/20 Range/Units 09:45 09:45 09:45 WBC 4.06 (3.98-10.04) K/mm3 RBC 3.59 L (3.98-5.22) M/mm3 Hgb 8.7 L D (11.2-15.7) gm/dl Hct 30.8 L (34.1-44.9) % MCV 85.8 D (79.4-94.8) fl MCH 24.2 L (25.6-32.2) pg MCHC 28.2 L (32.2-35.5) g/dl RDW Std Deviation 50.3 H (36.4-46.3) fL Plt Count 204 (182-369) K/mm3 MPV 10.0 (9.4-12.3) fl Neut % (Auto) 62.0 (34.0-71.1) % Lymph % (Auto) 23.2 (19.3-51.7) % Castro % (Auto) 12.6 H (4.7-12.5) % Eos % (Auto) 1.7 (0.7-5.8) Baso % (Auto) 0.5 (0.1-1.2) % Neut # (Auto) 2.52 (1.56-6.13) K/mm3 Lymph # (Auto) 0.94 L (1.18-3.74) K/mm3 Castro # (Auto) 0.51 H (0.24-0.36) K/mm3 Eos # (Auto) 0.07 (0.04-0.36) K/mm3 Baso # (Auto) 0.02 (0.01-0.08) K/mm3 Manual Slide Review Abnormal smear Percent Retic (0.50-1.70) % PT (9.7-12.0) SECONDS INR Sodium 141 (136-145) mEq/L Potassium 3.9 (3.5-5.1) mEq/L Chloride 106 (98-107) mEq/L Carbon Dioxide 26 (21-32) mEq/L Anion Gap 12.9 (5-15) BUN 16 (7-18) mg/dL Creatinine 1.8 H (0.55-1.02) mg/dL Est Cr Clr Drug Dosing TNP Estimated GFR (MDRD) 27 (>60) mL/min BUN/Creatinine Ratio 8.9 L (14-18) Glucose 100 (83-115) mg/dL Calcium 8.6 (8.5-10.1) mg/dL Iron (50-170) ug/dL TIBC (100-400) ug/dL % Saturation (20-55) % Transferrin (202-364) mg/dL Total Bilirubin 0.6 (0.2-1.0) mg/dL AST 20 (15-37) U/L ALT 17 (14-59) U/L Alkaline Phosphatase 112 (46-116) U/L Troponin I 0.033 (0.00-0.056) ng/mL NT-Pro-B Natriuret Pep 803 H (0-450) pg/mL Total Protein 7.0 (6.4-8.2) g/dl Albumin 3.4 (3.4-5.0) g/dl Globulin 3.6 gm/dL Albumin/Globulin Ratio 0.9 L (1-2) 08/12/20 08/12/20 08/12/20 Range/Units 09:45 09:45 09:45 WBC (3.98-10.04) K/mm3 RBC (3.98-5.22) M/mm3 Hgb (11.2-15.7) gm/dl Hct (34.1-44.9) % MCV (79.4-94.8) fl MCH (25.6-32.2) pg MCHC (32.2-35.5) g/dl RDW Std Deviation (36.4-46.3) fL Plt Count (182-369) K/mm3 MPV (9.4-12.3) fl Neut % (Auto) (34.0-71.1) % Lymph % (Auto) (19.3-51.7) % Castro % (Auto) (4.7-12.5) % Eos % (Auto) (0.7-5.8) Baso % (Auto) (0.1-1.2) % Neut # (Auto) (1.56-6.13) K/mm3 Lymph # (Auto) (1.18-3.74) K/mm3 Castro # (Auto) (0.24-0.36) K/mm3 Eos # (Auto) (0.04-0.36) K/mm3 Baso # (Auto) (0.01-0.08) K/mm3 Manual Slide Review Percent Retic 1.40 (0.50-1.70) % PT 24.6 H (9.7-12.0) SECONDS INR 2.34 Sodium (136-145) mEq/L Potassium (3.5-5.1) mEq/L Chloride (98-107) mEq/L Carbon Dioxide (21-32) mEq/L Anion Gap (5-15) BUN (7-18) mg/dL Creatinine (0.55-1.02) mg/dL Est Cr Clr Drug Dosing Estimated GFR (MDRD) (>60) mL/min BUN/Creatinine Ratio (14-18) Glucose (83-115) mg/dL Calcium (8.5-10.1) mg/dL Iron 23 L (50-170) ug/dL TIBC 323 (100-400) ug/dL % Saturation 7 L (20-55) % Transferrin 258 (202-364) mg/dL Total Bilirubin (0.2-1.0) mg/dL AST (15-37) U/L ALT (14-59) U/L Alkaline Phosphatase (46-116) U/L Troponin I (0.00-0.056) ng/mL NT-Pro-B Natriuret Pep (0-450) pg/mL Total Protein (6.4-8.2) g/dl Albumin (3.4-5.0) g/dl Globulin gm/dL Albumin/Globulin Ratio (1-2) Meds: Medications Discontinued Medications Generic Name Dose Route Start Last Admin Trade Name Freq PRN Reason Stop Dose Admin Sodium Chloride 10 ml 08/12/20 10:08 08/12/20 10:20 Saline Flush FLUSH 10 ml ASDIRECTED PRN Administration Keep Vein Open - Re-Assessments/Exams Free Text/Narrative Re-Assessment/Exam: 08/13/20 13:16 Hgb low today at 8.7, was 11 back this spring 5 months ago. She is not aware of any recent GI or other bleeding. She is on coumadin. INR about 2.4 today. today she is not in failure. Her vitals, ortho's good, she did not drop her Bp at all lying to standing. Have ordered retic. count, iron studies. Suspect this is a slow some what chronic problem vs hyperacute. Will start on iron, follow up clinic hopefully early in the week ahead. Have discussed with Dr Andrade so he is aware. Departure - Departure Time of Disposition: 12:52 Disposition: Home, Self-Care 01 Condition: Fair Clinical Impression: Anemia Qualifiers: Anemia type: other cause Other causes of anemia: other cause, not classified Qualified Code(s): D64.89 - Other specified anemias Dyspnea Qualifiers: Dyspnea type: unspecified Qualified Code(s): R06.00 - Dyspnea, unspecified - Discharge Information Prescriptions: Ferrous Sulfate 325 mg PO Q12HR #30 tablet Instructions: Shortness of Breath, Adult, [id number], Preventing Iron Deficiency Anemia, Adult Referrals: Jim Andrade MD [Primary Care Provider] - Forms: ED Department Discharge Additional Instructions: Stop your coumadin for tomorrow only, than resume as prescribed. Start iron twice daily as prescribed. Prescription has been sent electronically to [facility], at the [email or web address]. See Dr Andrade early this next week, call Friday morning for appointment. Dr Andrade is aware of your visit here to the ED and would like to see you early this next week. Return to ED as needed if symptoms worsening in any way. Sepsis Event Note (ED) - Evaluation Sepsis Screening Result: No Definite Risk
[2020-08-12] MEDS ORDERED: Sodium Chloride 0.9% 10 ML Syringe FLUSH PRN (10:08)
[2020-08-12 12:52] VITALS: BP 184/98
--- NOTE | 2020-08-14 10:23 | CR ---
PROCEDURE INFORMATION: Exam: XR Chest, 1 View Exam date and time: 08/12/2020 10:12 AM Age: 84 years old Clinical indication: Dyspnea; Patient HX: Exposed to covid 1 week ago TECHNIQUE: Imaging protocol: XR of the chest Views: 1 view. COMPARISON: CR Chest 1V Frontal 01/02/2017 2:20 PM FINDINGS: Lungs: Unremarkable. No consolidation. Pleural space: Unremarkable. No pleural effusion. No pneumothorax. Heart/Mediastinum: Heart is enlarged but stable. Aorta ectatic. Bones/joints: Hardware attached to cervical spine. IMPRESSION: No acute findings Thank you for allowing us to participate in the care of your patient. Dictated and Authenticated by: Joel Zamorano MD 08/12/2020 4:30 PM Central Time ([place] & [place]) [facility]
== END 2020-08-12 13:37 | disposition home or self-care (01) ==
LOC: JD.ED 09:19
DX: D64.89 Other specified anemias (principal); E78.00 Pure hypercholesterolemia, unspecified; I11.0 Hypertensive heart disease with heart failure; I50.9 Heart failure, unspecified; I48.91 Unspecified atrial fibrillation; K21.9 Gastro-esophageal reflux disease without esophagitis; E66.9 Obesity, unspecified; Z90.49 Acquired absence of other specified parts of digestive tract; Z79.01 Long term (current) use of anticoagulants; Z88.1 Allergy status to other antibiotic agents; Z88.2 Allergy status to sulfonamides; Z79.899 Other long term (current) drug therapy
CPT/HCPCS: 36415; 71045; 71045-26; 80053; 83540; 83880; 84466; 84484; 85025; 85045; 85610; 93005; 93010; 99283; 99285-25

== ENCOUNTER 2020-10-04 07:48 | Day surgery (SDC) | payer MEDICARE, OTHER ==
[~2020-10-04 07:48] MED LIST: Lactated Ringers 1,000 ML IV SCH; Lidocaine 1%/Sod Bicarbonate in NS 8.4% 1 ML Syringe IDERM PRN; Sodium Chloride 0.9% 10 ML Syringe FLUSH PRN
[2020-10-04] MEDS ORDERED: Propofol 200 MG/20 ML SDV ONE ×3 (08:14→09:58)
[2020-10-04] MEDS ORDERED: Lidocaine 1% 4 ML ONE (08:14)
--- NOTE | 2020-10-04 08:26 | PCM.PREANE ---
Preanesthetic Assessment - Procedure Proposed Procedure: egd colonoscopy - Anesthesia/Transfusion/Family Hx Anesthesia History: Prior Anesthesia Without Reaction Family History of Anesthesia Reaction: No Transfusion History: Prior Transfusion Without Reaction - Review of Systems General: Chills (sweaty then hot- a few months) Pulmonary: Cough (last few months) Cardiovascular: Dyspnea on Exertion 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: Decreased Appetite Neurological: Weakness Other: Reports: Easy Bruising, Anxiety - Physical Assessment NPO Status Date: 10/03/20 NPO Status Time: 23:00 Vital Signs: Last Vital Signs Temp 97.2 F 10/04/20 07:50 Pulse 84 10/04/20 07:50 Resp 20 10/04/20 07:50 BP 133/82 10/04/20 07:50 Pulse Ox 95 10/04/20 07:50 Height: 5 ft Weight: 85.275 kg ASA Class: 3 Mental Status: Alert & Oriented x3 Airway Class: Mallampati = 1 Dentition: Reports: Dentures (upper), Edentulous (bottom) Thyro-Mental Finger Breadths: 3 Mouth Opening Finger Breadths: 3 ROM/Head Extension: Full Lungs: Clear to Auscultation, Normal Respiratory Effort Cardiovascular: Regular Rate, Regular Rhythm - Allergies Allergies/Adverse Reactions: Allergies Allergy/AdvReac Type Severity Reaction Status Date / Time amiodarone Allergy Cannot Verified 10/03/20 12:49 Remember cefprozil Allergy Cannot Verified 10/03/20 12:49 Remember cephalexin Allergy Rash Verified 10/03/20 12:49 enalapril Allergy Cannot Verified 10/03/20 12:49 Remember Penicillins Allergy Cannot Verified 10/03/20 12:49 Remember Sulfa (Sulfonamide Allergy Rash Verified 10/03/20 12:49 Antibiotics) - Blood Blood Available: No - Anesthesia Plan Beta Meg: Metoprolol Med Last Dose Date: 10/02/20 Med Last Dose Time: 08:00 - Acknowledgements Anesthesia Type Planned: MAC Pt an Appropriate Candidate for the Planned Anesthesia: Yes Alternatives and Risks of Anesthesia Discussed w Pt/Guardian: Yes Pt/Guardian Understands and Agrees with Anesthesia Plan: Yes PreAnesthesia Questionnaire HEENT History: Reports: Cataract, Impaired Vision Other HEENT History: wears eyeglasses, has upper partial, nasal freacture, vision abnormalities, lesion excision from eyelid Cardiovascular History: Reports: Afib, Cardiomyopathy, Heart Failure, High Cholesterol, Hypertension, Other (See Below) Other Cardiovascular History: SVT, CHF, edema Respiratory History: Reports: SOB, Other (See Below) Other Respiratory History: vocal cord prolapse with polyp removal 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 History: Reports: Colon Polyp, GERD, GI Bleed, Hemorrhoids Genitourinary History: Reports: Retention, 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 OB/BYN History: cystocele, rectocele, badder procedure Musculoskeletal History: Reports: Arthritis, Back Pain, Chronic, Fracture, Osteoporosis Other Musculoskeletal History: L) ankle fx in 2006 Neurological History: Reports: Migraines, Other (See Below) Other Neuro History: lumbar radiculopathy, post laminectomy syndrome, spinal stenosis Psychiatric History: Reports: Anxiety, Depression Endocrine/Metabolic History: Reports: Obesity/BMI 30+, Osteopenia Hematologic History: Reports: Blood Transfusion(s) Immunologic History: Reports: None Oncologic (Cancer) History: Reports: None Dermatologic History: Reports: Psoriasis - Infectious Disease History Infectious Disease History: Reports: None - Past Surgical History HEENT Surgical History: Reports: Cataract Surgery, Tonsillectomy Cardiovascular Surgical History: Reports: Cardiac Ablation Respiratory Surgical History: Reports: None GI Surgical History: Reports: Colonoscopy Female Surgical History: Reports: D&C Endocrine Surgical History: Reports: None Neurological Surgical History: Reports: Lumbar Spine Musculoskeletal Surgical History: Reports: Carpal Tunnel, Hip Replacement, Knee Replacement, ORIF Other Musculoskeletal Surgeries/Procedures:: several back surgeries. hip replacement december 2016 Oncologic Surgical History: Reports: None Dermatological Surgical History: Reports: None - SUBSTANCE USE Tobacco Use Status *Q: Never Tobacco User Second Hand Smoke Exposure: No Days Per Week of Alcohol Use: 0 Recreational Drug Use History: No - HOME MEDS Home Medications: Home Meds Furosemide 40 mg PO DAILY 03/01/15 [History] PARoxetine [Paxil] 30 mg PO DAILY 03/01/15 [History] Potassium Chloride 10 meq PO BID 03/01/15 [History] Zolpidem [Ambien] 10 mg PO BEDTIME 03/01/15 [History] Gabapentin [Neurontin] 300 mg PO TID 01/02/17 [History] Acetaminophen/oxyCODONE [Percocet 325-5 MG] 1 tab PO Q6H PRN #40 tablet 01/07/17 [Rx] Losartan [Cozaar] 12.5 mg PO DAILY 01/22/20 [History] Polyethylene Glycol [Polyox Wsr-301] 1 dose PO DAILY PRN 01/22/20 [History] Rosuvastatin [Crestor] 10 mg PO DAILY 01/22/20 [History] Warfarin Sodium 2.5 mg PO DAILY 01/22/20 [History] Ferrous Sulfate 325 mg PO Q12HR #30 tablet 08/12/20 [Rx] Metoprolol Succinate 50 mg PO BID 10/03/20 [History] Simethicone 125 mg PO ASDIRECTED PRN 10/03/20 [History] - CURRENT (IN HOUSE) MEDS Current Meds: Current Medications Lactated Ringer's (Ringers, Lactated) 1,000 mls @ 125 mls/hr IV ASDIRECTED PHILOMENA Stop: 10/04/20 23:00 Last Admin: 10/04/20 08:05 Dose: 125 mls/hr Documented by: Lidocaine/Sodium Bicarbonate (Buffered Lidocaine 1% In Ns 8.4%) 0.25 ml IDERM ONETIME PRN PRN Reason: Prior to IV Start Stop: 10/04/20 18:00 Last Admin: 10/04/20 08:05 Dose: 0.25 ml Documented by: Sodium Chloride (Saline Flush) 10 ml FLUSH ASDIRECTED PRN PRN Reason: Keep Vein Open Stop: 10/04/20 18:00 Discontinued Medications Lidocaine HCl (Xylocaine-Mpf 1%) Confirm Administered Dose 4 mls @ as directed .ROUTE .STK-MED ONE Stop: 10/04/20 08:15 Propofol (Diprivan 20 Ml) Confirm Administered Dose 200 mg .ROUTE .STK-MED ONE Stop: 10/04/20 08:15
--- NOTE | 2020-10-04 10:39 | PCM.OPNOTE ---
- General Post-Op/Procedure Note Date of Surgery/Procedure: 10/04/20 Operative Procedure(s): EGD and colonoscopy Findings: 1. Irregular GE junction 2. Gastritis 3. Duodenitis 4. Cecal polyp 5. Ileocecal valve polyp 6. Hepatic flexure mass with surrounding mucosal abnormality 7. Hepatic flexure polyp x2 8. Transverse colon polyp x4 9. Descending colon polyp x3 Pre Op Diagnosis: Anemia Post-Op Diagnosis: same Anesthesia Technique: MAC Primary Surgeon: Ayesha Upton Anesthesia Provider: Obey Garibay Pathology: 1. GE junction biopsies 2. Gastric antrum biopsy 3. Duodenal bulb biposy 4. Cecal polyp 5. Ileocecal valve polyp 6. Hepatic flexure mass biopsies and surrounding mucosal abnormality biopsies 7. Hepatic flexure polyp x2 8. Transverse colon polyp x4 9. Descending colon polyp x3 Fluid Replacement, Intraop: 700 Output, Urine Amount: 0 EBL in mLs: 0 Complications: none apparent Condition: Good
--- NOTE | 2020-10-04 10:40 | PCM48HPAN ---
Post Anesthesia Note - EVALUATION WITHIN 48HRS OF ANESTHETIC Vital Signs in Normal Range: Yes Patient Participated in Evaluation: Yes Respiratory Function Stable: Yes Airway Patent: Yes Cardiovascular Function Stable: Yes Hydration Status Stable: Yes Pain Control Satisfactory: Yes Nausea and Vomiting Control Satisfactory: Yes Mental Status Recovered: Yes Vital Signs: Last Vital Signs Temp 36.2 C 10/04/20 07:50 Pulse 84 10/04/20 07:50 Resp 20 10/04/20 07:50 BP 133/82 10/04/20 07:50 Pulse Ox 95 10/04/20 07:50
--- NOTE | 2020-10-04 10:41 | PCM.PRNOTE ---
- Free Text/Narrative Note: Operative Report Date of Procedure: October 04, 2020 Pre Op Diagnosis: anemia Post-Op Diagnosis: same Operative Procedures: 1. EGD with biopsy 2. Colonoscopy to the cecum Primary Surgeon: Ayesha Upton MD Anesthesia Provider: Obey Garibay CRNA Anesthesia Technique: MAC IV Fluid Replacement, Intraop: 700cc crystalloid Output, Urine Amount: 0cc EBL in mLs: 0cc Findings: 1. Irregular GE junction 2. Gastritis 3. Duodenitis 4. Cecal polyp 5. Ileocecal valve polyp 6. Hepatic flexure mass with surrounding mucosal abnormality 7. Hepatic flexure polyp x2 8. Transverse colon polyp x4 9. Descending colon polyp x3 Specimens: 1. GE junction biopsies 2. Gastric antrum biopsy 3. Duodenal bulb biposy 4. Cecal polyp 5. Ileocecal valve polyp 6. Hepatic flexure mass biopsies and surrounding mucosal abnormality biopsies 7. Hepatic flexure polyp x2 8. Transverse colon polyp x4 9. Descending colon polyp x3 Drain/Tubes: None Indication: The patient is an 84-year-old lady who presented to the clinic with findings of anemia. The patient was consented for a diagnostic EGD and colonoscopy. Risks of bleeding, and perforation were discussed, and the patient agreed to the risks and wished to proceed. Description of the procedure: The patient was taken back to the endoscopy suite, and placed in the left lateral decubitus position. A bite block was placed. The patient was sedated with MAC anesthesia. The Olympus video endoscope was inserted into the oropharynx and guided under direct vision into the esophagus, stomach, and duodenum. The duodenal bulb and second portion of the duodenum were examined and the duodenal bulb had findings consistent with duodenitis. Biopsies were taken with a cold biopsy forceps in the duodenal bulb. The gastric antrum was inspected and cold biopsy forceps were used to take tissue samples for H. pylori. There was erythema and adherent blood in the gastric antrum consistent with gastritis. The scope was withdrawn to the stomach and retroflexed. There was no increased fluid, food or secretions in the upper gastrointestinal tract. No erosions or ulcers were noted. The scope was withdrawn to the esophagus. A this point we noted an irregular GE junction. Biopsies were taken in 4 quadrants using a cold biopsy forceps. There was no findings of hiatal hernia. The endoscope was then withdrawn Next, anorectal examination was performed. No lesions, masses or hemorrhoids were noted externally or on palpation. The scope was placed into the rectum and advanced to cecum. Upon reaching the cecum, and the patients cecum was entered. There was mild tortuosity of the colon. The ileocecal valve was well visualized and the appendiceal orifice identified. At this point, the scope was slowly withdrawn, paying attention to the mucosa. The patient had good bowel prep, 85-90% of the mucosa was visible. A polyp in the cecum was noted, measuring 3 mm and was removed using a jumbo cold biopsy forceps. There was a 2 mm flat polyp on the ileocecal valve removed with a jumbo cold biopsy forceps. The scope was further withdrawn to the hepatic flexure. At this point a 3 cm, nonobstructing mass that occupied approximately 40% of the diameter of the colon was noted. The surface of this lesion was friable and bleeding. Biopsies were taken of this mass using a jumbo cold biopsy forceps just proximal to this area in the hepatic flexure the mucosa appeared abnormal, it was unclear if this was polypoid tissue or reactive. Biopsies were taken with a jumbo cold biopsy forceps. Opposite of the mass in similar location of the hepatic flexure was a 1.3 cm irregular appearing polyp. Attempt was made to snare this lesion but due to its location, this was not able to be completed. Biopsies were taken of this polyp using a jumbo cold biopsy forceps. The hepatic flexure polyp and hepatic flexure mass were then tattooed using Rama ink. An additional flat 3 mm polyp was noted in the hepatic flexure and was removed using a jumbo cold biopsy forceps. the scope was further withdrawn through the colon and 4 transverse colon polyps were identified measuring from 2 to 6 mm and were removed using a jumbo cold biopsy forceps. There were 3 flat polyps in the descending colon measuring approximately 3 mm each, these were removed using a jumbo cold biopsy forceps. In the rectum, scope was retroflexed and some hemorrhoidal tissue was noted. The scope was placed back in the lumen and excess air was aspirated. The scope was removed. The patient tolerated the procedure very well. Complications: None apparent Condition: The patient was transported to PACU in stable condition. Ayesha Upton MD General Surgery
[2020-10-04 11:33] VITALS: BP 156/90; PULSE 75
== END 2020-10-04 11:15 | disposition home or self-care (01) ==
LOC: JD.SDS 07:48
PROVIDERS: ATTEND Surgery
DX: C18.3 Malignant neoplasm of hepatic flexure (principal); D12.0 Benign neoplasm of cecum; D12.3 Benign neoplasm of transverse colon; D64.9 Anemia, unspecified; K31.89 Other diseases of stomach and duodenum; I11.0 Hypertensive heart disease with heart failure; K29.50 Unspecified chronic gastritis without bleeding; K29.90 Gastroduodenitis, unspecified, without bleeding; F41.9 Anxiety disorder, unspecified; I48.91 Unspecified atrial fibrillation; F32.9 Major depressive disorder, single episode, unspecified; I50.9 Heart failure, unspecified; I25.2 Old myocardial infarction; E78.00 Pure hypercholesterolemia, unspecified; I42.9 Cardiomyopathy, unspecified; E66.9 Obesity, unspecified; Z98.890 Other specified postprocedural states; Z88.8 Allergy status to other drugs, medicaments and biological substances; Z88.0 Allergy status to penicillin; Z88.2 Allergy status to sulfonamides; Z79.899 Other long term (current) drug therapy; Z79.01 Long term (current) use of anticoagulants; Z68.36 Body mass index [BMI] 36.0-36.9, adult
CPT/HCPCS: 36415; 43239; 45380; 45381; 85610; J2001; J2704; J7120; 00813

== ENCOUNTER 2021-06-27 10:01 | Day surgery (SDC) | payer MEDICARE, OTHER ==
[~2021-06-27 10:01] MED LIST changes: +Sodium Chloride 0.9% 1,000 ML IV SCH
[2021-06-27] MEDS ORDERED: Propofol 200 MG/20 ML SDV ONE (10:03)
--- NOTE | 2021-06-27 10:36 | PCM.PREANE ---
Preanesthetic Assessment - Procedure Proposed Procedure: EGD - Anesthesia/Transfusion/Family Hx Anesthesia History: Prior Anesthesia Without Reaction Family History of Anesthesia Reaction: No Transfusion History: Prior Transfusion Without Reaction Intubation History: Unknown - Review of Systems General: No Symptoms Pulmonary: Shortness of Breath (with activity ) Cardiovascular: Dyspnea on Exertion, Edema 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: No Symptoms, Other (GERD hx ) Neurological: No Symptoms Other: Reports: None, Easy Bleeding, Easy Bruising - Physical Assessment NPO Status Date: 06/26/21 NPO Status Time: 22:30 Vital Signs: 144/79 77 95% Height: 1.52 m Weight: 83 kg ASA Class: 3 Mental Status: Alert & Oriented x3 Dentition: Reports: Dentures (upper denture ) Thyro-Mental Finger Breadths: 3 Mouth Opening Finger Breadths: 4 Lungs: Clear to Auscultation, Normal Respiratory Effort Cardiovascular: Regular Rate, Regular Rhythm - Allergies Allergies/Adverse Reactions: Allergies Allergy/AdvReac Type Severity Reaction Status Date / Time amiodarone Allergy Cannot Verified 06/26/21 15:58 Remember cefprozil Allergy Cannot Verified 06/26/21 15:58 Remember cephalexin Allergy Rash Verified 06/26/21 15:58 enalapril Allergy Cannot Verified 06/26/21 15:58 Remember Penicillins Allergy Cannot Verified 06/26/21 15:58 Remember Sulfa (Sulfonamide Allergy Rash Verified 06/26/21 15:58 Antibiotics) - Blood Blood Available: No - Anesthesia Plan Pre-Op Medication Ordered: None - Acknowledgements Anesthesia Type Planned: MAC Pt an Appropriate Candidate for the Planned Anesthesia: Yes Alternatives and Risks of Anesthesia Discussed w Pt/Guardian: Yes Pt/Guardian Understands and Agrees with Anesthesia Plan: Yes PreAnesthesia Questionnaire HEENT History: Reports: Cataract, Impaired Vision Other HEENT History: wears eyeglasses Cardiovascular History: Reports: Afib, Heart Failure, High Cholesterol, Hypertension Other Cardiovascular History: SVT, CHF, edema Respiratory History: Reports: SOB Other Respiratory History: vocal cord prolapse with polyp removal 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 History: Reports: Colon Polyp, GERD, Hemorrhoids Genitourinary History: Reports: Retention, Urinary, Other (See Below) Other Genitourinary History: CKD III, cystocele, rectocele 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/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: D and C multiple Musculoskeletal History: Reports: Arthritis, Back Pain, Chronic, Fracture, Osteoporosis Other Musculoskeletal History: L) ankle fx in 2006 Neurological History: Reports: Migraines Other Neuro History: lumbar radiculopathy, post laminectomy syndrome, spinal stenosis Psychiatric History: Reports: Anxiety, Depression Endocrine/Metabolic History: Reports: Obesity/BMI 30+, Osteopenia Hematologic History: Reports: Blood Transfusion(s) Immunologic History: Reports: None Oncologic (Cancer) History: Reports: None, Colon Dermatologic History: Reports: Psoriasis - Infectious Disease History Infectious Disease History: Reports: Chicken Pox, Measles - Past Surgical History Head Surgeries/Procedures: Reports: None HEENT Surgical History: Reports: Cataract Surgery, Tonsillectomy, Other (See Below) Other HEENT Surgeries/Procedures: vocal cord polyps with surgical intervention Cardiovascular Surgical History: Reports: Cardiac Ablation Respiratory Surgical History: Reports: None GI Surgical History: Reports: Colon, Colonoscopy, EGD Female Surgical History: Reports: D&C Male Surgical History: Reports: None Endocrine Surgical History: Reports: None Neurological Surgical History: Reports: Lumbar Spine Musculoskeletal Surgical History: Reports: Carpal Tunnel, Hip Replacement, Knee Replacement, ORIF Other Musculoskeletal Surgeries/Procedures:: several back surgeries. hip replacement december 2016 Oncologic Surgical History: Reports: None Dermatological Surgical History: Reports: None - SUBSTANCE USE Tobacco Use Status *Q: Never Tobacco User Recreational Drug Use History: No - HOME MEDS Home Medications: Home Meds Furosemide 40 mg PO DAILY 03/01/15 [History] PARoxetine [Paxil] 30 mg PO DAILY 03/01/15 [History] Potassium Chloride 10 meq PO BID 03/01/15 [History] Zolpidem [Ambien] 10 mg PO BEDTIME 03/01/15 [History] Gabapentin [Neurontin] 300 mg PO TID 01/02/17 [History] Polyethylene Glycol [Polyox Wsr-301] 1 dose PO DAILY PRN 01/22/20 [History] Rosuvastatin [Crestor] 10 mg PO DAILY 01/22/20 [History] Metoprolol Succinate 50 mg PO BID 10/03/20 [History] Warfarin Sodium 2.5 mg PO DAILY #0 10/04/20 [Rx] Albuterol Sulfate [Albuterol Sulfate HFA] 2 puff INH Q6H PRN 06/26/21 [History] Hydrocodone/Acetaminophen [HYDROcodone-Acetaminophen 5-325 MG] 1 tab PO Q6H PRN 06/26/21 [History] Omeprazole Magnesium [Prilosec Otc] 20 mg PO BID 06/26/21 [History] Sucralfate [Carafate] 1 g PO BID 06/26/21 [History] - CURRENT (IN HOUSE) MEDS Current Meds: Current Medications Lactated Ringer's (Ringers, Lactated) 1,000 mls @ 125 mls/hr IV ASDIRECTED PHILOMENA Stop: 06/27/21 23:00 Lidocaine/Sodium Bicarbonate (Lidocaine 1%/Sod Bicarbonate In Ns 8.4% 1 Ml Syringe) 0.25 ml IDERM ONETIME PRN PRN Reason: Prior to IV Start Stop: 06/27/21 18:00 Sodium Chloride (Sodium Chloride 0.9% 10 Ml Syringe) 10 ml FLUSH ASDIRECTED PRN PRN Reason: Keep Vein Open Stop: 06/27/21 18:00 Discontinued Medications Propofol (Propofol 200 Mg/20 Ml Sdv) Confirm Administered Dose 200 mg .ROUTE .STK-MED ONE Stop: 06/27/21 10:04
[2021-06-27] MEDS ORDERED: Albuterol 6.7 GM Inhaler INH ONE (11:48)
[2021-06-27] MEDS ORDERED: Lactated Ringers 1,000 ML ONE (12:10)
[2021-06-27] MEDS ORDERED: Lidocaine 1% 4 ML ONE (12:11)
--- NOTE | 2021-06-27 12:29 | PCM.OPNOTE ---
- General Post-Op/Procedure Note Date of Surgery/Procedure: 06/27/21 Operative Procedure(s): EGD Findings: 1. Pale mucosa 2. Irregular Z-line with Marie's changes 3. Bile reflux 4. Gastritis 5. Hiatal hernia Pre Op Diagnosis: anemia Post-Op Diagnosis: same Anesthesia Technique: MAC Primary Surgeon: Ayesha Upton Anesthesia Provider: Nina Maki Pathology: 1. Z-line biopsies 2. Gastric antrum biopsies Fluid Replacement, Intraop: 500 Complications: none apparent Condition: Good
--- NOTE | 2021-06-27 12:35 | PCM48HPAN ---
Post Anesthesia Note - EVALUATION WITHIN 48HRS OF ANESTHETIC Vital Signs in Normal Range: Yes Patient Participated in Evaluation: Yes Respiratory Function Stable: Yes Airway Patent: Yes Cardiovascular Function Stable: Yes Hydration Status Stable: Yes Pain Control Satisfactory: Yes Nausea and Vomiting Control Satisfactory: Yes Mental Status Recovered: Yes Vital Signs: Last Vital Signs 1223 140/84 98 2L 64 16 97.6 Temp 36.7 C 06/27/21 09:00 Pulse 77 06/27/21 09:00 Resp 16 06/27/21 09:00 BP 144/79 H 06/27/21 09:00 Pulse Ox 95 06/27/21 09:00
--- NOTE | 2021-06-27 12:36 | PCM.PRNOTE ---
- Free Text/Narrative Note: Operative Report Date of procedure: June 27, 2021 Preoperative diagnosis: anemia Postoperative diagnosis: same Surgeon: Ayesha Upton M.D. Procedure: EGD Anesthesia: MAC Camera Supervisor: Nina Maki CRNA IV fluids: 500 mL Estimated blood loss: 0 mL Findings: 1. Pale mucosa 2. Irregular Z-line with Marie's changes 3. Bile reflux 4. Gastritis 5. Hiatal hernia Specimens: 1. Z-line biopsies 2. Gastric antrum biopsies. Indication: The patient is an 85-year-old lady who presented with findings of anemia. The patient was consented for an EGD. Risk of bleeding and perforation were discussed. The patient's consent was obtained. Description of the procedure: The patient was taken to the endoscopy suite and placed on hemodynamic monitoring. The nurse screen writer induced MAC anesthesia. A bite block was placed. The patient was positioned in the left lateral decubitus position. A timeout was performed. The endoscope was gently placed into the mouth to the back of the pharynx and introduced into the esophagus. The scope was gently advanced under direct visualization down to the level of the lower esophageal sphincter. The stomach was then entered. Normal rugal folds were noted, but the mucosa appeared pale. The scope was advanced into the antrum. The pylorus was then entered and the first and second portion of the duodenum was inspected. The gastroscope was withdrawn back to the antrum; we noted linear erythema consistent with gastritis, this was biopsied with cold biopsy forceps. We did note some pooling bilious fluid. There were no ulcerations in the duodenum. The scope was then retroflexed in the cardia and fundus were investigated. No other abnormal ities were noted. The scope was then withdrawn while inspecting the esophagus. There was a small sliding hiatal hernia with irregular Z-line suspicious for Marie's esophagus. This was biopsied in four quadrants with a cold biopsy forceps. There was no esophagitis. The procedure was terminated. the patient tolerated the procedure well without any evidence of complications. Ayesha Upton MD General Surgery
[2021-06-27 13:37] VITALS: PULSE 75
[2021-06-27 14:31] VITALS: BP 140/67
== END 2021-06-27 13:30 | disposition home or self-care (01) ==
LOC: JD.SDS 10:01
PROVIDERS: ATTEND Surgery
DX: K31.89 Other diseases of stomach and duodenum (principal); I48.19 Other persistent atrial fibrillation; D64.9 Anemia, unspecified; E78.2 Mixed hyperlipidemia; K21.9 Gastro-esophageal reflux disease without esophagitis; N18.32 Chronic kidney disease, stage 3b; K29.70 Gastritis, unspecified, without bleeding; K22.8 Other specified diseases of esophagus; K44.9 Diaphragmatic hernia without obstruction or gangrene; I12.9 Hypertensive chronic kidney disease with stage 1 through stage 4 chronic kidney disease, or unspecified chronic kidney disease; Z88.0 Allergy status to penicillin; Z88.2 Allergy status to sulfonamides; Z88.8 Allergy status to other drugs, medicaments and biological substances
CPT/HCPCS: 36415; 43239; 85610; A9270; J2704; J7030; J7120; 00731; 99100

== ENCOUNTER 2021-08-30 13:52 | Inpatient (IN) | payer MEDICARE, OTHER ==
[2021-08-30] MEDS ORDERED: Metoclopramide 10 MG/2 ML SDV IVPUSH ONE (14:54)
--- NOTE | 2021-08-30 14:59 | EDM.PDOC ---
ED HPI GENERAL MEDICAL PROBLEM - General Chief Complaint: 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 Problem Stated Complaint: WEAKNESS NAUSEA Time Seen by Provider: 08/30/21 14:54 Source of Information: Reports: Patient, Family History Limitations: Reports: No Limitations - History of Present Illness INITIAL COMMENTS - FREE TEXT/NARRATIVE: 85-year-old female who lives alone presents to the ED in the company of her granddaughter who is a nurse. This lady states that for the last couple of weeks she has been feeling lightheaded dizzy upon standing and will suddenly drop to the floor off and landing on her knees. She estimates that she is passed out or suffered a syncopal event about 11 times in the last week. She states 1 of those falls injured her right wrist which is still very painful and she suspects she may have broken her wrist. She denies hitting her head or losing consciousness completely she states when she is on the floor she can more or less get back up right away. She denies pain in her neck chest or her knees. She has had bilateral total knee replacements and does have peripheral neuropathy both lower extremities. Previous fracture left ankle with deformity making it difficult to walk at times. Last few days she has had nausea and vomiting. She has not eaten at all today. Yesterday's emesis was quite chocolatey brown and questionable coffee-ground in appearance. She has a history of colon cancer with apparently left hemicolon resection carried out in December 2020 but she did not require chemotherapy or radiation. She was identified to be severely anemic and colonoscopy was performed as part of her work-up discovering the colon cancer. She did require blood transfusions at that time as her hemoglobin dropped down to 6. She did take Pepto-Bismol 1 day last week. She believes the fall 2 days ago injured her right wrist which is chronically been painful since. Onset: Unknown/Unsure (She is not been feeling well for about a week according to the granddaughter. She believes she is fallen about 11 times in the last week as she gets very dizzy when she stands up) Onset Date: 08/23/21 Duration: Day(s):, Getting Worse Location: Reports: Other (Of syncope collapse without loss of consciousness) Quality: Reports: Other (Recurrent syncope and collapse to the floor) Severity: Moderate Improves with: Reports: None Worsens with: Reports: Other (Symptoms only occur when she gets up from a lying or seated position) Context: Reports: Trauma (Recurrent falls she believes 11 times of the last week. Injury to right wrist 2 days ago.). Denies: Activity, Exercise, Lifting, Sick Contact Associated Symptoms: Reports: Loss of Appetite, Malaise, Nausea/Vomiting (Chronically nauseated. She never eats breakfast because of nausea.), Shortness of Breath (Mild dyspnea on exertion.). 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 She has not taken Paxil for 2 days.) - Related Data Allergies Allergy/AdvReac Type Severity Reaction Status Date / Time amiodarone Allergy Cannot Verified 06/27/21 10:45 Remember cefprozil Allergy Cannot Verified 06/27/21 10:45 Remember cephalexin Allergy Rash Verified 06/27/21 10:45 enalapril Allergy Cannot Verified 06/27/21 10:45 Remember Penicillins Allergy Cannot Verified 06/27/21 10:45 Remember Sulfa (Sulfonamide Allergy Rash Verified 06/27/21 10:45 Antibiotics) Home Meds: Home Meds Furosemide 40 mg PO DAILY 03/01/15 [History] PARoxetine [Paxil] 30 mg PO DAILY 03/01/15 [History] Potassium Chloride 10 meq PO BID 03/01/15 [History] Zolpidem [Ambien] 10 mg PO BEDTIME 03/01/15 [History] Gabapentin [Neurontin] 300 mg PO TID 01/02/17 [History] Polyethylene Glycol [Polyox [id number]] 1 dose PO DAILY PRN 01/22/20 [History] Rosuvastatin [Crestor] 10 mg PO DAILY 01/22/20 [History] Metoprolol Succinate 50 mg PO BID 10/03/20 [History] Warfarin Sodium 2.5 mg PO DAILY #0 10/04/20 [Rx] Albuterol Sulfate [Albuterol Sulfate HFA] 2 puff INH Q6H PRN 06/26/21 [History] Hydrocodone/Acetaminophen [HYDROcodone-Acetaminophen 5-325 MG] 1 tab PO Q6H PRN 06/26/21 [History] Omeprazole Magnesium [Prilosec Otc] 20 mg PO BID 06/26/21 [History] Sucralfate [Carafate] 1 g PO BID 06/26/21 [History] Past Medical History HEENT History: Reports: Cataract, Impaired Vision Other HEENT History: wears eyeglasses Cardiovascular History: Reports: Afib (Chronic atrial fibrillation. She is anticoagulated with Coumadin.), Heart Failure, High Cholesterol, Hypertension Other Cardiovascular History: SVT, CHF, edema Respiratory History: Reports: SOB Other Respiratory History: vocal cord prolapse with polyp removal 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 History: Reports: Colon Polyp, GERD, Hemorrhoids, Other (See Below) (Chronic nausea occasional abdominal cramping pain and diarrhea) Genitourinary History: Reports: Retention, Urinary, Other (See Below) Other Genitourinary History: CKD III, cystocele, rectocele PASTRY BAKER History: Reports: Other PASTRY BAKER History: D and C multiple Musculoskeletal History: Reports: Arthritis, Back Pain, Chronic, Fracture, Osteoporosis Other Musculoskeletal History: L) ankle fx in 2006 Neurological History: Reports: Migraines Other Neuro History: lumbar radiculopathy, post laminectomy syndrome, spinal stenosis Psychiatric History: Reports: Anxiety, Depression Endocrine/Metabolic History: Reports: Obesity/BMI 30+, Osteopenia Hematologic History: Reports: Blood Transfusion(s) Immunologic History: Reports: None Oncologic (Cancer) History: Reports: None, Colon Dermatologic History: Reports: Psoriasis - Infectious Disease History Infectious Disease History: Reports: Chicken Pox, Measles - Past Surgical History Head Surgeries/Procedures: Reports: None HEENT Surgical History: Reports: Cataract Surgery, Tonsillectomy, Other (See Below) Other HEENT Surgeries/Procedures: vocal cord polyps with surgical intervention Cardiovascular Surgical History: Reports: Cardiac Ablation Respiratory Surgical History: Reports: None GI Surgical History: Reports: Colon, Colonoscopy, EGD Female Surgical History: Reports: D&C Male Surgical History: Reports: None Endocrine Surgical History: Reports: None Neurological Surgical History: Reports: Lumbar Spine Musculoskeletal Surgical History: Reports: Carpal Tunnel, Hip Replacement, Knee Replacement, ORIF Other Musculoskeletal Surgeries/Procedures:: several back surgeries. hip replacement december 2016 Oncologic Surgical History: Reports: None Dermatological Surgical History: Reports: None Social & Family History - Family History Family Medical History: No Pertinent Family History - Caffeine Use Caffeine Use: Reports: Soda - Living Situation & Occupation Living situation: Reports: , with Family, Extended Care Facility Occupation: Retired ED ROS GENERAL - Review of Systems Review Of Systems: See Below Constitutional: Reports: Malaise, Fatigue, Decreased Appetite. Denies: Fever, Chills HEENT: Reports: Glasses (Mild.), Hearing Loss Respiratory: Reports: Shortness of Breath, Cough (Rare cough nonproductive). Denies: Wheezing, Pleuritic Chest Pain, Sputum, Hemoptysis, Other Cardiovascular: Reports: Blood Pressure Problem, Dyspnea on Exertion, Lightheadedness (Especially when assuming standing position from either lying or sitting), Orthopnea, Syncope (Recurrent syncope collapse). Denies: Chest Pain, Claudication, Palpitations (Not aware of palpitations sometimes aware of blood rushing in her ears), PND ( she estimates 11 times over the last week.), Other Endocrine: Reports: Fatigue GI/Abdominal: Reports: Diarrhea, Decreased Appetite (Chronic diarrhea), Hematemesis (She vomited yesterday and apparently was dark brown in color questioning whether was coffee-ground appearance.), Nausea (Daily which is inhibiting her ability to eat). Denies: Abdominal Pain, Anorexia, Constipation, Difficulty Swallowing, Distension, Flatus, Melena, Mucous in Stool, Other : Reports: Frequency, Incontinence (Rare urgency incontinence). Denies: Dysuria Musculoskeletal: Reports: Joint Pain (She has had bilateral total knee replacements. Difficulty walking due to peripheral neuropathy arthritic changes in right hip left hip has been replaced as well) Skin: Reports: Bruising ( bruises easily as she is on Coumadin.) Neurological: Reports: Dizziness, Tingling, Difficulty Walking, Weakness, Gait Disturbance (Both lower extremities chronically due to peripheral neuropathy and arthritic changes knees and hips.). Denies: Confusion, Headache Psychiatric: Reports: Depression (Chronic depression she feels better since taking Paxil) Hematologic/Lymphatic: Reports: Anemia, Easy Bruising (On Coumadin.) Immunologic: Reports: No Symptoms - Physical Exam Exam: See Below Exam Limited By: Physical Impairment (Mildly hearing impaired) General Appearance: Alert, WD/WN, No Apparent Distress Eye Exam: Bilateral Eye: Normal Inspection (No scleral icterus), PERRL Throat/Mouth: Normal Oropharynx, Normal Voice, Other (Tongue is mildly dry.). No: Normal Teeth, Normal Gums Head Exam: Atraumatic, Normocephalic, Other Neck: Normal Inspection (No evidence of any head neck or facial injuries.), Non- Tender, Limited Range of Motion (She has loss of full range of motion due to age.). No: Full Range of Motion, Carotid Bruit, Lymphadenopathy (L), Lymphadenopathy (R) Respiratory/Chest: No Respiratory Distress, Lungs Clear, No Accessory Muscle Use, Decreased Breath Sounds (Air entry is decreased at the lower 20% lung george bilaterally.), Rales (Very few rales appreciated right lung base). No: Rhonchi, Wheezing, Stridor Cardiovascular: No Gallop, No JVD, No Rub, Irregularly Irregular (On examination she is in atrial fibrillation up to 150 bpm clinically. Monitor reveals a similar evaluation). No: Normal Peripheral Pulses, Regular Rate, Rhythm GI/Abdominal: Normal Bowel Sounds, Soft, Non-Tender, No Organomegaly, Distended (Mildly distended to percussion upper abdomen compatible with some degree of aerophagia.) Neuro Exam (Abbreviated): Alert, Oriented, CN II-XII Intact, Normal Cognition. No: Normal Gait (Not evaluated) DTR: 0: Patella (R), Patella (L), Achilles (R), Achilles (L), 1+: Bicep (R), Bicep (L) Back Exam: No: CVA Tenderness (L), CVA Tenderness (R) Extremities: Limited Range of Motion (Wrist area is swollen and mildly ecchymotic. She has decreased abduction abduction extension and flexion with crepitus combined with a fracture distal radius she believes this occurred 2 days ago from falling at home), Other (Patient has had bilateral total knee replacements. She is also had left total hip. She has multiple varicosities both lower extremities. Evidence of old fracture left ankle with deformity) Psychiatric: Normal Affect, Normal Mood Skin Exam: Warm, Dry, Intact, Normal Color, No Rash ED PROCEDURES - Splinting Right Upper Extremity Splint Site: Below elbow right forearm Ortho-Glass splint Pre-procedure NV status: Normal Post-procedure NV status: Normal Splint Material: Fiberglass Splint Design: Extensor, Gutter (Radial gutter) Applied & Form Fitted By: Provider Provider Post-Splint Application NV Check: NV Status Normal Complications: No #1 Interpretation EKG Date: 08/30/21 Time: 15:01 Rhythm: A-Fib (With rate of 86 to 140 bpm) Rate (Beats/Min): 128 Aurora: LAD-Left Aurora Deviation (Left axis deviation of -31 degrees) P-Wave: Absent QRS: Other (Q waves V1 and your Q wave V2 and V3 compatible with old anteroseptal myocardial infarction. Q waves leads III and aVF compared with old inferior wall myocardial infarction.) ST-T: Depressed (Mild ST segment depression V4 to V6 again consider ischemia there is T wave inversion in leads I and aVL compatible with ischemia.) QT: Prolonged (Mildly prolonged) EKG Interpretation Comments: Abnormal ECG Course - Vital Signs Last Recorded V/S: Last Vital Signs Temp Pulse 102 H 08/30/21 17:18 Resp 18 08/30/21 17:18 BP 113/63 08/30/21 17:18 Pulse Ox 95 08/30/21 17:18 - Orders/Labs/Meds Orders: Active Orders 24 hr Category Date Time Status Patient Status [ADT] Routine ADT 08/30/21 18:08 Active Cardiac Monitoring [RC] CONTINUOUS Care 08/30/21 18:14 Active Oxygen Therapy [RC] PRN Care 08/30/21 18:08 Active Up With Assistance [RC] ASDIRECTED Care 08/30/21 18:08 Active VTE/DVT Education [RC] PER UNIT ROUTINE Care 08/30/21 18:08 Active Vital Signs [RC] Q4H Care 08/30/21 18:08 Active OT Evaluation and Treatment [CONS] Routine Cons 08/30/21 18:08 Active PT Evaluation and Treatment [CONS] Routine Cons 08/30/21 18:08 Active Heart Healthy Diet [DIET] Diet 08/31/21 Breakfast Active Wrist Comp Min 3V Rt [CR] Stat Exams 08/30/21 15:12 Taken ANTIBODY IDENTIFICATION [BBK] Stat Lab 08/30/21 15:09 Results CBC WITH AUTO DIFF [HEME] AM Lab 08/31/21 05:11 Ordered COMPREHENSIVE METABOLIC PN,CMP [CHEM] AM Lab 08/31/21 05:11 Ordered DIGOXIN [CHEM] AM Lab 08/31/21 05:11 Ordered INR,PT,PROTHROMBIN TIME [COAG] AM Lab 08/31/21 05:11 Ordered MAGNESIUM [CHEM] AM Lab 08/31/21 05:11 Ordered TYPE AND SCREEN [BBK] Stat Lab 08/30/21 15:09 Results URINALYSIS W/MICROSCOPIC [UA W/MICROSCOPIC] [URIN] Stat Lab 08/30/21 14:58 Ordered Acetaminophen [TylenoL] Med 08/30/21 18:08 Ordered 650 mg PO Q4H PRN Dextrose 5%-0.9% NaCl [Dextrose 5%-Normal Saline] 1,000 Med 08/30/21 15:00 Active ml IV ASDIRECTED Diltiazem [Cardizem] 100 mg Med 08/30/21 15:15 Active Sodium Chloride 0.9% [Normal Saline AdvBag] 100 ml IV TITRATE Docusate Sodium [Colace] Med 08/30/21 18:08 Ordered 100 mg PO BID PRN Ondansetron [Zofran ODT] Med 08/30/21 18:08 Ordered 4 mg PO Q6H PRN Sodium Chloride 0.9% [Normal Saline] 1,000 ml Med 08/30/21 18:15 Ordered IV ASDIRECTED Temazepam [Restoril] Med 08/30/21 18:08 Ordered 15 mg PO BEDTIME PRN oxyCODONE Med 08/30/21 18:08 Ordered 5 mg PO Q4H PRN VTE Mechanical Contraindications [AST] Per Unit Routine Oth 08/30/21 18:08 Ordered VTE Pharmacological Contraindications [AST] Per Unit Oth 08/30/21 18:08 Ordered Routine Resuscitation Status Routine Resus Stat 08/30/21 18:08 Ordered Medication Orders Acetaminophen (Acetaminophen 325 Mg Tab) 650 mg PO Q4H PRN PRN Reason: Pain (Mild 1-3)/fever Docusate Sodium (Docusate Sodium 100 Mg Cap) 100 mg PO BID PRN PRN Reason: Constipation Dextrose/Sodium Chloride (Dextrose 5%-Normal Saline) 1,000 mls @ 125 mls/hr IV ASDIRECTED PHILOMENA Last Admin: 08/30/21 15:12 Dose: 125 mls/hr Documented by: SENTHIL Diltiazem HCl 100 mg/ Sodium (Chloride) 100 mls @ 5 mls/hr IV TITRATE PHILOMENA; Protocol Last Admin: 08/30/21 15:18 Dose: 5 mg/hr, 5 mls/hr Documented by: SENTHIL Sodium Chloride (Normal Saline) 1,000 mls @ 75 mls/hr IV ASDIRECTED [facility] Ondansetron HCl (Ondansetron 4 Mg Tab.Dis) 4 mg PO Q6H PRN PRN Reason: nausea, able to take PO Oxycodone HCl (Oxycodone 5 Mg Tab) 5 mg PO Q4H PRN PRN Reason: Pain (moderate 4-6) Temazepam (Temazepam 15 Mg Cap) 15 mg PO BEDTIME PRN PRN Reason: Sleep Labs: Laboratory Tests 08/30/21 08/30/21 08/30/21 Range/Units 15:09 15:09 15:09 WBC 5.25 (3.98-10.04) K/mm3 RBC 4.09 (3.98-5.22) M/mm3 Hgb 10.2 L D (11.2-15.7) gm/dl Hct 34.9 (34.1-44.9) % MCV 85.3 (79.4-94.8) fl MCH 24.9 L (25.6-32.2) pg MCHC 29.2 L (32.2-35.5) g/dl RDW Std Deviation 78.7 H (36.4-46.3) fL Plt Count 194 (182-369) K/mm3 MPV 10.4 (9.4-12.3) fl Neut % (Auto) 68.3 (34.0-71.1) % Lymph % (Auto) 17.5 L (19.3-51.7) % Catron % (Auto) 13.0 H (4.7-12.5) % Eos % (Auto) 0.8 (0.7-5.8) Baso % (Auto) 0.2 (0.1-1.2) % Neut # (Auto) 3.59 (1.56-6.13) K/mm3 Lymph # (Auto) 0.92 L (1.18-3.74) K/mm3 Catron # (Auto) 0.68 H (0.24-0.36) K/mm3 Eos # (Auto) 0.04 (0.04-0.36) K/mm3 Baso # (Auto) 0.01 (0.01-0.08) K/mm3 ESR (0-20) mm/hr PT 19.8 H D (9.7-12.0) SECONDS INR 1.83 APTT 39.7 H (21.7-31.4) SECONDS Sodium 140 (136-145) mEq/L Potassium 3.4 L (3.5-5.1) mEq/L Chloride 104 (98-107) mEq/L Carbon Dioxide 24 (21-32) mEq/L Anion Gap 15.4 H (5-15) BUN 23 H (7-18) mg/dL Creatinine 1.3 H (0.55-1.02) mg/dL Est Cr Clr Drug Dosing 23.55 mL/min Estimated GFR (MDRD) 39 (>60) mL/min BUN/Creatinine Ratio 17.7 (14-18) Glucose 97 (70-99) mg/dL Calcium 8.3 L (8.5-10.1) mg/dL Magnesium 2.4 (1.8-2.4) mg/dL Total Bilirubin 1.0 (0.2-1.0) mg/dL AST 17 (15-37) U/L ALT 21 (14-59) U/L Alkaline Phosphatase 86 (46-116) U/L CK-MB (CK-2) 1.6 (0-3.6) ng/ml Troponin I < 0.017 (0.00-0.056) ng/mL C-Reactive Protein 4.3 H* (<1.0) mg/dL NT-Pro-B Natriuret Pep (0-450) pg/mL Total Protein 6.6 (6.4-8.2) g/dl Albumin 3.4 (3.4-5.0) g/dl Globulin 3.2 gm/dL Albumin/Globulin Ratio 1.1 (1-2) Lipase 96 (73-393) U/L SARS-CoV-2 RNA (TRISHA) (NEGATIVE) Blood Type Gel Antibody Screen 08/30/21 08/30/21 08/30/21 Range/Units 15:09 15:09 15:09 WBC (3.98-10.04) K/mm3 RBC (3.98-5.22) M/mm3 Hgb (11.2-15.7) gm/dl Hct (34.1-44.9) % MCV (79.4-94.8) fl MCH (25.6-32.2) pg MCHC (32.2-35.5) g/dl RDW Std Deviation (36.4-46.3) fL Plt Count (182-369) K/mm3 MPV (9.4-12.3) fl Neut % (Auto) (34.0-71.1) % Lymph % (Auto) (19.3-51.7) % Catron % (Auto) (4.7-12.5) % Eos % (Auto) (0.7-5.8) Baso % (Auto) (0.1-1.2) % Neut # (Auto) (1.56-6.13) K/mm3 Lymph # (Auto) (1.18-3.74) K/mm3 Catron # (Auto) (0.24-0.36) K/mm3 Eos # (Auto) (0.04-0.36) K/mm3 Baso # (Auto) (0.01-0.08) K/mm3 ESR 7 (0-20) mm/hr PT (9.7-12.0) SECONDS INR APTT (21.7-31.4) SECONDS Sodium (136-145) mEq/L Potassium (3.5-5.1) mEq/L Chloride (98-107) mEq/L Carbon Dioxide (21-32) mEq/L Anion Gap (5-15) BUN (7-18) mg/dL Creatinine (0.55-1.02) mg/dL Est Cr Clr Drug Dosing mL/min Estimated GFR (MDRD) (>60) mL/min BUN/Creatinine Ratio (14-18) Glucose (70-99) mg/dL Calcium (8.5-10.1) mg/dL Magnesium (1.8-2.4) mg/dL Total Bilirubin (0.2-1.0) mg/dL AST (15-37) U/L ALT (14-59) U/L Alkaline Phosphatase (46-116) U/L CK-MB (CK-2) (0-3.6) ng/ml Troponin I (0.00-0.056) ng/mL C-Reactive Protein (<1.0) mg/dL NT-Pro-B Natriuret Pep 3294 H (0-450) pg/mL Total Protein (6.4-8.2) g/dl Albumin (3.4-5.0) g/dl Globulin gm/dL Albumin/Globulin Ratio (1-2) Lipase (73-393) U/L SARS-CoV-2 RNA (TRISHA) Negative (NEGATIVE) Blood Type Gel Antibody Screen 08/30/21 Range/Units 15:09 WBC (3.98-10.04) K/mm3 RBC (3.98-5.22) M/mm3 Hgb (11.2-15.7) gm/dl Hct (34.1-44.9) % MCV (79.4-94.8) fl MCH (25.6-32.2) pg MCHC (32.2-35.5) g/dl RDW Std Deviation (36.4-46.3) fL Plt Count (182-369) K/mm3 MPV (9.4-12.3) fl Neut % (Auto) (34.0-71.1) % Lymph % (Auto) (19.3-51.7) % Catron % (Auto) (4.7-12.5) % Eos % (Auto) (0.7-5.8) Baso % (Auto) (0.1-1.2) % Neut # (Auto) (1.56-6.13) K/mm3 Lymph # (Auto) (1.18-3.74) K/mm3 Catron # (Auto) (0.24-0.36) K/mm3 Eos # (Auto) (0.04-0.36) K/mm3 Baso # (Auto) (0.01-0.08) K/mm3 ESR (0-20) mm/hr PT (9.7-12.0) SECONDS INR APTT (21.7-31.4) SECONDS Sodium (136-145) mEq/L Potassium (3.5-5.1) mEq/L Chloride (98-107) mEq/L Carbon Dioxide (21-32) mEq/L Anion Gap (5-15) BUN (7-18) mg/dL Creatinine (0.55-1.02) mg/dL Est Cr Clr Drug Dosing mL/min Estimated GFR (MDRD) (>60) mL/min BUN/Creatinine Ratio (14-18) Glucose (70-99) mg/dL Calcium (8.5-10.1) mg/dL Magnesium (1.8-2.4) mg/dL Total Bilirubin (0.2-1.0) mg/dL AST (15-37) U/L ALT (14-59) U/L Alkaline Phosphatase (46-116) U/L CK-MB (CK-2) (0-3.6) ng/ml Troponin I (0.00-0.056) ng/mL C-Reactive Protein (<1.0) mg/dL NT-Pro-B Natriuret Pep (0-450) pg/mL Total Protein (6.4-8.2) g/dl Albumin (3.4-5.0) g/dl Globulin gm/dL Albumin/Globulin Ratio (1-2) Lipase (73-393) U/L SARS-CoV-2 RNA (TRISHA) (NEGATIVE) Blood Type A NEGATIVE Gel Antibody Screen Positive Meds: Medications Generic Name Dose Route Start Last Admin Trade Name Freq PRN Reason Stop Dose Admin Acetaminophen 650 mg 08/30/21 18:08 Acetaminophen 325 Mg Tab PO Q4H PRN Pain (Mild 1-3)/fever Docusate Sodium 100 mg 08/30/21 18:08 Docusate Sodium 100 Mg Cap PO BID PRN Constipation Dextrose/Sodium Chloride 1,000 mls @ 125 mls/hr 08/30/21 15:00 08/30/21 15:12 Dextrose 5%-Normal Saline IV 125 mls/hr ASDIRECTED PHILOMENA Administration Diltiazem HCl 100 mg/ Sodium 100 mls @ 5 mls/hr 08/30/21 15:15 08/30/21 15:18 Chloride IV 5 mg/hr TITRATE PHILOMENA 5 mls/hr Administration Protocol 5 MG/HR Sodium Chloride 1,000 mls @ 75 mls/hr 08/30/21 18:15 Normal Saline IV ASDIRECTED PHILOMENA Ondansetron HCl 4 mg 08/30/21 18:08 Ondansetron 4 Mg Tab.Dis PO Q6H PRN nausea, able to take PO Oxycodone HCl 5 mg 08/30/21 18:08 Oxycodone 5 Mg Tab PO Q4H PRN Pain (moderate 4-6) Temazepam 15 mg 08/30/21 18:08 Temazepam 15 Mg Cap PO BEDTIME PRN Sleep Discontinued Medications Generic Name Dose Route Start Last Admin Trade Name Freq PRN Reason Stop Dose Admin Digoxin 250 mcg 08/30/21 16:35 08/30/21 17:09 Digoxin 500 Mcg/2 Ml Amp IVPUSH 08/30/21 16:36 250 mcg ONETIME ONE Administration Digoxin 125 mcg 08/30/21 18:30 Digoxin 500 Mcg/2 Ml Amp IVPUSH 08/30/21 18:31 ONETIME ONE Diltiazem HCl 5 mg 08/30/21 15:10 08/30/21 15:15 Diltiazem 50 Mg/10 Ml Sdv IVPUSH 08/30/21 15:11 5 mg ONETIME ONE Administration Diltiazem HCl 5 mg 08/30/21 15:44 Diltiazem 50 Mg/10 Ml Sdv IVPUSH 08/30/21 15:45 ONETIME ONE Diltiazem HCl 5 mg 08/30/21 18:22 Diltiazem 50 Mg/10 Ml Sdv IVPUSH 08/30/21 18:23 ONETIME ONE Furosemide 40 mg 08/30/21 16:53 08/30/21 17:08 Furosemide 40 Mg/4 Ml Vial IVPUSH 08/30/21 16:54 40 mg NOW ONE Administration Metoclopramide HCl 5 mg 08/30/21 14:54 08/30/21 15:12 Metoclopramide 10 Mg/2 Ml Sdv IVPUSH 08/30/21 14:55 5 mg ONETIME ONE Administration - Radiology Interpretation Free Text/Narrative:: 85-year-old female presents to the ED with recurrent falls she estimates 11 times in the last week. These are all related to syncope collapse after assuming the standing position from either sitting or lying suggesting significant orthostatic hypotension. She has been nauseated as of late and not been taking in adequate nutrition or fluid. She had emesis yesterday which apparently was quite dark brown in color and suggestive of coffee-ground emesis. She has no past history of upper GI bleed. She had resection of left hemicolon in December of this year due to cancer of the colon but did not require any further treatment such as chemotherapy or radiation. She was quite anemic after the surgery with a hemoglobin of 6 requiring blood transfusions. Granddaughter is concerned she is once again developed anemia due to being on Coumadin for atrial fib. On my examination she does have some mild pallor and mild blepharal pallor suggesting mild anemia. However on examination she has atrial fibrillation with rapid ventricular rate into the 150s. This is likely the cause of feeling lightheaded dizzy and causing syncope collapse. She has chronic nausea which I believe is likely medication related. Most likely culprit is Paxil. I would suggest discontinue this medication and after a week she could start something like Escitalopram or citalopram in its place. Potassium supplements could also be causing chronic nausea she takes 10 mg twice daily after from being on Lasix. Perhaps a change to Aldactone 25 mg a day which is potassium sparing and discontinuing the potassium supplement may help her nausea as well. Also abdominal pain cramping is likely secondary to omeprazole which contains lactose as a filler. Suggest purchasing Nexium tablet instead of the capsules which do not contain lactose to reduce abdominal cramping pain and diarrhea. Plan ECG. Chest x-ray. Routine labs including PT and PTT. It appears she will need a Cardizem drip and I will start with 5 mg IV bolus as her blood pressure is only 96 systolic. She will then be started on Cardizem drip at 5 mg an hour. To bring long-term control to her atrial fib I suspect she will need digoxin as she will not tolerate cardia zyme or an increased dose of metoprolol as it will cause hypotension. Chronic nausea may also be due to bile reflux into the stomach overnight. Possible trial of Colestid 1 g at bedtime for 3 weeks to see if this relieves nausea as well. It may also relieve abdominal cramping pain and diarrhea. - Re-Assessments/Exams Free Text/Narrative Re-Assessment/Exam: 08/30/21 15:13 ECG reveals atrial fibrillation with a rate of 86 to 140/min. There are Q waves V1 and near Q waves V2 and V3 consider old anteroseptal myocardial infarction. Q waves leads III and aVF compared with old inferior wall myocardial infarction. T wave is inverted in leads I and aVL consider ischemia mild ST segment depression V4 to V6 again consider ischemia. Patient's blood pressure is around 100 systolic. We will start with Cardizem 5 mg IV bolus and 5 mg/h for rate control she may we require digoxin for rate control. 08/30/21 15:45 Heart rate is staying in the 1 teens and up to 125 at times. Blood pressures improved to 127/80. O2 sats are 97% on room air. I am going to give her further dose of Cardizem 5 mg IV bolus and increase the Cardizem drip to 10 mg/h. 08/30/21 16:00: For the extra dose of Cardizem could be given her heart rate improved into the 90s and staying around 100. Blood pressure is 105/67 therefore the extra dose of cardia zyme IV bolus as well as IV drip was not increased or given. 08/30/21 16:12 Chest x-ray reveals moderate cardiomegaly with tortuous thoracic aorta. Mild diffuse vascular congestion pattern. No pleural effusions. No pneumonia. X-rays of the right wrist do reveal a fracture with mild dorsal angulation of the distal radius. The forearm bones are intact with no fracture of the radial head. Position is satisfactory for age to place her in a Ortho- Glass splint. Bones are extremely osteopenic. 08/30/21 16:38 White count is normal at 5.25. The differential shows 60% neutrophils. Hemoglobin is 10.2 with hematocrit of 34.9. MCV is 85.3 platelet count 194,000. PT is 19.8 with an INR of 1.83 PTT is 39.7. Coumadin is slightly subtherapeutic for atrial fib. Sodium 140 with a potassium of 3.4 chloride 104 the bicarb of 24 anion gap is 15.4 BUN is 23 with a creatinine of 1.3 and a GFR 39. Glucose is 97 calcium is 8.3 slightly low magnesium 2.4 liver function is normal. CK-MB is 1.6 with a troponin I of less than 0.017 C- reactive protein is elevated at 4.3 BNP is 3294. Total protein is 6.6 with an albumin fraction of 3.4 lipase is 96. I have placed her right forearm in a radial gutter and posterior slab Ortho-Glass splint due to fracture of her distal radius. Has follow-up with Dr. Mark in clinic early next week for cast application. 08/30/21 16:53 Plan I am going to digitalize her to control heart rate as her blood pressure would not tolerate an oral dose of cardia zyme or an increased dose in her metoprolol. She will be given 250 mcg IV now with plan to discontinue the Cardizem drip in about 2 hours time. She will also be given Lasix 40 mg IV for her elevated BNP of 3294 as she is mildly tachypneic but O2 sats are maintained at 98% on room air. 08/30/21 18:19 We will give her further dose of digoxin 0.125 or 125 mcg IV now. I was going to discontinue her Cardizem drip but her heart rate is gone up into the 130s. She will therefore require another dose of Cardizem 5 mg IV bolus. Blood pressure is 110/75. Up fairly a bed has now become available due to staffing and patient will therefore be admitted to the intensive care unit once they move the patient out of the unit. She will therefore be in the ED for a while longer. Case has been discussed with on-call hospitalist Dr. Mann and he did see the patient in the ED. Free Text/Narrative Re-Assessment/Exam: 08/30/21 18:42 heart rate has come down to 1 teens once again. Blood pressure came up to 120/70. Sats are 94 to 95% room air. Of note her extremities are mildly cool to touch and therefore O2 sats are not accurate. Departure - Departure Time of Disposition: 18:42 Disposition: Admitted As Inpatient 68 Condition: Fair Clinical Impression: Recurrent syncope, Chronic atrial fibrillation with RVR, Orthostatic hypotension, Chronic nausea, Elevated C-reactive protein (CRP), Chronic renal insufficiency, stage III (moderate), Subtherapeutic international normalized ratio (INR) Anemia Qualifiers: Anemia type: other cause Other causes of anemia: other cause, not classified Qualified Code(s): D64.89 - Other specified anemias Adverse effects of medication Qualifiers: Encounter type: initial encounter Qualified Code(s): T50.905A - Adverse effect of unspecified drugs, medicaments and biological substances, initial encounter Fracture, radius, distal Qualifiers: Encounter type: initial encounter Fracture type: closed Fracture morphology: Colles' Laterality: right Qualified Code(s): S52.531A - Colles' fracture of right radius, initial encounter for closed fracture Congestive heart failure Qualifiers: Heart failure type: unspecified Heart failure chronicity: chronic Qualified Code(s): I50.9 - Heart failure, unspecified - Discharge Information *PRESCRIPTION DRUG MONITORING PROGRAM REVIEWED*: Not Applicable *COPY OF PRESCRIPTION DRUG MONITORING REPORT IN PATIENT TELLO: Not Applicable Referrals: Jim Andrade MD [Primary Care Provider] - Forms: ED Department Discharge Sepsis Event Note (ED) - Evaluation Sepsis Screening Result: No Definite Risk - Focused Exam Vital Signs: Vital Signs Pulse Pulse Resp BP Pulse Ox 08/30/21 17:18 102 H 18 113/63 95 08/30/21 17:09 121 H 08/30/21 15:56 105 H 96/72 08/30/21 15:37 118 H 127/86 08/30/21 14:42 94 16 122/95 H 96 - My Orders Last 24 Hours: My Active Orders 08/30/21 14:58 URINALYSIS W/MICROSCOPIC [UA W/MICROSCOPIC] [URIN] Stat 08/30/21 15:00 Dextrose 5%-0.9% NaCl [Dextrose 5%-Normal Saline] 1,000 ml IV ASDIRECTED 08/30/21 15:09 ANTIBODY IDENTIFICATION [BBK] Stat TYPE AND SCREEN [BBK] Stat 08/30/21 15:12 Wrist Comp Min 3V Rt [CR] Stat 08/30/21 15:15 Diltiazem [Cardizem] 100 mg Sodium Chloride 0.9% [Normal Saline AdvBag] 100 ml IV TITRATE - Assessment/Plan Last 24 Hours: My Active Orders 08/30/21 14:58 URINALYSIS W/MICROSCOPIC [UA W/MICROSCOPIC] [URIN] Stat 08/30/21 15:00 Dextrose 5%-0.9% NaCl [Dextrose 5%-Normal Saline] 1,000 ml IV ASDIRECTED 08/30/21 15:09 ANTIBODY IDENTIFICATION [BBK] Stat TYPE AND SCREEN [BBK] Stat 08/30/21 15:12 Wrist Comp Min 3V Rt [CR] Stat 08/30/21 15:15 Diltiazem [Cardizem] 100 mg Sodium Chloride 0.9% [Normal Saline AdvBag] 100 ml IV TITRATE
[2021-08-30] MEDS ORDERED: Dextrose 5%-0.9% NaCl 1,000 ML IV SCH (15:00)
[2021-08-30] MEDS ORDERED: Diltiazem 50 MG/10 ML SDV IVPUSH ONE ×3 (15:10→18:22)
[2021-08-30] MEDS ORDERED: Diltiazem 100 MG in Sodium Chloride 0.9% 100 ML IV SCH (15:15)
[2021-08-30] MEDS ORDERED: Digoxin 500 MCG/2 ML Amp IVPUSH ONE ×2 (16:35→18:30)
[2021-08-30] MEDS ORDERED: Furosemide 40 MG/4 ML VIAL IVPUSH ONE (16:53)
[2021-08-30] MEDS ORDERED: Temazepam 15 MG Cap PO PRN (18:08)
[2021-08-30] MEDS ORDERED: Docusate Sodium 100 MG Cap PO PRN (18:08)
[2021-08-30] MEDS ORDERED: Ondansetron 4 MG Tab.DIS PO PRN (18:08)
--- NOTE | 2021-08-30 18:21 | PCM.HP.2 ---
H&P History of Present Illness - General Date of Service: 08/30/21 Admit Problem/Dx: Admission Diagnosis/Problem Admission Diagnosis/Problem Atrial fibrillation with rapid ventricular response Source of Information: Patient History Limitations: Reports: No Limitations - History of Present Illness Initial Comments - Free Text/Narative: The patient is an 85-year-old lady who has presented to the emergency department with a complaint of nausea and vomiting. Patient does have a chronic history of nausea and vomiting however, in the emergency department she was found to be in atrial fibrillation with RVR. The patient further reports that she has had a history of multiple falls and syncopal events. The patient had a fall prior to presentation in the emergency department and she suffered a right Colles' fracture. The patient also denies head trauma from falls. The patient also has an ankle deformity which makes it difficult for the patient to ambulate. The patient was started on Cardizem drip in the emergency department and also was IV loaded with digitalis. The patient also had emesis of bilious type material. Onset of Symptoms: Reports: Gradual Duration of Symptoms: Reports: Week(s):, Getting Worse Location: Reports: Upper Extremity, Right Quality: Reports: Ache, Stabbing, Throbbing Severity: Moderate Improves with: Reports: Medication, Rest Worsens with: Reports: Movement Context: Reports: Trauma, Other (Frequent falling) Associated Symptoms: Reports: Other (Dizziness) - Related Data Allergies/Adverse Reactions: Allergies Allergy/AdvReac Type Severity Reaction Status Date / Time amiodarone Allergy Cannot Verified 06/27/21 10:45 Remember cefprozil Allergy Cannot Verified 06/27/21 10:45 Remember cephalexin Allergy Rash Verified 06/27/21 10:45 enalapril Allergy Cannot Verified 06/27/21 10:45 Remember Penicillins Allergy Cannot Verified 06/27/21 10:45 Remember Sulfa (Sulfonamide Allergy Rash Verified 06/27/21 10:45 Antibiotics) Home Medications: Home Meds PARoxetine [Paxil] 30 mg PO DAILY 03/01/15 [History] Potassium Chloride 10 meq PO BID 03/01/15 [History] Zolpidem [Ambien] 10 mg PO BEDTIME 03/01/15 [History] Gabapentin [Neurontin] 300 mg PO TID 01/02/17 [History] Rosuvastatin [Crestor] 10 mg PO DAILY 01/22/20 [History] Metoprolol Succinate 50 mg PO BID 10/03/20 [History] Warfarin Sodium 2.5 mg PO DAILY #0 10/04/20 [Rx] Sucralfate [Carafate] 1 g PO BID 06/26/21 [History] Diclofenac Sodium 75 mg PO BID 08/30/21 [History] Furosemide 40 mg PO BID 08/30/21 [History] Past Medical History HEENT History: Reports: Cataract, Impaired Vision Other HEENT History: wears eyeglasses Cardiovascular History: Reports: Afib (Chronic atrial fibrillation. She is anticoagulated with Coumadin.), Heart Failure, High Cholesterol, Hypertension Other Cardiovascular History: SVT, CHF, edema Respiratory History: Reports: SOB Other Respiratory History: vocal cord prolapse with polyp removal 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 History: Reports: Colon Polyp, GERD, Hemorrhoids, Other (See Below) (Chronic nausea occasional abdominal cramping pain and diarrhea) Genitourinary History: Reports: Retention, Urinary, Other (See Below) Other Genitourinary History: CKD III, cystocele, rectocele PROVIDER SCRIBE History: Reports: Other OB/BYN History: D and C multiple Musculoskeletal History: Reports: Arthritis, Back Pain, Chronic, Fracture, Osteoporosis Other Musculoskeletal History: L) ankle fx in 2006 Neurological History: Reports: Migraines Other Neuro History: lumbar radiculopathy, post laminectomy syndrome, spinal stenosis Psychiatric History: Reports: Anxiety, Depression Endocrine/Metabolic History: Reports: Obesity/BMI 30+, Osteopenia Hematologic History: Reports: Blood Transfusion(s) Immunologic History: Reports: None Oncologic (Cancer) History: Reports: Colon Other Oncologic History: Oncologist is watching a spot on the pt's kidney Dermatologic History: Reports: Psoriasis - Infectious Disease History Infectious Disease History: Reports: Chicken Pox, Measles - Past Surgical History Head Surgeries/Procedures: Reports: None HEENT Surgical History: Reports: Cataract Surgery, Tonsillectomy, Other (See Be low) Other HEENT Surgeries/Procedures: vocal cord polyps with surgical intervention Cardiovascular Surgical History: Reports: Cardiac Ablation Respiratory Surgical History: Reports: None GI Surgical History: Reports: Colon, Colonoscopy, EGD Female Surgical History: Reports: D&C Male Surgical History: Reports: None Endocrine Surgical History: Reports: None Neurological Surgical History: Reports: Lumbar Spine Musculoskeletal Surgical History: Reports: Carpal Tunnel, Hip Replacement, Knee Replacement, ORIF Other Musculoskeletal Surgeries/Procedures:: several back surgeries. hip replacement december 2016 Oncologic Surgical History: Reports: None Dermatological Surgical History: Reports: None Social & Family History - Family History Family Medical History: No Pertinent Family History - Tobacco Use Tobacco Use Status *Q: Never Tobacco User - Caffeine Use Caffeine Use: Reports: None - Recreational Drug Use Recreational Drug Use: No - Living Situation & Occupation Living situation: Reports: , with Family, Extended Care Facility Occupation: Retired H&P Review of Systems - Review of Systems: Review Of Systems: See Below General: Reports: Malaise, Weakness HEENT: Reports: No Symptoms Pulmonary: Reports: No Symptoms Cardiovascular: Reports: Palpitations 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: Reports: Anorexia, Nausea, Vomiting Genitourinary: Reports: No Symptoms Musculoskeletal: Reports: Arm Pain, Foot Pain Skin: Reports: Bruising Psychiatric: Reports: No Symptoms Neurological: Reports: Dizziness Hematologic/Lymphatic: Reports: Anemia Immunologic: Reports: No Symptoms Exam - Exam Exam: See Below - Vital Signs Vital Signs: Last Vital Signs Temp Pulse 102 H 08/30/21 17:18 Resp 18 08/30/21 17:18 BP 113/63 08/30/21 17:18 Pulse Ox 95 08/30/21 17:18 Weight: 80.739 kg - Exam Quality Assessment: Supplemental Oxygen, DVT Prophylaxis (Currently on warfarin) General: Alert, Oriented, Cooperative, Mild Distress HEENT: Conjunctiva Clear, EACs Clear, EOMI, Hearing Intact, Mucosa Moist & [place], Posterior Pharynx Clear, PERRLA Neck: Supple, Trachea Midline Lungs: Clear to Auscultation, Normal Respiratory Effort Cardiovascular: Normal S1, Normal S2, Irregular Rhythm, Tachycardia. No: Systolic Murmur, Diastolic Murmur GI/Abdominal Exam: Normal Bowel Sounds, Soft, Non-Tender, No Distention. No: Guarding, Rigid, Rebound (Female) Exam: Deferred Rectal (Female) Exam: Deferred Back Exam: Normal Inspection, Full Range of Motion Extremities: Normal Inspection, Normal Range of Motion, No Pedal Edema, Other (Right arm in soft cast) Skin: Warm, Dry, Ecchymosis (Scattered ecchymoses) Neurological: Cranial Nerves Intact Neuro Extensive - Mental Status: Alert, Oriented x3 Psychiatric: Alert, Normal Affect - Patient Data Lab Results Last 24 hrs: Laboratory Results - last 24 hr 08/30/21 08/30/21 08/30/21 Range/Units 15:09 15:09 15:09 WBC 5.25 (3.98-10.04) K/mm3 RBC 4.09 (3.98-5.22) M/mm3 Hgb 10.2 L D (11.2-15.7) gm/dl Hct 34.9 (34.1-44.9) % MCV 85.3 (79.4-94.8) fl MCH 24.9 L (25.6-32.2) pg MCHC 29.2 L (32.2-35.5) g/dl RDW Std Deviation 78.7 H (36.4-46.3) fL Plt Count 194 (182-369) K/mm3 MPV 10.4 (9.4-12.3) fl Neut % (Auto) 68.3 (34.0-71.1) % Lymph % (Auto) 17.5 L (19.3-51.7) % Banks % (Auto) 13.0 H (4.7-12.5) % Eos % (Auto) 0.8 (0.7-5.8) Baso % (Auto) 0.2 (0.1-1.2) % Neut # (Auto) 3.59 (1.56-6.13) K/mm3 Lymph # (Auto) 0.92 L (1.18-3.74) K/mm3 Banks # (Auto) 0.68 H (0.24-0.36) K/mm3 Eos # (Auto) 0.04 (0.04-0.36) K/mm3 Baso # (Auto) 0.01 (0.01-0.08) K/mm3 ESR (0-20) mm/hr PT 19.8 H D (9.7-12.0) SECONDS INR 1.83 APTT 39.7 H (21.7-31.4) SECONDS Sodium 140 (136-145) mEq/L Potassium 3.4 L (3.5-5.1) mEq/L Chloride 104 (98-107) mEq/L Carbon Dioxide 24 (21-32) mEq/L Anion Gap 15.4 H (5-15) BUN 23 H (7-18) mg/dL Creatinine 1.3 H (0.55-1.02) mg/dL Est Cr Clr Drug Dosing 23.55 mL/min Estimated GFR (MDRD) 39 (>60) mL/min BUN/Creatinine Ratio 17.7 (14-18) Glucose 97 (70-99) mg/dL Calcium 8.3 L (8.5-10.1) mg/dL Magnesium 2.4 (1.8-2.4) mg/dL Total Bilirubin 1.0 (0.2-1.0) mg/dL AST 17 (15-37) U/L ALT 21 (14-59) U/L Alkaline Phosphatase 86 (46-116) U/L CK-MB (CK-2) 1.6 (0-3.6) ng/ml Troponin I < 0.017 (0.00-0.056) ng/mL C-Reactive Protein 4.3 H* (<1.0) mg/dL NT-Pro-B Natriuret Pep (0-450) pg/mL Total Protein 6.6 (6.4-8.2) g/dl Albumin 3.4 (3.4-5.0) g/dl Globulin 3.2 gm/dL Albumin/Globulin Ratio 1.1 (1-2) Lipase 96 (73-393) U/L SARS-CoV-2 RNA (TRISHA) (NEGATIVE) Blood Type Gel Antibody Screen 08/30/21 08/30/21 08/30/21 Range/Units 15:09 15:09 15:09 WBC (3.98-10.04) K/mm3 RBC (3.98-5.22) M/mm3 Hgb (11.2-15.7) gm/dl Hct (34.1-44.9) % MCV (79.4-94.8) fl MCH (25.6-32.2) pg MCHC (32.2-35.5) g/dl RDW Std Deviation (36.4-46.3) fL Plt Count (182-369) K/mm3 MPV (9.4-12.3) fl Neut % (Auto) (34.0-71.1) % Lymph % (Auto) (19.3-51.7) % Banks % (Auto) (4.7-12.5) % Eos % (Auto) (0.7-5.8) Baso % (Auto) (0.1-1.2) % Neut # (Auto) (1.56-6.13) K/mm3 Lymph # (Auto) (1.18-3.74) K/mm3 Banks # (Auto) (0.24-0.36) K/mm3 Eos # (Auto) (0.04-0.36) K/mm3 Baso # (Auto) (0.01-0.08) K/mm3 ESR 7 (0-20) mm/hr PT (9.7-12.0) SECONDS INR APTT (21.7-31.4) SECONDS Sodium (136-145) mEq/L Potassium (3.5-5.1) mEq/L Chloride (98-107) mEq/L Carbon Dioxide (21-32) mEq/L Anion Gap (5-15) BUN (7-18) mg/dL Creatinine (0.55-1.02) mg/dL Est Cr Clr Drug Dosing mL/min Estimated GFR (MDRD) (>60) mL/min BUN/Creatinine Ratio (14-18) Glucose (70-99) mg/dL Calcium (8.5-10.1) mg/dL Magnesium (1.8-2.4) mg/dL Total Bilirubin (0.2-1.0) mg/dL AST (15-37) U/L ALT (14-59) U/L Alkaline Phosphatase (46-116) U/L CK-MB (CK-2) (0-3.6) ng/ml Troponin I (0.00-0.056) ng/mL C-Reactive Protein (<1.0) mg/dL NT-Pro-B Natriuret Pep 3294 H (0-450) pg/mL Total Protein (6.4-8.2) g/dl Albumin (3.4-5.0) g/dl Globulin gm/dL Albumin/Globulin Ratio (1-2) Lipase (73-393) U/L SARS-CoV-2 RNA (TRISHA) Negative (NEGATIVE) Blood Type Gel Antibody Screen 08/30/21 Range/Units 15:09 WBC (3.98-10.04) K/mm3 RBC (3.98-5.22) M/mm3 Hgb (11.2-15.7) gm/dl Hct (34.1-44.9) % MCV (79.4-94.8) fl MCH (25.6-32.2) pg MCHC (32.2-35.5) g/dl RDW Std Deviation (36.4-46.3) fL Plt Count (182-369) K/mm3 MPV (9.4-12.3) fl Neut % (Auto) (34.0-71.1) % Lymph % (Auto) (19.3-51.7) % Banks % (Auto) (4.7-12.5) % Eos % (Auto) (0.7-5.8) Baso % (Auto) (0.1-1.2) % Neut # (Auto) (1.56-6.13) K/mm3 Lymph # (Auto) (1.18-3.74) K/mm3 Banks # (Auto) (0.24-0.36) K/mm3 Eos # (Auto) (0.04-0.36) K/mm3 Baso # (Auto) (0.01-0.08) K/mm3 ESR (0-20) mm/hr PT (9.7-12.0) SECONDS INR APTT (21.7-31.4) SECONDS Sodium (136-145) mEq/L Potassium (3.5-5.1) mEq/L Chloride (98-107) mEq/L Carbon Dioxide (21-32) mEq/L Anion Gap (5-15) BUN (7-18) mg/dL Creatinine (0.55-1.02) mg/dL Est Cr Clr Drug Dosing mL/min Estimated GFR (MDRD) (>60) mL/min BUN/Creatinine Ratio (14-18) Glucose (70-99) mg/dL Calcium (8.5-10.1) mg/dL Magnesium (1.8-2.4) mg/dL Total Bilirubin (0.2-1.0) mg/dL AST (15-37) U/L ALT (14-59) U/L Alkaline Phosphatase (46-116) U/L CK-MB (CK-2) (0-3.6) ng/ml Troponin I (0.00-0.056) ng/mL C-Reactive Protein (<1.0) mg/dL NT-Pro-B Natriuret Pep (0-450) pg/mL Total Protein (6.4-8.2) g/dl Albumin (3.4-5.0) g/dl Globulin gm/dL Albumin/Globulin Ratio (1-2) Lipase (73-393) U/L SARS-CoV-2 RNA (TRISHA) (NEGATIVE) Blood Type A NEGATIVE Gel Antibody Screen Positive Result Diagrams: 08/31/21 05:24 08/31/21 05:24 Sepsis Event Note - Evaluation Sepsis Screening Result: No Definite Risk - Focused Exam Vital Signs: Vital Signs Pulse Pulse Resp BP Pulse Ox 08/30/21 17:18 102 H 18 113/63 95 08/30/21 17:09 121 H 08/30/21 15:56 105 H 96/72 08/30/21 15:37 118 H 127/86 08/30/21 14:42 94 16 122/95 H 96 *Q Meaningful Use (ADM) - VTE *Q VTE Mechanical Contraindications *Q: At Risk for Falls VTE Pharmacological Contraindications *Q: High INR Value - Problem List (1) Recurrent syncope SNOMED Code(s): 206258854, 894826353, 998827312 ICD Code: R55 - SYNCOPE AND COLLAPSE Status: Acute Priority: High Current Visit: Yes (2) Chronic atrial fibrillation with RVR SNOMED Code(s): 719025058, 376870193955232 ICD Code: I48.20 - CHRONIC ATRIAL FIBRILLATION, UNSPECIFIED Status: Acute Priority: High Current Visit: Yes (3) Chronic renal insufficiency, stage III (moderate) SNOMED Code(s): 966076372 ICD Code: N18.30 - CHRONIC KIDNEY DISEASE, STAGE 3 UNSPECIFIED Status: Ch ronic Priority: Medium Current Visit: Yes Qualifiers: Chronic kidney disease stage 3 subtype: unspecified whether 3a or 3b Qualified Code(s): N18.30 - Chronic kidney disease, stage 3 unspecified (4) Fracture, radius, distal SNOMED Code(s): 374824379 ICD Code: S52.509A - UNSP FRACTURE OF THE LOWER END OF UNSP RADIUS, INIT Status: Acute Priority: High Current Visit: Yes Qualifiers: Encounter type: subsequent encounter Fracture type: closed Fracture morphology: Colles' Laterality: right Fracture healing: with routine healing Qualified Code(s): S52.539M - Colles' fracture of right radius, subsequent encounter for closed fracture with routine healing Problem List Initiated/Reviewed/Updated: Yes Orders Last 24hrs: Active Orders 24 hr Category Date Time Status Patient Status [ADT] Routine ADT 08/30/21 18:08 Ordered Cardiac Monitoring [RC] CONTINUOUS Care 08/30/21 18:14 Ordered Oxygen Therapy [RC] PRN Care 08/30/21 18:08 Ordered Up With Assistance [RC] ASDIRECTED Care 08/30/21 18:08 Ordered VTE/DVT Education [RC] PER UNIT ROUTINE Care 08/30/21 18:08 Ordered Vital Signs [RC] Q4H Care 08/30/21 18:08 Ordered OT Evaluation and Treatment [CONS] Routine Cons 08/30/21 18:08 Ordered PT Evaluation and Treatment [CONS] Routine Cons 08/30/21 18:08 Ordered Heart Healthy Diet [DIET] Diet 08/31/21 Breakfast Ordered Wrist Comp Min 3V Rt [CR] Stat Exams 08/30/21 15:12 Taken ANTIBODY IDENTIFICATION [BBK] Stat Lab 08/30/21 15:09 Results CBC WITH AUTO DIFF [HEME] AM Lab 08/31/21 05:11 Ordered COMPREHENSIVE METABOLIC PN,CMP [CHEM] AM Lab 08/31/21 05:11 Ordered DIGOXIN [CHEM] AM Lab 08/31/21 05:11 Ordered INR,PT,PROTHROMBIN TIME [COAG] AM Lab 08/31/21 05:11 Ordered MAGNESIUM [CHEM] AM Lab 08/31/21 05:11 Ordered TYPE AND SCREEN [BBK] Stat Lab 08/30/21 15:09 Results URINALYSIS W/MICROSCOPIC [UA W/MICROSCOPIC] [URIN] Stat Lab 08/30/21 14:58 Ordered Acetaminophen [TylenoL] Med 08/30/21 18:08 Ordered 650 mg PO Q4H PRN Dextrose 5%-0.9% NaCl [Dextrose 5%-Normal Saline] 1,000 Med 08/30/21 15:00 Active ml IV ASDIRECTED Diltiazem [Cardizem] 100 mg Med 08/30/21 15:15 Active Sodium Chloride 0.9% [Normal Saline AdvBag] 100 ml IV TITRATE Docusate Sodium [Colace] Med 08/30/21 18:08 Ordered 100 mg PO BID PRN Ondansetron [Zofran ODT] Med 08/30/21 18:08 Ordered 4 mg PO Q6H PRN Sodium Chloride 0.9% [Normal Saline] 1,000 ml Med 08/30/21 18:15 Ordered IV ASDIRECTED Temazepam [Restoril] Med 08/30/21 18:08 Ordered 15 mg PO BEDTIME PRN oxyCODONE Med 08/30/21 18:08 Ordered 5 mg PO Q4H PRN VTE Mechanical Contraindications [AST] Per Unit Routine Oth 08/30/21 18:08 Ordered VTE Pharmacological Contraindications [AST] Per Unit Oth 08/30/21 18:08 Ordered Routine Resuscitation Status Routine Resus Stat 08/30/21 18:08 Ordered Medication Orders Acetaminophen (Acetaminophen 325 Mg Tab) 650 mg PO Q4H PRN PRN Reason: Pain (Mild 1-3)/fever Docusate Sodium (Docusate Sodium 100 Mg Cap) 100 mg PO BID PRN PRN Reason: Constipation Dextrose/Sodium Chloride (Dextrose 5%-Normal Saline) 1,000 mls @ 125 mls/hr IV ASDIRECTED PHILOMENA Last Admin: 08/30/21 15:12 Dose: 125 mls/hr Documented by: SENTHIL Diltiazem HCl 100 mg/ Sodium (Chloride) 100 mls @ 5 mls/hr IV TITRATE PHILOMENA; Protocol Last Admin: 08/30/21 15:18 Dose: 5 mg/hr, 5 mls/hr Documented by: SENTHIL Sodium Chloride (Normal Saline) 1,000 mls @ 75 mls/hr IV ASDIRECTED PHILOMENA Ondansetron HCl (Ondansetron 4 Mg Tab.Dis) 4 mg PO Q6H PRN PRN Reason: nausea, able to take PO Oxycodone HCl (Oxycodone 5 Mg Tab) 5 mg PO Q4H PRN PRN Reason: Pain (moderate 4-6) Temazepam (Temazepam 15 Mg Cap) 15 mg PO BEDTIME PRN PRN Reason: Sleep Assessment/Plan Comment:: The patient is an 85-year-old lady who has been admitted to acute hospitalization in the intensive care unit due to chronic atrial fibrillation with RVR. The patient will be on telemetry. The patient is on Cardizem drip and she also has been started with loading dose on digoxin. The patient's Cardizem drip will be tapered as her atrial fibrillation returns to normal. The patient also has been started on digoxin and have ordered a digoxin level for the morning. Other repeat laboratory studies have been ordered. The patient does have a Colles' fracture and consultation with orthopedic surgery has been ordered. PT OT has been ordered. The patient will have a regular diet as tolerated. I have reconciled her medications. The patient might likely require longterm facility. The patient's RVR is likely causing her to have syncopal episodes. She will need to have further evaluation and work-up once her rate has been controlled. She is in a DO NOT INTUBATE DO NOT RESUSCITATE category. - Mortality Measure Prognosis:: Good
[2021-08-30] MEDS: Acetaminophen 325 MG Tab PO PRN (21:33)
[2021-08-30] MEDS: oxyCODONE 5 MG Tab PO PRN (22:33)
[2021-08-30] MEDS: Gabapentin 300 MG Cap PO SCH (22:34)
[2021-08-30] MEDS: Potassium Chloride 10 MEQ Tab.ER PO SCH (22:34)
[2021-08-30] MEDS: Sodium Chloride 0.9% 1,000 ML IV SCH (22:34)
[2021-08-31] MEDS: Furosemide 40 MG Tab PO SCH ×2 (05:55→13:03)
--- NOTE | 2021-08-31 06:51 | CR ---
Chest: Portable view of the chest was obtained. Comparison: Prior chest x-ray of 01/02/17. Heart size is normal. Tortuous thoracic aorta is noted which is stable. Lungs are clear with no acute parenchymal change. Degenerative change is noted within the spine. Mild scattered degenerative change is seen within the thoracic spine. Prior lumbar spine surgery is seen on prior chest x-ray. Cervical spine surgery is also noted. Impression: 1. Findings which are stable as described above. 2. Nothing acute is appreciated on portable chest x-ray. Diagnostic code #2
--- NOTE | 2021-08-31 07:02 | PCM.PN ---
- General Info Date of Service: 08/31/21 Admission Dx/Problem (Free Text): Admission Diagnosis/Problem Admission Diagnosis/Problem Atrial fibrillation with rapid ventricular response Subjective Update: The patient is an 85-year-old lady who was admitted yesterday secondary to chronic atrial fibrillation with RVR. The patient also had a fall in which she had suffered a fracture to the right distal radius. Patient today says that she feels better. Her pain is controlled. The patient has been in ICU secondary to Cardizem drip. Functional Status: Reports: Pain Controlled, Tolerating Diet. Denies: New Sy mptoms - Review of Systems General: Reports: Weakness, Fatigue HEENT: Reports: Dysphasia Pulmonary: Reports: No Symptoms Cardiovascular: Reports: No Symptoms 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: Reports: No Symptoms Genitourinary: Reports: No Symptoms Musculoskeletal: Reports: No Symptoms Skin: Reports: No Symptoms Neurological: Reports: No Symptoms Psychiatric: Reports: No Symptoms - Patient Data Vitals - Most Recent: Last Vital Signs Temp 36.2 C 08/31/21 04:00 Pulse 106 H 08/30/21 19:11 Resp 14 08/31/21 04:00 BP 100/67 08/31/21 04:00 Pulse Ox 95 08/31/21 04:00 Weight - Most Recent: 81.238 kg I&O - Last 24 Hours: Intake & Output 08/30/21 08/31/21 08/31/21 22:59 06:59 14:59 Intake Total 994 Output Total 900 Balance 94 Lab Results Last 24 Hours: Laboratory Results - last 24 hr 08/30/21 08/30/21 08/30/21 Range/Units 15:09 15:09 15:09 WBC 5.25 (3.98-10.04) K/mm3 RBC 4.09 (3.98-5.22) M/mm3 Hgb 10.2 L D (11.2-15.7) gm/dl Hct 34.9 (34.1-44.9) % MCV 85.3 (79.4-94.8) fl MCH 24.9 L (25.6-32.2) pg MCHC 29.2 L (32.2-35.5) g/dl RDW Std Deviation 78.7 H (36.4-46.3) fL Plt Count 194 (182-369) K/mm3 MPV 10.4 (9.4-12.3) fl Neut % (Auto) 68.3 (34.0-71.1) % Lymph % (Auto) 17.5 L (19.3-51.7) % [place] % (Auto) 13.0 H (4.7-12.5) % Eos % (Auto) 0.8 (0.7-5.8) Baso % (Auto) 0.2 (0.1-1.2) % Neut # (Auto) 3.59 (1.56-6.13) K/mm3 Lymph # (Auto) 0.92 L (1.18-3.74) K/mm3 [place] # (Auto) 0.68 H (0.24-0.36) K/mm3 Eos # (Auto) 0.04 (0.04-0.36) K/mm3 Baso # (Auto) 0.01 (0.01-0.08) K/mm3 ESR (0-20) mm/hr PT 19.8 H D (9.7-12.0) SECONDS INR 1.83 APTT 39.7 H (21.7-31.4) SECONDS Sodium 140 (136-145) mEq/L Potassium 3.4 L (3.5-5.1) mEq/L Chloride 104 (98-107) mEq/L Carbon Dioxide 24 (21-32) mEq/L Anion Gap 15.4 H (5-15) BUN 23 H (7-18) mg/dL Creatinine 1.3 H (0.55-1.02) mg/dL Est Cr Clr Drug Dosing 23.55 mL/min Estimated GFR (MDRD) 39 (>60) mL/min BUN/Creatinine Ratio 17.7 (14-18) Glucose 97 (70-99) mg/dL Calcium 8.3 L (8.5-10.1) mg/dL Magnesium 2.4 (1.8-2.4) mg/dL Total Bilirubin 1.0 (0.2-1.0) mg/dL AST 17 (15-37) U/L ALT 21 (14-59) U/L Alkaline Phosphatase 86 (46-116) U/L CK-MB (CK-2) 1.6 (0-3.6) ng/ml Troponin I < 0.017 (0.00-0.056) ng/mL C-Reactive Protein 4.3 H* (<1.0) mg/dL NT-Pro-B Natriuret Pep (0-450) pg/mL Total Protein 6.6 (6.4-8.2) g/dl Albumin 3.4 (3.4-5.0) g/dl Globulin 3.2 gm/dL Albumin/Globulin Ratio 1.1 (1-2) Lipase 96 (73-393) U/L Urine Color (Yellow) Urine Appearance (Clear) Urine pH (5.0-8.0) Ur Specific [place] (1.005-1.030) Urine Protein (Negative) Urine Glucose (UA) (Negative) Urine Ketones (Negative) Urine Occult Blood (Negative) Urine Nitrite (Negative) Urine Bilirubin (Negative) Urine Urobilinogen (0.2-1.0) Ur Leukocyte Esterase (Negative) Urine RBC (0-5) /hpf Urine WBC (0-5) /hpf Ur Squamous Epith Cells (0-5) /hpf Urine Bacteria (FEW) /hpf Urine Mucus (FEW) /hpf SARS-CoV-2 RNA (TRISHA) (NEGATIVE) Blood Type Gel Antibody Screen 08/30/21 08/30/21 08/30/21 Range/Units 15:09 15:09 15:09 WBC (3.98-10.04) K/mm3 RBC (3.98-5.22) M/mm3 Hgb (11.2-15.7) gm/dl Hct (34.1-44.9) % MCV (79.4-94.8) fl MCH (25.6-32.2) pg MCHC (32.2-35.5) g/dl RDW Std Deviation (36.4-46.3) fL Plt Count (182-369) K/mm3 MPV (9.4-12.3) fl Neut % (Auto) (34.0-71.1) % Lymph % (Auto) (19.3-51.7) % Valley % (Auto) (4.7-12.5) % Eos % (Auto) (0.7-5.8) Baso % (Auto) (0.1-1.2) % Neut # (Auto) (1.56-6.13) K/mm3 Lymph # (Auto) (1.18-3.74) K/mm3 [place] # (Auto) (0.24-0.36) K/mm3 Eos # (Auto) (0.04-0.36) K/mm3 Baso # (Auto) (0.01-0.08) K/mm3 ESR 7 (0-20) mm/hr PT (9.7-12.0) SECONDS INR APTT (21.7-31.4) SECONDS Sodium (136-145) mEq/L Potassium (3.5-5.1) mEq/L Chloride (98-107) mEq/L Carbon Dioxide (21-32) mEq/L Anion Gap (5-15) BUN (7-18) mg/dL Creatinine (0.55-1.02) mg/dL Est Cr Clr Drug Dosing mL/min Estimated GFR (MDRD) (>60) mL/min BUN/Creatinine Ratio (14-18) Glucose (70-99) mg/dL Calcium (8.5-10.1) mg/dL Magnesium (1.8-2.4) mg/dL Total Bilirubin (0.2-1.0) mg/dL AST (15-37) U/L ALT (14-59) U/L Alkaline Phosphatase (46-116) U/L CK-MB (CK-2) (0-3.6) ng/ml Troponin I (0.00-0.056) ng/mL C-Reactive Protein (<1.0) mg/dL NT-Pro-B Natriuret Pep 3294 H (0-450) pg/mL Total Protein (6.4-8.2) g/dl Albumin (3.4-5.0) g/dl Globulin gm/dL Albumin/Globulin Ratio (1-2) Lipase (73-393) U/L Urine Color (Yellow) Urine Appearance (Clear) Urine pH (5.0-8.0) Ur Specific [place] (1.005-1.030) Urine Protein (Negative) Urine Glucose (UA) (Negative) Urine Ketones (Negative) Urine Occult Blood (Negative) Urine Nitrite (Negative) Urine Bilirubin (Negative) Urine Urobilinogen (0.2-1.0) Ur Leukocyte Esterase (Negative) Urine RBC (0-5) /hpf Urine WBC (0-5) /hpf Ur Squamous Epith Cells (0-5) /hpf Urine Bacteria (FEW) /hpf Urine Mucus (FEW) /hpf SARS-CoV-2 RNA (TRISHA) Negative (NEGATIVE) Blood Type Gel Antibody Screen 08/30/21 08/30/21 08/31/21 Range/Units 15:09 21:35 05:24 WBC 4.42 (3.98-10.04) K/mm3 RBC 4.08 (3.98-5.22) M/mm3 Hgb 10.2 L (11.2-15.7) gm/dl Hct 35.8 (34.1-44.9) % MCV 87.7 (79.4-94.8) fl MCH 25.0 L (25.6-32.2) pg MCHC 28.5 L (32.2-35.5) g/dl RDW Std Deviation TNP (36.4-46.3) fL Plt Count 174 L (182-369) K/mm3 MPV 10.9 (9.4-12.3) fl Neut % (Auto) 47.0 (34.0-71.1) % Lymph % (Auto) 33.3 (19.3-51.7) % [place] % (Auto) 16.7 H (4.7-12.5) % Eos % (Auto) 2.3 (0.7-5.8) Baso % (Auto) 0.7 (0.1-1.2) % Neut # (Auto) 2.08 (1.56-6.13) K/mm3 Lymph # (Auto) 1.47 (1.18-3.74) K/mm3 [place] # (Auto) 0.74 H (0.24-0.36) K/mm3 Eos # (Auto) 0.10 (0.04-0.36) K/mm3 Baso # (Auto) 0.03 (0.01-0.08) K/mm3 ESR (0-20) mm/hr PT (9.7-12.0) SECONDS INR APTT (21.7-31.4) SECONDS Sodium (136-145) mEq/L Potassium (3.5-5.1) mEq/L Chloride (98-107) mEq/L Carbon Dioxide (21-32) mEq/L Anion Gap (5-15) BUN (7-18) mg/dL Creatinine (0.55-1.02) mg/dL Est Cr Clr Drug Dosing mL/min Estimated GFR (MDRD) (>60) mL/min BUN/Creatinine Ratio (14-18) Glucose (70-99) mg/dL Calcium (8.5-10.1) mg/dL Magnesium (1.8-2.4) mg/dL Total Bilirubin (0.2-1.0) mg/dL AST (15-37) U/L ALT (14-59) U/L Alkaline Phosphatase (46-116) U/L CK-MB (CK-2) (0-3.6) ng/ml Troponin I (0.00-0.056) ng/mL C-Reactive Protein (<1.0) mg/dL NT-Pro-B Natriuret Pep (0-450) pg/mL Total Protein (6.4-8.2) g/dl Albumin (3.4-5.0) g/dl Globulin gm/dL Albumin/Globulin Ratio (1-2) Lipase (73-393) U/L Urine Color Light yellow (Yellow) Urine Appearance Clear (Clear) Urine pH 6.0 (5.0-8.0) Ur Specific [place] 1.020 (1.005-1.030) Urine Protein Negative (Negative) Urine Glucose (UA) Negative (Negative) Urine Ketones Negative (Negative) Urine Occult Blood Negative (Negative) Urine Nitrite Negative (Negative) Urine Bilirubin Negative (Negative) Urine Urobilinogen 0.2 (0.2-1.0) Ur Leukocyte Esterase Trace H (Negative) Urine RBC Not seen (0-5) /hpf Urine WBC 0-5 (0-5) /hpf Ur Squamous Epith Cells Not seen (0-5) /hpf Urine Bacteria Rare (FEW) /hpf Urine Mucus Not seen (FEW) /hpf SARS-CoV-2 RNA (TRISHA) (NEGATIVE) Blood Type A NEGATIVE Gel Antibody Screen Positive 08/31/21 Range/Units 05:24 WBC (3.98-10.04) K/mm3 RBC (3.98-5.22) M/mm3 Hgb (11.2-15.7) gm/dl Hct (34.1-44.9) % MCV (79.4-94.8) fl MCH (25.6-32.2) pg MCHC (32.2-35.5) g/dl RDW Std Deviation (36.4-46.3) fL Plt Count (182-369) K/mm3 MPV (9.4-12.3) fl Neut % (Auto) (34.0-71.1) % Lymph % (Auto) (19.3-51.7) % [place] % (Auto) (4.7-12.5) % Eos % (Auto) (0.7-5.8) Baso % (Auto) (0.1-1.2) % Neut # (Auto) (1.56-6.13) K/mm3 Lymph # (Auto) (1.18-3.74) K/mm3 [place] # (Auto) (0.24-0.36) K/mm3 Eos # (Auto) (0.04-0.36) K/mm3 Baso # (Auto) (0.01-0.08) K/mm3 ESR (0-20) mm/hr PT 17.2 H (9.7-12.0) SECONDS INR 1.58 APTT (21.7-31.4) SECONDS Sodium (136-145) mEq/L Potassium (3.5-5.1) mEq/L Chloride (98-107) mEq/L Carbon Dioxide (21-32) mEq/L Anion Gap (5-15) BUN (7-18) mg/dL Creatinine (0.55-1.02) mg/dL Est Cr Clr Drug Dosing mL/min Estimated GFR (MDRD) (>60) mL/min BUN/Creatinine Ratio (14-18) Glucose (70-99) mg/dL Calcium (8.5-10.1) mg/dL Magnesium (1.8-2.4) mg/dL Total Bilirubin (0.2-1.0) mg/dL AST (15-37) U/L ALT (14-59) U/L Alkaline Phosphatase (46-116) U/L CK-MB (CK-2) (0-3.6) ng/ml Troponin I (0.00-0.056) ng/mL C-Reactive Protein (<1.0) mg/dL NT-Pro-B Natriuret Pep (0-450) pg/mL Total Protein (6.4-8.2) g/dl Albumin (3.4-5.0) g/dl Globulin gm/dL Albumin/Globulin Ratio (1-2) Lipase (73-393) U/L Urine Color (Yellow) Urine Appearance (Clear) Urine pH (5.0-8.0) Ur Specific [place] (1.005-1.030) Urine Protein (Negative) Urine Glucose (UA) (Negative) Urine Ketones (Negative) Urine Occult Blood (Negative) Urine Nitrite (Negative) Urine Bilirubin (Negative) Urine Urobilinogen (0.2-1.0) Ur Leukocyte Esterase (Negative) Urine RBC (0-5) /hpf Urine WBC (0-5) /hpf Ur Squamous Epith Cells (0-5) /hpf Urine Bacteria (FEW) /hpf Urine Mucus (FEW) /hpf SARS-CoV-2 RNA (TRISHA) (NEGATIVE) Blood Type Gel Antibody Screen Med Orders - Current: Current Medications Acetaminophen (Acetaminophen 325 Mg Tab) 650 mg PO Q4H PRN PRN Reason: Pain (Mild 1-3)/fever Last Admin: 08/30/21 21:33 Dose: 650 mg Documented by: Docusate Sodium (Docusate Sodium 100 Mg Cap) 100 mg PO BID PRN PRN Reason: Constipation Furosemide (Furosemide 40 Mg Tab) 40 mg PO BIDDIURETIC PHILOMENA Last Admin: 08/31/21 05:55 Dose: 40 mg Documented by: Gabapentin (Gabapentin 300 Mg Cap) 300 mg PO TID PHILOMENA Last Admin: 08/30/21 22:34 Dose: 300 mg Documented by: Gabapentin (Gabapentin 100 Mg Cap) 300 mg PO TID PHILOMENA Diltiazem HCl 100 mg/ Sodium (Chloride) 100 mls @ 5 mls/hr IV TITRATE PHILOMENA; Pr otocol Last Titration: 08/30/21 21:00 Dose: 0 mg/hr, 0 mls/hr Documented by: Sodium Chloride (Normal Saline) 1,000 mls @ 75 mls/hr IV ASDIRECTED PHILOMENA Last Admin: 08/30/21 22:34 Dose: 75 mls/hr Documented by: Metoprolol Succinate (Metoprolol Succinate 50 Mg Tab.Er) 50 mg PO BID PHILOMENA Metoprolol Succinate (Metoprolol Succinate 50 Mg Tab.Er) 50 mg PO BID PHILOMENA Non-Formulary Medication (Potassium Chloride [Potassium Chloride]) 10 meq PO BID PHILOMENA Ondansetron HCl (Ondansetron 4 Mg Tab.Dis) 4 mg PO Q6H PRN PRN Reason: nausea, able to take PO Oxycodone HCl (Oxycodone 5 Mg Tab) 5 mg PO Q4H PRN PRN Reason: Pain (moderate 4-6) Last Admin: 08/30/21 22:33 Dose: 5 mg Documented by: Paroxetine HCl (Paroxetine 20 Mg Tab) 30 mg PO DAILY [facility] Potassium Chloride (Potassium Chloride 10 Meq Tab.Er) 10 meq PO BID [facility] Last Admin: 08/30/21 22:34 Dose: 10 meq Documented by: Rosuvastatin Calcium (Rosuvastatin 10 Mg Tab) 10 mg PO DAILY [facility] Rosuvastatin Calcium (Rosuvastatin 10 Mg Tab) 10 mg PO DAILY [facility] Sucralfate (Sucralfate 1 Gm Tab) 1 gm PO DAILY [facility] Temazepam (Temazepam 15 Mg Cap) 15 mg PO BEDTIME PRN PRN Reason: Sleep Last Admin: 08/30/21 22:34 Dose: 15 mg Documented by: Warfarin Sodium (Warfarin 2.5 Mg Tab) 2.5 mg PO DAILY@1800 [facility] Warfarin Sodium (Warfarin 2.5 Mg Tab) 2.5 mg PO DAILY [facility] Discontinued Medications Diclofenac Sodium (Diclofenac Sodium 1% Gel 100 Gm Tube) 0 gm TOP BID [facility] Digoxin (Digoxin 500 Mcg/2 Ml Amp) 250 mcg IVPUSH ONETIME ONE Stop: 08/30/21 16:36 Last Admin: 08/30/21 17:09 Dose: 250 mcg Documented by: Digoxin (Digoxin 500 Mcg/2 Ml Amp) 125 mcg IVPUSH ONETIME ONE Stop: 08/30/21 18:31 Last Admin: 08/30/21 19:11 Dose: 125 mcg Documented by: Diltiazem HCl (Diltiazem 50 Mg/10 Ml Sdv) 5 mg IVPUSH ONETIME ONE Stop: 08/30/21 15:11 Last Admin: 08/30/21 15:15 Dose: 5 mg Documented by: Diltiazem HCl (Diltiazem 50 Mg/10 Ml Sdv) 5 mg IVPUSH ONETIME ONE Stop: 08/30/21 15:45 Last Admin: 08/30/21 21:49 Dose: Not Given Documented by: Diltiazem HCl (Diltiazem 50 Mg/10 Ml Sdv) 5 mg IVPUSH ONETIME ONE Stop: 08/30/21 18:23 Last Admin: 08/30/21 18:54 Dose: 5 mg Documented by: Furosemide (Furosemide 40 Mg/4 Ml Vial) 40 mg IVPUSH NOW ONE Stop: 08/30/21 16:54 Last Admin: 08/30/21 17:08 Dose: 40 mg Documented by: Dextrose/Sodium Chloride (Dextrose 5%-Normal Saline) 1,000 mls @ 125 mls/hr IV ASDIRECTED PHILOMENA Last Admin: 08/30/21 15:12 Dose: 125 mls/hr Documented by: Metoclopramide HCl (Metoclopramide 10 Mg/2 Ml Sdv) 5 mg IVPUSH ONETIME ONE Stop: 08/30/21 14:55 Last Admin: 08/30/21 15:12 Dose: 5 mg Documented by: Potassium Chloride (Potassium Chloride 10 Meq Tab.Er) 10 meq PO BID PHILOMENA - Exam Quality Assessment: Supplemental Oxygen, DVT Prophylaxis General: Alert, Oriented, Cooperative HEENT: Pupils Equal, Pupils Reactive, EOMI, Mucous Membr. Moist/[place] Neck: Supple, Trachea Midline Lungs: Clear to Auscultation, Normal Respiratory Effort Cardiovascular: Irregular Rhythm, Tachycardia GI/Abdominal Exam: Normal Bowel Sounds, Soft, Non-Tender, No Distention (Female) Exam: Deferred Back Exam: Normal Inspection, Full Range of Motion Extremities: Normal Inspection, Normal Range of Motion, No Pedal Edema Skin: Warm, Dry, Intact Neurological: No New Focal Deficit Psy/Mental Status: Alert, Normal Affect - Patient Data Lab Results Last 24 hrs: Laboratory Results - last 24 hr 08/30/21 08/30/21 08/30/21 Range/Units 15:09 15:09 15:09 WBC 5.25 (3.98-10.04) K/mm3 RBC 4.09 (3.98-5.22) M/mm3 Hgb 10.2 L D (11.2-15.7) gm/dl Hct 34.9 (34.1-44.9) % MCV 85.3 (79.4-94.8) fl MCH 24.9 L (25.6-32.2) pg MCHC 29.2 L (32.2-35.5) g/dl RDW Std Deviation 78.7 H (36.4-46.3) fL Plt Count 194 (182-369) K/mm3 MPV 10.4 (9.4-12.3) fl Neut % (Auto) 68.3 (34.0-71.1) % Lymph % (Auto) 17.5 L (19.3-51.7) % Valley % (Auto) 13.0 H (4.7-12.5) % Eos % (Auto) 0.8 (0.7-5.8) Baso % (Auto) 0.2 (0.1-1.2) % Neut # (Auto) 3.59 (1.56-6.13) K/mm3 Lymph # (Auto) 0.92 L (1.18-3.74) K/mm3 [place] # (Auto) 0.68 H (0.24-0.36) K/mm3 Eos # (Auto) 0.04 (0.04-0.36) K/mm3 Baso # (Auto) 0.01 (0.01-0.08) K/mm3 ESR (0-20) mm/hr PT 19.8 H D (9.7-12.0) SECONDS INR 1.83 APTT 39.7 H (21.7-31.4) SECONDS Sodium 140 (136-145) mEq/L Potassium 3.4 L (3.5-5.1) mEq/L Chloride 104 (98-107) mEq/L Carbon Dioxide 24 (21-32) mEq/L Anion Gap 15.4 H (5-15) BUN 23 H (7-18) mg/dL Creatinine 1.3 H (0.55-1.02) mg/dL Est Cr Clr Drug Dosing 23.55 mL/min Estimated GFR (MDRD) 39 (>60) mL/min BUN/Creatinine Ratio 17.7 (14-18) Glucose 97 (70-99) mg/dL Calcium 8.3 L (8.5-10.1) mg/dL Magnesium 2.4 (1.8-2.4) mg/dL Total Bilirubin 1.0 (0.2-1.0) mg/dL AST 17 (15-37) U/L ALT 21 (14-59) U/L Alkaline Phosphatase 86 (46-116) U/L CK-MB (CK-2) 1.6 (0-3.6) ng/ml Troponin I < 0.017 (0.00-0.056) ng/mL C-Reactive Protein 4.3 H* (<1.0) mg/dL NT-Pro-B Natriuret Pep (0-450) pg/mL Total Protein 6.6 (6.4-8.2) g/dl Albumin 3.4 (3.4-5.0) g/dl Globulin 3.2 gm/dL Albumin/Globulin Ratio 1.1 (1-2) Lipase 96 (73-393) U/L Urine Color (Yellow) Urine Appearance (Clear) Urine pH (5.0-8.0) Ur Specific [place] (1.005-1.030) Urine Protein (Negative) Urine Glucose (UA) (Negative) Urine Ketones (Negative) Urine Occult Blood (Negative) Urine Nitrite (Negative) Urine Bilirubin (Negative) Urine Urobilinogen (0.2-1.0) Ur Leukocyte Esterase (Negative) Urine RBC (0-5) /hpf Urine WBC (0-5) /hpf Ur Squamous Epith Cells (0-5) /hpf Urine Bacteria (FEW) /hpf Urine Mucus (FEW) /hpf SARS-CoV-2 RNA (TRISHA) (NEGATIVE) Blood Type Gel Antibody Screen 08/30/21 08/30/21 08/30/21 Range/Units 15:09 15:09 15:09 WBC (3.98-10.04) K/mm3 RBC (3.98-5.22) M/mm3 Hgb (11.2-15.7) gm/dl Hct (34.1-44.9) % MCV (79.4-94.8) fl MCH (25.6-32.2) pg MCHC (32.2-35.5) g/dl RDW Std Deviation (36.4-46.3) fL Plt Count (182-369) K/mm3 MPV (9.4-12.3) fl Neut % (Auto) (34.0-71.1) % Lymph % (Auto) (19.3-51.7) % [place] % (Auto) (4.7-12.5) % Eos % (Auto) (0.7-5.8) Baso % (Auto) (0.1-1.2) % Neut # (Auto) (1.56-6.13) K/mm3 Lymph # (Auto) (1.18-3.74) K/mm3 [place] # (Auto) (0.24-0.36) K/mm3 Eos # (Auto) (0.04-0.36) K/mm3 Baso # (Auto) (0.01-0.08) K/mm3 ESR 7 (0-20) mm/hr PT (9.7-12.0) SECONDS INR APTT (21.7-31.4) SECONDS Sodium (136-145) mEq/L Potassium (3.5-5.1) mEq/L Chloride (98-107) mEq/L Carbon Dioxide (21-32) mEq/L Anion Gap (5-15) BUN (7-18) mg/dL Creatinine (0.55-1.02) mg/dL Est Cr Clr Drug Dosing mL/min Estimated GFR (MDRD) (>60) mL/min BUN/Creatinine Ratio (14-18) Glucose (70-99) mg/dL Calcium (8.5-10.1) mg/dL Magnesium (1.8-2.4) mg/dL Total Bilirubin (0.2-1.0) mg/dL AST (15-37) U/L ALT (14-59) U/L Alkaline Phosphatase (46-116) U/L CK-MB (CK-2) (0-3.6) ng/ml Troponin I (0.00-0.056) ng/mL C-Reactive Protein (<1.0) mg/dL NT-Pro-B Natriuret Pep 3294 H (0-450) pg/mL Total Protein (6.4-8.2) g/dl Albumin (3.4-5.0) g/dl Globulin gm/dL Albumin/Globulin Ratio (1-2) Lipase (73-393) U/L Urine Color (Yellow) Urine Appearance (Clear) Urine pH (5.0-8.0) Ur Specific [place] (1.005-1.030) Urine Protein (Negative) Urine Glucose (UA) (Negative) Urine Ketones (Negative) Urine Occult Blood (Negative) Urine Nitrite (Negative) Urine Bilirubin (Negative) Urine Urobilinogen (0.2-1.0) Ur Leukocyte Esterase (Negative) Urine RBC (0-5) /hpf Urine WBC (0-5) /hpf Ur Squamous Epith Cells (0-5) /hpf Urine Bacteria (FEW) /hpf Urine Mucus (FEW) /hpf SARS-CoV-2 RNA (TRISHA) Negative (NEGATIVE) Blood Type Gel Antibody Screen 08/30/21 08/30/21 08/31/21 Range/Units 15:09 21:35 05:24 WBC 4.42 (3.98-10.04) K/mm3 RBC 4.08 (3.98-5.22) M/mm3 Hgb 10.2 L (11.2-15.7) gm/dl Hct 35.8 (34.1-44.9) % MCV 87.7 (79.4-94.8) fl MCH 25.0 L (25.6-32.2) pg MCHC 28.5 L (32.2-35.5) g/dl RDW Std Deviation TNP (36.4-46.3) fL Plt Count 174 L (182-369) K/mm3 MPV 10.9 (9.4-12.3) fl Neut % (Auto) 47.0 (34.0-71.1) % Lymph % (Auto) 33.3 (19.3-51.7) % [place] % (Auto) 16.7 H (4.7-12.5) % Eos % (Auto) 2.3 (0.7-5.8) Baso % (Auto) 0.7 (0.1-1.2) % Neut # (Auto) 2.08 (1.56-6.13) K/mm3 Lymph # (Auto) 1.47 (1.18-3.74) K/mm3 [place] # (Auto) 0.74 H (0.24-0.36) K/mm3 Eos # (Auto) 0.10 (0.04-0.36) K/mm3 Baso # (Auto) 0.03 (0.01-0.08) K/mm3 ESR (0-20) mm/hr PT (9.7-12.0) SECONDS INR APTT (21.7-31.4) SECONDS Sodium (136-145) mEq/L Potassium (3.5-5.1) mEq/L Chloride (98-107) mEq/L Carbon Dioxide (21-32) mEq/L Anion Gap (5-15) BUN (7-18) mg/dL Creatinine (0.55-1.02) mg/dL Est Cr Clr Drug Dosing mL/min Estimated GFR (MDRD) (>60) mL/min BUN/Creatinine Ratio (14-18) Glucose (70-99) mg/dL Calcium (8.5-10.1) mg/dL Magnesium (1.8-2.4) mg/dL Total Bilirubin (0.2-1.0) mg/dL AST (15-37) U/L ALT (14-59) U/L Alkaline Phosphatase (46-116) U/L CK-MB (CK-2) (0-3.6) ng/ml Troponin I (0.00-0.056) ng/mL C-Reactive Protein (<1.0) mg/dL NT-Pro-B Natriuret Pep (0-450) pg/mL Total Protein (6.4-8.2) g/dl Albumin (3.4-5.0) g/dl Globulin gm/dL Albumin/Globulin Ratio (1-2) Lipase (73-393) U/L Urine Color Light yellow (Yellow) Urine Appearance Clear (Clear) Urine pH 6.0 (5.0-8.0) Ur Specific [place] 1.020 (1.005-1.030) Urine Protein Negative (Negative) Urine Glucose (UA) Negative (Negative) Urine Ketones Negative (Negative) Urine Occult Blood Negative (Negative) Urine Nitrite Negative (Negative) Urine Bilirubin Negative (Negative) Urine Urobilinogen 0.2 (0.2-1.0) Ur Leukocyte Esterase Trace H (Negative) Urine RBC Not seen (0-5) /hpf Urine WBC 0-5 (0-5) /hpf Ur Squamous Epith Cells Not seen (0-5) /hpf Urine Bacteria Rare (FEW) /hpf Urine Mucus Not seen (FEW) /hpf SARS-CoV-2 RNA (TRISHA) (NEGATIVE) Blood Type A NEGATIVE Gel Antibody Screen Positive 08/31/21 Range/Units 05:24 WBC (3.98-10.04) K/mm3 RBC (3.98-5.22) M/mm3 Hgb (11.2-15.7) gm/dl Hct (34.1-44.9) % MCV (79.4-94.8) fl MCH (25.6-32.2) pg MCHC (32.2-35.5) g/dl RDW Std Deviation (36.4-46.3) fL Plt Count (182-369) K/mm3 MPV (9.4-12.3) fl Neut % (Auto) (34.0-71.1) % Lymph % (Auto) (19.3-51.7) % Valley % (Auto) (4.7-12.5) % Eos % (Auto) (0.7-5.8) Baso % (Auto) (0.1-1.2) % Neut # (Auto) (1.56-6.13) K/mm3 Lymph # (Auto) (1.18-3.74) K/mm3 Valley # (Auto) (0.24-0.36) K/mm3 Eos # (Auto) (0.04-0.36) K/mm3 Baso # (Auto) (0.01-0.08) K/mm3 ESR (0-20) mm/hr PT 17.2 H (9.7-12.0) SECONDS INR 1.58 APTT (21.7-31.4) SECONDS Sodium (136-145) mEq/L Potassium (3.5-5.1) mEq/L Chloride (98-107) mEq/L Carbon Dioxide (21-32) mEq/L Anion Gap (5-15) BUN (7-18) mg/dL Creatinine (0.55-1.02) mg/dL Est Cr Clr Drug Dosing mL/min Estimated GFR (MDRD) (>60) mL/min BUN/Creatinine Ratio (14-18) Glucose (70-99) mg/dL Calcium (8.5-10.1) mg/dL Magnesium (1.8-2.4) mg/dL Total Bilirubin (0.2-1.0) mg/dL AST (15-37) U/L ALT (14-59) U/L Alkaline Phosphatase (46-116) U/L CK-MB (CK-2) (0-3.6) ng/ml Troponin I (0.00-0.056) ng/mL C-Reactive Protein (<1.0) mg/dL NT-Pro-B Natriuret Pep (0-450) pg/mL Total Protein (6.4-8.2) g/dl Albumin (3.4-5.0) g/dl Globulin gm/dL Albumin/Globulin Ratio (1-2) Lipase (73-393) U/L Urine Color (Yellow) Urine Appearance (Clear) Urine pH (5.0-8.0) Ur Specific [place] (1.005-1.030) Urine Protein (Negative) Urine Glucose (UA) (Negative) Urine Ketones (Negative) Urine Occult Blood (Negative) Urine Nitrite (Negative) Urine Bilirubin (Negative) Urine Urobilinogen (0.2-1.0) Ur Leukocyte Esterase (Negative) Urine RBC (0-5) /hpf Urine WBC (0-5) /hpf Ur Squamous Epith Cells (0-5) /hpf Urine Bacteria (FEW) /hpf Urine Mucus (FEW) /hpf SARS-CoV-2 RNA (TRISHA) (NEGATIVE) Blood Type Gel Antibody Screen Result Diagrams: 08/31/21 05:24 08/31/21 05:24 Sepsis Event Note - Evaluation Sepsis Screening Result: No Definite Risk - Focused Exam Vital Signs: Vital Signs Temp Pulse Resp BP Pulse Ox 08/31/21 04:00 36.2 C 14 100/67 95 08/31/21 00:00 36.2 C 15 94/64 93 L 08/30/21 21:05 36.4 C 16 98/72 96 08/30/21 19:11 106 H - Problem List & Annotations (1) Chronic atrial fibrillation with RVR SNOMED Code(s): 055600198, 121058003549936 Code(s): I48.20 - CHRONIC ATRIAL FIBRILLATION, UNSPECIFIED Status: Chronic Priority: High Current Visit: Yes Annotation/Comment:: With RVR (2) Congestive heart failure SNOMED Code(s): 35861061 Code(s): I50.9 - HEART FAILURE, UNSPECIFIED Status: Chronic Priority: High Current Visit: Yes Qualifiers: Heart failure type: unspecified Heart failure chronicity: chronic Qualified Code(s): I50.9 - Heart failure, unspecified (3) Fracture, radius, distal SNOMED Code(s): 409121517 Code(s): S52.509A - UNSP FRACTURE OF THE LOWER END OF UNSP RADIUS, INIT Status: Acute Priority: High Current Visit: Yes Qualifiers: Encounter type: subsequent encounter Fracture type: closed Fracture morphology: Colles' Laterality: right Fracture healing: with routine healing Qualified Code(s): S52.531D - Colles' fracture of right radius, subsequent encounter for closed fracture with routine healing (4) Orthostatic hypotension SNOMED Code(s): 31836240 Code(s): I95.1 - ORTHOSTATIC HYPOTENSION Status: Acute Priority: High Current Visit: Yes (5) Recurrent syncope SNOMED Code(s): 981629707, 081099695, 579320973 Code(s): R55 - SYNCOPE AND COLLAPSE Status: Acute Priority: High Current Visit: Yes - Problem List Review Problem List Initiated/Reviewed/Updated: Yes - My Orders Last 24 Hours: My Active Orders 08/30/21 18:08 Patient Status [ADT] Routine Oxygen Therapy [RC] PRN Up With Assistance [RC] ASDIRECTED VTE/DVT Education [RC] Vital Signs [RC] Q4HR OT Evaluation and Treatment [CONS] Routine PT Evaluation and Treatment [CONS] Routine Acetaminophen [TylenoL] 650 mg PO Q4H PRN Docusate Sodium [Colace] 100 mg PO BID PRN Ondansetron [Zofran ODT] 4 mg PO Q6H PRN Temazepam [Restoril] 15 mg PO BEDTIME PRN oxyCODONE 5 mg PO Q4H PRN VTE Mechanical Contraindications [AST] Per Unit Routine VTE Pharmacological Contraindications [AST] Per Unit Routine Resuscitation Status Routine 08/30/21 18:14 Cardiac Monitoring [RC] CONTINUOUS 08/30/21 18:15 Sodium Chloride 0.9% [Normal Saline] 1,000 ml IV ASDIRECTED 08/30/21 22:01 Gabapentin [Neurontin] 300 mg PO TID 08/30/21 22:05 Potassium Chloride [Klor-Con 10] 10 meq PO BID 08/31/21 05:24 CBC WITH AUTO DIFF [HEME] AM COMPREHENSIVE METABOLIC PN,CMP [CHEM] AM DIGOXIN [CHEM] AM MAGNESIUM [CHEM] AM 08/31/21 06:00 Furosemide [Lasix] 40 mg PO BIDDIURETIC 08/31/21 Breakfast Heart Healthy Diet [DIET] 08/31/21 09:00 Gabapentin [Neurontin] 300 mg PO TID Metoprolol Succinate [Toprol XL] 50 mg PO BID Metoprolol Succinate [Toprol XL] 50 mg PO BID PARoxetine [Paxil] 30 mg PO DAILY Potassium Chloride [Potassium Chloride] 10 meq PO BID Rosuvastatin [Crestor] 10 mg PO DAILY Rosuvastatin [Crestor] 10 mg PO DAILY Sucralfate [Carafate] 1 gm PO DAILY Warfarin [Coumadin] 2.5 mg PO DAILY 08/31/21 18:00 Warfarin [Coumadin] 2.5 mg PO DAILY@1800 - Plan Plan:: The patient is an 85-year-old lady who will remain in the ICU due to her RVR. The patient's Cardizem drip will be tapered as her digitalis is on bloated. I started the patient on digitalis 125 mcg. She is also anticoagulated currently with warfarin. I have ordered repeat laboratory studies to include digoxin level. PT OT has been ordered for the patient. I have also ordered consult for physician orthopedic surgery to evaluate patient although this may happen as an outpatient. The patient is to continue her regular diet as tolerated. The patient may be considered for custodial facility placement as she has been having more frequent falls. I have also ordered speech study to help with the patient's possible dysphagia. The patient should be appropriate for discharge in 1 to 2 days.
--- NOTE | 2021-08-31 07:22 | CR ---
Right wrist: 4 views of the right wrist were obtained. Comparison: No prior wrist study is available. Sclerotic area is noted within the distal radius. Findings are suspicious for minimally impacted distal radial fracture. Moderate amount of degenerative change is seen within the CMC joint of the thumb. There is widening of the distance between the navicular bone and lunate bone compatible with previous intercarpal ligament rupture. Mild joint space narrowing is seen within the second MCP joint. Bony structures are osteopenic. Minimal vascular calcification is noted. Impression: 1. Degenerative change, osteopenia and minimal vascular calcification. 2. Findings suspicious for minimally impacted fracture within the distal right radius. Diagnostic code #3
--- NOTE | 2021-08-31 08:23 | CR ---
Right forearm: 2 views of the right forearm were obtained. Comparison: No prior forearm study is available. Current wrist exam is available. Sclerotic area is seen within the distal radius. Difficult to exclude slightly impacted distal radial fracture. Bony structures are osteopenic. Degenerative change is noted within the CMC joint of the thumb. No additional fracture or other abnormality is appreciated. Impression: 1. Slightly impacted fracture again suggested within the distal radius. 2. Other findings within the wrist which were described on wrist exam. 3. Osteopenia with no other acute abnormality is seen. Diagnostic code #3
[2021-08-31] MEDS: Rosuvastatin 10 MG Tab PO SCH (08:27)
[2021-08-31] MEDS: Potassium Chloride 10 MEQ Tab.ER PO SCH ×2 (08:28→20:05)
[2021-08-31] MEDS: PARoxetine 20 MG Tab PO SCH (08:29)
[2021-08-31] MEDS: Gabapentin 300 MG Cap PO SCH ×3 (08:30→21:08)
[2021-08-31] MEDS: Digoxin 125 MCG Tab PO SCH (08:30)
[2021-08-31] MEDS: Metoprolol Succinate 50 MG Tab.ER PO SCH ×2 (08:30→20:06)
[2021-08-31] MEDS ORDERED: Diclofenac Sodium 1% Gel 100 GM Tube TOP SCH (09:00)
[2021-08-31] MEDS ORDERED: Potassium Chloride 10 MEQ Tab.ER PO SCH ×2 (09:00)
[2021-08-31] MEDS ORDERED: Gabapentin 300 MG Cap PO SCH (09:00)
[2021-08-31] MEDS ORDERED: Warfarin 2.5 MG Tab PO SCH (09:00)
[2021-08-31] MEDS ORDERED: Metoprolol Succinate 50 MG Tab.ER PO SCH (09:00)
[2021-08-31] MEDS ORDERED: Rosuvastatin 10 MG Tab PO SCH (09:00)
[2021-08-31] MEDS ORDERED: Potassium Bicarbonate/Cit Ac 10 MEQ Effervescent Tab PO ONE (10:26)
[2021-08-31] MEDS: Sucralfate 1 GM Tab PO SCH (11:03)
[2021-08-31] MEDS: Sodium Chloride 0.9% 1,000 ML IV SCH (12:14)
[2021-08-31] MEDS ORDERED: Magnesium Hydroxide 400 MG/5 ML Susp 30 ML Cup PO PRN (12:50)
[2021-08-31] MEDS ORDERED: Warfarin 3 MG Tab PO SCH (18:00)
[2021-08-31] MEDS: Zolpidem 10 MG Tab PO SCH (21:08)
[2021-08-31] MEDS: oxyCODONE 5 MG Tab PO PRN (23:17)
[2021-09-01] MEDS: Acetaminophen 325 MG Tab PO PRN ×2 (01:47→08:41)
[2021-09-01] MEDS: Sodium Chloride 0.9% 1,000 ML IV SCH (03:05)
[2021-09-01] MEDS: Furosemide 40 MG Tab PO SCH ×2 (06:12→15:09)
[2021-09-01] MEDS: Gabapentin 300 MG Cap PO SCH ×3 (08:41→20:46)
[2021-09-01] MEDS: Digoxin 125 MCG Tab PO SCH (08:41)
[2021-09-01] MEDS: Rosuvastatin 10 MG Tab PO SCH (08:41)
[2021-09-01] MEDS: PARoxetine 20 MG Tab PO SCH (08:41)
[2021-09-01] MEDS: Potassium Chloride 10 MEQ Tab.ER PO SCH ×2 (08:42→20:45)
[2021-09-01] MEDS: Metoprolol Succinate 50 MG Tab.ER PO SCH ×2 (08:42→20:45)
[2021-09-01] MEDS: Sucralfate 1 GM Tab PO SCH (15:09)
--- NOTE | 2021-09-01 16:30 | PCM.PN ---
- General Info Date of Service: 09/01/21 Admission Dx/Problem (Free Text): Admission Diagnosis/Problem Admission Diagnosis/Problem Atrial fibrillation with rapid ventricular response Subjective Update: Patient is an 85-year-old lady who had been admitted to intensive care unit on August 30, 2021 due to atrial fibrillation with rapid ventricular response rate. The patient has been off of Cardizem drip and digoxin seems to be working well for her. The patient is awake and alert. She is denied any pain. She has been tolerating her diet. Currently awaiting evaluation for home health as she does require assistance at home. Functional Status: Reports: Pain Controlled, Tolerating Diet. Denies: New Symptoms - Review of Systems General: Reports: Weakness HEENT: Reports: No Symptoms Pulmonary: Reports: No Symptoms Cardiovascular: Reports: No Symptoms 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: Reports: No Symptoms Genitourinary: Reports: No Symptoms Musculoskeletal: Reports: No Symptoms Skin: Reports: No Symptoms Neurological: Reports: No Symptoms Psychiatric: Reports: No Symptoms - Patient Data Vitals - Most Recent: Last Vital Signs Temp 36.1 C 09/01/21 15:11 Pulse 93 09/01/21 15:11 Resp 20 09/01/21 15:11 BP 146/98 H 09/01/21 15:11 Pulse Ox 97 09/01/21 15:11 Weight - Most Recent: 81.42 kg I&O - Last 24 Hours: Intake & Output 09/01/21 09/01/21 09/01/21 06:59 14:59 22:59 Intake Total 1092 Balance 1092 Lab Results Last 24 Hours: Laboratory Results - last 24 hr 09/01/21 09/01/21 09/01/21 Range/Units 05:05 05:05 05:05 WBC 4.57 (3.98-10.04) K/mm3 RBC 3.77 L (3.98-5.22) M/mm3 Hgb 9.4 L (11.2-15.7) gm/dl Hct 33.2 L (34.1-44.9) % MCV 88.1 (79.4-94.8) fl MCH 24.9 L (25.6-32.2) pg MCHC 28.3 L (32.2-35.5) g/dl RDW Std Deviation 81.1 H (36.4-46.3) fL Plt Count 177 L (182-369) K/mm3 MPV 10.8 (9.4-12.3) fl Neut % (Auto) 57.0 (34.0-71.1) % Lymph % (Auto) 26.0 (19.3-51.7) % Potter % (Auto) 14.2 H (4.7-12.5) % Eos % (Auto) 2.6 (0.7-5.8) Baso % (Auto) 0.2 (0.1-1.2) % Neut # (Auto) 2.60 (1.56-6.13) K/mm3 Lymph # (Auto) 1.19 (1.18-3.74) K/mm3 Potter # (Auto) 0.65 H (0.24-0.36) K/mm3 Eos # (Auto) 0.12 (0.04-0.36) K/mm3 Baso # (Auto) 0.01 (0.01-0.08) K/mm3 Manual Slide Review Abnormal smear PT 15.6 H (9.7-12.0) SECONDS INR 1.42 Sodium 145 (136-145) mEq/L Potassium 3.3 L (3.5-5.1) mEq/L Chloride 112 H (98-107) mEq/L Carbon Dioxide 24 (21-32) mEq/L Anion Gap 12.3 (5-15) BUN 17 (7-18) mg/dL Creatinine 1.3 H (0.55-1.02) mg/dL Est Cr Clr Drug Dosing 23.55 mL/min Estimated GFR (MDRD) 39 (>60) mL/min BUN/Creatinine Ratio 13.1 L (14-18) Glucose 87 (70-99) mg/dL Calcium 7.2 L (8.5-10.1) mg/dL Total Bilirubin 0.5 (0.2-1.0) mg/dL AST 20 (15-37) U/L ALT 21 (14-59) U/L Alkaline Phosphatase 75 (46-116) U/L Total Protein 5.5 L (6.4-8.2) g/dl Albumin 3.0 L (3.4-5.0) g/dl Globulin 2.5 gm/dL Albumin/Globulin Ratio 1.2 (1-2) Digoxin 0.8 L (0.9-2.0) ng/mL Med Orders - Current: Current Medications Acetaminophen (Acetaminophen 325 Mg Tab) 650 mg PO Q4H PRN PRN Reason: Pain (Mild 1-3)/fever Last Admin: 09/01/21 08:41 Dose: 650 mg Documented by: Digoxin (Digoxin 125 Mcg Tab) 125 mcg PO DAILY [facility] Last Admin: 09/01/21 08:41 Dose: 125 mcg Documented by: Docusate Sodium (Docusate Sodium 100 Mg Cap) 100 mg PO BID PRN PRN Reason: Constipation Furosemide (Furosemide 40 Mg Tab) 40 mg PO BIDDIURETIC [facility] Last Admin: 09/01/21 15:09 Dose: 40 mg Documented by: Gabapentin (Gabapentin 300 Mg Cap) 300 mg PO TID [facility] Last Admin: 09/01/21 15:09 Dose: 300 mg Documented by: Diltiazem HCl 100 mg/ Sodium (Chloride) 100 mls @ 5 mls/hr IV TITRATE [facility]; Protocol Last Titration: 08/30/21 21:00 Dose: 0 mg/hr, 0 mls/hr Documented by: Magnesium Hydroxide (Magnesium Hydroxide 400 Mg/5 Ml Susp 30 Ml Cup) 30 ml PO Q4H PRN PRN Reason: Heartburn Last Admin: 08/31/21 13:03 Dose: 30 ml Documented by: Metoprolol Succinate (Metoprolol Succinate 50 Mg Tab.Er) 50 mg PO BID [facility] Last Admin: 09/01/21 08:42 Dose: 50 mg Documented by: Ondansetron HCl (Ondansetron 4 Mg Tab.Dis) 4 mg PO Q6H PRN PRN Reason: nausea, able to take PO Oxycodone HCl (Oxycodone 5 Mg Tab) 5 mg PO Q4H PRN PRN Reason: Pain (moderate 4-6) Last Admin: 08/31/21 23:17 Dose: 5 mg Documented by: Paroxetine HCl (Paroxetine 20 Mg Tab) 20 mg PO DAILY [facility] Last Admin: 09/01/21 08:41 Dose: 20 mg Documented by: Paroxetine HCl (Paroxetine 10 Mg Tab) 10 mg PO DAILY [facility] Last Admin: 09/01/21 08:41 Dose: 10 mg Documented by: Potassium Chloride (Potassium Chloride 10 Meq Tab.Er) 10 meq PO BID [facility] Last Admin: 09/01/21 08:42 Dose: 10 meq Documented by: Rosuvastatin Calcium (Rosuvastatin 10 Mg Tab) 10 mg PO DAILY [facility] Last Admin: 09/01/21 08:41 Dose: 10 mg Documented by: Sucralfate (Sucralfate 1 Gm Tab) 1 gm PO 1200 [facility] Last Admin: 09/01/21 15:09 Dose: 1 gm Documented by: Warfarin Sodium (Pharmacy To Dose - Warfarin) 0 dose PO ASDIRECTED PRN PRN Reason: RX TO DOSE WARFARIN Warfarin Sodium (Warfarin 3 Mg Tab) 3 mg PO QPM [facility] Stop: 09/01/21 18:01 Zolpidem Tartrate (Zolpidem 10 Mg Tab) 10 mg PO BEDTIME [facility] Last Admin: 08/31/21 21:08 Dose: 10 mg Documented by: Discontinued Medications Diclofenac Sodium (Diclofenac Sodium 1% Gel 100 Gm Tube) 0 gm TOP BID [facility] Digoxin (Digoxin 500 Mcg/2 Ml Amp) 250 mcg IVPUSH ONETIME ONE Stop: 08/30/21 16:36 Last Admin: 08/30/21 17:09 Dose: 250 mcg Documented by: Digoxin (Digoxin 500 Mcg/2 Ml Amp) 125 mcg IVPUSH ONETIME ONE Stop: 08/30/21 18:31 Last Admin: 08/30/21 19:11 Dose: 125 mcg Documented by: Diltiazem HCl (Diltiazem 50 Mg/10 Ml Sdv) 5 mg IVPUSH ONETIME ONE Stop: 08/30/21 15:11 Last Admin: 08/30/21 15:15 Dose: 5 mg Documented by: Diltiazem HCl (Diltiazem 50 Mg/10 Ml Sdv) 5 mg IVPUSH ONETIME ONE Stop: 08/30/21 15:45 Last Admin: 08/30/21 21:49 Dose: Not Given Documented by: Diltiazem HCl (Diltiazem 50 Mg/10 Ml Sdv) 5 mg IVPUSH ONETIME ONE Stop: 08/30/21 18:23 Last Admin: 08/30/21 18:54 Dose: 5 mg Documented by: Furosemide (Furosemide 40 Mg/4 Ml Vial) 40 mg IVPUSH NOW ONE Stop: 08/30/21 16:54 Last Admin: 08/30/21 17:08 Dose: 40 mg Documented by: Gabapentin (Gabapentin 300 Mg Cap) 300 mg PO TID [facility] Dextrose/Sodium Chloride (Dextrose 5%-Normal Saline) 1,000 mls @ 125 mls/hr IV ASDIRECTED [facility] Last Admin: 08/30/21 15:12 Dose: 125 mls/hr Documented by: Sodium Chloride (Normal Saline) 1,000 mls @ 75 mls/hr IV ASDIRECTED [facility] Last Admin: 09/01/21 03:05 Dose: 75 mls/hr Documented by: Metoclopramide HCl (Metoclopramide 10 Mg/2 Ml Sdv) 5 mg IVPUSH ONETIME ONE Stop: 08/30/21 14:55 Last Admin: 08/30/21 15:12 Dose: 5 mg Documented by: Metoprolol Succinate (Metoprolol Succinate 50 Mg Tab.Er) 50 mg PO BID [facility] Potassium Bicarbonate (Potassium Bicarbonate/Cit Ac 10 Meq Effervescent Tab) 10 meq PO ONETIME ONE Stop: 08/31/21 10:27 Last Admin: 08/31/21 11:03 Dose: 10 meq Documented by: Potassium Chloride (Potassium Chloride 10 Meq Tab.Er) 10 meq PO BID [facility] Potassium Chloride (Potassium Chloride 10 Meq Tab.Er) 10 meq PO BID [facility] Rosuvastatin Calcium (Rosuvastatin 10 Mg Tab) 10 mg PO DAILY [facility] Temazepam (Temazepam 15 Mg Cap) 15 mg PO BEDTIME PRN PRN Reason: Sleep Last Admin: 08/30/21 22:34 Dose: 15 mg Documented by: Warfarin Sodium (Warfarin 3 Mg Tab) 3 mg PO QPM [facility] Stop: 08/31/21 18:01 Last Admin: 08/31/21 18:24 Dose: 3 mg Documented by: Warfarin Sodium (Warfarin 2.5 Mg Tab) 2.5 mg PO DAILY [facility] - Exam Quality Assessment: Supplemental Oxygen, DVT Prophylaxis (On warfarin) General: Alert, Oriented, Cooperative HEENT: Pupils Equal, Pupils Reactive, EOMI Neck: Supple, Trachea Midline Lungs: Clear to Auscultation, Normal Respiratory Effort Cardiovascular: Regular Rate, Irregular Rhythm GI/Abdominal Exam: Normal Bowel Sounds, Soft, Non-Tender, No Distention (Female) Exam: Deferred Back Exam: Normal Inspection, Full Range of Motion Extremities: Normal Inspection, Normal Range of Motion, No Pedal Edema Skin: Warm, Dry, Intact Neurological: No New Focal Deficit Psy/Mental Status: Alert, Normal Affect - Patient Data Lab Results Last 24 hrs: Laboratory Results - last 24 hr 09/01/21 09/01/21 09/01/21 Range/Units 05:05 05:05 05:05 WBC 4.57 (3.98-10.04) K/mm3 RBC 3.77 L (3.98-5.22) M/mm3 Hgb 9.4 L (11.2-15.7) gm/dl Hct 33.2 L (34.1-44.9) % MCV 88.1 (79.4-94.8) fl MCH 24.9 L (25.6-32.2) pg MCHC 28.3 L (32.2-35.5) g/dl RDW Std Deviation 81.1 H (36.4-46.3) fL Plt Count 177 L (182-369) K/mm3 MPV 10.8 (9.4-12.3) fl Neut % (Auto) 57.0 (34.0-71.1) % Lymph % (Auto) 26.0 (19.3-51.7) % Potter % (Auto) 14.2 H (4.7-12.5) % Eos % (Auto) 2.6 (0.7-5.8) Baso % (Auto) 0.2 (0.1-1.2) % Neut # (Auto) 2.60 (1.56-6.13) K/mm3 Lymph # (Auto) 1.19 (1.18-3.74) K/mm3 Potter # (Auto) 0.65 H (0.24-0.36) K/mm3 Eos # (Auto) 0.12 (0.04-0.36) K/mm3 Baso # (Auto) 0.01 (0.01-0.08) K/mm3 Manual Slide Review Abnormal smear PT 15.6 H (9.7-12.0) SECONDS INR 1.42 Sodium 145 (136-145) mEq/L Potassium 3.3 L (3.5-5.1) mEq/L Chloride 112 H (98-107) mEq/L Carbon Dioxide 24 (21-32) mEq/L Anion Gap 12.3 (5-15) BUN 17 (7-18) mg/dL Creatinine 1.3 H (0.55-1.02) mg/dL Est Cr Clr Drug Dosing 23.55 mL/min Estimated GFR (MDRD) 39 (>60) mL/min BUN/Creatinine Ratio 13.1 L (14-18) Glucose 87 (70-99) mg/dL Calcium 7.2 L (8.5-10.1) mg/dL Total Bilirubin 0.5 (0.2-1.0) mg/dL AST 20 (15-37) U/L ALT 21 (14-59) U/L Alkaline Phosphatase 75 (46-116) U/L Total Protein 5.5 L (6.4-8.2) g/dl Albumin 3.0 L (3.4-5.0) g/dl Globulin 2.5 gm/dL Albumin/Globulin Ratio 1.2 (1-2) Digoxin 0.8 L (0.9-2.0) ng/mL Result Diagrams: 09/01/21 05:05 09/01/21 05:05 Sepsis Event Note - Evaluation Sepsis Screening Result: No Definite Risk - Focused Exam Vital Signs: Vital Signs Temp Pulse Pulse Resp BP BP Pulse Ox 09/01/21 15:11 36.1 C 93 20 146/98 H 97 09/01/21 14:00 95 09/01/21 13:00 96 09/01/21 12:00 96 09/01/21 11:00 93 L 09/01/21 10:00 94 L 09/01/21 09:00 97 09/01/21 08:42 86 123/85 94 L 09/01/21 08:41 76 99 09/01/21 08:00 36.1 C 87 16 92 L 09/01/21 07:00 93 L 09/01/21 06:00 90 L 09/01/21 05:00 93 L 09/01/21 04:50 109/79 93 L 09/01/21 04:49 91 L - Problem List & Annotations (1) Chronic atrial fibrillation with RVR SNOMED Code(s): 662213299, 729831588661753 Code(s): I48.20 - CHRONIC ATRIAL FIBRILLATION, UNSPECIFIED Status: Chronic Priority: High Current Visit: Yes (2) Congestive heart failure SNOMED Code(s): 83386714 Code(s): I50.9 - HEART FAILURE, UNSPECIFIED Status: Chronic Priority: High Current Visit: Yes Qualifiers: Heart failure type: unspecified Heart failure chronicity: chronic Qualified Code(s): I50.9 - Heart failure, unspecified (3) Fracture, radius, distal SNOMED Code(s): 649765708 Code(s): S52.509A - UNSP FRACTURE OF THE LOWER END OF UNSP RADIUS, INIT Status: Acute Priority: High Current Visit: Yes Qualifiers: Encounter type: subsequent encounter Fracture type: closed Fracture morphology: Colles' Laterality: right Fracture healing: with routine healing Qualified Code(s): S52.531D - Colles' fracture of right radius, subsequent encounter for closed fracture with routine healing (4) Orthostatic hypotension SNOMED Code(s): 09131221 Code(s): I95.1 - ORTHOSTATIC HYPOTENSION Status: Acute Priority: High Current Visit: Yes (5) Recurrent syncope SNOMED Code(s): 351121705, 067023892, 572185372 Code(s): R55 - SYNCOPE AND COLLAPSE Status: Acute Priority: High Current Visit: Yes - Problem List Review Problem List Initiated/Reviewed/Updated: Yes - My Orders Last 24 Hours: My Active Orders 08/31/21 21:00 Zolpidem [Ambien] 10 mg PO BEDTIME 09/01/21 08:28 Consult to Home Health [CONS] Routine 09/01/21 11:00 Patient Status [ADT] Routine 09/01/21 18:00 Warfarin [Coumadin] 3 mg PO QPM 09/02/21 05:11 INR,PT,PROTHROMBIN TIME [COAG] AM 09/03/21 05:11 INR,PT,PROTHROMBIN TIME [COAG] AM 09/04/21 05:11 INR,PT,PROTHROMBIN TIME [COAG] AM - Plan Plan:: The patient is an 85-year-old lady who will remain in the ICU due to her RVR. The patient's Cardizem drip will be tapered as her digitalis is on bloated. I started the patient on digitalis 125 mcg. She is also anticoagulated currently with warfarin. I have ordered repeat laboratory studies to include digoxin level. PT OT has been ordered for the patient. I have also ordered consult for physician orthopedic surgery to evaluate patient although this may happen as an outpatient. The patient is to continue her regular diet as tolerated. The patient may be considered for senior living facility placement as she has been having more frequent falls. I have also ordered speech study to help with the patient's possible dysphagia. The patient should be appropriate for discharge in 1 to 2 days. 09/01/2021 Patient is an 85-year-old lady who has improved somewhat and her A. fib with RVR has normalized. She is currently on digoxin and this will continue. The patient will remain in ICU as monitoring for necessity for return to Cardizem drip. This will happen if the patient does go into RVR. Have ordered repeat laboratory studies for the morning to include a digoxin level. PT OT is currently pending for the patient. The patient will likely need to have follow-up with home health and this is also been ordered. For now the patient will need to have follow-up with orthopedic surgeon with regards to her right wrist fracture. The patient is to have her regular diet as tolerated. She should be appropriate for discharge in 2 days.
[2021-09-01] MEDS ORDERED: Warfarin 3 MG Tab PO SCH (18:00)
[2021-09-01] MEDS: oxyCODONE 5 MG Tab PO PRN (19:27)
[2021-09-01] MEDS: Zolpidem 10 MG Tab PO SCH (20:46)
[2021-09-02] MEDS: oxyCODONE 5 MG Tab PO PRN ×3 (00:50→20:22)
[2021-09-02] MEDS: Furosemide 40 MG Tab PO SCH ×2 (07:05→14:26)
--- NOTE | 2021-09-02 07:31 | PCM.PN ---
- General Info Date of Service: 09/02/21 Admission Dx/Problem (Free Text): Admission Diagnosis/Problem Admission Diagnosis/Problem Atrial fibrillation with rapid ventricular response Subjective Update: Patient is an 85-year-old lady who had been admitted on August 30, 2021 due to atrial fibrillation with rapid ventricular response rate she has been downgraded from ICU. The patient has been tolerating digoxin seems to be working well for her. The patient is awake and alert. She is having pain in her right wrist and thinks her dressing is too tight.. She has been tolerating her diet. Currently awaiting evaluation for home health as she does require assistance at home. Functional Status: Reports: Pain Controlled, Tolerating Diet - Review of Systems General: Reports: No Symptoms HEENT: Reports: No Symptoms Pulmonary: Reports: No Symptoms Cardiovascular: Reports: No Symptoms 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: Reports: No Symptoms Genitourinary: Reports: No Symptoms Musculoskeletal: Reports: No Symptoms Skin: Reports: No Symptoms Neurological: Reports: No Symptoms Psychiatric: Reports: No Symptoms - Patient Data Vitals - Most Recent: Last Vital Signs Temp 37.1 C 09/02/21 04:00 Pulse 98 09/02/21 04:00 Resp 16 09/02/21 04:00 BP 124/71 09/02/21 04:00 Pulse Ox 95 09/02/21 04:00 Weight - Most Recent: 80.331 kg I&O - Last 24 Hours: Intake & Output 09/01/21 09/02/21 09/02/21 22:59 06:59 14:59 Intake Total 390 600 Balance 390 600 Lab Results Last 24 Hours: Laboratory Results - last 24 hr 09/02/21 09/02/21 09/02/21 Range/Units 04:45 04:45 04:45 WBC 6.21 (3.98-10.04) K/mm3 RBC 4.20 (3.98-5.22) M/mm3 Hgb 10.6 L (11.2-15.7) gm/dl Hct 37.1 (34.1-44.9) % MCV 88.3 (79.4-94.8) fl MCH 25.2 L (25.6-32.2) pg MCHC 28.6 L (32.2-35.5) g/dl RDW Std Deviation TNP Plt Count 158 L (182-369) K/mm3 MPV 9.9 (9.4-12.3) fl Neut % (Auto) 74.1 H (34.0-71.1) % Lymph % (Auto) 13.8 L (19.3-51.7) % [place] % (Auto) 11.3 (4.7-12.5) % Eos % (Auto) 0.6 L (0.7-5.8) Baso % (Auto) 0.2 (0.1-1.2) % Neut # (Auto) 4.60 (1.56-6.13) K/mm3 Lymph # (Auto) 0.86 L (1.18-3.74) K/mm3 [place] # (Auto) 0.70 H (0.24-0.36) K/mm3 Eos # (Auto) 0.04 (0.04-0.36) K/mm3 Baso # (Auto) 0.01 (0.01-0.08) K/mm3 Manual Slide Review Abnormal smear PT 15.6 H (9.7-12.0) SECONDS INR 1.42 Sodium 143 (136-145) mEq/L Potassium 3.3 L (3.5-5.1) mEq/L Chloride 107 (98-107) mEq/L Carbon Dioxide 26 (21-32) mEq/L Anion Gap 13.3 (5-15) BUN 13 (7-18) mg/dL Creatinine 1.1 H (0.55-1.02) mg/dL Est Cr Clr Drug Dosing 27.83 mL/min Estimated GFR (MDRD) 47 (>60) mL/min BUN/Creatinine Ratio 11.8 L (14-18) Glucose 111 H (70-99) mg/dL Calcium 7.6 L (8.5-10.1) mg/dL Magnesium 1.9 (1.8-2.4) mg/dL Total Bilirubin 0.8 (0.2-1.0) mg/dL AST 17 (15-37) U/L ALT 11 L (14-59) U/L Alkaline Phosphatase 79 (46-116) U/L Total Protein 5.9 L (6.4-8.2) g/dl Albumin 3.2 L (3.4-5.0) g/dl Globulin 2.7 gm/dL Albumin/Globulin Ratio 1.2 (1-2) Med Orders - Current: Current Medications Acetaminophen (Acetaminophen 325 Mg Tab) 650 mg PO Q4H PRN PRN Reason: Pain (Mild 1-3)/fever Last Admin: 09/01/21 08:41 Dose: 650 mg Documented by: Digoxin (Digoxin 125 Mcg Tab) 125 mcg PO DAILY [facility] Last Admin: 09/01/21 08:41 Dose: 125 mcg Documented by: Docusate Sodium (Docusate Sodium 100 Mg Cap) 100 mg PO BID PRN PRN Reason: Constipation Furosemide (Furosemide 40 Mg Tab) 40 mg PO BIDDIURETIC [facility] Last Admin: 09/02/21 07:05 Dose: 40 mg Documented by: Gabapentin (Gabapentin 300 Mg Cap) 300 mg PO TID [facility] Last Admin: 09/01/21 20:46 Dose: 300 mg Documented by: Diltiazem HCl 100 mg/ Sodium (Chloride) 100 mls @ 5 mls/hr IV TITRATE [facility]; Protocol Last Titration: 08/30/21 21:00 Dose: 0 mg/hr, 0 mls/hr Documented by: Magnesium Hydroxide (Magnesium Hydroxide 400 Mg/5 Ml Susp 30 Ml Cup) 30 ml PO Q4H PRN PRN Reason: Heartburn Last Admin: 08/31/21 13:03 Dose: 30 ml Documented by: Metoprolol Succinate (Metoprolol Succinate 50 Mg Tab.Er) 50 mg PO BID [facility] Last Admin: 09/01/21 20:45 Dose: 50 mg Documented by: Ondansetron HCl (Ondansetron 4 Mg Tab.Dis) 4 mg PO Q6H PRN PRN Reason: nausea, able to take PO Oxycodone HCl (Oxycodone 5 Mg Tab) 5 mg PO Q4H PRN PRN Reason: Pain (moderate 4-6) Last Admin: 09/02/21 00:50 Dose: 5 mg Documented by: Paroxetine HCl (Paroxetine 20 Mg Tab) 20 mg PO DAILY [facility] Last Admin: 09/01/21 08:41 Dose: 20 mg Documented by: Paroxetine HCl (Paroxetine 10 Mg Tab) 10 mg PO DAILY [facility] Last Admin: 09/01/21 08:41 Dose: 10 mg Documented by: Potassium Chloride (Potassium Chloride 20 Meq Tab.Er) 20 meq PO BID [facility] Rosuvastatin Calcium (Rosuvastatin 10 Mg Tab) 10 mg PO DAILY [facility] Last Admin: 09/01/21 08:41 Dose: 10 mg Documented by: Sucralfate (Sucralfate 1 Gm Tab) 1 gm PO 1200 [facility] Last Admin: 09/01/21 15:09 Dose: 1 gm Documented by: Warfarin Sodium (Pharmacy To Dose - Warfarin) 0 dose PO ASDIRECTED PRN PRN Reason: RX TO DOSE WARFARIN Zolpidem Tartrate (Zolpidem 10 Mg Tab) 10 mg PO BEDTIME [facility] Last Admin: 09/01/21 20:46 Dose: 10 mg Documented by: Discontinued Medications Diclofenac Sodium (Diclofenac Sodium 1% Gel 100 Gm Tube) 0 gm TOP BID [facility] Digoxin (Digoxin 500 Mcg/2 Ml Amp) 250 mcg IVPUSH ONETIME ONE Stop: 08/30/21 16:36 Last Admin: 08/30/21 17:09 Dose: 250 mcg Documented by: Digoxin (Digoxin 500 Mcg/2 Ml Amp) 125 mcg IVPUSH ONETIME ONE Stop: 08/30/21 18:31 Last Admin: 08/30/21 19:11 Dose: 125 mcg Documented by: Diltiazem HCl (Diltiazem 50 Mg/10 Ml Sdv) 5 mg IVPUSH ONETIME ONE Stop: 08/30/21 15:11 Last Admin: 08/30/21 15:15 Dose: 5 mg Documented by: Diltiazem HCl (Diltiazem 50 Mg/10 Ml Sdv) 5 mg IVPUSH ONETIME ONE Stop: 08/30/21 15:45 Last Admin: 08/30/21 21:49 Dose: Not Given Documented by: Diltiazem HCl (Diltiazem 50 Mg/10 Ml Sdv) 5 mg IVPUSH ONETIME ONE Stop: 08/30/21 18:23 Last Admin: 08/30/21 18:54 Dose: 5 mg Documented by: Furosemide (Furosemide 40 Mg/4 Ml Vial) 40 mg IVPUSH NOW ONE Stop: 08/30/21 16:54 Last Admin: 08/30/21 17:08 Dose: 40 mg Documented by: Gabapentin (Gabapentin 300 Mg Cap) 300 mg PO TID [facility] Dextrose/Sodium Chloride (Dextrose 5%-Normal Saline) 1,000 mls @ 125 mls/hr IV ASDIRECTED [facility] Last Admin: 08/30/21 15:12 Dose: 125 mls/hr Documented by: Sodium Chloride (Normal Saline) 1,000 mls @ 75 mls/hr IV ASDIRECTED [facility] Last Admin: 09/01/21 03:05 Dose: 75 mls/hr Documented by: Metoclopramide HCl (Metoclopramide 10 Mg/2 Ml Sdv) 5 mg IVPUSH ONETIME ONE Stop: 08/30/21 14:55 Last Admin: 08/30/21 15:12 Dose: 5 mg Documented by: Metoprolol Succinate (Metoprolol Succinate 50 Mg Tab.Er) 50 mg PO BID [facility] Potassium Bicarbonate (Potassium Bicarbonate/Cit Ac 10 Meq Effervescent Tab) 10 meq PO ONETIME ONE Stop: 08/31/21 10:27 Last Admin: 08/31/21 11:03 Dose: 10 meq Documented by: Potassium Chloride (Potassium Chloride 10 Meq Tab.Er) 10 meq PO BID [facility] Potassium Chloride (Potassium Chloride 10 Meq Tab.Er) 10 meq PO BID [facility] Last Admin: 09/01/21 20:45 Dose: 10 meq Documented by: Potassium Chloride (Potassium Chloride 10 Meq Tab.Er) 10 meq PO BID [facility] Rosuvastatin Calcium (Rosuvastatin 10 Mg Tab) 10 mg PO DAILY [facility] Temazepam (Temazepam 15 Mg Cap) 15 mg PO BEDTIME PRN PRN Reason: Sleep Last Admin: 08/30/21 22:34 Dose: 15 mg Documented by: Warfarin Sodium (Warfarin 3 Mg Tab) 3 mg PO QPM [facility] Stop: 08/31/21 18:01 Last Admin: 08/31/21 18:24 Dose: 3 mg Documented by: Warfarin Sodium (Warfarin 2.5 Mg Tab) 2.5 mg PO DAILY [facility] Warfarin Sodium (Warfarin 3 Mg Tab) 3 mg PO QPM [facility] Stop: 09/01/21 18:01 Last Admin: 09/01/21 18:10 Dose: 3 mg Documented by: - Exam Quality Assessment: DVT Prophylaxis. No: Supplemental Oxygen General: Alert, Oriented, Cooperative, No Acute Distress HEENT: Pupils Equal, Pupils Reactive, EOMI Neck: Supple, Trachea Midline Lungs: Clear to Auscultation, Normal Respiratory Effort Cardiovascular: Regular Rate, Regular Rhythm GI/Abdominal Exam: Normal Bowel Sounds, Soft, Non-Tender, No Distention (Female) Exam: Deferred Back Exam: Normal Inspection, Full Range of Motion Extremities: Non-Tender. No: Normal Inspection (Right radial fracture in cast) Skin: Warm, Dry, Intact Neurological: No New Focal Deficit Psy/Mental Status: Alert, Normal Affect, Normal Mood - Patient Data Lab Results Last 24 hrs: Laboratory Results - last 24 hr 09/02/21 09/02/21 09/02/21 Range/Units 04:45 04:45 04:45 WBC 6.21 (3.98-10.04) K/mm3 RBC 4.20 (3.98-5.22) M/mm3 Hgb 10.6 L (11.2-15.7) gm/dl Hct 37.1 (34.1-44.9) % MCV 88.3 (79.4-94.8) fl MCH 25.2 L (25.6-32.2) pg MCHC 28.6 L (32.2-35.5) g/dl RDW Std Deviation TNP Plt Count 158 L (182-369) K/mm3 MPV 9.9 (9.4-12.3) fl Neut % (Auto) 74.1 H (34.0-71.1) % Lymph % (Auto) 13.8 L (19.3-51.7) % [place] % (Auto) 11.3 (4.7-12.5) % Eos % (Auto) 0.6 L (0.7-5.8) Baso % (Auto) 0.2 (0.1-1.2) % Neut # (Auto) 4.60 (1.56-6.13) K/mm3 Lymph # (Auto) 0.86 L (1.18-3.74) K/mm3 [place] # (Auto) 0.70 H (0.24-0.36) K/mm3 Eos # (Auto) 0.04 (0.04-0.36) K/mm3 Baso # (Auto) 0.01 (0.01-0.08) K/mm3 Manual Slide Review Abnormal smear PT 15.6 H (9.7-12.0) SECONDS INR 1.42 Sodium 143 (136-145) mEq/L Potassium 3.3 L (3.5-5.1) mEq/L Chloride 107 (98-107) mEq/L Carbon Dioxide 26 (21-32) mEq/L Anion Gap 13.3 (5-15) BUN 13 (7-18) mg/dL Creatinine 1.1 H (0.55-1.02) mg/dL Est Cr Clr Drug Dosing 27.83 mL/min Estimated GFR (MDRD) 47 (>60) mL/min BUN/Creatinine Ratio 11.8 L (14-18) Glucose 111 H (70-99) mg/dL Calcium 7.6 L (8.5-10.1) mg/dL Magnesium 1.9 (1.8-2.4) mg/dL Total Bilirubin 0.8 (0.2-1.0) mg/dL AST 17 (15-37) U/L ALT 11 L (14-59) U/L Alkaline Phosphatase 79 (46-116) U/L Total Protein 5.9 L (6.4-8.2) g/dl Albumin 3.2 L (3.4-5.0) g/dl Globulin 2.7 gm/dL Albumin/Globulin Ratio 1.2 (1-2) Result Diagrams: 09/02/21 04:45 09/02/21 04:45 Sepsis Event Note - Evaluation Sepsis Screening Result: No Definite Risk - Focused Exam Vital Signs: Vital Signs Temp Pulse Pulse Resp BP BP Pulse Ox 09/02/21 04:00 37.1 C 98 16 124/71 95 09/02/21 02:00 99 09/02/21 00:00 37.2 C 16 126/84 97 09/01/21 20:45 85 112/68 09/01/21 19:55 37.2 C 16 91/70 95 - Problem List & Annotations (1) Chronic atrial fibrillation with RVR SNOMED Code(s): 147696327, 332496652688495 Code(s): I48.20 - CHRONIC ATRIAL FIBRILLATION, UNSPECIFIED Status: Chronic Priority: High Current Visit: Yes (2) Congestive heart failure SNOMED Code(s): 71507579 Code(s): I50.9 - HEART FAILURE, UNSPECIFIED Status: Chronic Priority: High Current Visit: Yes Qualifiers: Heart failure type: unspecified Heart failure chronicity: chronic Qualified Code(s): I50.9 - Heart failure, unspecified (3) Fracture, radius, distal SNOMED Code(s): 901957403 Code(s): S52.509A - UNSP FRACTURE OF THE LOWER END OF UNSP RADIUS, INIT Status: Acute Priority: High Current Visit: Yes Qualifiers: Encounter type: subsequent encounter Fracture type: closed Fracture morphology: Colles' Laterality: right Fracture healing: with routine healing Qualified Code(s): S52.531D - Colles' fracture of right radius, subsequent encounter for closed fracture with routine healing (4) Orthostatic hypotension SNOMED Code(s): 74373457 Code(s): I95.1 - ORTHOSTATIC HYPOTENSION Status: Acute Priority: High Current Visit: Yes (5) Recurrent syncope SNOMED Code(s): 519322778, 751928083, 072237710 Code(s): R55 - SYNCOPE AND COLLAPSE Status: Acute Priority: High Current Visit: Yes - Problem List Review Problem List Initiated/Reviewed/Updated: Yes - My Orders Last 24 Hours: My Active Orders 09/01/21 08:28 Consult to Home Health [CONS] Routine 09/01/21 11:00 Patient Status [ADT] Routine 09/02/21 09:00 Potassium Chloride [Klor-Con M20] 20 meq PO BID 09/03/21 05:11 INR,PT,PROTHROMBIN TIME [COAG] AM 09/04/21 05:11 INR,PT,PROTHROMBIN TIME [COAG] AM - Plan Plan:: The patient is an 85-year-old lady who will remain in the ICU due to her RVR. The patient's Cardizem drip will be tapered as her digitalis is on bloated. I started the patient on digitalis 125 mcg. She is also anticoagulated currently with warfarin. I have ordered repeat laboratory studies to include digoxin level. PT OT has been ordered for the patient. I have also ordered consult for physician orthopedic surgery to evaluate patient although this may happen as an outpatient. The patient is to continue her regular diet as tolerated. The patient may be considered for [facility] facility placement as she has been having more frequent falls. I have also ordered speech study to help with the patient's possible dysphagia. The patient should be appropriate for discharge in 1 to 2 days. 09/01/2021 Patient is an 85-year-old lady who has improved somewhat and her A. fib with RVR has normalized. She is currently on digoxin and this will continue. The patient will remain in ICU as monitoring for necessity for return to Cardizem drip. This will happen if the patient does go into RVR. Have ordered repeat laboratory studies for the morning to include a digoxin level. PT OT is currently pending for the patient. The patient will likely need to have follow-up with home health and this is also been ordered. For now the patient will need to have follow-up with orthopedic surgeon with regards to her right wrist fracture. The patient is to have her regular diet as tolerated. She should be appropriate for discharge in 2 days. 09/02/2021 The patient is an 85-year-old lady who is currently awaiting placement. Her rate has been controlled although she remains in atrial fibrillation. She is also on digoxin and even though the digoxin level has been low the patient has been rate controlled. Her current dose of digoxin 125 mcg will be continued. PT OT will evaluate the patient. Patient should have home health organized for possible discharge tomorrow. The patient will need to have follow-up with orthopedic surgeon. I have also ordered repeat laboratory studies for her. This will include a digoxin level. I am concerned that the patient has had more frequent falls. This may interfere with her ability to get around at home. It is likely that the patient had been in atrial fibrillation and had undergone RVR which caused the patient to be dizzy and lightheaded and fall. The patient is also anticoagulated on warfarin for DVT prophylaxis.
[2021-09-02] MEDS: Rosuvastatin 10 MG Tab PO SCH (08:19)
[2021-09-02] MEDS: Metoprolol Succinate 50 MG Tab.ER PO SCH ×2 (08:19→20:20)
[2021-09-02] MEDS: Digoxin 125 MCG Tab PO SCH (08:20)
[2021-09-02] MEDS: PARoxetine 20 MG Tab PO SCH (08:21)
[2021-09-02] MEDS: Gabapentin 300 MG Cap PO SCH ×3 (08:21→20:20)
[2021-09-02] MEDS: Potassium Chloride 20 MEQ Tab.ER PO SCH ×2 (08:30→20:21)
[2021-09-02] MEDS: Sucralfate 1 GM Tab PO SCH (11:06)
[2021-09-02] MEDS ORDERED: Warfarin 4 MG Tab PO SCH (18:00)
[2021-09-02] MEDS: Zolpidem 10 MG Tab PO SCH (21:22)
[2021-09-03] MEDS: Acetaminophen 325 MG Tab PO PRN (04:38)
[2021-09-03] MEDS: Furosemide 40 MG Tab PO SCH ×2 (07:13→14:28)
[2021-09-03] MEDS: Metoprolol Succinate 50 MG Tab.ER PO SCH ×2 (09:49→21:07)
[2021-09-03] MEDS: Gabapentin 300 MG Cap PO SCH ×3 (09:49→21:07)
[2021-09-03] MEDS: PARoxetine 20 MG Tab PO SCH (09:49)
[2021-09-03] MEDS: Potassium Chloride 20 MEQ Tab.ER PO SCH ×2 (09:50→21:11)
[2021-09-03] MEDS: Digoxin 125 MCG Tab PO SCH (09:50)
[2021-09-03] MEDS: Rosuvastatin 10 MG Tab PO SCH (09:50)
[2021-09-03] MEDS: Sucralfate 1 GM Tab PO SCH (11:59)
--- NOTE | 2021-09-03 12:37 | PCM.PN ---
- General Info Date of Service: 09/03/21 Admission Dx/Problem (Free Text): Admission Diagnosis/Problem Admission Diagnosis/Problem Atrial fibrillation with rapid ventricular response, Fracture right wrist, closed Subjective Update: Patient is an 85-year-old lady who had been admitted on August 30, 2021 due to atrial fibrillation with rapid ventricular response. The patient has been doing well and her rate has been controlled. The patient has been tolerating digoxin seems to be working well for her. The patient has no pain today. She has been tolerating her diet. Currently awaiting evaluation for home health as she does require assistance at home. Functional Status: Reports: Pain Controlled, Tolerating Diet - Review of Systems General: Reports: Weakness, Fatigue HEENT: Reports: No Symptoms Pulmonary: Reports: No Symptoms Cardiovascular: Reports: No Symptoms 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: Reports: No Symptoms Genitourinary: Reports: No Symptoms Musculoskeletal: Reports: No Symptoms Skin: Reports: No Symptoms Neurological: Reports: No Symptoms Psychiatric: Reports: No Symptoms - Patient Data Vitals - Most Recent: Last Vital Signs Temp 36.2 C 09/03/21 12:00 Pulse 99 09/03/21 09:50 Resp 16 09/03/21 12:00 BP 98/82 09/03/21 12:00 Pulse Ox 98 09/03/21 12:00 Weight - Most Recent: 81.057 kg I&O - Last 24 Hours: Intake & Output 09/02/21 09/03/21 09/03/21 22:59 06:59 14:59 Intake Total 1450 500 Output Total 100 200 Balance 1450 400 -200 Lab Results Last 24 Hours: Laboratory Results - last 24 hr 09/03/21 Range/Units 05:10 PT 14.8 H (9.7-12.0) SECONDS INR 1.35 Med Orders - Current: Current Medications Acetaminophen (Acetaminophen 325 Mg Tab) 650 mg PO Q4H PRN PRN Reason: Pain (Mild 1-3)/fever Last Admin: 09/03/21 04:38 Dose: 650 mg Documented by: Digoxin (Digoxin 125 Mcg Tab) 125 mcg PO DAILY [facility] Last Admin: 09/03/21 09:50 Dose: 125 mcg Documented by: Docusate Sodium (Docusate Sodium 100 Mg Cap) 100 mg PO BID PRN PRN Reason: Constipation Furosemide (Furosemide 40 Mg Tab) 40 mg PO BIDDIURETIC [facility] Last Admin: 09/03/21 07:13 Dose: 40 mg Documented by: Gabapentin (Gabapentin 300 Mg Cap) 300 mg PO TID [facility] Last Admin: 09/03/21 09:49 Dose: 300 mg Documented by: Diltiazem HCl 100 mg/ Sodium (Chloride) 100 mls @ 5 mls/hr IV TITRATE [facility]; Protocol Last Titration: 08/30/21 21:00 Dose: 0 mg/hr, 0 mls/hr Documented by: Magnesium Hydroxide (Magnesium Hydroxide 400 Mg/5 Ml Susp 30 Ml Cup) 30 ml PO Q4H PRN PRN Reason: Heartburn Last Admin: 08/31/21 13:03 Dose: 30 ml Documented by: Metoprolol Succinate (Metoprolol Succinate 50 Mg Tab.Er) 50 mg PO BID [facility] Last Admin: 09/03/21 09:49 Dose: 50 mg Documented by: Ondansetron HCl (Ondansetron 4 Mg Tab.Dis) 4 mg PO Q6H PRN PRN Reason: nausea, able to take PO Oxycodone HCl (Oxycodone 5 Mg Tab) 5 mg PO Q4H PRN PRN Reason: Pain (moderate 4-6) Last Admin: 09/02/21 20:22 Dose: 5 mg Documented by: Paroxetine HCl (Paroxetine 20 Mg Tab) 20 mg PO DAILY [facility] Last Admin: 09/03/21 09:49 Dose: 20 mg Documented by: Paroxetine HCl (Paroxetine 10 Mg Tab) 10 mg PO DAILY [facility] Last Admin: 09/03/21 09:49 Dose: 10 mg Documented by: Potassium Chloride (Potassium Chloride 20 Meq Tab.Er) 20 meq PO BID [facility] Last Admin: 09/03/21 09:50 Dose: 20 meq Documented by: Rosuvastatin Calcium (Rosuvastatin 10 Mg Tab) 10 mg PO DAILY [facility] Last Admin: 09/03/21 09:50 Dose: 10 mg Documented by: Sucralfate (Sucralfate 1 Gm Tab) 1 gm PO 1200 [facility] Last Admin: 09/03/21 11:59 Dose: 1 gm Documented by: Warfarin Sodium (Pharmacy To Dose - Warfarin) 0 dose PO ASDIRECTED PRN PRN Reason: RX TO DOSE WARFARIN Warfarin Sodium (Warfarin 5 Mg Tab) 5 mg PO QPM [facility] Stop: 09/03/21 18:01 Zolpidem Tartrate (Zolpidem 10 Mg Tab) 10 mg PO BEDTIME [facility] Last Admin: 09/02/21 21:22 Dose: 10 mg Documented by: Discontinued Medications Diclofenac Sodium (Diclofenac Sodium 1% Gel 100 Gm Tube) 0 gm TOP BID [facility] Digoxin (Digoxin 500 Mcg/2 Ml Amp) 250 mcg IVPUSH ONETIME ONE Stop: 08/30/21 16:36 Last Admin: 08/30/21 17:09 Dose: 250 mcg Documented by: Digoxin (Digoxin 500 Mcg/2 Ml Amp) 125 mcg IVPUSH ONETIME ONE Stop: 08/30/21 18:31 Last Admin: 08/30/21 19:11 Dose: 125 mcg Documented by: Diltiazem HCl (Diltiazem 50 Mg/10 Ml Sdv) 5 mg IVPUSH ONETIME ONE Stop: 08/30/21 15:11 Last Admin: 08/30/21 15:15 Dose: 5 mg Documented by: Diltiazem HCl (Diltiazem 50 Mg/10 Ml Sdv) 5 mg IVPUSH ONETIME ONE Stop: 08/30/21 15:45 Last Admin: 08/30/21 21:49 Dose: Not Given Documented by: Diltiazem HCl (Diltiazem 50 Mg/10 Ml Sdv) 5 mg IVPUSH ONETIME ONE Stop: 08/30/21 18:23 Last Admin: 08/30/21 18:54 Dose: 5 mg Documented by: Furosemide (Furosemide 40 Mg/4 Ml Vial) 40 mg IVPUSH NOW ONE Stop: 08/30/21 16:54 Last Admin: 08/30/21 17:08 Dose: 40 mg Documented by: Gabapentin (Gabapentin 300 Mg Cap) 300 mg PO TID [facility] Dextrose/Sodium Chloride (Dextrose 5%-Normal Saline) 1,000 mls @ 125 mls/hr IV ASDIRECTED [facility] Last Admin: 08/30/21 15:12 Dose: 125 mls/hr Documented by: Sodium Chloride (Normal Saline) 1,000 mls @ 75 mls/hr IV ASDIRECTED [facility] Last Admin: 09/01/21 03:05 Dose: 75 mls/hr Documented by: Metoclopramide HCl (Metoclopramide 10 Mg/2 Ml Sdv) 5 mg IVPUSH ONETIME ONE Stop: 08/30/21 14:55 Last Admin: 08/30/21 15:12 Dose: 5 mg Documented by: Metoprolol Succinate (Metoprolol Succinate 50 Mg Tab.Er) 50 mg PO BID [facility] Potassium Bicarbonate (Potassium Bicarbonate/Cit Ac 10 Meq Effervescent Tab) 10 meq PO ONETIME ONE Stop: 08/31/21 10:27 Last Admin: 08/31/21 11:03 Dose: 10 meq Documented by: Potassium Chloride (Potassium Chloride 10 Meq Tab.Er) 10 meq PO BID [facility] Potassium Chloride (Potassium Chloride 10 Meq Tab.Er) 10 meq PO BID [facility] Last Admin: 09/01/21 20:45 Dose: 10 meq Documented by: Potassium Chloride (Potassium Chloride 10 Meq Tab.Er) 10 meq PO BID [facility] Rosuvastatin Calcium (Rosuvastatin 10 Mg Tab) 10 mg PO DAILY [facility] Temazepam (Temazepam 15 Mg Cap) 15 mg PO BEDTIME PRN PRN Reason: Sleep Last Admin: 08/30/21 22:34 Dose: 15 mg Documented by: Warfarin Sodium (Warfarin 3 Mg Tab) 3 mg PO QPM [facility] Stop: 08/31/21 18:01 Last Admin: 08/31/21 18:24 Dose: 3 mg Documented by: Warfarin Sodium (Warfarin 2.5 Mg Tab) 2.5 mg PO DAILY [facility] Warfarin Sodium (Warfarin 3 Mg Tab) 3 mg PO QPM [facility] Stop: 09/01/21 18:01 Last Admin: 09/01/21 18:10 Dose: 3 mg Documented by: Warfarin Sodium (Warfarin 4 Mg Tab) 4 mg PO QPM [facility] Stop: 09/02/21 18:01 Last Admin: 09/02/21 18:08 Dose: 4 mg Documented by: - Exam Quality Assessment: DVT Prophylaxis (Currently on warfarin pharmacy dosing.). No: Supplemental Oxygen General: Alert, Oriented, Cooperative, No Acute Distress HEENT: Pupils Equal, Pupils Reactive, EOMI Neck: Supple, Trachea Midline Lungs: Clear to Auscultation, Normal Respiratory Effort Cardiovascular: Regular Rate, Regular Rhythm GI/Abdominal Exam: Normal Bowel Sounds, Soft, No Distention (Female) Exam: Deferred Back Exam: Normal Inspection (Age-appropriate) Extremities: Normal Inspection, Normal Range of Motion, Pedal Edema, Limited Range of Motion (Right wrist with soft cast) Skin: Warm, Dry, Intact Neurological: No New Focal Deficit Psy/Mental Status: Alert, Normal Affect, Normal Mood - Patient Data Lab Results Last 24 hrs: Laboratory Results - last 24 hr 09/03/21 Range/Units 05:10 PT 14.8 H (9.7-12.0) SECONDS INR 1.35 Result Diagrams: 09/02/21 04:45 09/02/21 04:45 Sepsis Event Note - Evaluation Sepsis Screening Result: No Definite Risk - Focused Exam Vital Signs: Vital Signs Temp Pulse Resp BP BP Pulse Ox 09/03/21 12:00 36.2 C 16 98/82 98 09/03/21 09:50 99 09/03/21 09:49 100 104/62 09/03/21 08:00 36.4 C 16 104/62 94 L 09/03/21 06:00 94 L 09/03/21 05:00 94 L 09/03/21 04:00 36.4 C 16 105/71 92 L 09/03/21 03:00 91 L 09/03/21 02:00 91 L 09/03/21 01:00 89 L - Problem List & Annotations (1) Chronic atrial fibrillation with RVR SNOMED Code(s): 193857976, 778744494626665 Code(s): I48.20 - CHRONIC ATRIAL FIBRILLATION, UNSPECIFIED Status: Chronic Priority: High Current Visit: Yes (2) Congestive heart failure SNOMED Code(s): 72862660 Code(s): I50.9 - HEART FAILURE, UNSPECIFIED Status: Chronic Priority: High Current Visit: Yes Qualifiers: Heart failure type: unspecified Heart failure chronicity: chronic Brent lified Code(s): I50.9 - Heart failure, unspecified (3) Fracture, radius, distal SNOMED Code(s): 763436012 Code(s): S52.509A - UNSP FRACTURE OF THE LOWER END OF UNSP RADIUS, INIT Status: Acute Priority: High Current Visit: Yes Qualifiers: Encounter type: subsequent encounter Fracture type: closed Fracture morphology: Colles' Laterality: right Fracture healing: with routine healing Qualified Code(s): S52.531D - Colles' fracture of right radius, subsequent encounter for closed fracture with routine healing (4) Orthostatic hypotension SNOMED Code(s): 29482755 Code(s): I95.1 - ORTHOSTATIC HYPOTENSION Status: Acute Priority: High Current Visit: Yes (5) Recurrent syncope SNOMED Code(s): 327948406, 741764859, 802814724 Code(s): R55 - SYNCOPE AND COLLAPSE Status: Acute Priority: High Current Visit: Yes - Problem List Review Problem List Initiated/Reviewed/Updated: Yes - My Orders Last 24 Hours: My Active Orders 09/03/21 18:00 Warfarin [Coumadin] 5 mg PO QPM 09/04/21 05:11 INR,PT,PROTHROMBIN TIME [COAG] AM - Plan Plan:: The patient is an 85-year-old lady who will remain in the ICU due to her RVR. The patient's Cardizem drip will be tapered as her digitalis is on bloated. I started the patient on digitalis 125 mcg. She is also anticoagulated currently with warfarin. I have ordered repeat laboratory studies to include digoxin level. PT OT has been ordered for the patient. I have also ordered consult for physician orthopedic surgery to evaluate patient although this may happen as an outpatient. The patient is to continue her regular diet as tolerated. The patient may be considered for fdc facility placement as she has been having more frequent falls. I have also ordered speech study to help with the patient's possible dysphagia. The patient should be appropriate for discharge in 1 to 2 days. 09/01/2021 Patient is an 85-year-old lady who has improved somewhat and her A. fib with RVR has normalized. She is currently on digoxin and this will continue. The patient will remain in ICU as monitoring for necessity for return to Cardizem drip. This will happen if the patient does go into RVR. Have ordered repeat laboratory studies for the morning to include a digoxin level. PT OT is currently pending for the patient. The patient will likely need to have follow-up with home health and this is also been ordered. For now the patient will need to have follow-up with orthopedic surgeon with regards to her right wrist fracture. The patient is to have her regular diet as tolerated. She should be appropriate for discharge in 2 days. 09/02/2021 The patient is an 85-year-old lady who is currently awaiting placement. Her rate has been controlled although she remains in atrial fibrillation. She is also on digoxin and even though the digoxin level has been low the patient has been rate controlled. Her current dose of digoxin 125 mcg will be continued. PT OT will evaluate the patient. Patient should have home health organized for possible discharge tomorrow. The patient will need to have follow-up with orthopedic surgeon. I have also ordered repeat laboratory studies for her. This will include a digoxin level. I am concerned that the patient has had more frequent falls. This may interfere with her ability to get around at home. It is likely that the patient had been in atrial fibrillation and had undergone RVR which caused the patient to be dizzy and lightheaded and fall. The patient is also anticoagulated on warfarin for DVT prophylaxis. 09/03/2021 The patient is an 85-year-old lady who is doing better today and awaiting either placement or home health. The patient will continue on digoxin and she will likely need to be on this until evaluated by her primary care or cardiology. PT OT will continue for the patient. She is also anticoagulated with the use of warfarin and pharmacy has been dosing that although it has been difficult as the patient seems to be eating better while in the hospital. The patient has had more frequent falls and this is likely secondary to her A. fib with RVR. Depending on possible placement the patient should be appropriate for discharge today. The patient herself is feeling well. Otherwise, repeat laboratory studies have been ordered for the morning. This will include a digoxin level. The patient has been retained in hospitalization greater than 96 hours secondary to PT OT and availability of placement and monitoring for return of atrial fi brillation with RVR.
[2021-09-03] MEDS ORDERED: Warfarin 5 MG Tab PO SCH (18:00)
[2021-09-03] MEDS: Zolpidem 10 MG Tab PO SCH (21:11)
[2021-09-04] MEDS: Furosemide 40 MG Tab PO SCH (05:51)
[2021-09-04] MEDS: Acetaminophen 325 MG Tab PO PRN (05:52)
[2021-09-04] MEDS: Metoprolol Succinate 50 MG Tab.ER PO SCH (08:24)
[2021-09-04] MEDS: Digoxin 125 MCG Tab PO SCH (08:24)
[2021-09-04] MEDS: Rosuvastatin 10 MG Tab PO SCH (08:24)
[2021-09-04] MEDS: PARoxetine 20 MG Tab PO SCH (08:24)
[2021-09-04] MEDS: Gabapentin 300 MG Cap PO SCH (08:24)
[2021-09-04] MEDS: Potassium Chloride 20 MEQ Tab.ER PO SCH (08:25)
--- NOTE | 2021-09-04 09:40 | PCM.PN ---
- Patient Data Vitals - Most Recent: Last Vital Signs Temp 35.9 C L 09/04/21 07:50 Pulse 80 09/04/21 08:24 Resp 16 09/04/21 07:50 BP 105/66 09/04/21 08:24 Pulse Ox 95 09/04/21 07:50 Weight - Most Recent: 81.964 kg I&O - Last 24 Hours: Intake & Output 09/03/21 09/04/21 09/04/21 22:59 06:59 14:59 Intake Total 700 755 650 Output Total 400 900 175 Balance 300 -145 475 Lab Results Last 24 Hours: Laboratory Results - last 24 hr 08/30/21 09/04/21 Range/Units 15:09 05:07 PT 16.8 H (9.7-12.0) SECONDS INR 1.54 Antibody Identification Anti-D Med Orders - Current: Current Medications Acetaminophen (Acetaminophen 325 Mg Tab) 650 mg PO Q4H PRN PRN Reason: Pain (Mild 1-3)/fever Last Admin: 09/04/21 05:52 Dose: 650 mg Documented by: Digoxin (Digoxin 125 Mcg Tab) 125 mcg PO DAILY [facility] Last Admin: 09/04/21 08:24 Dose: 125 mcg Documented by: Docusate Sodium (Docusate Sodium 100 Mg Cap) 100 mg PO BID PRN PRN Reason: Constipation Furosemide (Furosemide 40 Mg Tab) 40 mg PO BIDDIURETIC [facility] Last Admin: 09/04/21 05:51 Dose: 40 mg Documented by: Gabapentin (Gabapentin 300 Mg Cap) 300 mg PO TID [facility] Last Admin: 09/04/21 08:24 Dose: 300 mg Documented by: Diltiazem HCl 100 mg/ Sodium (Chloride) 100 mls @ 5 mls/hr IV TITRATE [facility]; Protocol Last Titration: 08/30/21 21:00 Dose: 0 mg/hr, 0 mls/hr Documented by: Magnesium Hydroxide (Magnesium Hydroxide 400 Mg/5 Ml Susp 30 Ml Cup) 30 ml PO Q4H PRN PRN Reason: Heartburn Last Admin: 08/31/21 13:03 Dose: 30 ml Documented by: Metoprolol Succinate (Metoprolol Succinate 50 Mg Tab.Er) 50 mg PO BID [facility] Last Admin: 09/04/21 08:24 Dose: 50 mg Documented by: Ondansetron HCl (Ondansetron 4 Mg Tab.Dis) 4 mg PO Q6H PRN PRN Reason: nausea, able to take PO Oxycodone HCl (Oxycodone 5 Mg Tab) 5 mg PO Q4H PRN PRN Reason: Pain (moderate 4-6) Last Admin: 09/02/21 20:22 Dose: 5 mg Documented by: Paroxetine HCl (Paroxetine 20 Mg Tab) 20 mg PO DAILY [facility] Last Admin: 09/04/21 08:24 Dose: 20 mg Documented by: Paroxetine HCl (Paroxetine 10 Mg Tab) 10 mg PO DAILY [facility] Last Admin: 09/04/21 08:24 Dose: 10 mg Documented by: Potassium Chloride (Potassium Chloride 20 Meq Tab.Er) 20 meq PO BID [facility] Last Admin: 09/04/21 08:25 Dose: 20 meq Documented by: Rosuvastatin Calcium (Rosuvastatin 10 Mg Tab) 10 mg PO DAILY [facility] Last Admin: 09/04/21 08:24 Dose: 10 mg Documented by: Sucralfate (Sucralfate 1 Gm Tab) 1 gm PO 1200 [facility] Last Admin: 09/03/21 11:59 Dose: 1 gm Documented by: Warfarin Sodium (Pharmacy To Dose - Warfarin) 0 dose PO ASDIRECTED PRN PRN Reason: RX TO DOSE WARFARIN Zolpidem Tartrate (Zolpidem 10 Mg Tab) 10 mg PO BEDTIME [facility] Last Admin: 09/03/21 21:11 Dose: 10 mg Documented by: Discontinued Medications Diclofenac Sodium (Diclofenac Sodium 1% Gel 100 Gm Tube) 0 gm TOP BID [facility] Digoxin (Digoxin 500 Mcg/2 Ml Amp) 250 mcg IVPUSH ONETIME ONE Stop: 08/30/21 16:36 Last Admin: 08/30/21 17:09 Dose: 250 mcg Documented by: Digoxin (Digoxin 500 Mcg/2 Ml Amp) 125 mcg IVPUSH ONETIME ONE Stop: 08/30/21 18:31 Last Admin: 08/30/21 19:11 Dose: 125 mcg Documented by: Diltiazem HCl (Diltiazem 50 Mg/10 Ml Sdv) 5 mg IVPUSH ONETIME ONE Stop: 08/30/21 15:11 Last Admin: 08/30/21 15:15 Dose: 5 mg Documented by: Diltiazem HCl (Diltiazem 50 Mg/10 Ml Sdv) 5 mg IVPUSH ONETIME ONE Stop: 08/30/21 15:45 Last Admin: 08/30/21 21:49 Dose: Not Given Documented by: Diltiazem HCl (Diltiazem 50 Mg/10 Ml Sdv) 5 mg IVPUSH ONETIME ONE Stop: 08/30/21 18:23 Last Admin: 08/30/21 18:54 Dose: 5 mg Documented by: Furosemide (Furosemide 40 Mg/4 Ml Vial) 40 mg IVPUSH NOW ONE Stop: 08/30/21 16:54 Last Admin: 08/30/21 17:08 Dose: 40 mg Documented by: Gabapentin (Gabapentin 300 Mg Cap) 300 mg PO TID [facility] Dextrose/Sodium Chloride (Dextrose 5%-Normal Saline) 1,000 mls @ 125 mls/hr IV ASDIRECTED [facility] Last Admin: 08/30/21 15:12 Dose: 125 mls/hr Documented by: Sodium Chloride (Normal Saline) 1,000 mls @ 75 mls/hr IV ASDIRECTED [facility] Last Admin: 09/01/21 03:05 Dose: 75 mls/hr Documented by: Metoclopramide HCl (Metoclopramide 10 Mg/2 Ml Sdv) 5 mg IVPUSH ONETIME ONE Stop: 08/30/21 14:55 Last Admin: 08/30/21 15:12 Dose: 5 mg Documented by: Metoprolol Succinate (Metoprolol Succinate 50 Mg Tab.Er) 50 mg PO BID [facility] Potassium Bicarbonate (Potassium Bicarbonate/Cit Ac 10 Meq Effervescent Tab) 10 meq PO ONETIME ONE Stop: 08/31/21 10:27 Last Admin: 08/31/21 11:03 Dose: 10 meq Documented by: Potassium Chloride (Potassium Chloride 10 Meq Tab.Er) 10 meq PO BID [facility] Potassium Chloride (Potassium Chloride 10 Meq Tab.Er) 10 meq PO BID [facility] Last Admin: 09/01/21 20:45 Dose: 10 meq Documented by: Potassium Chloride (Potassium Chloride 10 Meq Tab.Er) 10 meq PO BID [facility] Rosuvastatin Calcium (Rosuvastatin 10 Mg Tab) 10 mg PO DAILY [facility] Temazepam (Temazepam 15 Mg Cap) 15 mg PO BEDTIME PRN PRN Reason: Sleep Last Admin: 08/30/21 22:34 Dose: 15 mg Documented by: Warfarin Sodium (Warfarin 3 Mg Tab) 3 mg PO QPM [facility] Stop: 08/31/21 18:01 Last Admin: 08/31/21 18:24 Dose: 3 mg Documented by: Warfarin Sodium (Warfarin 2.5 Mg Tab) 2.5 mg PO DAILY [facility] Warfarin Sodium (Warfarin 3 Mg Tab) 3 mg PO QPM [facility] Stop: 09/01/21 18:01 Last Admin: 09/01/21 18:10 Dose: 3 mg Documented by: Warfarin Sodium (Warfarin 4 Mg Tab) 4 mg PO QPM [facility] Stop: 09/02/21 18:01 Last Admin: 09/02/21 18:08 Dose: 4 mg Documented by: Warfarin Sodium (Warfarin 5 Mg Tab) 5 mg PO QPM [facility] Stop: 09/03/21 18:01 Last Admin: 09/03/21 17:03 Dose: 5 mg Documented by: - Patient Data Lab Results Last 24 hrs: Laboratory Results - last 24 hr 08/30/21 09/04/21 Range/Units 15:09 05:07 PT 16.8 H (9.7-12.0) SECONDS INR 1.54 Antibody Identification Anti-D Result Diagrams: 09/02/21 04:45 09/02/21 04:45 Sepsis Event Note - Evaluation Sepsis Screening Result: No Definite Risk - Focused Exam Vital Signs: Vital Signs Temp Pulse Pulse Resp BP BP Pulse Ox 09/04/21 08:24 66 105/66 09/04/21 07:50 35.9 C L 74 16 105/66 95 09/04/21 04:00 36.3 C 95 16 109/68 93 L 09/04/21 00:00 36.9 C 93 17 105/57 L 94 L - Problem List & Annotations (1) Chronic atrial fibrillation with RVR SNOMED Code(s): 961281409, 382954903307743 Code(s): I48.20 - CHRONIC ATRIAL FIBRILLATION, UNSPECIFIED Status: Chronic Priority: High Current Visit: Yes (2) Congestive heart failure SNOMED Code(s): 21781389 Code(s): I50.9 - HEART FAILURE, UNSPECIFIED Status: Chronic Priority: High Current Visit: Yes Qualifiers: Heart failure type: unspecified Heart failure chronicity: chronic Qualified Code(s): I50.9 - Heart failure, unspecified (3) Fracture, radius, distal SNOMED Code(s): 520398101 Code(s): S52.509A - UNSP FRACTURE OF THE LOWER END OF UNSP RADIUS, INIT Status: Acute Priority: High Current Visit: Yes Qualifiers: Encounter type: subsequent encounter Fracture type: closed Fracture morphology: Colles' Laterality: right Fracture healing: with routine healing Qualified Code(s): S52.531D - Colles' fracture of right radius, subsequent encounter for closed fracture with routine healing (4) Orthostatic hypotension SNOMED Code(s): 93943702 Code(s): I95.1 - ORTHOSTATIC HYPOTENSION Status: Acute Priority: High Current Visit: Yes (5) Recurrent syncope SNOMED Code(s): 442592113, 126776973, 534873921 Code(s): R55 - SYNCOPE AND COLLAPSE Status: Acute Priority: High Current Visit: Yes - Plan Plan:: The patient is an 85-year-old lady who will remain in the ICU due to her RVR. The patient's Cardizem drip will be tapered as her digitalis is on bloated. I started the patient on digitalis 125 mcg. She is also anticoagulated currently with warfarin. I have ordered repeat laboratory studies to include digoxin level. PT OT has been ordered for the patient. I have also ordered consult for physician orthopedic surgery to evaluate patient although this may happen as an outpatient. The patient is to continue her regular diet as tolerated. The isma ent may be considered for [facility]ci facility placement as she has been having more frequent falls. I have also ordered speech study to help with the patient's possible dysphagia. The patient should be appropriate for discharge in 1 to 2 days. 09/01/2021 Patient is an 85-year-old lady who has improved somewhat and her A. fib with RVR has normalized. She is currently on digoxin and this will continue. The patient will remain in ICU as monitoring for necessity for return to Cardizem drip. This will happen if the patient does go into RVR. Have ordered repeat laboratory studies for the morning to include a digoxin level. PT OT is currently pending for the patient. The patient will likely need to have follow-up with home health and this is also been ordered. For now the patient will need to have follow-up with orthopedic surgeon with regards to her right wrist fracture. The patient is to have her regular diet as tolerated. She should be appropriate for discharge in 2 days. 09/02/2021 The patient is an 85-year-old lady who is currently awaiting placement. Her rate has been controlled although she remains in atrial fibrillation. She is also on digoxin and even though the digoxin level has been low the patient has been rate controlled. Her current dose of digoxin 125 mcg will be continued. PT OT will evaluate the patient. Patient should have home health organized for possible discharge tomorrow. The patient will need to have follow-up with orthopedic surgeon. I have also ordered repeat laboratory studies for her. This will include a digoxin level. I am concerned that the patient has had more frequent falls. This may interfere with her ability to get around at home. It is likely that the patient had been in atrial fibrillation and had undergone RVR which caused the patient to be dizzy and lightheaded and fall. The patient is also anticoagulated on warfarin for DVT prophylaxis. 09/03/2021 The patient is an 85-year-old lady who is doing better today and awaiting either placement or home health. The patient will continue on digoxin and she will likely need to be on this until evaluated by her primary care or cardiology. PT OT will continue for the patient. She is also anticoagulated with the use of warfarin and pharmacy has been dosing that although it has been difficult as the patient seems to be eating better while in the hospital. The patient has had more frequent falls and this is likely secondary to her A. fib with RVR. Depending on possible placement the patient should be appropriate for discharge today. The patient herself is feeling well. Otherwise, repeat laboratory studies have been ordered for the morning. This will include a digoxin level. The patient has been retained in hospitalization greater than 96 hours secondary to PT OT and availability of placement and monitoring for return of atrial fibrillation with RVR.
[2021-09-04] MEDS ORDERED: Warfarin 4 MG Tab PO ONE (11:45)
[2021-09-04 11:54] VITALS: BP 92/57; PULSE 72
[2021-09-04] MEDS ORDERED: Warfarin 4 MG Tab PO SCH (12:00)
--- NOTE | 2021-09-04 12:09 | PCM.DCSUM1 ---
Discharge Summary - Hospital Course Diagnosis: Stroke: No - Discharge Data Discharge Date: 09/04/21 Discharge Disposition: Home, Self-Care 01 Condition: Fair - Referral to Home Health Primary Care Physician: Jim Andrade MD - Discharge Diagnosis/Problem(s) (1) Chronic atrial fibrillation with RVR SNOMED Code(s): 196150294, [id number] ICD Code: I48.20 - CHRONIC ATRIAL FIBRILLATION, UNSPECIFIED Status: Chronic Priority: High Problem Details: Rate controlled (2) Congestive heart failure SNOMED Code(s): 12276674 ICD Code: I50.9 - HEART FAILURE, UNSPECIFIED Status: Chronic Priority: High Qualifiers: Heart failure type: unspecified Heart failure chronicity: chronic Qualified Code(s): I50.9 - Heart failure, unspecified (3) Fracture, radius, distal SNOMED Code(s): 218830756 ICD Code: S52.509A - UNSP FRACTURE OF THE LOWER END OF UNSP RADIUS, INIT Status: Acute Priority: High Qualifiers: Encounter type: subsequent encounter Fracture type: closed Fracture morphology: Colles' Laterality: right Fracture healing: with routine healing Qualified Code(s): S52.531D - Colles' fracture of right radius, subsequent encounter for closed fracture with routine healing (4) Orthostatic hypotension SNOMED Code(s): 41183044 ICD Code: I95.1 - ORTHOSTATIC HYPOTENSION Status: Acute Priority: High (5) Recurrent syncope SNOMED Code(s): 546906571, 893351925, 593819109 ICD Code: R55 - SYNCOPE AND COLLAPSE Status: Acute Priority: High - Patient Summary/Data Consults: Consultations 08/30/21 18:08 OT Evaluation and Treatment [CONS] Routine PT Evaluation and Treatment [CONS] Routine 09/01/21 08:28 Consult to Home Health [CONS] Routine Hospital Course: The patient is an 85-year-old lady who has presented to the emergency department with a complaint of nausea and vomiting. Patient does have a chronic history of nausea and vomiting however, in the emergency department she was found to be in atrial fibrillation with RVR. The patient further reports that she has had a history of multiple falls and syncopal events. The patient's likely source of her syncopal episodes was due to her atrial fibrillation with RVR. The patient had a fall prior to presentation in the emergency department and she suffered a right Colles' fracture. She apparently had been having more frequent falls. While in the emergency department the patient was started on Cardizem drip and she was admitted to the intensive care unit to continue the Cardizem drip for her RVR. Patient does have chronic atrial fibrillation. The patient also had been loaded with digoxin IV while in the ER as well. As the patient's heart rate became better controlled with the use of digoxin the Cardizem drip was discontinued slowly and she was transitioned to p.o. digoxin 125 mcg/day. A prescription for the digoxin 125 mcg/day was given to the patient and electronically transmitted to her pharmacy. The patient did have testing which showed that she was subtherapeutic on a digoxin level however, her rate control had remained stable over the last 3 days. Physical therapy and Occupational Therapy had recommended that the patient receive assistance at home however, skilled facilities were not excepting patient nor was home health agencies. This was due to a staffing shortage. The patient does have a large family with strong support system available. The patient's right Colles' fracture had remained in the soft cast and she had been treated for pain for this. The patient has been arranged to have evaluation as an outpatient with orthopedic surgery. It should be noted the patient has severe osteoporosis. The patient had not required oxygen throughout her course of therapy. She had continued to improve to the point that she felt like she can go home and she does have strong family support. The patient has been otherwise hemodynamically stable. The patient also is in a DO NOT INTUBATE DO NOT RESUSCITATE category. The patient is recommended to continue with her diet as tolerated. She is also to have activity as tolerated. 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 The patient has been hemodynamically stable and she has been discharged from acute hospitalization with the recommendations listed above. Because of the patient's age, physical deconditioning and comorbidities to include arm fracture she is likely at a high risk for falls and readmission. - Patient Instructions Diet: Heart Healthy Diet Activity: As Tolerated Notify Provider of: Fever, Increased Pain - Discharge Plan *PRESCRIPTION DRUG MONITORING PROGRAM REVIEWED*: Not Applicable *COPY OF PRESCRIPTION DRUG MONITORING REPORT IN PATIENT TELLO: Not Applicable Prescriptions/Med Rec: Digoxin 125 mcg PO DAILY #30 tablet Home Medications: Home Meds PARoxetine [Paxil] 30 mg PO DAILY 03/01/15 [History] Potassium Chloride 10 meq PO BID 03/01/15 [History] Zolpidem [Ambien] 10 mg PO BEDTIME 03/01/15 [History] Gabapentin [Neurontin] 300 mg PO TID 01/02/17 [History] Rosuvastatin [Crestor] 10 mg PO DAILY 01/22/20 [History] Metoprolol Succinate 50 mg PO BID 10/03/20 [History] Sucralfate [Carafate] 1 g PO BID 06/26/21 [History] Diclofenac Sodium 75 mg PO BID 08/30/21 [History] Furosemide 40 mg PO BID 08/30/21 [History] Warfarin [Coumadin] 1.25 mg PO MOFR 08/31/21 [History] Warfarin [Coumadin] 2.5 mg PO SUTUWETHSA 08/31/21 [History] Digoxin 125 mcg PO DAILY #30 tablet 09/04/21 [Rx] Oxygen Therapy Mode: Room Air Patient Handouts: Heart Failure, Self-Care, [id number], Heart Failure Action Plan, Atrial Fibrillation Forms: ED Department Discharge Referrals: Luis Eduardo Mark MD [Physician] - 09/10/21 9:00 am (please arrive by 8:40 for check in.) Jim Andrade MD [Primary Care Provider] - 09/13/21 1:00 pm (Please arrive at 12:45 for check) - Discharge Summary/Plan Comment DC Time >30 min.: Yes Total # of Minutes for Discharge Time: 45 - General Info Date of Service: 09/04/21 Admission Dx/Problem (Free Text: Admission Diagnosis/Problem Admission Diagnosis/Problem Atrial fibrillation with rapid ventricular response, Fracture right wrist, closed Subjective Update: The patient has been doing very well. She is anxious to go home. She has a front wheel walker with an arm stabilizer available. She has good family support. The patient says that she can safely go home. Functional Status: Reports: Pain Controlled, Tolerating Diet. Denies: New Symptoms - Review of Systems General: Reports: Weakness HEENT: Reports: No Symptoms Pulmonary: Reports: No Symptoms Cardiovascular: Reports: No Symptoms 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: Reports: No Symptoms Genitourinary: Reports: No Symptoms Musculoskeletal: Reports: No Symptoms Skin: Reports: No Symptoms Neurological: Reports: No Symptoms Psychiatric: Reports: No Symptoms - Patient Data Vitals - Most Recent: Last Vital Signs Temp 36.2 C 09/04/21 11:53 Pulse 72 09/04/21 11:53 Resp 16 09/04/21 11:53 BP 92/57 L 09/04/21 11:53 Pulse Ox 96 09/04/21 11:53 Weight - Most Recent: 81.964 kg I&O - Last 24 hours: Intake & Output 09/03/21 09/04/21 09/04/21 22:59 06:59 14:59 Intake Total 700 755 650 Output Total 400 900 575 Balance 300 -145 75 Lab Results - Last 24 hrs: Laboratory Results - last 24 hr 08/30/21 09/04/21 Range/Units 15:09 05:07 PT 16.8 H (9.7-12.0) SECONDS INR 1.54 Antibody Identification Anti-D Med Orders - Current: Current Medications Acetaminophen (Acetaminophen 325 Mg Tab) 650 mg PO Q4H PRN PRN Reason: Pain (Mild 1-3)/fever Last Admin: 09/04/21 05:52 Dose: 650 mg Documented by: Digoxin (Digoxin 125 Mcg Tab) 125 mcg PO DAILY [facility] Last Admin: 09/04/21 08:24 Dose: 125 mcg Documented by: Docusate Sodium (Docusate Sodium 100 Mg Cap) 100 mg PO BID PRN PRN Reason: Constipation Furosemide (Furosemide 40 Mg Tab) 40 mg PO BIDDIURETIC [facility] Last Admin: 09/04/21 05:51 Dose: 40 mg Documented by: Gabapentin (Gabapentin 300 Mg Cap) 300 mg PO TID [facility] Last Admin: 09/04/21 08:24 Dose: 300 mg Documented by: Diltiazem HCl 100 mg/ Sodium (Chloride) 100 mls @ 5 mls/hr IV TITRATE [facility]; Protocol Last Titration: 08/30/21 21:00 Dose: 0 mg/hr, 0 mls/hr Documented by: Magnesium Hydroxide (Magnesium Hydroxide 400 Mg/5 Ml Susp 30 Ml Cup) 30 ml PO Q4H PRN PRN Reason: Heartburn Last Admin: 08/31/21 13:03 Dose: 30 ml Documented by: Metoprolol Succinate (Metoprolol Succinate 50 Mg Tab.Er) 50 mg PO BID [facility] Last Admin: 09/04/21 08:24 Dose: 50 mg Documented by: Ondansetron HCl (Ondansetron 4 Mg Tab.Dis) 4 mg PO Q6H PRN PRN Reason: nausea, able to take PO Oxycodone HCl (Oxycodone 5 Mg Tab) 5 mg PO Q4H PRN PRN Reason: Pain (moderate 4-6) Last Admin: 09/02/21 20:22 Dose: 5 mg Documented by: Paroxetine HCl (Paroxetine 20 Mg Tab) 20 mg PO DAILY [facility] Last Admin: 09/04/21 08:24 Dose: 20 mg Documented by: Paroxetine HCl (Paroxetine 10 Mg Tab) 10 mg PO DAILY [facility] Last Admin: 09/04/21 08:24 Dose: 10 mg Documented by: Potassium Chloride (Potassium Chloride 20 Meq Tab.Er) 20 meq PO BID [facility] Last Admin: 09/04/21 08:25 Dose: 20 meq Documented by: Rosuvastatin Calcium (Rosuvastatin 10 Mg Tab) 10 mg PO DAILY [facility] Last Admin: 09/04/21 08:24 Dose: 10 mg Documented by: Sucralfate (Sucralfate 1 Gm Tab) 1 gm PO 1200 [facility] Warfarin Sodium (Pharmacy To Dose - Warfarin) 0 dose PO ASDIRECTED PRN PRN Reason: RX TO DOSE WARFARIN Zolpidem Tartrate (Zolpidem 10 Mg Tab) 10 mg PO BEDTIME [facility] Last Admin: 09/03/21 21:11 Dose: 10 mg Documented by: Discontinued Medications Diclofenac Sodium (Diclofenac Sodium 1% Gel 100 Gm Tube) 0 gm TOP BID [facility] Digoxin (Digoxin 500 Mcg/2 Ml Amp) 250 mcg IVPUSH ONETIME ONE Stop: 08/30/21 16:36 Last Admin: 08/30/21 17:09 Dose: 250 mcg Documented by: Digoxin (Digoxin 500 Mcg/2 Ml Amp) 125 mcg IVPUSH ONETIME ONE Stop: 08/30/21 18:31 Last Admin: 08/30/21 19:11 Dose: 125 mcg Documented by: Diltiazem HCl (Diltiazem 50 Mg/10 Ml Sdv) 5 mg IVPUSH ONETIME ONE Stop: 08/30/21 15:11 Last Admin: 08/30/21 15:15 Dose: 5 mg Documented by: Diltiazem HCl (Diltiazem 50 Mg/10 Ml Sdv) 5 mg IVPUSH ONETIME ONE Stop: 08/30/21 15:45 Last Admin: 08/30/21 21:49 Dose: Not Given Documented by: Diltiazem HCl (Diltiazem 50 Mg/10 Ml Sdv) 5 mg IVPUSH ONETIME ONE Stop: 08/30/21 18:23 Last Admin: 08/30/21 18:54 Dose: 5 mg Documented by: Furosemide (Furosemide 40 Mg/4 Ml Vial) 40 mg IVPUSH NOW ONE Stop: 08/30/21 16:54 Last Admin: 08/30/21 17:08 Dose: 40 mg Documented by: Gabapentin (Gabapentin 300 Mg Cap) 300 mg PO TID [facility] Dextrose/Sodium Chloride (Dextrose 5%-Normal Saline) 1,000 mls @ 125 mls/hr IV ASDIRECTED [facility] Last Admin: 08/30/21 15:12 Dose: 125 mls/hr Documented by: Sodium Chloride (Normal Saline) 1,000 mls @ 75 mls/hr IV ASDIRECTED [facility] Last Admin: 09/01/21 03:05 Dose: 75 mls/hr Documented by: Metoclopramide HCl (Metoclopramide 10 Mg/2 Ml Sdv) 5 mg IVPUSH ONETIME ONE Stop: 08/30/21 14:55 Last Admin: 08/30/21 15:12 Dose: 5 mg Documented by: Metoprolol Succinate (Metoprolol Succinate 50 Mg Tab.Er) 50 mg PO BID [facility] Potassium Bicarbonate (Potassium Bicarbonate/Cit Ac 10 Meq Effervescent Tab) 10 meq PO ONETIME ONE Stop: 08/31/21 10:27 Last Admin: 08/31/21 11:03 Dose: 10 meq Documented by: Potassium Chloride (Potassium Chloride 10 Meq Tab.Er) 10 meq PO BID [facility] Potassium Chloride (Potassium Chloride 10 Meq Tab.Er) 10 meq PO BID [facility] Last Admin: 09/01/21 20:45 Dose: 10 meq Documented by: Potassium Chloride (Potassium Chloride 10 Meq Tab.Er) 10 meq PO BID [facility] Rosuvastatin Calcium (Rosuvastatin 10 Mg Tab) 10 mg PO DAILY [facility] Sucralfate (Sucralfate 1 Gm Tab) 1 gm PO 1200 [facility] Last Admin: 09/03/21 11:59 Dose: 1 gm Documented by: Temazepam (Temazepam 15 Mg Cap) 15 mg PO BEDTIME PRN PRN Reason: Sleep Last Admin: 08/30/21 22:34 Dose: 15 mg Documented by: Warfarin Sodium (Warfarin 3 Mg Tab) 3 mg PO QPM [facility] Stop: 08/31/21 18:01 Last Admin: 08/31/21 18:24 Dose: 3 mg Documented by: Warfarin Sodium (Warfarin 2.5 Mg Tab) 2.5 mg PO DAILY [facility] Warfarin Sodium (Warfarin 3 Mg Tab) 3 mg PO QPM [facility] Stop: 09/01/21 18:01 Last Admin: 09/01/21 18:10 Dose: 3 mg Documented by: Warfarin Sodium (Warfarin 4 Mg Tab) 4 mg PO QPM [facility] Stop: 09/02/21 18:01 Last Admin: 09/02/21 18:08 Dose: 4 mg Documented by: Warfarin Sodium (Warfarin 5 Mg Tab) 5 mg PO QPM [facility] Stop: 09/03/21 18:01 Last Admin: 09/03/21 17:03 Dose: 5 mg Documented by: Warfarin Sodium (Warfarin 4 Mg Tab) 4 mg PO ONETIME ONE Stop: 09/04/21 11:46 Last Admin: 09/04/21 11:57 Dose: 4 mg Documented by: - Exam Quality Assessment: Denies: Supplemental Oxygen, DVT Prophylaxis General: Reports: Alert, Oriented, Cooperative, No Acute Distress HEENT: Reports: Pupils Equal, Pupils Reactive, EOMI, Mucous Membr. Moist/[place] Neck: Reports: Supple, Trachea Midline Lungs: Reports: Clear to Auscultation, Normal Respiratory Effort Cardiovascular: Reports: Regular Rate, Regular Rhythm GI/Abdominal Exam: Normal Bowel Sounds, Soft, Non-Tender, No Distention (Female) Exam: Deferred Rectal (Female) Exam: Deferred Back Exam: Reports: Full Range of Motion. Denies: Normal Inspection (Appropriate for age) Extremities: Normal Inspection, Normal Range of Motion, No Pedal Edema Skin: Reports: Warm, Dry, Intact Neurological: Reports: No New Focal Deficit Psy/Mental Status: Reports: Alert, Normal Affect, Normal Mood *Q Meaningful Use (DIS) - VTE *Q VTE Mechanical Contraindications *Q: At Risk for Falls VTE Pharmacological Contraindications *Q: High INR Value
[2021-09-04] MEDS ORDERED: Sucralfate 1 GM Tab PO SCH (14:00)
== END 2021-09-04 13:54 | disposition home or self-care (01) | DRG 309 ==
LOC: JD.ED 13:52 → JD.ICU 18:08
PROVIDERS: ADMIT Internal Medicine; ATTEND Internal Medicine
DX: R55 Syncope and collapse (principal); R53.1 Weakness; R06.02 Shortness of breath; I48.20 Chronic atrial fibrillation, unspecified; R79.82 Elevated C-reactive protein (CRP); R11.0 Nausea; D64.89 Other specified anemias; S52.501A Unspecified fracture of the lower end of right radius, initial encounter for closed fracture; M85.831 Other specified disorders of bone density and structure, right forearm; I13.0 Hypertensive heart and chronic kidney disease with heart failure and stage 1 through stage 4 chronic kidney disease, or unspecified chronic kidney disease; Z91.81 History of falling; I50.9 Heart failure, unspecified; S52.531D Colles' fracture of right radius, subsequent encounter for closed fracture with routine healing; I95.1 Orthostatic hypotension; Z66 Do not resuscitate; I47.1 Supraventricular tachycardia; Z79.899 Other long term (current) drug therapy; Z79.01 Long term (current) use of anticoagulants; R29.6 Repeated falls; H54.7 Unspecified visual loss; Z85.038 Personal history of other malignant neoplasm of large intestine; Z90.49 Acquired absence of other specified parts of digestive tract; W18.39XA Other fall on same level, initial encounter; E78.00 Pure hypercholesterolemia, unspecified; K21.9 Gastro-esophageal reflux disease without esophagitis; Z86.010 Personal history of colon polyps; R33.9 Retention of urine, unspecified; N18.30 Chronic kidney disease, stage 3 unspecified; M19.90 Unspecified osteoarthritis, unspecified site; G89.29 Other chronic pain; M54.9 Dorsalgia, unspecified; M81.0 Age-related osteoporosis without current pathological fracture; G43.909 Migraine, unspecified, not intractable, without status migrainosus; F41.9 Anxiety disorder, unspecified; F32.A Depression, unspecified; E66.9 Obesity, unspecified; M85.80 Other specified disorders of bone density and structure, unspecified site; Z98.49 Cataract extraction status, unspecified eye; Z90.89 Acquired absence of other organs; Z96.649 Presence of unspecified artificial hip joint; Z96.659 Presence of unspecified artificial knee joint; Z68.35 Body mass index [BMI] 35.0-35.9, adult; Z20.822 Contact with and (suspected) exposure to COVID-19
CPT/HCPCS: 36415; 71045; 73090; 73110; 80053; 82553; 83690; 83735; 83880; 84484; 85025; 85610; 85652; 85730; 86140; 86850; 86870; 86900; 86901; 93005; 96365; 96366; 96375; 99285; J1160; J1940; J2765; J3490 ×2; J7042; U0002; 80162; 81001; 97116-GP; 97162-GP; 97530-GP; A9270-GY; J7030

== ENCOUNTER 2022-10-18 11:49 | Emergency (ER) | payer MEDICARE, OTHER ==
[2022-10-18 12:04] VITALS: BP 159/101; PULSE 74
[2022-10-18] MEDS ORDERED: Furosemide 40 MG/4 ML VIAL IVPUSH ONE (13:43)
[2022-10-18 14:49] LABS: CORONAVIRUS COVID-19 NAA POSITIVE (NEGATIVE)
[2022-10-18] MEDS ORDERED: Furosemide 40 MG Tab PO ONE (15:03)
== END 2022-10-18 15:42 | disposition home or self-care (01) ==
LOC: JD.ED 11:49
DX: U07.1 COVID-19 (principal); I13.0 Hypertensive heart and chronic kidney disease with heart failure and stage 1 through stage 4 chronic kidney disease, or unspecified chronic kidney disease; N18.30 Chronic kidney disease, stage 3 unspecified; I50.9 Heart failure, unspecified; I48.91 Unspecified atrial fibrillation; R79.1 Abnormal coagulation profile; E78.00 Pure hypercholesterolemia, unspecified; E66.9 Obesity, unspecified; Z91.199 Patient's noncompliance with other medical treatment and regimen due to unspecified reason; Z68.33 Body mass index [BMI] 33.0-33.9, adult; Z88.0 Allergy status to penicillin; Z88.2 Allergy status to sulfonamides; Z88.1 Allergy status to other antibiotic agents; Z88.8 Allergy status to other drugs, medicaments and biological substances; Z79.01 Long term (current) use of anticoagulants; Z79.899 Other long term (current) drug therapy; Z20.822 Contact with and (suspected) exposure to COVID-19
CPT/HCPCS: 0241U; 36415; 71045; 80053; 80162; 81001; 82553; 83735; 83880; 84484; 85025; 85610; 85730; 86140; 93005; 96374; 99285; J1940

== ENCOUNTER 2023-04-03 18:06 | Emergency (ER) | payer MEDICARE, OTHER ==
[2023-04-03 23:05] VITALS: BP 154/117
[2023-04-03 23:09] VITALS: PULSE 74
== END 2023-04-03 21:30 | disposition home or self-care (01) ==
LOC: JD.ED 18:06
DX: R04.0 Epistaxis (principal); I48.91 Unspecified atrial fibrillation; I11.0 Hypertensive heart disease with heart failure; I50.9 Heart failure, unspecified; E78.00 Pure hypercholesterolemia, unspecified; K21.9 Gastro-esophageal reflux disease without esophagitis; E66.9 Obesity, unspecified; Z86.16 Personal history of COVID-19; Z88.8 Allergy status to other drugs, medicaments and biological substances; Z88.1 Allergy status to other antibiotic agents; Z88.0 Allergy status to penicillin; Z79.899 Other long term (current) drug therapy; Z79.01 Long term (current) use of anticoagulants; Z91.148 Patient's other noncompliance with medication regimen for other reason
CPT/HCPCS: 30903; 99283; C9046; 30901

== ENCOUNTER 2023-04-15 00:46 | Emergency (ER) | payer MEDICARE, OTHER ==
[2023-04-15] MEDS ORDERED: Sodium Chloride 0.9% 1,000 ML IV ONE (00:58)
[2023-04-15 01:06] LABS: BASOPHILS ABSOLUTE AUTO 0.02 K/mm3 (0.01-0.08); BASOPHILS PERCENT AUTO 0.3 % (0.1-1.2); EOSINOPHILS ABSOLUTE AUTO 0.02 K/mm3 (0.04-0.36); EOSINOPHILS PERCENT AUTO 0.3 (0.7-5.8); HEMATOCRIT 29.9 % (34.1-44.9); HEMOGLOBIN 9.3 gm/dl (11.2-15.7); IMMATURE GRAN ABSOLUTE AUTO 0.01 K/mm3 (0.00-0.10); IMMATURE GRAN PERCENT AUTO 0.1 % (<=1.0); LYMPHOCYTES ABSOLUTE AUTO 1.34 K/mm3 (1.18-3.74); LYMPHOCYTES PERCENT AUTO 18.2 % (19.3-51.7); MEAN CORPUSCULAR HEMOGLOBIN 30.3 pg (25.6-32.2); MEAN CORPUSCULAR HGB CONC 31.1 g/dl (32.2-35.5); MEAN CORPUSCULAR VOLUME 97.4 fl (79.4-94.8); MEAN PLATELET VOLUME 9.4 fl (9.4-12.3); MONOCYTES PERCENT AUTO 14.9 % (4.7-12.5); NEUTROPHILS ABSOLUTE AUTO 4.88 K/mm3 (1.56-6.13); NEUTROPHILS PERCENT AUTO 66.2 % (34.0-71.1); PLATELET COUNT,PLT 221 K/mm3 (182-369); RED BLOOD CELL COUNT 3.07 M/mm3 (3.98-5.22); WHITE BLOOD CELL COUNT,WBC 7.37 K/mm3 (3.98-10.04)
[2023-04-15 01:15] LABS: INR 1.23
[2023-04-15 01:22] LABS: ALBUMIN 3.2 g/dl (3.4-5.0); ANION GAP 11.6 (5-15); BILIRUBIN TOTAL 1.8 mg/dL (0.2-1.0); BUN/CREATININE RATIO 11.3 (14-18); CALCIUM 8.7 mg/dL (8.5-10.1); CREATININE 1.5 mg/dL (0.55-1.02); EST CRCL DRUG DOSING (CG) 27.66 mL/min; POTASSIUM,K 3.6 mEq/L (3.5-5.1); PROTEIN TOTAL,TP 6.5 g/dl (6.4-8.2)
[2023-04-15 01:25] LABS: APPEARANCE,URINE CLEAR (Clear); BILIRUBIN,URINE NEGATIVE (Negative); COLOR,URINE YELLOW (Yellow); GLUCOSE,URINE NEGATIVE (Negative); KETONES,URINE NEGATIVE (Negative); LEUKOCYTE ESTERASE,URINE NEGATIVE (Negative); NITRITE,URINE NEGATIVE (Negative); OCCULT BLOOD,URINE NEGATIVE (Negative); PROTEIN,URINE NEGATIVE (Negative); UROBILINOGEN,URINE 0.2 (0.2-1.0)
[2023-04-15 02:04] LABS: BACTERIA,URINE RARE /hpf (FEW); HYALINE CASTS,URINE 0-5 /lpf (0-5); MUCUS,URINE RARE /hpf (FEW); RBC,URINE 0-5 /hpf (0-5); SQUAMOUS EPITHELIAL CELLS,UR 0-5 /hpf (0-5); WBC,URINE 0-5 /hpf (0-5)
[2023-04-15 02:17] VITALS: BP 113/65; PULSE 73
== END 2023-04-15 02:17 | disposition home or self-care (01) ==
LOC: JD.ED 00:46
DX: S00.83XA Contusion of other part of head, initial encounter (principal); I48.91 Unspecified atrial fibrillation; E78.00 Pure hypercholesterolemia, unspecified; I12.9 Hypertensive chronic kidney disease with stage 1 through stage 4 chronic kidney disease, or unspecified chronic kidney disease; N18.30 Chronic kidney disease, stage 3 unspecified; I50.9 Heart failure, unspecified; E66.9 Obesity, unspecified; Z68.25 Body mass index [BMI] 25.0-25.9, adult; Z86.16 Personal history of COVID-19; Z88.8 Allergy status to other drugs, medicaments and biological substances; Z88.1 Allergy status to other antibiotic agents; Z88.0 Allergy status to penicillin; Z88.2 Allergy status to sulfonamides; Z79.899 Other long term (current) drug therapy; Z79.01 Long term (current) use of anticoagulants; W06.XXXA Fall from bed, initial encounter
CPT/HCPCS: 36415; 70450; 72125; 80053; 81001; 84484; 85025; 85610; 93005; 96360; 99284; J7030; 93010; 99283

== ENCOUNTER 2023-04-15 11:36 | Inpatient (IN) | payer MEDICARE, OTHER ==
[2023-04-15] MEDS ORDERED: Sodium Chloride 0.9% 10 ML Syringe FLUSH PRN (12:28)
[2023-04-15 12:48] LABS: BASOPHILS ABSOLUTE AUTO 0.01 K/mm3 (0.01-0.08); BASOPHILS PERCENT AUTO 0.2 % (0.1-1.2); EOSINOPHILS ABSOLUTE AUTO 0.02 K/mm3 (0.04-0.36); EOSINOPHILS PERCENT AUTO 0.4 (0.7-5.8); HEMATOCRIT 31.3 % (34.1-44.9); HEMOGLOBIN 9.7 gm/dl (11.2-15.7); LYMPHOCYTES ABSOLUTE AUTO 1.47 K/mm3 (1.18-3.74); LYMPHOCYTES PERCENT AUTO 28.7 % (19.3-51.7); MEAN CORPUSCULAR HEMOGLOBIN 30.2 pg (25.6-32.2); MEAN CORPUSCULAR VOLUME 97.5 fl (79.4-94.8); MEAN PLATELET VOLUME 8.9 fl (9.4-12.3); MONOCYTES ABSOLUTE AUTO 0.91 K/mm3 (0.24-0.36); MONOCYTES PERCENT AUTO 17.8 % (4.7-12.5); NEUTROPHILS ABSOLUTE AUTO 2.71 K/mm3 (1.56-6.13); NEUTROPHILS PERCENT AUTO 52.9 % (34.0-71.1); PLATELET COUNT,PLT 226 K/mm3 (182-369); RED BLOOD CELL COUNT 3.21 M/mm3 (3.98-5.22); WHITE BLOOD CELL COUNT,WBC 5.12 K/mm3 (3.98-10.04)
[2023-04-15 13:00] LABS: APPEARANCE,URINE CLEAR (Clear); BILIRUBIN,URINE NEGATIVE (Negative); COLOR,URINE YELLOW (Yellow); GLUCOSE,URINE NEGATIVE (Negative); KETONES,URINE NEGATIVE (Negative); LEUKOCYTE ESTERASE,URINE NEGATIVE (Negative); NITRITE,URINE NEGATIVE (Negative); OCCULT BLOOD,URINE NEGATIVE (Negative); PROTEIN,URINE NEGATIVE (Negative); UROBILINOGEN,URINE 0.2 (0.2-1.0)
[2023-04-15 13:06] LABS: BACTERIA,URINE FEW /hpf (FEW); EPITHELIAL CELLS,URINE 0-5 /hpf (0-5); MUCUS,URINE FEW /hpf (FEW); RBC,URINE 0-5 /hpf (0-5); WBC,URINE 0-5 /hpf (0-5)
[2023-04-15 13:15] LABS: SLIDE REVIEW ABNORMAL SMEAR
[2023-04-15 13:17] LABS: A/G RATIO 0.9 (1-2); ALBUMIN 3.4 g/dl (3.4-5.0); ANION GAP 13.7 (5-15); BILIRUBIN TOTAL 2.1 mg/dL (0.2-1.0); BUN/CREATININE RATIO 11.3 (14-18); CALCIUM 8.9 mg/dL (8.5-10.1); CREATININE 1.5 mg/dL (0.55-1.02); EST CRCL DRUG DOSING (CG) 19.7 mL/min; POTASSIUM,K 3.7 mEq/L (3.5-5.1)
[2023-04-15] MEDS ORDERED: Albuterol 6.7 GM Inhaler INH PRN (15:55)
[2023-04-15] MEDS ORDERED: Polyethylene Glycol 3350 Powder 17 GM Packet PO PRN (15:55)
[2023-04-15] MEDS ORDERED: Temazepam 7.5 MG Cap PO PRN (16:30)
[2023-04-15] MEDS: Acetaminophen 325 MG Tab PO PRN ×2 (18:05→22:56)
[2023-04-15] MEDS: Sodium Chloride 0.9% 1,000 ML IV SCH (18:38)
[2023-04-15] MEDS: Potassium Chloride 10 MEQ Tab.ER PO SCH (20:12)
[2023-04-15] MEDS: Gabapentin 100 MG Cap PO SCH (20:12)
[2023-04-16] MEDS: Sodium Chloride 0.9% 1,000 ML IV SCH (07:55)
[2023-04-16] MEDS: Gabapentin 100 MG Cap PO SCH (08:54)
[2023-04-16] MEDS: Potassium Chloride 10 MEQ Tab.ER PO SCH (08:54)
[2023-04-16] MEDS ORDERED: Digoxin 125 MCG Tab PO SCH (09:00)
[2023-04-16] MEDS ORDERED: Metoprolol Succinate 50 MG Tab.ER PO SCH (09:00)
[2023-04-16] MEDS ORDERED: PARoxetine 20 MG Tab PO SCH (09:00)
[2023-04-16 13:36] VITALS: BP 135/88; PULSE 107
[2023-04-16] MEDS ORDERED: Gabapentin 300 MG Cap PO SCH (15:00)
== END 2023-04-16 14:45 | disposition home or self-care (01) | DRG 641 ==
LOC: JD.ED 11:36 → JD.MS 18:21
PROVIDERS: ADMIT Internal Medicine; ATTEND Internal Medicine
DX: D64.89 Other specified anemias (principal); R62.7 Adult failure to thrive; I48.20 Chronic atrial fibrillation, unspecified; I50.32 Chronic diastolic (congestive) heart failure; I13.0 Hypertensive heart and chronic kidney disease with heart failure and stage 1 through stage 4 chronic kidney disease, or unspecified chronic kidney disease; N18.30 Chronic kidney disease, stage 3 unspecified; M25.512 Pain in left shoulder; D63.1 Anemia in chronic kidney disease; M25.531 Pain in right wrist; R29.6 Repeated falls; I48.91 Unspecified atrial fibrillation; S00.83XA Contusion of other part of head, initial encounter; F03.90 Unspecified dementia, unspecified severity, without behavioral disturbance, psychotic disturbance, mood disturbance, and anxiety; K21.9 Gastro-esophageal reflux disease without esophagitis; M81.0 Age-related osteoporosis without current pathological fracture; F41.9 Anxiety disorder, unspecified; F32.A Depression, unspecified; G43.909 Migraine, unspecified, not intractable, without status migrainosus; E78.00 Pure hypercholesterolemia, unspecified; M19.90 Unspecified osteoarthritis, unspecified site; E11.22 Type 2 diabetes mellitus with diabetic chronic kidney disease; I50.9 Heart failure, unspecified; E66.9 Obesity, unspecified; W06.XXXA Fall from bed, initial encounter; Z68.32 Body mass index [BMI] 32.0-32.9, adult; Z79.899 Other long term (current) drug therapy; Z79.01 Long term (current) use of anticoagulants; Z96.649 Presence of unspecified artificial hip joint; Z96.653 Presence of artificial knee joint, bilateral; Z66 Do not resuscitate; Z98.49 Cataract extraction status, unspecified eye; Z86.010 Personal history of colon polyps; Z98.890 Other specified postprocedural states; Z88.8 Allergy status to other drugs, medicaments and biological substances; Z88.0 Allergy status to penicillin; Z86.16 Personal history of COVID-19; Z88.1 Allergy status to other antibiotic agents; Z88.2 Allergy status to sulfonamides
CPT/HCPCS: 36415 ×2; 70450; 71045; 72125; 73030; 73110; 80053 ×2; 80162; 81001 ×2; 82947; 84484 ×2; 85025 ×2; 85610; 93005 ×2; 96360; 99284; 99285; A9270 ×2; J3490; J7030; 92610-GN; 93010; 97116-GP; 97162-GP; 97165-GO; 99223; 99239; 99283